=== PATIENT | female | born 1940 | race Caucasian/White ===

== ENCOUNTER 2019-07-02 08:34 | Outpatient (CLI) | payer MEDICARE, SELFPAY ==
--- NOTE | 2019-07-02 | ECHO_ITS ---
Patient Info Name: Alexus Ferrer Age: 79 years : 1940 Gender: Female Ht: 62 in Wt: 195 lbs BSA: 2.01 m2 HR: 59 bpm BP: 147 / 89 mmHg Heart Rhythm: Sinus Rhythm Technical Quality: Good Exam Date: 07/02/2019 9:14 AM Exam Location: [facility] Patient Status: Outpatient Admit Date: 07/02/2019 Staff Ordering Physician: Octavio Hwang MD Payroll Clerk: Joyce Garvey RDCS Attending Provider: Octavio Hwang MD Referring Physician: Jaiden MAJANO; Exam Type: CA echo doppler color flow Study Info Indications - hx/o breast ca chemo/radiation Complete two-dimensional, color flow and Doppler transthoracic echocardiogram is performed. Summary 1. Left ventricular chamber dimension is normal. 2. Left ventricular systolic function is normal, estimated at 60-65%. 3. Left atrial chamber dimension is mildly enlarged. 4. Trivial aortic mitral and tricuspid valve regurgitation. Left Ventricle Left ventricular chamber dimension is normal. Left ventricular systolic function is normal, estimated at 60-65%. The left ventricular diastolic function is normal. Right Ventricle Right ventricular chamber dimension is normal. Left Atria Left atrial chamber dimension is mildly enlarged. Right Atria Right atrial chamber dimension is normal. Aortic Valve The aortic valve is trileaflet. There is mild aortic valve sclerosis. There is trace aortic valve regurgitation. Pulmonic Valve The pulmonic valve is normal. There is trace pulmonic regurgitation. Mitral Valve The mitral valve has normal leaflets. There is trace mitral valve regurgitation. Tricuspid Valve The tricuspid valve leaflets are normal. Pericardium/Pleural The pericardium appears normal. Aorta The aortic root size at the sinus of Valsalva is normal. Left Ventricular Outflow Tract Name Value Normal LVOT 2D LVOT Diameter 2.0 cm LVOT Doppler LVOT Peak Gradient 5 mmHg LVOT Mean Gradient 2 mmHg LVOT VTI 25 cm LVOT VTI/AV VTI Ratio 0.8 LVOT Stroke Volume 75 ml LVOT CO 11.9 l/min LVOT CI 5.9 l/min/m2 Pulmonic Valve Name Value Normal PV Doppler PV Peak Gradient 3 mmHg Mitral Valve Name Value Normal MV Doppler MV Decel [place] 549 cm/s2 MV PHT 57 ms MV Area (PHT) 3.9 cm2 4.0-5.0 MV Diastolic Fu
== END 2019-07-02 08:35 | disposition home or self-care (01) ==
PROVIDERS: Visit Provider Internal Medicine Hematology & Oncology
DX: C50.812 Malignant neoplasm of overlapping sites of left female breast (principal); Z17.0 Estrogen receptor positive status [ER+]; I51.7 Cardiomegaly
CPT/HCPCS: 93306

== ENCOUNTER 2020-01-10 19:49 | Emergency (ER) | payer MEDICARE, SELFPAY ==
--- NOTE | ~2020-01-10 | CT_ITS ---
EXAMINATION: CT cervical spine wo con DATE: 01/10/2020 20:42 INDICATION: Fall. Head and neck injuries TECHNIQUE: Computed tomography (CT) of the cervical spine was performed without intravenous contrast. Automated exposure control and iterative reconstruction technique were employed. Exam dose: 422.66 mGy-cm total exam DLP. COMPARISON: None FINDINGS: C1 and C2 are normally aligned and the odontoid process is intact. No fracture or dislocation is evident. No prevertebral soft tissue swelling. There is approximately 1.4 mm anterolisthesis at C4-5. There is approximately 3 mm anterolisthesis at C7-T1. There is mild degenerative disc disease at C2-3, C3-4, moderate degenerative disc disease at C4-5. There is severe degenerative disease at C5-6 and C6-7. There are prominent erosive changes as well as joint space narrowing at the apophyseal joints of the cervical spine on the left. Erosive arthropathy should be considered. There is uncovertebral joint spurring at C3-4, C4-5, C5-6 and C6-7. IMPRESSION: Extensive degenerative changes of the cervical spine Erosive changes of the apophyseal joints of the left cervical spine; consider erosive arthropathy No fracture or dislocation or locked facet Reviewed, dictated and finalized at [facility]. Reviewed, dictated and finalized at [facility]. IMPRESSION: Extensive degenerative changes of the cervical spine Erosive changes of the apophyseal joints of the left cervical spine; consider e rosive arthropathy No fracture or dislocation or locked facet
--- NOTE | ~2020-01-10 | CT_ITS ---
EXAMINATION: CT brain wo con DATE: 01/10/2020 20:42 INDICATION: Fall. Head injury TECHNIQUE: Computed tomography (CT) of the head was performed without intravenous contrast. The mA wa s adjusted according to patient size. Iterative reconstruction technique was employed. Exam dose: 68 1.00 mGy-cm total exam DLP. COMPARISON: 05/03/2018 CT brain FINDINGS: There is bilateral vertebral artery calcification. Carotid siphon internal carotid artery c alcifications are noted. There is nonspecific diminished attenuation of the cerebral white matter, li marycruz due to chronic small vessel ischemic changes. Chronic left basal ganglia lacunar infarct. No intracranial mass lesion or hemorrhage or recent cerebrovascular accident is evident. There is no midline shift or mass effect. There is moderate cerebral atrophy. No subdural or epidural hematoma is detected. No fracture or bone destruction of the cranial vault is detected. There is minimal mucoperiosteal thi ckening along the lower medial wall of the right maxillary antrum. The paranasal sinuses and mastoid air cells are otherwise normally developed and aerated. No fracture or bone destruction of the cranial vault. IMPRESSION: Cerebral atherosclerosis and chronic small vessel ischemic changes of the cerebral white matter Chronic left basal ganglia lacunar infarct No acute intracranial finding or significant change since 05/03/2018 Reviewed, dictated and finalized at [facility]. Reviewed, dictated and finalized at [facility].
[2020-01-10 19:54] VITALS: BP 189/67; PULSE 58; RESP 20; TEMP 36.6; O2SAT 97
--- NOTE | 2020-01-10 20:02 | ECG_ITS ---
Measurements Intervals [place] Rate: 56 P: 69 NC: 209 QRS: 1 QRSD: 109 T: 43 QT: 444 QTc: 429 Interpretive Statements SINUS BRADYCARDIA DELAYED PRECORDIAL R/S TRANSITION BORDERLINE ST ABNORMALITY- LATERAL LEADS BASELINE WANDER- I, II, AVR, AVL, AVF, V1-V6 BORDERLINE ECG Electronically Signed On 01-11-2020 6:53:22 CDT by Alfonso Ascencio D.O.
[2020-01-10 20:10] LABS: Basophils Percent Auto 0.2 % (0.2-1.2); Hematocrit 42.4 % (37.0-47.0); Hemoglobin 14.2 g/dL (12.0-15.0); Immature Granulocyte Absolute 0.03 K/mm3 (0.00-0.031); Immature Granulocyte Percent A 0.3 % (0-0.5); Lymphocytes Absolute Auto 1.36 K/mm3 (0.9-3.2); Lymphocytes Percent Auto 14.7 % (18.3-44.2); Mean Corpuscular HGB Conc 33.5 g/dl (32-36); Mean Corpuscular Hemoglobin 29.5 pg (26-34); Mean Platelet Volume 9.5 fl (7.4-10.4); Monocytes Absolute Auto 0.5 K/mm3 (0.1-0.6); Monocytes Percent Auto 5.4 % (2.6-8.5); Neutrophils Absolute Auto 7.4 K/mm3 (1.3-6.7); Neutrophils Percent Auto 79.4 % (45.5-73.1); Platelet Count Result 165 k/mm3 (150-375); Red Blood Count 4.82 M/mm3 (4.2-5.4); Red Cell Distribution Width 13.2 % (11.5-14.5); White Blood Count 9.3 K/mm3 (4.5-10.0)
[2020-01-10 20:23] LABS: Alanine Aminotransferase 24 U/L (4-35); Albumin Level 4.3 g/dL (3.5-5.1); Alkaline Phosphatase 79 U/L (38-126); Anion Gap 10 mmol/L (8-16); Aspartate Amino Transferase 33 U/L (14-36); Bilirubin,Total 0.9 mg/dL (0.2-1.3); Blood Urea Nitrogen 17 mg/dL (7-17); Calcium 9.6 mg/dL (8.4-10.2); Carbon Dioxide 29 mmol/L (22-30); Chloride 95 mmol/L (98-107); Estimated Glomerular Filt Rate > 60; Glucose 200 mg/dL (65-105); Sodium 134 mmol/L (137-145)
[2020-01-10 21:19] LABS: Add Urine Microscopic? YES; Appearance Urine Clear (Clear); Bacteria Urine Trace /hpf; Bilirubin Urine Negative (Negative); Blood Urine 1+ (Negative); Color Urine Yellow (Yellow); Glucose Urine UA 3+ mg/dL (Negative); Ketones Urine 1+ mg/dL (Negative); Leukocyte Esterase Ur Trace LEU/UL (Negative); Mucus Urine Rare /lpf; Nitrate Urine Negative (Negative); Protein Urine 2+ mg/dL (Negative); RBC Urine 21-50 /hpf (0-2); Specific Grav Ur 1.017 (1.001-1.035); Squamous Epithelial Cell Urine Occasional /hpf (Few); Urobilinogen Urine Negative mg/dL (<2.0)
--- NOTE | 2020-01-10 21:30 | ED.FALL ---
HPI - Fall General Chief Complaint: Fall Stated Complaint: fall with head injury, dizziness Time Seen by Provider: 01/10/20 19:51 History of Present Illness HPI Narrative: Patient is an 79-year-old female who presents ER status post fall. She is doing laundry and turned when she lost her balance and fell forward onto her knees and struck her head on the ground. Denies loss of consciousness. Denies being on a blood thinner. She does report pain to her face and head. She arrives in a c-collar. Denies having any fevers or chills or sweats or burning urination. She has felt slightly weaker but unsure why. No chest pain or chest pressure prior to falling. Apparently the patient cannot get herself up and laid on the ground for 8 hours. Related Data Home Medications Medication Instructions Recorded Confirmed anastrozole 1 mg PO DAILY 02/15/19 12/17/19 Allergies Allergy/AdvReac Type Severity Reaction Status Date / Time metformin Allergy Mild GI upset Verified 12/17/19 11:29 sitagliptin Allergy Mild rhinitis Verified 12/17/19 11:29 amlodipine Allergy Unknown Constipatio Verified 12/17/19 11:29 n aspirin Allergy Unknown Ulcers Verified 12/17/19 11:29 lisinopril Allergy Unknown Cough Verified 12/17/19 11:29 losartan Allergy Unknown Wheezing Verified 12/17/19 11:29 Review of Systems Review of Systems: All systems reviewed & are unremarkable except as noted in HPI and below Constitutional: Constitutional: Denies chills, Denies fever(s) and Reports weakness ENT: Denies nasal congestion and Denies sore throat Cardiovascular: Cardiovascular: Denies chest pain and Denies radiating jaw, neck or arm pain Respiratory: Respiratory: Denies cough, Denies dyspnea and Denies wheezing Gastrointestinal: Gastrointestinal: Denies nausea and Denies vomiting Musculoskeletal: Musculoskeletal: Reports arthralgias, Denies joint swelling and Denies muscle cramps [facility] Past Medical History Medical History (Updated 01/11/20 @ 00:24 by Michael Saunders MD) Atrial fibrillation Diabetes type 2, controlled DVT (deep venous thrombosis) HER2-positive carcinoma of left breast (~01/2019) History of CHF (congestive heart failure) Hypertension Port-A-Cath in place Surgical History Surgical History (Updated 01/10/20 @ 21:34 by Michael Saunders MD) History of bilateral mastectomy History of cholecystectomy History of hysterectomy Family History Family History (Updated 11/12/18 @ 13:10 by DOCTOR UNKNOWN) Sibling Family history of glaucoma Mother Family history of diabetes mellitus in first degree relative Father Family history of Alzheimer's disease Other Asthma Carcinoma of colon Diabetes mellitus Family history of congestive heart failure Family history of lung cancer Social History Social History Smoking status: Never smoker Smoking end date: 05/05/1961 Alcohol intake: current Exam Narrative: Exam Narrative: GENERAL: Well-appearing, well-nourished, and in no acute distress. HEAD: Normocephalic, atraumatic. EYES: PERRL and EOMI. ENT: Mucous membranes moist. Abrasion to the nose and left cheek. NECK: C-spine immobilized without midline tenderness. CHEST: Clear to auscultation. No respiratory distress. HEART: Bradycardic and regular. Normal peripheral pulses. ABDOMEN: Soft, nontender, nondistended. EXTREMITIES: Normal range of motion. No edema. SKIN: Warm, dry, no rash. NEURO: Alert and oriented x3. Course Course Emergency Course: Patient up and ambulatory without issue. He is able to eat and drink. Hydrated. Mild UTI. Discharge home. Vital Signs Vital signs: Vital Signs Temperature 97.8 F 01/10/20 19:54 Pulse Rate 58 L 01/10/20 19:54 Respiratory Rate 01/10/20 19:54 Blood Pressure 189/67 H 01/10/20 19:54 Pulse Oximetry 97 01/10/20 19:54 Temperature 97.8 F 01/10/20 19:54 Pulse Rate 54 L 01/11/20 00:03 Respiratory Rate 01/11/20 00:03 Bl
[2020-01-10] MEDS: SODIUM CHLORIDE 0.9% IV 500 ML 999 ML IV CONT (21:45)
[2020-01-10 21:49] VITALS: BP 172/80; PULSE 58; RESP 18; O2SAT 97
[2020-01-10] MEDS: ONDANSETRON INJ 4 MG/2 ML VIAL IV PUSH (22:57)
[2020-01-10 22:59] VITALS: PULSE 55
--- NOTE | 2020-01-10 22:59 | PC.NURSE ---
edp INITALLY ORDER METOPROLO DOSE FOR PT HYPERTENSION. PT HR IN THE 50'S, VORB TO HOLD METOPOROL.
--- NOTE | 2020-01-11 00:01 | PC.NURSE ---
Pt able to keep water down w/o vomiting, EDP made aware.
[2020-01-11 00:03] VITALS: BP 174/67; PULSE 54; RESP 20; O2SAT 97
[2020-01-11] MEDS: NITROFURANTOIN MONOHYD MACROCR 100 MG CAP PO (00:52)
[2020-01-11 00:53] VITALS: BP 178/80; PULSE 60; RESP 18; TEMP 36.6; O2SAT 98
== END 2020-01-11 00:56 ==
PROVIDERS: Emergency Provider Emergency Medicine; PCP Family Medicine
DX: N39.0 Urinary tract infection, site not specified (principal); E86.0 Dehydration; I48.91 Unspecified atrial fibrillation; E11.9 Type 2 diabetes mellitus without complications; Z86.718 Personal history of other venous thrombosis and embolism; I11.0 Hypertensive heart disease with heart failure; I50.9 Heart failure, unspecified; Z79.84 Long term (current) use of oral hypoglycemic drugs; Z79.82 Long term (current) use of aspirin
CPT/HCPCS: 36415; 70450; 72125; 80053; 81001; 85025; 87077; 87086; 87088; 87186; 93005; 96374; 99284; A9270; J2405; J7040; L0140

== ENCOUNTER 2020-01-13 08:07 | Inpatient (IN) | payer MEDICARE, SELFPAY ==
[2020-01-13] VITALS (11 sets, daily range): BP systolic 100–199; BP diastolic 59–92; PULSE 55–88; RESP 17–25; TEMP 36.1–36.6; O2SAT 95–100; BMI 37.3
--- NOTE | ~2020-01-13 | CT_ITS ---
EXAMINATION: CT abdomen pelvis w con DATE: 01/13/2020 09:33 INDICATION: Abdominal pain, urinary retention TECHNIQUE: Computed tomography (CT) of the abdomen and pelvis was performed with 100 cc Omnipaque 350 intravenous contrast. Automated exposure control and iterative reconstruction technique were employe d. Exam dose: 1570.12 mGy-cm total exam DLP. COMPARISON: 06/17/2018 CT abdomen pelvis FINDINGS: There is minimal discoid atelectasis or scarring at the lung bases. Cardiomegaly. No pericardial or pleural effusion. Moderate sized hiatal hernia. Status post cholecystectomy. No hepatic, splenic, pancreatic, adrenal or renal space-occupying mass l esion is detected, other than very small upper pole left renal cyst and very small mid to upper right renal cyst. No bile duct or pancreatic duct dilatation. No urinary tract calculus or hydroureteronep hrosis. Infrarenal IVC filter is noted. There is extensive calcification of the abdominal aorta but no aneurysm. No intraperitoneal or retrop eritoneal or pelvic mass lesion or adenopathy or ascites. Status post hysterectomy. There is mild diffuse thickening of the urinary bladder wall but no surroun ding fat stranding. There are scattered diverticula of the sigmoid colon; no CT evidence of diverticulitis. No bowel obst ruction, bowel wall thickening, pneumatosis or intraperitoneal free air. Normal appendix. There is severe degenerative disc disease at L2-3 through L5-S1. Osteopenia. IMPRESSION: Cardiomegaly Moderate sized hiatal hernia Sigmoid diverticulosis; no evidence of diverticulitis Nonspecific mild thickening of the urinary bladder wall Infrarenal IVC filter Status post post cholecystectomy Status post hysterectomy Reviewed, dictated and finalized at [facility]. Reviewed, dictated and finalized at location [facility].
--- NOTE | ~2020-01-13 | MR_ITS ---
EXAMINATION: MR brain/brain stem wo/w con EXAM DATE: 01/13/2020 18:45 INDICATION: Weakness, dizziness. Fell. TECHNIQUE: Magnetic resonance imaging (MRI) of the brain/brain stem obtained without contrast. Sagit ace T1, axial diffusion, gradient echo (T2*), T1, T2, FLAIR sequences obtained. Patient was then inj ected with 18 cc intravenous Multihance contrast. Axial and coronal postcontrast T1 weighted sequence s obtained. Correlation is made to head CT same date. FINDINGS: There are 2 punctate acute infarctions in the cerebellar vermis, and 2 punctate acute infar ctions in the right side of the brainstem. No cerebral infarctions. Old left basal ganglia lacunar in farction. There are no areas of restricted diffusion to suggest acute infarction. There is no acute hemorrhage seen on the T2*, a hemosiderin sensitive sequence. No intraparenchymal brain mass lesion. There is moderate periventricular and subcortical T2/FLAIR signal hyperintensity, nonspecific but pr obably related to small vessel ischemic disease (microangiopathy). There is mild prominence of the sulci and ventricles related to cerebral atrophy. There are no extra-axial collections. Flow voids are seen in the cerebral arteries on the T2-weighted sequences consistent with their expected patenc y. The orbits are unremarkable. Soft tissue is unremarkable. There are no areas of abnormal enhanc ement on the postcontrast images. IMPRESSION: 1. 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 2. Chronic age related findings. 3. Old left basal ganglia lacunar infarction. Reviewed, dictated and finalized at location [facility].
--- NOTE | ~2020-01-13 | US_ITS ---
EXAMINATION: US carotid duplex BI EXAM DATE: 01/13/2020 16:48 INDICATION: Frequent falls. TECHNIQUE: Grayscale, color and pulsed Doppler images of the cervical carotid arteries were obtained . The degree of vessel stenosis is placed in one of the following categories: normal, <50% stenosis, 50-69% stenosis, >=70% stenosis but less than near-occlusion, near-occlusion, or occlusion. Note that percent stenosis relative to normal distal artery lumen diameter is indirectly measured from velocit y measurements as described by Erik, et al. Radiology 2003; 229:340-346. There is no prior study fo r comparison. FINDINGS: RIGHT SIDE: Right common carotid artery peak systolic velocity (PSV in cm/s): 50 Right bulb/internal carotid artery peak systolic velocity (PSV in cm/s): 97 Right internal carotid artery end diastolic velocity (EDV in cm/s): 18 Right ICA/CCA peak systolic ratio: 1.4 Right external carotid artery peak systolic velocity (PSV in cm/s): 90 Right vertebral artery antegrade flow: yes There is mild carotid bulb plaque. Velocity and Doppler waveforms in the common and internal carotid arteries is normal. LEFT SIDE: Left common carotid artery peak systolic velocity (PSV in cm/s): 86 Left bulb/internal carotid artery peak systolic velocity (PSV in cm/s): 74 Left internal carotid artery end diastolic velocity (EDV in cm/s): 17 Left ICA/CCA peak systolic ratio: Less than 1 Left external carotid artery peak systolic velocity (PSV in cm/s): 6c2 Left vertebral artery antegrade flow: Mild There is minimal carotid bulb plaque. Velocity and Doppler waveforms in the common and internal carotid arteries is normal. IMPRESSION: 1. Less than 50 percent stenosis in the right internal carotid artery. 2. Less than 50 percent stenosis in the left internal carotid artery. > Reviewed, dictated and finalized at location A.
--- NOTE | ~2020-01-13 | MR_ITS ---
EXAMINATION: MR thoracic spine wo/w con EXAM DATE: 01/13/2020 18:46 INDICATION: Weak this. Stroke. Fall. TECHNIQUE: Multi-sequential, multiplanar MR images of the thoracic spine were obtained without contra st. Sagittal T1, T2, T2 fat saturation, axial T2 weighted images reviewed. Axial T1 weighted sequenc e. Patient was then injected with 18 mL Multihance intravenous contrast and reimaged. Postcontrast axial and sagittal T1-weighted fat saturation sequences were obtained. FINDINGS: Study is limited due to patient motion. There is mild disc bulge at T6-7, along with promin ent amount of midthoracic epidural fat. The thoracic spinal cord does appear flattened at this T6-7 l evel, but without cord edema, no acute cord compression suspected. Difficult to quantify given the li mited axial images from motion, but thoracic spinal cord probably about half the AP diameter compared to above and below this level. Mild to moderate thoracic disc disease and facet arthropathy overall. There are no suspicious marrow signal abnormalities. There are no areas of abnormal enhancement on the post contrast images. IMPRESSION: 1. T6-7 mild disc bulge and prominent epidural fat causing some cord flattening without edema suspec aman, probably chronic. 2. Overall mild to moderate thoracic spondylosis. Reviewed, dictated and finalized at location A. IMPRESSION: 1. T6-7 mild disc bulge and prominent epidural fat causing some cord flattenin g without edema suspected, probably chronic. 2. Overall mild to moderate thoracic spondylosis.
--- NOTE | ~2020-01-13 | MR_ITS ---
EXAMINATION: MR cervical spine wo/w con EXAM DATE: 01/13/2020 18:45 INDICATION: Weakness. Fall today. Dizziness. TECHNIQUE: Multi-sequential, multiplanar MR images of the cervical spine were obtained without contra st. Axial T2, axial T2 MERGE sequence. Sagittal T1, T2, T2 fat saturation images also obtained. Axi al T1 weighted sequence. Patient was then injected with 18 mL Multihance intravenous contrast and re imaged. Postcontrast axial and sagittal T1-weighted fat saturation sequences were obtained. FINDINGS: Study is limited due to patient motion. There are no areas of abnormal enhancement on the post contrast images. There is moderate mid and lower cervical disc disease. There is 2 mm anterolis thesis C4 on C5 and C7 on T1. The spinal cord signal intensity and intrinsic morphology is normal. Ce rvicomedullary junction is normal in appearance. Evidence of advanced arthropathy causing multilevel neural foraminal stenosis. Level by level evaluation: Axial images significantly limited from patient motion, cannot confidently evaluate spondylosis. IMPRESSION: 1. Moderate to severe cervical spondylosis. 2. No cord compression or signal abnormality. Reviewed, dictated and finalized at location A.
--- NOTE | ~2020-01-13 | CT_ITS ---
EXAMINATION: CT brain wo con INDICATION: Weakness and dizziness COMPARISON: 01/10/2020 TECHNIQUE: Standard unenhanced head CT. The dose-length product (DLP) was 1570.12 mGy-cm. The mA was adjusted according to patient size. Iterative reconstruction technique was employed. FINDINGS: There is no acute intraparenchymal hemorrhage. No evidence of mass lesion. No evidence of a cute infarction. There are old lacunar infarcts in the left basal ganglia and left caudate. There is mild periventricular and subcortical hypodensity probably related to small vessel ischemic disease. T here is mild prominence of the sulci and ventricles related to cerebral atrophy. Intracranial calcifi ed cerebral atherosclerosis is noted. There are no extra-axial collections. There is no mass effect o r midline shift. Changes in the globes are likely from ocular lens surgery. The visualized sinuses a nd mastoid air cells are well aerated. IMPRESSION: 1. No acute intracranial abnormality. 2. Age related findings. Reviewed, dictated and finalized at location B.
--- NOTE | ~2020-01-13 | MR_ITS ---
EXAMINATION: MR lumbar spine wo/w con EXAM DATE: 01/13/2020 18:45 INDICATION: Weakness. Cerebellar, brainstem punctate strokes. TECHNIQUE: Multi-sequential, multiplanar MR images of the lumbar spine were obtained without contrast . Sagittal T1, T2, T2 fat saturation images. Axial T2 weighted images. Axial T1 weighted sequence. Patient was then injected with 18 mL Multihance intravenous contrast and reimaged. Postcontrast axi al and sagittal T1-weighted fat saturation sequences were obtained. FINDINGS: There are no areas of abnormal enhancement on the post contrast images. Artifact probably f rom IVC filter. There is moderate to severe disc disease at L3-4 and L4-5, moderate at L2-3 and L5-S1 . There is 3 mm anterolisthesis L5 on S1. The conus medullaris terminates at the L1/2 level and has n ormal signal intensity and morphology. There are no suspicious marrow signal abnormalities. Level by level evaluation: T12-L1: There is a mild to moderate diffuse disc bulge. Facet arthropathy: Mild. Neural foraminal stenosis: No stenosis. Central canal stenosis: No stenosis. L1-L2: There is a mild diffuse disc bulge. Facet arthropathy: Mild to moderate. Neural foraminal stenosis: No stenosis. Central canal stenosis: No stenosis. L2-L3: There is a mild to moderate diffuse disc bulge. Facet arthropathy: Mild to moderate. Neural foraminal stenosis: Mild to moderate right. Central canal stenosis: Mild. L3-L4: There is a mild to moderate diffuse disc bulge. Facet arthropathy: Mild to moderate. Neural foraminal stenosis: Moderate bilateral. Central canal stenosis: Mild to moderate. L4-L5: There is a mild to moderate diffuse disc bulge. Facet arthropathy: Mild to moderate . Ligamentum flavum enlargement . Neural foraminal stenosis: Moderate to severe left, mild to moderate right. Central canal stenosis: Moderate. L5-S1: There is a mild to moderate diffuse disc bulge. Facet arthropathy: Moderate. Neural foraminal stenosis: Moderate left, mild to moderate right. Central canal stenosis: Mild to moderate. IMPRESSION: Overall moderate to severe lumbar spondylosis as detailed above. No acute findings. Reviewed, dictated and finalized at location A.
--- NOTE | ~2020-01-13 | XR_ITS ---
EXAMINATION: XR chest 2V DATE: 01/13/2020 08:51 INDICATION: Weakness and dizziness TECHNIQUE: AP and lateral views of the chest are obtained. COMPARISON: 05/17/2019 FINDINGS: The lungs are free of acute opacities. There is no pleural effusion or pneumothorax. The ca rdiomediastinal silhouette is normal. There is moderate thoracic spondylosis. Advanced right glenohum eral osteoarthritis is noted. The left subclavian Port-A-Cath has been removed. A moderate-sized hiat al hernia is noted. IMPRESSION: 1. No acute cardiopulmonary abnormality. Reviewed, dictated and finalized at location B.
--- NOTE | ~2020-01-13 | CT_ITS ---
CT thoracic lumbar wo con DATE: 01/13/2020 09:33 INDICATION: Fall. Back pain. Lower abdominal pain. TECHNIQUE: Axial images were obtained through the thoracic and lumbar spine; sagittal and coronal rec onstructions. Exam dose: 1570.12 mGy-cm total exam DLP. COMPARISON: None FINDINGS: Diffuse osteopenia. There is mild levoscoliosis. There is severe degenerative disc disease at C5-6 and C6-7. There is approximately 2.5 mm anterolisthesis at C7-T1. There is degenerative spurring from C3-4 through the remainder of the thoracic spine. No thoracic spine fracture or bone destruction is evident. No fracture or bone destruction of the lumbar spine is noted. There is prominent posterior spurring at T12-L1. Posterior spurring is also noted at L2-3 through L5- S1. There is mild degenerative disease at L1-2. There is prominent degenerative disc disease at L2-3 through L5-S1, most severe at L3-4 and L4-5. There is degenerative change at the apophyseal joints of the lumbar and lumbosacral spine. The sacroiliac joints are intact. IVC filter. IMPRESSION: Degenerative changes of the cervical, thoracic and lumbar spine No thoracic or lumbar spine fracture is detected Reviewed, dictated and finalized at Location A. Reviewed, dictated and finalized at location A.
--- NOTE | 2020-01-13 08:06 | ED.WEAKNESS ---
HPI - Weakness General Chief complaint: Weakness Stated complaint: weakness, abd pain Source: patient and EMS Mode of arrival: EMS Limitations: no limitations History of Present Illness HPI Narrative: Patient is a 79-year-old female with a history of hypertension, recently diagnosed with a urinary tract infection who presents for evaluation of worsening weakness. Patient states that she had a fall on Friday was seen by our emergency department provider who diagnosed her with a slight urinary tract infection, patient was then discharged home. Patient then had follow-up with her primary care physician where she continued to feel slightly weak but was noted to have a normal neurological exam and was discharged back to [place] where the patient resides. Patient states that she typically is able to ambulate but is so weak she has been unable to ambulate. She is reporting lower abdominal pain. She has been taking her medication as prescribed. No fever, chills, nausea or vomiting. She denies dizziness or headache. She denies back pain. Patient denies numbness in her lower extremities. No difficulty with bowel movements. Per family, patient has had multiple falls over the last several weeks. Related Data Home Medications Medication Instructions Recorded Confirmed anastrozole 1 mg PO DAILY 02/15/19 01/12/20 Allergies Allergy/AdvReac Type Severity Reaction Status Date / Time metformin Allergy Mild GI upset Verified 01/13/20 08:13 sitagliptin Allergy Mild rhinitis Verified 01/13/20 08:13 amlodipine Allergy Unknown Constipatio Verified 01/13/20 08:13 n aspirin Allergy Unknown Ulcers Verified 01/13/20 08:13 lisinopril Allergy Unknown Cough Verified 01/13/20 08:13 losartan Allergy Unknown Wheezing Verified 01/13/20 08:13 Review of Systems Review of Systems: Narrative: CONSTITUTIONAL: Denies fever, chills, or sweats. EYES: Denies visual changes ENT: Denies rhinorrhea, congestion, sore throat, or otalgia. CARDIOVASCULAR: Denies chest pain, palpitations, or edema. RESPIRATORY: Denies cough or dyspnea. GASTROINTESTINAL: Reports lower abdominal pain, sharp in nature without nausea or vomiting GENITOURINARY: Denies dysuria or hematuria. SKIN: Denies rash or itching. MUSCULOSKELETAL: Denies back pain, joint pain, or myalgia. NEUROLOGIC: Denies headache, numbness, reports diffuse, nonfocal weakness mostly in her legs s [facility] [place] Past Medical History Medical History Atrial fibrillation Diabetes type 2, controlled DVT (deep venous thrombosis) HER2-positive carcinoma of left breast (~01/2019) History of CHF (congestive heart failure) Hypertension Port-A-Cath in place Surgical History Surgical History History of bilateral mastectomy History of cholecystectomy History of hysterectomy Family History Family History (Updated 11/12/18 @ 13:10 by DOCTOR UNKNOWN) Sibling Family history of glaucoma Mother Family history of diabetes mellitus in first degree relative Father Family history of Alzheimer's disease Other Asthma Carcinoma of colon Diabetes mellitus Family history of congestive heart failure Family history of lung cancer Social History Social History Smoking status: Never smoker Smoking end date: 05/05/1961 Alcohol intake: current Exam Narrative: Exam Narrative: GENERAL: Awake, alert, conversant HEAD: Normocephalic, atraumatic. EYES: PERRLA and EOMI. ENT: Nares clear, no rhinorrhea or epistaxis. Mucous membranes dry NECK: Supple. CHEST: No respiratory distress, breathing even and non labored HEART: Regular rate, sinus rhythm ABDOMEN:Non distended, mildly tender to palpation in the suprapubic area, bladder catheter actively draining 1 L of clear urine EXTREMITIES: Gross movement intact of the bilateral lower extremit
--- NOTE | 2020-01-13 08:11 | ECG_ITS ---
Measurements Intervals [place] Rate: 54 P: 59 DC: 197 QRS: -18 QRSD: 93 T: 56 QT: 386 QTc: 368 Interpretive Statements SINUS BRADYCARDIA BASELINE ARTIFACT- I, II, AVR, AVL, AVF, V3 BORDERLINE ECG Electronically Signed On 01-13-2020 8:26:48 CDT by Alfonso Ascencio D.O.
[2020-01-13 08:36] LABS: Add Urine Microscopic? YES; Appearance Urine Clear (Clear); Bilirubin Urine Negative (Negative); Blood Urine 1+ (Negative); Color Urine Yellow (Yellow); Glucose Urine UA 1+ mg/dL (Negative); Ketones Urine Trace mg/dL (Negative); Leukocyte Esterase Ur Negative LEU/UL (Negative); Mucus Urine Rare /lpf; Nitrate Urine Negative (Negative); Protein Urine Negative (Negative); RBC Urine 0-2 /hpf (0-2); Specific Grav Ur 1.011 (1.001-1.035); Urobilinogen Urine Negative mg/dL (<2.0); WBC Urine 0-3 /hpf
[2020-01-13 09:15] LABS: Basophils Percent Auto 0.5 % (0.2-1.2); Eosinophils Absolute Auto 0.1 K/mm3 (0-0.3); Eosinophils Percent Auto 0.8 % (0-4.4); Hematocrit 41.5 % (37.0-47.0); Hemoglobin 13.6 g/dL (12.0-15.0); Immature Granulocyte Absolute 0.13 K/mm3 (0.00-0.031); Immature Granulocyte Percent A 1.6 % (0-0.5); Lymphocytes Absolute Auto 1.73 K/mm3 (0.9-3.2); Lymphocytes Percent Auto 20.7 % (18.3-44.2); Mean Corpuscular HGB Conc 32.8 g/dl (32-36); Mean Corpuscular Hemoglobin 28.9 pg (26-34); Mean Corpuscular Volume 88.1 fl (80-100); Monocytes Absolute Auto 0.8 K/mm3 (0.1-0.6); Neutrophils Absolute Auto 5.6 K/mm3 (1.3-6.7); Neutrophils Percent Auto 67.4 % (45.5-73.1); Platelet Count Result 169 k/mm3 (150-375); Red Blood Count 4.71 M/mm3 (4.2-5.4); Red Cell Distribution Width 13.1 % (11.5-14.5); White Blood Count 8.4 K/mm3 (4.5-10.0)
[2020-01-13 09:23] LABS: Estimated CRCL calculation 57 ml/min; Estimated Glomerular Filt Rate > 60
[2020-01-13 09:31] LABS: Alanine Aminotransferase 23 U/L (4-35); Albumin Level 3.7 g/dL (3.5-5.1); Alkaline Phosphatase 66 U/L (38-126); Anion Gap 7 mmol/L (8-16); Aspartate Amino Transferase 37 U/L (14-36); Bilirubin,Total 1.1 mg/dL (0.2-1.3); Blood Urea Nitrogen 18 mg/dL (7-17); Calcium 8.8 mg/dL (8.4-10.2); Carbon Dioxide 30 mmol/L (22-30); Chloride 100 mmol/L (98-107); Estimated CRCL calculation 66 ml/min; Estimated Glomerular Filt Rate > 60; Glucose 183 mg/dL (65-105); Potassium 3.7 mmol/L (3.4-5.0); Sodium 137 mmol/L (137-145)
[2020-01-13 09:32] LABS: Creatine Kinase 94 U/L (30-135)
--- NOTE | 2020-01-13 09:33 | PC.NURSE ---
UPON ROUNDING ON PT, PT IN RADIOLOGY. WILL CHECK ON PT UPON HER RETURN.
--- NOTE | 2020-01-13 11:04 | PC.NURSE ---
PT REPORT TO SHORTY CABRERA AT THIS TIME, HE HAS ASSUMED PT CARE.
--- NOTE | 2020-01-13 12:52 | PC.NURSE ---
Spoke with EDP regarding pt hypertension. EDP states pt is ok to go to 2nd floor with her current blood pressure. Anne from 2nd floor notified.
--- NOTE | 2020-01-13 13:14 | ADMGEN ---
This patient, Alexus Ferrer, was admitted to 2 Medical Room 249-01. Patient/family oriented to hospital policies and general routines including ID bracelet, bed and alarms, visiting hours, pain management, procedures, bathroom and other care routines, personal items, smoking policy, room service/diet, and visiting hours. Valuables list has been completed. Information on how to activate the Rapid Response Team has been discussed. Patient/Family are encouraged to report perceived risks to care and to ask questions if they do not understand what they are told or what they should do.
--- NOTE | 2020-01-13 15:46 | PM.IMHP ---
H&P: HPI History of Present Illness Date/Time: 01/13/20 15:46 Chief complaint: lower leg weakness Narrative: Alexus Ferrer is a 79 year old female The patient has a history of having difficulty ambulating. The patient tends to leaned towards her right side. The patient was seen here in the emergency room this past Friday after she had a fall she was doing her laundry and she turned when she lost her balance and fell forward on her knees and struck her head on the ground. She has abrasions to the left side of her face but stated that her neck and right shoulder hurt. She is not on any blood thinners but currently has a DVT to the left popliteal area and has an IVC filter. Patient stated that she felt very weak. She was diagnosed with urinary tract infection and prescribed Macrobid. The patient did not start her antibiotics as of yet. On Friday the patient could not get herself up and laid on the ground for 8 hours. Patient was sent home on Friday the diagnosis of UTI and dehydration. She lives at [facility]. She did follow-up with her primary care doctor Dr. Araujo yesterday. Is noted that she had a CT scan of the brain and the C-spine on Friday and it was normal or labs were unremarkable. The patient has been complaining of dizziness with head change. Relieved by sitting still. The patient has had recurrent falls about 5 times the last month. Usually occurs when she is walking and he also noted that she is prone to walk on to the right which is been at on going problem for at least more than a year. She denies losing any consciousness when she falls. The patient came back to ER today because she was too weak to be able to ambulate. She is also reporting some lower abdominal pain. Her head CT today showed no acute intracranial abnormalities in age-related findings. Chest x-ray no acute cardiopulmonary abnormalities here. Abdominal pelvis CT impression was read as cardiomegaly. Moderate size hiatal hernia. Nonspecific mild thickening of the urinary bladder wall. Infrarenal IVC filter. Status post cholecystectomy. Status post hysterectmy. MRI of the spine neck and cervical spine as well as brain have been ordered for tomorrow. Neurology has been consulted. PT and OT have been ordered. The patient was given Tylenol and Zofran in the emergency room. Date of service 01/13/2020 Review of Systems Review of Systems: All systems reviewed & are unremarkable except as noted in HPI and below Constitutional: Constitutional: Reports as per HPI and Reports no additional constitutional complaints Eyes: Eyes: Reports as per HPI and Reports no additional eye complaints ENT: Reports system reviewed and no additional complaints, except as documented and Reports Normal hearing present Cardiovascular: Cardiovascular: Reports no additional cardiovascular complaints Respiratory: Respiratory: Reports no additional respiratory complaints and Reports no additional respiratory complaints Gastrointestinal: Gastrointestinal: Reports as per HPI and Reports no additional gastrointestinal complaints Musculoskeletal: Musculoskeletal: Reports no additional musculoskeletal complaints Integumentary/Breasts: Skin/Breast: Reports system reviewed and no additional complaints, except as docu and Reports as per HPI Neurologic: Reports system reviewed and no additional complaints, except as documented, Reports as per HPI and Reports Normal hearing present Psychiatric: Psychiatric: Reports no additional psychiatric complaints and Reports as per HPI Endocrine: Endocrine: Reports no additional endocrine complaints Hematologic/Lymphatic: Hematologic/Lymphatic: Reports no additional hematologic/lymphatic complaints Allergic/Immunologic: Allergic/Immunologic: Reports no additional allergic/immunologic complaints [facility] Past Medical History Medical History (Updated 01/13/20 @ 15:56 by Melissa Whiteside NP) Atrial fibrillation [place]
[2020-01-13 16:37] LABS: Hemoglobin A1C 7.1 % (<5.7)
--- NOTE | 2020-01-13 16:59 | PC.NURSE ---
1650- To MRI per stretcher.
--- NOTE | 2020-01-13 18:48 | PC.NURSE ---
Return from ER per stretcher.
[2020-01-13] MEDS: DOCUSATE SODIUM 100 MG CAPSULE PO (19:04)
[2020-01-13] MEDS: dilTIAZem HCL CD 180 MG CAP.ER.24H PO (19:04)
[2020-01-13] MEDS: PANTOPRAZOLE 40 MG TABLET PO (19:04)
[2020-01-13] MEDS: MECLIZINE HCL 6.25 MG TABLET PO (19:04)
[2020-01-13] MEDS: ACETAMINOPHEN 325 MG TABLET 650 MG PO (19:05)
[2020-01-13] MEDS: METOPROLOL TARTRATE 50 MG TAB PO (20:18)
[2020-01-13 23:00] LABS: Glucose Point of Care 244 (65-105)
[2020-01-14] VITALS (12 sets, daily range): BP systolic 121–186; BP diastolic 52–92; PULSE 49–61; RESP 18–22; TEMP 36.2–37.1; O2SAT 97–100
--- NOTE | 2020-01-14 | ECHO_ITS ---
Patient Info Name: Alexus Ferrer Age: 79 years : 1940 Gender: Female Ht: 62 in Wt: 204 lbs BSA: 2.06 m2 HR: 48 bpm BP: 155 / 80 mmHg Technical Quality: Good Exam Date: 01/14/2020 1:19 PM Exam Location: [facility] Pulmonary Exam Room: 249 Patient Status: Inpatient Admit Date: 01/14/2020 Staff Ordering Physician: Devante Manley PA-C Bread Supervisor: Joyce Garvey RDCS Attending Provider: Devante Manley PA-C Referring Physician: Vineet RUDOLPH; Exam Type: CA echo dop bubble study w con Study Info Indications - afib acute brain stem infarct Complete two-dimensional, color flow and Doppler transthoracic echocardiogram is performed with agitated saline. Summary 1. Left ventricular chamber dimension is normal. 2. Left ventricular systolic function is normal, estimated at 60-65%. 3. There is mildly increased left ventricular wall thickness. 4. The left ventricular diastolic function is grade I diastolic dysfunction. 5. E/e' 15 is elevated. 6. Left atrial chamber dimension is mildly enlarged. 7. There is mild aortic valve sclerosis. 8. There is trace aortic valve regurgitation. 9. The mitral valve has moderately calcified annulus. 10. There is trace mitral valve regurgitation. 11. No pulmonary hypertension, estimated pulmonary arterial systolic pressure is 23 mmHg. 12. Small atheroma in posterior aortic root. Left Ventricle E/e' 15 is elevated. Left ventricular chamber dimension is normal. Left ventricular systolic function is normal, estimated at 60-65%. There is mildly increased left ventricular wall thickness. The left ventricular diastolic function is grade I diastolic dysfunction. Right Ventricle Right ventricular chamber dimension is normal. Right ventricular systolic function is normal. Left Atria Left atrial chamber dimension is mildly enlarged. Right Atria Right atrial chamber dimension is normal. Atrial Septum Agitated saline injection opacified right sided cardiac chambers with and without valsalva manuerver without shunt to left sided cardiac chambers. Intact interatrial septum visualized by agitated saline imaging. Aortic Valve The aortic valve is trileaflet. There is mild aortic valve sclerosis. There is no aortic valve stenosis. There is trace aortic valve regurgitation. Pulmonic Valve There is no pulmonic regurgitation. Mitral Valve The mitral valve has moderately calcified annulus. There is no mitral valve stenosis. There is trace mitral valve regurgitation. Tricuspid Valve There is no tricuspid valve regurgitation. No pulmonary hypertension, estimated pulmonary arterial systolic pressure is 23 mmHg. Pericardium/Pleural There is no pericardial effusion. Inferior Vena Cava Normal inferior vena cava with >50% collapse upon inspiration consistent with normal right atrial pressure, 5 mmHg. Aorta Small atheroma in posterior aortic root. The aortic root size at the sinus of Valsalva is normal. Left Ventricular Outflow Tract Name Value Normal LVOT 2D LVOT Diameter 2.0 cm LVOT Doppler LVOT Peak Gradient 4 mmHg
[2020-01-14 05:01] LABS: Basophils Percent Auto 0.5 % (0.2-1.2); Eosinophils Absolute Auto 0.2 K/mm3 (0-0.3); Eosinophils Percent Auto 2.6 % (0-4.4); Hematocrit 42.1 % (37.0-47.0); Hemoglobin 13.9 g/dL (12.0-15.0); Immature Granulocyte Absolute 0.02 K/mm3 (0.00-0.031); Immature Granulocyte Percent A 0.3 % (0-0.5); Lymphocytes Absolute Auto 1.92 K/mm3 (0.9-3.2); Mean Corpuscular Hemoglobin 29.2 pg (26-34); Mean Corpuscular Volume 88.4 fl (80-100); Mean Platelet Volume 9.7 fl (7.4-10.4); Monocytes Absolute Auto 0.8 K/mm3 (0.1-0.6); Monocytes Percent Auto 9.6 % (2.6-8.5); Platelet Count Result 168 k/mm3 (150-375); Red Blood Count 4.76 M/mm3 (4.2-5.4)
[2020-01-14 05:27] LABS: Alanine Aminotransferase 21 U/L (4-35); Albumin Level 3.6 g/dL (3.5-5.1); Alkaline Phosphatase 69 U/L (38-126); Anion Gap 6 mmol/L (8-16); Aspartate Amino Transferase 26 U/L (14-36); Bilirubin,Total 0.9 mg/dL (0.2-1.3); Blood Urea Nitrogen 11 mg/dL (7-17); Calcium 8.9 mg/dL (8.4-10.2); Carbon Dioxide 28 mmol/L (22-30); Chloride 100 mmol/L (98-107); Estimated CRCL calculation 66 ml/min; Estimated Glomerular Filt Rate > 60; Glucose 172 mg/dL (65-105); Magnesium 1.9 mg/dL (1.6-2.3); Potassium 3.6 mmol/L (3.4-5.0); Sodium 134 mmol/L (137-145)
[2020-01-14 07:35] LABS: Glucose Point of Care 142 (65-105)
[2020-01-14] MEDS: MECLIZINE HCL 6.25 MG TABLET PO ×3 (08:05→16:19)
[2020-01-14] MEDS: POTASSIUM CHLORIDE 20 MEQ TABLET PO (08:05)
[2020-01-14] MEDS: METOPROLOL TARTRATE 50 MG TAB PO (08:06)
[2020-01-14] MEDS: ANASTROZOLE (*CHEMO) 1 MG TABLET PO (08:06)
[2020-01-14] MEDS: PANTOPRAZOLE 40 MG TABLET PO ×2 (08:06→16:19)
[2020-01-14] MEDS: dilTIAZem HCL CD 180 MG CAP.ER.24H PO (08:07)
[2020-01-14] MEDS: DOCUSATE SODIUM 100 MG CAPSULE PO ×2 (08:07→16:18)
--- NOTE | 2020-01-14 08:25 | PC.NURSE ---
Clarified Macrobid with patient. Patient stated she had Macrobid picked up on Friday01/12/2020 and started on 01/13/2020. She only took two doses (one day) of antibiotics so she will have 6 days total left of this treatment.
[2020-01-14] MEDS: NITROFURANTOIN MONOHYD MACROCR 100 MG CAP PO ×2 (10:51→20:22)
[2020-01-14 11:38] LABS: Glucose Point of Care 211 (65-105)
[2020-01-14] MEDS: INSULIN ASPART (*BKC) 100 UNITS/ML SUB-Q (11:40)
--- NOTE | 2020-01-14 12:32 | PM.IMPN ---
Progress Note: A&P Assessment and Plan (1) CVA (cerebral vascular accident): Code(s): I63.9 - Cerebral infarction, unspecified Status: Acute Assessment and Plan: Punctate acute cerebellar vermis and right-sided brainstem infarctions noted on Brain MRI yesterday. Discussed with Dr. Patino who will be visiting patient today. Patient has a history of gastric ulcers so will defer antiplatelet therapy to Neurology. Patient on anastrozole for breast cancer. Echo performed in 06/2019 which was relatively unremarkable. Son states he has seen interval improvement overnight with her symptoms, although still has deficits/incoordination noted on exam. Orthostatics negative last night Will await further rec from Dr. Patino PT/OT for now Will hold anastrozole as there is risk for stroke Monitor closely CC following and will be looking for placement for SNF Will obtain limited Echo with bubble study (2) Bilateral leg weakness: Code(s): R29.898 - Other symptoms and signs involving the musculoskeletal system Status: Acute Assessment and Plan: Possibly related to chronic spondylosis findings on MRI of spine. Dr. Patino following and appreciate recommendations. Continue PT/OT Meclizine for vertigo Likely SNF upon discharge (3) Diabetes type 2, controlled: Code(s): E11.9 - Type 2 diabetes mellitus without complications Status: Acute Assessment and Plan: A1c 7.1. Accuchecks ACHS, hypoglycemia protocol, correctional insulin, HH diet Monitor Will likely need to be placed back on medication at some point or will need to be monitored closely if diet controlled; follow up with PCP (4) Atrial fibrillation: Code(s): I48.91 - Unspecified atrial fibrillation Status: Chronic Assessment and Plan: HR today is in high 40s-50s predominantly. Sinus rhythm with PVCs and PACs noted. Rate controlled with metoprolol and diltiazem. No a/c; she would be at high risk for bleed given previous GI bleed, frequent falls, and advanced age. Will decrease metoprolol to 37.5 mg Q12 for now Continue home diltiazem Monitor and adjust as appropriate (5) Hypertension: Code(s): I10 - Essential (primary) hypertension Status: Chronic Assessment and Plan: BP 150s today. Given acute brain/brainstem infarcts, will allow for permissive HTN Continue with diltiazem Metoprolol 37.5 mg Q12 as above Monitor (6) Recurrent falls: Code(s): R29.6 - Repeated falls Status: Acute Assessment and Plan: recruiter coordinator consult placed for possible rehab placement. (7) HER2-positive carcinoma of left breast: Onset Date: ~01/2019 Code(s): C50.912 - Malignant neoplasm of unspecified site of left female breast Status: Acute Assessment and Plan: She has had a history of bilateral mastectomy with lymph node extraction she has completed her chemoradiation Will hold anastrozole given risk for stroke. Will need f/u with oncologist as outpatient Subjective Date/time seen: 01/14/20 12:32 Interval history: Patient is a 79 yo F with history of A. fib (rate controlled, no a/c, has IVC filter), DMII, HTN, previous DVT, and HER2-positive Ca of left breast (status post b/l mastectomy, chemoradation, now on anastrozole) who is here for evaluation for weakness, uncoordination, and now recently found punctate acute infarctions found on Brain/brainstem MRI. Patient is feeling okay today. Son is in rooms stating she is overall improving and closer to her baseline. She states she has head and neck pain she is associating with her recent fall earlier this week. She still has double vision since her fall
--- NOTE | 2020-01-14 12:44 | WPDNEURCNPN ---
Assessment and Plan Additional Plan considering that she has undergone MRI of the cervical spine which has revealed cervical spondylosis normal cervical medullary junction with advanced arthropathy, mild cord flattening at T6 and 7 without edema and lumbar MRI revealing mild to moderate central canal stenosis at L3-4 and L4-5 as well as L5-S1 also MRI of the brain showing acute cerebellar vermis and right-sided brainstem stroke with old left basal gangliar infarct. All these abnormalities are responsible for the gait dysfunction and weakness she will not benefit from the cervical surgery but if he continues to have gait dysfunction with ongoing complain in the lower extremities she will need a follow-up for the lower spine abnormalities. Her course could very well be complicated by diabetic neuropathy Consult date: 01/14/20 Time Seen: 12:15 HPI: Alexus Ferrer is a 79 year old femaleAdmitted to the hospital for the complaints of lower extremity weakness with leaning towards the right side patient had been seen in the emergency room a week before subsequent to fall while doing her laundry and turning losing the balance from that fall she sustained the abrasion to the left side of her face and developed neck and right shoulder pain she is not any blood thinner medications but has a DVT to the left popliteal area and is on IVC filter recently she was diagnosed to have urinary tract infection and was prescribed macro bed though she has not restarted the antibiotic until she came to the emergency room she had difficulties in getting off the boat floor and laid there for 8 hours he had a CT scan of the brain and cervical spine on Friday which were reportedly normal he has had recurrent falls at least 5 times over the last 4 weeks she has never become unconscious on this visit she was also complaining of lower abdominal discomfort for which CT scan of the abdomen was done she was found to have only cardiomegaly with moderate size hiatal hernia infrarenal IVC filter changes compatible with hysterectomy and cholecystectomy. In the past she has been documented to have atrial fibrillation paroxysmal in nature along with the history of carcinoma of the left breast congestive heart failure Port-A-Cath in place nonfunctioning x2 and removed Review of Systems Review of Systems: All systems reviewed & are unremarkable except as noted in HPI and below [facility] Past Medical History Medical History (Updated 01/14/20 @ 12:50 by Devante Manley PA-C) Atrial fibrillation Paroxysmal Diabetes type 2, controlled DVT (deep venous thrombosis) Left leg HER2-positive carcinoma of left breast (~01/2019) History of CHF (congestive heart failure) Hypertension Port-A-Cath in place nonfunctioning x2 in removed. Surgical History Surgical History (Updated 01/13/20 @ 15:56 by Melissa Whiteside NP) History of bilateral mastectomy With chemotherapy that ended approximately 1 and half years ago. And radiation to the left side. History of cholecystectomy History of hysterectomy History of removal of Port-a-Cath x2 Family History Family History Sibling Family history of glaucoma Mother Family history of diabetes mellitus in first degree relative Father Family history of Alzheimer's disease Other Asthma Carcinoma of colon Diabetes mellitus Family history of congestive heart failure Family history of lung cancer Social History Social History (Updated 01/13/20 @ 15:59 by Melissa Whiteside NP) Social History: the patient tells me that she has had 5 children. She is . 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 She is a full code. She drinks a glass a wine at night. No illicit drugs. No marijuana. Her son is the durable power clay mine cutting machine operator for healthcare. She is a former smoker. She smoked for a short period of time and quit in the 60s. Smoking packs per day: 0.5 Smoking cigarettes per da
[2020-01-14 16:26] LABS: Glucose Point of Care 165 (65-105)
[2020-01-14] MEDS: METOPROLOL TARTRATE 12.5 MG TABLET 37.5 MG PO (20:21)
[2020-01-14 21:42] LABS: Glucose Point of Care 207 (65-105)
[2020-01-15] VITALS (11 sets, daily range): BP systolic 130–169; BP diastolic 57–92; PULSE 47–78; RESP 18–20; TEMP 36.5–36.8; O2SAT 96–99
[2020-01-15 06:59] LABS: Anion Gap 6 mmol/L (8-16); Blood Urea Nitrogen 17 mg/dL (7-17); Calcium 8.9 mg/dL (8.4-10.2); Carbon Dioxide 30 mmol/L (22-30); Chloride 98 mmol/L (98-107); Estimated CRCL calculation 51 ml/min; Estimated Glomerular Filt Rate > 60; Glucose 176 mg/dL (65-105); Magnesium 1.9 mg/dL (1.6-2.3); Potassium 3.5 mmol/L (3.4-5.0); Sodium 134 mmol/L (137-145)
[2020-01-15 08:31] LABS: Glucose Point of Care 163 (65-105)
[2020-01-15] MEDS: MECLIZINE HCL 6.25 MG TABLET PO (08:32)
[2020-01-15] MEDS: METOPROLOL TARTRATE 12.5 MG TABLET 37.5 MG PO (08:32)
[2020-01-15] MEDS: DOCUSATE SODIUM 100 MG CAPSULE PO ×2 (08:33→17:26)
[2020-01-15] MEDS: PANTOPRAZOLE 40 MG TABLET PO ×2 (08:33→17:26)
[2020-01-15] MEDS: dilTIAZem HCL CD 180 MG CAP.ER.24H PO (08:33)
[2020-01-15] MEDS: NITROFURANTOIN MONOHYD MACROCR 100 MG CAP PO ×2 (08:33→20:26)
--- NOTE | 2020-01-15 11:24 | PM.IMPN ---
Progress Note: A&P Assessment and Plan (1) CVA (cerebral vascular accident): Code(s): I63.9 - Cerebral infarction, unspecified Status: Acute Assessment and Plan: Punctate acute cerebellar vermis and right-sided brainstem infarctions noted on Brain MRI during stay. Discussed with Dr. Patino; patient has a history of gastric ulcers so will defer antiplatelet therapy to Neurology. Patient on anastrozole for breast cancer. Echo shows normal EF, no thrombus, no intracardiac shunting. Will await further rec from Dr. Patino PT/OT for now Will hold anastrozole as there is risk for stroke Monitor closely CC following and will be looking for placement for SNF Increase meclizine to help with vertigo (2) Bilateral leg weakness: Code(s): R29.898 - Other symptoms and signs involving the musculoskeletal system Status: Acute Assessment and Plan: Possibly related to chronic spondylosis findings on MRI of spine. Dr. Patino following and appreciate recommendations. Continue PT/OT Likely SNF upon discharge (3) Diabetes type 2, controlled: Code(s): E11.9 - Type 2 diabetes mellitus without complications Status: Acute Assessment and Plan: A1c 7.1. Accuchecks ACHS, hypoglycemia protocol, correctional insulin, HH diet Monitor Will likely need to be placed back on medication at some point or will need to be monitored closely if diet controlled; follow up with PCP (4) Atrial fibrillation: Code(s): I48.91 - Unspecified atrial fibrillation Status: Chronic Assessment and Plan: HR today is in predominantly in 40s-50s. Sinus rhythm with PVCs and PACs noted. Rate controlled with metoprolol and diltiazem. No a/c; she would be at high risk for bleed given previous GI bleed, frequent falls, and advanced age. Will decrease metoprolol to 25 mg Q12 for now Continue home diltiazem Monitor and adjust as appropriate (5) Hypertension: Code(s): I10 - Essential (primary) hypertension Status: Chronic Assessment and Plan: BP 130s today, although as high as 180s sys yesterday. Given acute brain/brainstem infarcts, will allow for permissive HTN Continue with diltiazem Metoprolol 25 mg Q12 as above Monitor (6) Recurrent falls: Code(s): R29.6 - Repeated falls Status: Acute Assessment and Plan: resource coordinator consult placed for possible rehab placement. (7) HER2-positive carcinoma of left breast: Onset Date: ~01/2019 Code(s): C50.912 - Malignant neoplasm of unspecified site of left female breast Status: Acute Assessment and Plan: She has had a history of bilateral mastectomy with lymph node extraction she has completed her chemoradiation Will hold anastrozole given risk for stroke. Will need f/u with oncologist as outpatient Subjective Date/time seen: 01/15/20 11:24 Interval history: Patient is a 79 yo F with history of A. fib (rate controlled, no a/c, has IVC filter), DMII, HTN, previous DVT, and HER2-positive Ca of left breast (status post b/l mastectomy, chemoradation, now on anastrozole) who is here for evaluation for weakness, uncoordination likely due to acute punctate CVAs Brain/brainstem MRI. Patient is feeling wore out this morning. She still has vertigo, slight nausea, and double vision. She still notes bloating/belching, but has been having BMs since admission. Otherwise no other complaints. Denies f/c/s, cp/palpitations, sob/cough, n/v/d/c, abd pain, changes in BMs, dysuria, hematuria, calf pain/swelling. Review of Systems Review of Systems: All systems reviewed & are unremarkable except as noted in HPI and below Exam Narrative: Exam N
[2020-01-15 12:16] LABS: Glucose Point of Care 205 (65-105)
[2020-01-15] MEDS: INSULIN ASPART (*BKC) 100 UNITS/ML SUB-Q (12:46)
[2020-01-15] MEDS: SIMETHICONE 80 MG TAB.CHEW PO ×3 (12:48→20:26)
[2020-01-15] MEDS: MECLIZINE HCL 12.5 MG TABLET PO ×2 (12:48→18:28)
--- NOTE | 2020-01-15 13:13 | WPDNEUROPN ---
Objective Data Vital Signs Vital Signs: Vital Signs - 24 hr 01/14/20 14:00 01/14/20 16:00 01/14/20 20:00 Temperature 37.1 C Pulse Rate 56 L 61 57 L Respiratory Rate 18 Blood Pressure 143/66 H Pulse Oximetry 97 01/14/20 20:21 01/14/20 22:00 01/15/20 00:00 Temperature 36.3 C L Pulse Rate 58 L 60 48 L Respiratory Rate 18 Blood Pressure 161/78 H Pulse Oximetry 99 01/15/20 04:00 01/15/20 06:00 01/15/20 08:32 Temperature 36.8 C Pulse Rate 47 L 56 L 57 L Respiratory Rate 18 Blood Pressure 137/57 L Pulse Oximetry 96 01/15/20 12:00 Temperature Pulse Rate 78 Respiratory Rate Blood Pressure 130/92 H Pulse Oximetry Intake/Output Intake/Output: Intake & Output 01/12/20 01/13/20 01/14/20 01/15/20 23:59 23:59 23:59 23:59 Intake Total 540 2020 440 Output Total 350 1300 Balance 190 720 440 Meds/Results Medications: Active Medications Generic Name Dose Route Start Last Admin Trade Name Freq PRN Reason Stop Dose Admin Acetaminophen 650 mg 01/13/20 11:30 01/13/20 19:05 Tylenol Tablet PO 650 mg Q4H PRN Administration Mild Pain (1-3) or Fever Anastrozole 1 mg 01/14/20 09:00 01/14/20 08:06 Arimidex PO 02/13/20 09:01 1 mg DAILY EILEEN Administration Dextrose 12.5 gm 01/13/20 16:04 Dextrose 50% Syringe IV PUSH PRN PRN Hypoglycemia Protocol Diltiazem HCl 180 mg 01/13/20 16:15 01/15/20 08:33 Cardizem Cd PO 180 mg DAILY EILEEN Administration Docusate Sodium 100 mg 01/13/20 17:00 01/15/20 08:33 Colace Capsule PO 100 mg BID EILEEN Administration Glucagon 1 mg 01/13/20 16:04 Glucagon For Inj IM PRN PRN Hypoglycemia Protocol Glucose 15 gm 01/13/20 16:04 Glutose 15 PO PRN PRN Hypoglycemia Protocol Dextrose 1,000 mls @ 100 mls/hr 01/13/20 16:04 Dextrose 5% 1,000 Ml IVPB PRN PRN Hypoglycemia Protocol Insulin Aspart 2 - 5 units 01/13/20 17:00 01/15/20 12:46 Novolog SUB-Q 2 units TIDWM EILEEN Administration Protocol Meclizine HCl 12.5 mg 01/15/20 13:00 01/15/20 12:48 Antivert PO 12.5 mg TID EILEEN Administration Metoprolol Tartrate 25 mg 01/15/20 21:00 Lopressor PO Q12HR EILEEN Nitrofurantoin Macrocrystals 100 mg 01/14/20 09:00 01/15/20 08:33 Macrobid PO 01/19/20 21:01 100 mg Q12H EILEEN Administration Ondansetron HCl 4 mg 01/13/20 11:30 Zofran Inj IV PUSH Q4H PRN Nausea Pantoprazole Sodium 40 mg 01/13/20 17:00 01/15/20 08:33 Protonix PO 40 mg BID EILEEN Administration Simethicone 80 mg 01/15/20 13:00 01/15/20 12:48 Mylicon PO 80 mg QID EILEEN Administration Radiology Results: ITS Impressions Chest X-Ray 01/13/20 08:57 IMPRESSION: 1. No acute cardiopulmonary abnormality. Head CT 01/13/20 09:43 IMPRESSION: 1. No acute intracranial abnormality. 2. Age related findings. Abdomen/Pelvis CT 01/13/20 09:47 IMPRESSION: Cardiomegaly Moderate sized hiatal hernia Sigmoid diverticulosis; no evidence of diverticulitis Nonspecific mild thickening of the urinary bladder wall Infrarenal IVC filter Status post post cholecystectomy Status post hysterectomy Thoracic/Lumbar Spine CT 01/13/20 09:59 IMPRESSION: Degenerative changes of the cervical, thoracic and lumbar spine No thoracic or lumbar spine fracture is detected Carotid Doppler Study 01/13/20 17:12 IMPRESSION: 1. Less than 50 percent stenosis in the right internal carotid artery. 2. Less than 50 percent stenosis in the left internal carotid artery. > Brain MRI 01/13/20 18:58 IMPRESSION: 1. 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 2. Chronic age related findings. 3. Old left basal ganglia lacunar infarction. Cervical Spine MRI 01/13/20 19:04 IMPRESSION: 1. Moderate to severe cervical spondylosis. 2. No cord compre
--- NOTE | 2020-01-15 13:21 | WPDNEUROPN ---
Progress Note: A&P Assessment and Plan (1) CVA (cerebral vascular accident): Code(s): I63.9 - Cerebral infarction, unspecified Status: Acute (2) Hypertension: Code(s): I10 - Essential (primary) hypertension Status: Chronic (3) Atrial fibrillation: Code(s): I48.91 - Unspecified atrial fibrillation Status: Chronic (4) Diabetes type 2, controlled: Code(s): E11.9 - Type 2 diabetes mellitus without complications Status: Acute (5) Bilateral leg weakness: Code(s): R29.898 - Other symptoms and signs involving the musculoskeletal system Status: Acute (6) Recurrent falls: Code(s): R29.6 - Repeated falls Status: Acute (7) Neuropathy: Onset Date: Unknown Code(s): G62.9 - Polyneuropathy, unspecified Status: Acute Additional Plan considering all the evaluation she is not a surgical candidate at least at this stage and she will benefit from the rehab Review of Systems Review of Systems: All systems reviewed & are unremarkable except as noted in HPI and below Exam Narrative: Exam Narrative: examination reveals her to be awake alert cooperative in no obvious acute distress head normocephalic with no cranial bruit ear nose throat examination normal neck supple with no cervical bruit no thyromegaly no lymphadenopathy heart is regular lungs clear to auscultation with no rhonchi or crepitation abdomen is soft with no organomegaly neurological examination revealed her to be awake alert orient x3 is speech nor dysphasic no dysarthric no dystonic pupils round regular feels the vision full extraocular was full face symmetrical tongue midline motor examination revealed her to have decreased strength in upper and lower extremities move so in the lower extremities with decreased sensation distally because of the underlying diabetic neuropathy resulting in the M*Modal gait dysfunction Objective Data Vital Signs Vital Signs: Vital Signs - 24 hr 01/14/20 14:00 01/14/20 16:00 01/14/20 20:00 Temperature 37.1 C Pulse Rate 56 L 61 57 L Respiratory Rate 18 Blood Pressure 143/66 H Pulse Oximetry 97 01/14/20 20:21 01/14/20 22:00 01/15/20 00:00 Temperature 36.3 C L Pulse Rate 58 L 60 48 L Respiratory Rate 18 Blood Pressure 161/78 H Pulse Oximetry 99 01/15/20 04:00 01/15/20 06:00 01/15/20 08:00 Temperature 36.8 C Pulse Rate 47 L 56 L 50 L Respiratory Rate 18 Blood Pressure 137/57 L Pulse Oximetry 96 01/15/20 08:32 01/15/20 12:00 Temperature Pulse Rate 57 L 78 Respiratory Rate Blood Pressure 130/92 H Pulse Oximetry Intake/Output Intake/Output: Intake & Output 01/12/20 01/13/20 01/14/20 01/15/20 23:59 23:59 23:59 23:59 Intake Total 540 2020 440 Output Total 350 1300 Balance 190 720 440 Meds/Results Medications: Active Medications Generic Name Dose Route Start Last Admin Trade Name Freq PRN Reason Stop Dose Admin Acetaminophen 650 mg 01/13/20 11:30 01/13/20 19:05 Tylenol Tablet PO 650 mg Q4H PRN Administration Mild Pain (1-3) or Fever Anastrozole 1 mg 01/14/20 09:00 01/14/20 08:06 Arimidex PO 02/13/20 09:01 1 mg DAILY EILEEN Administration Dextrose 12.5 gm 01/13/20 16:04 Dextrose 50% Syringe IV PUSH PRN PRN Hypoglycemia Protocol Diltiazem HCl 180 mg 01/13/20 16:15 01/15/20 08:33 Cardizem Cd PO 180 mg DAILY EILEEN Administration Docusate Sodium 100 mg 01/13/20 17:00 01/15/20 08:33 Colace Capsule PO 100 mg BID EILEEN Administration Glucagon 1 mg 01/13/20 16:04 Glucagon For Inj IM PRN PRN Hypoglycemia Protocol Glucose 15 gm 01/13/20 16:04 Glutose 15 PO PRN PRN Hypoglycemia Protocol Dextrose 1,000 mls @ 100 mls/hr 01/13/20 16:04 Dextrose 5% 1,000 Ml IVPB PRN PRN Hypoglycemia Protocol Insulin Aspart 2 - 5 units 01/13/20 17:00 01/15/20 12:46 Novolog S
[2020-01-15 17:19] LABS: Glucose Point of Care 179 (65-105)
--- NOTE | 2020-01-15 17:25 | PC.NURSE ---
Called pharmacy and left message to request 1700 dose of meclizine and simethicone be sent to floor for administration.
[2020-01-15] MEDS: METOPROLOL TARTRATE 25 MG TABLET PO (20:25)
[2020-01-15 20:54] LABS: Glucose Point of Care 242 (65-105)
[2020-01-16] VITALS (8 sets, daily range): BP systolic 107–129; BP diastolic 50–61; PULSE 51–64; RESP 18–20; TEMP 36.4–36.8; O2SAT 94–100
[2020-01-16 06:41] LABS: Anion Gap 7 mmol/L (8-16); Blood Urea Nitrogen 18 mg/dL (7-17); Calcium 8.8 mg/dL (8.4-10.2); Carbon Dioxide 28 mmol/L (22-30); Chloride 101 mmol/L (98-107); Estimated CRCL calculation 58 ml/min; Estimated Glomerular Filt Rate > 60; Glucose 165 mg/dL (65-105); Magnesium 1.9 mg/dL (1.6-2.3); Potassium 3.4 mmol/L (3.4-5.0); Sodium 136 mmol/L (137-145)
[2020-01-16] MEDS: POTASSIUM CHLORIDE 20 MEQ TABLET 40 MEQ PO (08:02)
[2020-01-16] MEDS: PANTOPRAZOLE 40 MG TABLET PO ×2 (08:02→17:24)
[2020-01-16] MEDS: dilTIAZem HCL CD 180 MG CAP.ER.24H PO (08:02)
[2020-01-16] MEDS: MECLIZINE HCL 12.5 MG TABLET PO ×3 (08:03→17:25)
[2020-01-16] MEDS: NITROFURANTOIN MONOHYD MACROCR 100 MG CAP PO ×2 (08:03→20:06)
[2020-01-16] MEDS: DOCUSATE SODIUM 100 MG CAPSULE PO ×2 (08:03→17:24)
[2020-01-16] MEDS: SIMETHICONE 80 MG TAB.CHEW PO ×4 (08:03→20:06)
--- NOTE | 2020-01-16 08:10 | PC.NURSE ---
Call to pharmacy to request 0900 dose of metoprolol be sent to floor for administration.
[2020-01-16 08:18] LABS: Glucose Point of Care 178 (65-105)
[2020-01-16] MEDS: METOPROLOL TARTRATE 25 MG TABLET PO ×2 (08:33→20:07)
--- NOTE | 2020-01-16 11:17 | PM.IMPN ---
Progress Note: A&P Assessment and Plan (1) CVA (cerebral vascular accident): Code(s): I63.9 - Cerebral infarction, unspecified Status: Acute Assessment and Plan: Punctate acute cerebellar vermis and right-sided brainstem infarctions noted on Brain MRI during stay. Discussed case with Dr. Patino; patient has a history of gastric ulcers so will defer antiplatelet therapy to Neurology. Patient on anastrozole for breast cancer. Echo shows normal EF, no thrombus, no intracardiac shunting. Will await further rec from Dr. Patino PT/OT for now Will hold anastrozole as there is risk for stroke Monitor closely CC following and will be looking for placement for SNF Continue meclizine to help with vertigo (2) Bilateral leg weakness: Code(s): R29.898 - Other symptoms and signs involving the musculoskeletal system Status: Acute Assessment and Plan: Possibly related to chronic spondylosis findings on MRI of spine. Dr. Patino following and appreciate recommendations. Continue PT/OT Likely SNF upon discharge (3) Diabetes type 2, controlled: Code(s): E11.9 - Type 2 diabetes mellitus without complications Status: Acute Assessment and Plan: A1c 7.1. Accuchecks ACHS, hypoglycemia protocol, correctional insulin, HH diet Monitor Will likely need to be placed back on medication at some point or will need to be monitored closely if diet controlled; follow up with PCP (4) Atrial fibrillation: Code(s): I48.91 - Unspecified atrial fibrillation Status: Chronic Assessment and Plan: HR today is in predominantly in 50s. occassionally into 40s. Sinus rhythm with PVCs and PACs noted. Rate controlled with metoprolol and diltiazem. No a/c; she would be at high risk for bleed given previous GI bleed, frequent falls, and advanced age. Will continue metoprolol at 25 mg Q12 for now Continue home diltiazem Monitor and adjust as appropriate (5) Hypertension: Code(s): I10 - Essential (primary) hypertension Status: Chronic Assessment and Plan: BP 100s sys, although has been labile. Given acute brain/brainstem infarcts, will allow for permissive HTN Continue with diltiazem Metoprolol 25 mg Q12 as above Monitor (6) Recurrent falls: Code(s): R29.6 - Repeated falls Status: Acute Assessment and Plan: food services coordinator consult placed for possible rehab placement. (7) HER2-positive carcinoma of left breast: Onset Date: ~01/2019 Code(s): C50.912 - Malignant neoplasm of unspecified site of left female breast Status: Acute Assessment and Plan: She has had a history of bilateral mastectomy with lymph node extraction she has completed her chemoradiation Will hold anastrozole given risk for stroke. Will need f/u with oncologist as outpatient Subjective Date/time seen: 01/16/20 11:17 Interval history: Patient is a 79 yo F with history of A. fib (rate controlled, no a/c, has IVC filter), DMII, HTN, previous DVT, and HER2-positive Ca of left breast (status post b/l mastectomy, chemoradation, now on anastrozole) who is here for evaluation for weakness, uncoordination likely due to acute punctate CVAs Brain/brainstem MRI. Patient is feeling wore out again this morning after working with therapy today. She still has vertigo, slight nausea, and double vision again today. Otherwise no other complaints. Denies f/c/s, cp/palpitations, sob/cough, v/d/c, abd pain, changes in BMs, dysuria, hematuria, calf pain/swelling. Review of Systems Review of Systems: All systems reviewed & are unremarkable except as noted in HPI and below Exam Narrative: Exam Narrative: General:
[2020-01-16 11:42] LABS: Glucose Point of Care 227 (65-105)
[2020-01-16] MEDS: INSULIN ASPART (*BKC) 100 UNITS/ML SUB-Q ×2 (11:42→17:26)
[2020-01-16 17:28] LABS: Glucose Point of Care 210 (65-105)
[2020-01-16 20:48] LABS: Glucose Point of Care 211 (65-105)
[2020-01-17 06:00] VITALS: BP 103/68; PULSE 63; RESP 18; TEMP 36; O2SAT 98
[2020-01-17 06:06] LABS: Anion Gap 6 mmol/L (8-16); Blood Urea Nitrogen 17 mg/dL (7-17); Calcium 9.2 mg/dL (8.4-10.2); Carbon Dioxide 29 mmol/L (22-30); Chloride 100 mmol/L (98-107); Estimated CRCL calculation 51 ml/min; Estimated Glomerular Filt Rate > 60; Glucose 196 mg/dL (65-105); Potassium 4.3 mmol/L (3.4-5.0); Sodium 135 mmol/L (137-145)
[2020-01-17 07:44] LABS: Glucose Point of Care 185 (65-105)
[2020-01-17 08:30] VITALS: BP 110/62; PULSE 64
[2020-01-17] MEDS: DOCUSATE SODIUM 100 MG CAPSULE PO ×2 (08:32→16:17)
[2020-01-17] MEDS: MECLIZINE HCL 12.5 MG TABLET PO ×3 (08:32→16:18)
[2020-01-17] MEDS: NITROFURANTOIN MONOHYD MACROCR 100 MG CAP PO ×2 (08:32→21:20)
[2020-01-17 08:33] VITALS: PULSE 64
[2020-01-17] MEDS: METOPROLOL TARTRATE 25 MG TABLET PO ×2 (08:33→21:20)
[2020-01-17] MEDS: PANTOPRAZOLE 40 MG TABLET PO ×2 (08:33→16:18)
[2020-01-17] MEDS: dilTIAZem HCL CD 180 MG CAP.ER.24H PO (08:33)
[2020-01-17] MEDS: SIMETHICONE 80 MG TAB.CHEW PO ×4 (08:33→21:20)
[2020-01-17 11:15] LABS: Glucose Point of Care 244 (65-105)
--- NOTE | 2020-01-17 11:28 | PM.IMPN ---
Progress Note: A&P Assessment and Plan (1) CVA (cerebral vascular accident): Code(s): I63.9 - Cerebral infarction, unspecified Status: Acute Assessment and Plan: Punctate acute cerebellar vermis and right-sided brainstem infarctions noted on Brain MRI during stay. Discussed case with Dr. Patino. Patient has a history of gastric ulcers so will defer antiplatelet therapy to Neurology; it appears no antiplatelet therapy at this time. Patient on anastrozole for breast cancer. Echo shows normal EF, no thrombus, no intracardiac shunting. Okay for discharge from Neurology standpoint Awaiting insurance auth for [facility]; if no approval, then plan will be SNF PT/OT for now Will hold anastrozole as there is risk for stroke Monitor closely Continue meclizine to help with vertigo (2) Bilateral leg weakness: Code(s): R29.898 - Other symptoms and signs involving the musculoskeletal system Status: Acute Assessment and Plan: Possibly related to chronic spondylosis findings on MRI of spine. Dr. Patino following and appreciate recommendations. Continue PT/OT Likely [facility] upon discharge. If unable to be placed in [facility], then will do SNF. CC following (3) Diabetes type 2, controlled: Code(s): E11.9 - Type 2 diabetes mellitus without complications Status: Acute Assessment and Plan: A1c 7.1. Accuchecks ACHS, hypoglycemia protocol, correctional insulin, HH diet for now Monitor Will likely need to be placed back on medication at some point or will need to be monitored closely if diet controlled; follow up with PCP (4) Atrial fibrillation: Code(s): I48.91 - Unspecified atrial fibrillation Status: Chronic Assessment and Plan: HR today is in 60s. Rate controlled with metoprolol and diltiazem. No a/c; she would be at high risk for bleed given previous GI bleed, frequent falls, and advanced age. Will continue metoprolol tartrate at 25 mg Q12 for now Should her HR become tachycardic again, then titrate metoprolol up again. Monitor BP closely Will stop diltiazem given bradycardia and lower blood pressure Will need f/u with Cardiology as outpatient Monitor (5) Hypertension: Code(s): I10 - Essential (primary) hypertension Status: Chronic Assessment and Plan: BP 110s sys, although has been labile. Given acute brain/brainstem infarcts, will allow for permissive HTN, although bp to be more tightly controlled as days progress Hold/stop diltiazem Metoprolol 25 mg Q12 as above Monitor (6) Recurrent falls: Code(s): R29.6 - Repeated falls Status: Acute Assessment and Plan: digital account coordinator consult placed for possible rehab placement. (7) HER2-positive carcinoma of left breast: Onset Date: ~01/2019 Code(s): C50.912 - Malignant neoplasm of unspecified site of left female breast Status: Acute Assessment and Plan: She has had a history of bilateral mastectomy with lymph node extraction she has completed her chemoradiation Will hold anastrozole given risk for stroke. Will need f/u with oncologist as outpatient Subjective Date/time seen: 01/17/20 11:28 Interval history: Patient is a 79 yo F with history of A. fib (rate controlled, no a/c, has IVC filter), DMII, HTN, previous DVT, and HER2-positive Ca of left breast (status post b/l mastectomy, chemoradation, now on anastrozole) who is here for evaluation for weakness, uncoordination likely due to acute punctate CVAs Brain/brainstem MRI. Patient is feeling much better today. She feels stronger today and per physical therapist, she did much better today. She still has vertigo, double vision. No nausea today. She note
[2020-01-17] MEDS: INSULIN ASPART (*BKC) 100 UNITS/ML SUB-Q ×2 (11:32→17:29)
[2020-01-17 12:20] LABS: SARS-CoV-2 RNA PCR Negative
[2020-01-17 14:00] VITALS: BP 145/52; PULSE 57; RESP 18; TEMP 36.9; O2SAT 98
[2020-01-17 17:31] LABS: Glucose Point of Care 204 (65-105)
[2020-01-17 20:00] LABS: Glucose Point of Care 257 (65-105)
[2020-01-17 21:20] VITALS: PULSE 60
[2020-01-18 06:00] VITALS: BP 149/61; PULSE 51; RESP 18; TEMP 36.3; O2SAT 95
[2020-01-18 06:34] LABS: Hematocrit 38.1 % (37.0-47.0); Hemoglobin 12.8 g/dL (12.0-15.0); Mean Corpuscular HGB Conc 33.6 g/dl (32-36); Mean Corpuscular Volume 89.2 fl (80-100); Mean Platelet Volume 10.2 fl (7.4-10.4); Platelet Count Result 136 k/mm3 (150-375); Red Blood Count 4.27 M/mm3 (4.2-5.4); Red Cell Distribution Width 13.1 % (11.5-14.5); White Blood Count 9.3 K/mm3 (4.5-10.0)
[2020-01-18 06:38] LABS: Anion Gap 4 mmol/L (8-16); Blood Urea Nitrogen 16 mg/dL (7-17); Calcium 8.9 mg/dL (8.4-10.2); Carbon Dioxide 29 mmol/L (22-30); Chloride 100 mmol/L (98-107); Estimated CRCL calculation 58 ml/min; Estimated Glomerular Filt Rate > 60; Glucose 193 mg/dL (65-105); Magnesium 1.9 mg/dL (1.6-2.3); Potassium 3.9 mmol/L (3.4-5.0); Sodium 133 mmol/L (137-145)
[2020-01-18 07:56] LABS: Glucose Point of Care 197 (65-105)
[2020-01-18] MEDS: METOPROLOL TARTRATE 25 MG TABLET PO (08:52)
[2020-01-18] MEDS: MECLIZINE HCL 12.5 MG TABLET PO ×3 (08:52→16:07)
[2020-01-18] MEDS: SIMETHICONE 80 MG TAB.CHEW PO ×3 (08:52→16:07)
[2020-01-18] MEDS: NITROFURANTOIN MONOHYD MACROCR 100 MG CAP PO (08:53)
[2020-01-18] MEDS: PANTOPRAZOLE 40 MG TABLET PO ×2 (08:53→16:07)
[2020-01-18] MEDS: DOCUSATE SODIUM 100 MG CAPSULE PO ×2 (08:53→16:07)
[2020-01-18 12:33] LABS: Glucose Point of Care 220 (65-105)
[2020-01-18] MEDS: INSULIN ASPART (*BKC) 100 UNITS/ML SUB-Q ×2 (12:35→16:46)
[2020-01-18 14:00] VITALS: BP 142/64; PULSE 60; RESP 16; TEMP 36.6; O2SAT 100
--- NOTE | 2020-01-18 15:47 | PM.DS ---
DS: Admitting Diagnosis Admitting Diagnosis Admitting Diagnosis: lower leg weakness DS: Discharge Diagnosis Discharge Diagnosis (1) CVA (cerebral vascular accident): Code(s): I63.9 - Cerebral infarction, unspecified Status: Acute Assessment and Plan: She presented with leg weakness and vertigo. Initial head CT was negative. Carotid dopplers <50% stenosis bilaterally. Brain MRI showed punctate acute cerebellar vermis and right-sided brainstem infarctions. Echo showed normal EF with normal EF, no thrombus, and no intracardiac shunting. She was seen in consultation by neurology. Per neurology recommendations, antiplatelet therapy was not initiated due to the patient's history of gastric ulcers. Anastrazole was held until patient can follow up with oncologist. Meclizine was initiated for associated dizziness. She was seen by PT/OT and will continue rehab at [facility]. (2) Bilateral leg weakness: Code(s): R29.898 - Other symptoms and signs involving the musculoskeletal system Status: Acute Assessment and Plan: Most likely related to chronic spondylosis findings on MRI of spine coupled with acute stroke and evidence of old left basal gangliar infarct. Continue rehab at [facility]. (3) Diabetes type 2, controlled: Code(s): E11.9 - Type 2 diabetes mellitus without complications Status: Acute Assessment and Plan: A1c 7.1. She is not on any home hypoglycemic agents. Covered on SSI during stay. Encouraged to monitor and record glucose readings and bring a log to PCP for review. (4) Atrial fibrillation: Code(s): I48.91 - Unspecified atrial fibrillation Status: Chronic Assessment and Plan: Rate remained well controlled with metoprolol and diltiazem. Anticoagulation was not initiated as she would be at high risk for bleed given previous GI bleed, frequent falls, and advanced age. Continue metoprolol tartrate 25 mg BID. Diltiazem was discontinued given bradycardia. She will need to follow up with her canteen manager as an outpatient. (5) Hypertension: Code(s): I10 - Essential (primary) hypertension Status: Chronic Assessment and Plan: BP was labile. Initially 170-180 systolic with permissive hypertension given acute infarct. As days progressed, BP became more tightly controlled in the 130-140s systolic. Continue metoprolol. Diltiazem was discontinued. Continue monitoring BP while at [facility]. (6) Recurrent falls: Code(s): R29.6 - Repeated falls Status: Acute Assessment and Plan: Continue rehab at [facility] as noted above. (7) HER2-positive carcinoma of left breast: Onset Date: ~01/2019 Code(s): C50.912 - Malignant neoplasm of unspecified site of left female breast Status: Acute Assessment and Plan: She has had a history of bilateral mastectomy with lymph node extraction and she has completed her chemoradiation. She is on daily anastrozole which was held given risk for stroke. We discussed that she will need to follow up with her oncologist before resuming this medication. (8) UTI (urinary tract infection): Code(s): N39.0 - Urinary tract infection, site not specified Status: Acute Assessment and Plan: Patient had been seen in the emergency department on 01/10/2020 and was diagnosed and treated for urinary tract infection at that time. She continued Macrobid throughout this hospital stay and completed 7 days of antibiotic therapy. DS: Summary Hospital Course Reason for hospitalization: Weakness Hospital Course: Date of admission: 01/13/2020 Date of discharge: 01/18/2020 Alexus Ferrer is an 79-year-old female with a history of hypertension, atrial fibrillation, type 2 DM, and left breast cancer who presented to the emergency department on 01/13/2020 with complaints of ongoing weakness. She had a fall several days prior and was evaluated in the ED at that time and treated for UTI. She
[2020-01-18 16:31] LABS: Glucose Point of Care 229 (65-105)
== END 2020-01-18 18:23 | DRG 66 ==
LOC: ANHED 08:17 → ANH2MED 11:54
PROVIDERS: Nurse Practitioner; Physician Assistant; Admitting Provider Internal Medicine; Emergency Provider Emergency Medicine; PCP Family Medicine; Visit Provider Physician Assistant
DX: I63.9 Cerebral infarction, unspecified (principal); R47.01 Aphasia; Z20.828 Contact with and (suspected) exposure to other viral communicable diseases; R29.898 Other symptoms and signs involving the musculoskeletal system; M47.9 Spondylosis, unspecified; C50.912 Malignant neoplasm of unspecified site of left female breast; E11.42 Type 2 diabetes mellitus with diabetic polyneuropathy; I48.0 Paroxysmal atrial fibrillation; I10 Essential (primary) hypertension; R29.6 Repeated falls; Z79.811 Long term (current) use of aromatase inhibitors; Z79.899 Other long term (current) drug therapy; Z86.718 Personal history of other venous thrombosis and embolism; Z87.11 Personal history of peptic ulcer disease; Z87.891 Personal history of nicotine dependence; Z90.13 Acquired absence of bilateral breasts and nipples; Z92.21 Personal history of antineoplastic chemotherapy; Z92.3 Personal history of irradiation
CPT/HCPCS: 36415; 70450; 70553; 71046; 72128; 72131; 72156; 72157; 72158; 74177; 80048; 80053; 81001; 82550; 83036; 83735; 84443; 85025; 85027; 85055; 87635; 93005; 93308; 93880; 96375; 97110; 97162; 97166; 97530; 97535; 99285; A9270; A9577; C8929; C9803; G0378; J1815; Q9967; U0003

== ENCOUNTER 2020-01-18 18:12 | IRF | payer MEDICARE, SELFPAY ==
--- NOTE | ~2020-01-18 | XR_ITS ---
. EXAMINATION: XR abdomen/kub 1V DATE: 02/02/2020 12:56 INDICATION: Abdominal swelling. TECHNIQUE: A supine view of the abdomen was obtained. COMPARISON: Abdomen radiograph 05/05/2018, CT abdomen and pelvis 01/13/2020 FINDINGS: There are no dilated loops of bowel. There is a moderate volume of stool in the colon. Surg ical clips in the right upper quadrant are likely from cholecystectomy. Calcifications in the pelvis are likely phleboliths. There is a filter in the inferior vena cava. IMPRESSION: 1. Nonobstructive bowel gas pattern. Reviewed, dictated and finalized at location A.
[2020-01-18 18:30] VITALS: BMI 37.4
--- NOTE | 2020-01-18 18:30 | PC.NURSE ---
This patient, Alexus Ferrer, was admitted to [facility] Room 221-02. Patient/family oriented to hospital policies and general routines including ID bracelet, bed and alarms, visiting hours, pain management, procedures, bathroom and other care routines, personal items, smoking policy, room service/diet, and visiting hours. Valuables list has been completed. Information on how to activate the Rapid Response Team has been discussed. Patient/Family are encouraged to report perceived risks to care and to ask questions if they do not understand what they are told or what they should do.
[2020-01-18 18:31] VITALS: BP 141/71; PULSE 60; RESP 20; TEMP 36.6; O2SAT 97
[2020-01-18 20:35] VITALS: PULSE 55
[2020-01-18] MEDS: DOCUSATE SODIUM 100 MG CAPSULE PO (20:35)
[2020-01-18] MEDS: PANTOPRAZOLE 40 MG TABLET PO (20:35)
[2020-01-18] MEDS: METOPROLOL TARTRATE 25 MG TABLET PO (20:35)
[2020-01-18 21:45] VITALS: BP 137/70; PULSE 55; RESP 18; TEMP 37.1; O2SAT 98
[2020-01-19 06:00] VITALS: BP 144/57; PULSE 54; RESP 20; TEMP 37.1; O2SAT 98
[2020-01-19 07:30] LABS: Basophils Percent Auto 0.4 % (0.2-1.2); Eosinophils Absolute Auto 0.2 K/mm3 (0-0.3); Eosinophils Percent Auto 2.7 % (0-4.4); Hematocrit 37.4 % (37.0-47.0); Hemoglobin 12.5 g/dL (12.0-15.0); Immature Granulocyte Absolute 0.02 K/mm3 (0.00-0.031); Immature Granulocyte Percent A 0.3 % (0-0.5); Lymphocytes Absolute Auto 1.54 K/mm3 (0.9-3.2); Mean Corpuscular HGB Conc 33.4 g/dl (32-36); Mean Corpuscular Hemoglobin 29.8 pg (26-34); Mean Platelet Volume 10.1 fl (7.4-10.4); Monocytes Absolute Auto 0.8 K/mm3 (0.1-0.6); Neutrophils Absolute Auto 4.5 K/mm3 (1.3-6.7); Neutrophils Percent Auto 63.6 % (45.5-73.1); Platelet Count Result 130 k/mm3 (150-375)
[2020-01-19 07:41] LABS: Anion Gap 4 mmol/L (8-16); Blood Urea Nitrogen 16 mg/dL (7-17); Calcium 8.9 mg/dL (8.4-10.2); Carbon Dioxide 32 mmol/L (22-30); Chloride 99 mmol/L (98-107); Cholesterol 172 mg/dL (0-200); Estimated CRCL calculation 58 ml/min; Estimated Glomerular Filt Rate > 60; Glucose 195 mg/dL (65-105); HDL Direct 25 mg/dL; Sodium 135 mmol/L (137-145); Triglycerides 116 mg/dL (<150)
[2020-01-19 07:52] LABS: Hemoglobin A1C 7.2 % (<5.7); LDL Cholesterol Direct 124 mg/dL
[2020-01-19 08:45] VITALS: PULSE 54
[2020-01-19] MEDS: MECLIZINE HCL 12.5 MG TABLET PO ×3 (08:45→18:02)
[2020-01-19] MEDS: METOPROLOL TARTRATE 25 MG TABLET PO ×2 (08:45→20:09)
[2020-01-19] MEDS: DOCUSATE SODIUM 100 MG CAPSULE PO ×2 (08:45→20:09)
[2020-01-19] MEDS: PANTOPRAZOLE 40 MG TABLET PO ×2 (08:46→20:09)
--- NOTE | 2020-01-19 10:02 | WPDREHABHP ---
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 The patient had a fall on January 10, 2020 following which she was unable to get up and laid on the ground for 8 hours. She was then evaluated in [facility]'s ER on January 10, 2020 and found to have urinary tract infection. She was prescribed Macrobid ( which had not started ) closed and then discharged back to her independent living apartment. The patient followed up with the PCP and January 12, [address] scan of the brain and cervical spine and laboratory work drawn. The imaging of the lab work were found to be unremarkable. On January 13, 2020 the patient presented [address] [facility] Emergency room again with complaints of bilateral leg weakness difficulty walking and abdominal pain. It is reported the patient tends to lean to her right side. She complained of dizziness with head change which is relieved by sitting still. She has had recurrent falls about 5 times in the last month. Head CT in the ER showed no acute intracranial abnormalities in and along with the age-related finding. A chest x-ray showed no acute cardiopulmonary abnormalities in abnormal rather abdominal pelvis CT revealed cardiomegaly moderate-sized hiatal hernia nonspecific mild thickening of the urinary bladder wall and infrarenal IVC filter and status post cholecystectomy and hysterectomy. I thoracic lumbar spine CT showed degenerative changes of the cervical thoracic lumbar spine with no thoracic or lumbar spine fractures detected. A carotid Doppler study revealed less than 50% stenosis in the left of the right internal carotid arteries. A cervical spine MRI showed moderate to severe cervical spondylosis with no cord compression or signal abnormality. Thoracic MRI showed T6 7 mild disc bulge prominent epidural fat causing some cord flattening with edema suspected probably chronic, and overall [id number] thoracic spondylosis. Lumbar spine MRI showed overall moderate to severe lumbar spondylosis with no acute findings. 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 Neurology was consulted on January 14, 2020. The hospitalist order to hold the patient's oral chemo medications anastrozole which she takes for breast cancer recently diagnosed in 2019 the anti-platelet therapy and anticoagulation therapy per clearly not warranted to the patient history of gastric ulcers and also frequent falls the echo showed normal ejection fraction no thrombus and no intracardiac shunting. On January 15, 2020 the hospitalist order an increase in the meclizine for vertigo and permissive hypertension tibial out. On January 16, 2020 neurology stated the patient was not a surgical candidate for spondylosis and recommended rehabilitation. The patient is unable to have anti-platelet therapy due to history of gastric ulcers oral chemo medication anastrozole continues to be held due to stroke risk. The patient has not traveled outside the [place] or had contact with someone who is ill that has traveled outside the [place] in the past 21 days. The patient has not traveled on and area of the [place] that is experiencing is a known transmission
[2020-01-19 11:59] LABS: Glucose Point of Care 255 (65-105)
[2020-01-19] MEDS: SIMETHICONE 80 MG TAB.CHEW PO ×2 (12:06→18:01)
[2020-01-19 12:42] VITALS: BMI 37.4
[2020-01-19 14:00] VITALS: BP 127/51; PULSE 54; RESP 16; TEMP 36.2; O2SAT 99
[2020-01-19 16:47] LABS: Glucose Point of Care 238 (65-105)
[2020-01-19] MEDS: INSULIN GLARGINE (*BKC) 100 UNITS/ML 10 UNITS SUB-Q (20:07)
[2020-01-19 20:09] VITALS: PULSE 68
[2020-01-19 20:38] VITALS: BP 136/77; PULSE 58; RESP 18; TEMP 36.7; O2SAT 97
[2020-01-19 21:41] LABS: Glucose Point of Care 243 (65-105)
[2020-01-20 05:41] VITALS: BP 151/69; PULSE 87; RESP 18; TEMP 36.4; O2SAT 96
[2020-01-20 06:41] LABS: Glucose Point of Care 194 (65-105)
[2020-01-20] MEDS: SIMETHICONE 80 MG TAB.CHEW PO (08:54)
[2020-01-20] MEDS: DOCUSATE SODIUM 100 MG CAPSULE PO ×2 (08:54→20:06)
[2020-01-20 08:55] VITALS: PULSE 87
[2020-01-20] MEDS: PANTOPRAZOLE 40 MG TABLET PO ×2 (08:55→20:06)
[2020-01-20] MEDS: MECLIZINE HCL 12.5 MG TABLET PO (08:55)
[2020-01-20] MEDS: METOPROLOL TARTRATE 25 MG TABLET PO ×2 (08:55→20:06)
[2020-01-20 11:59] LABS: Glucose Point of Care 188 (65-105)
[2020-01-20] MEDS: ACETAMINOPHEN 325 MG TABLET 650 MG PO (12:45)
[2020-01-20] MEDS: MECLIZINE HCL 25 MG TABLET PO ×2 (12:46→18:26)
--- NOTE | 2020-01-20 13:54 | RPD ---
INDIVIDUALIZED PLAN OF CARE FOR Alexus Ferrer Brief Synthesis of Pre-Admission Screen, Post-Admission Evaluation and Therapy Evaluations: The patient presents to rehab with punctate acute cerebellar vermis infarction . Comorbidities include HTN, paroxysmal atrial fibrilltion, diabetes type 2 (controlled), bilateral leg weakness, acute neck muscle spasm, recurrent falls, UTI, HER2-positive carcinoma of left breast, neuropathy, DVT, hyponatremia, and hyperglycemia. The patient needs physician monitoring and treatment of adverse reactions to new medications, monitoring of infection, and pain control. The patient requires nursing services for frequent neuro checks, anticoagulation therapy, medication management and education, pressure relief and skin care management, monitoring of labs, bowel and bladder training, diabetes management and education, and fall/safety precautions. Deficits include:ADLs, Balance, Endurance, Family Training/Education, Mobility, Pain Management, ROM, Safety, Strength,Transfers Dieing Out Machine Operator/Case Management for: Discharge Planning and Patient/Family Counseling Physical Therapy: 5 days per week for 90 minutes. Treatments may include: Therapeutic Exercise, Gait Training, Neuromuscular Re-education, Transfer Training, Community Reintegration, Bed Mobility, Patient/Family Education, Wheelchair Mobility Group Therapy/Concurrent Therapy Rationales: -Improve attention span during functional activities in a distracted environment. -Enhance problem solving and/or adequate judgment skills during functional activities in a distracted environment. -Promote increased safety awareness in a distracted environment to reduce fall risk with functional tasks, transfers, and ambulation to allow a more safe, self-sufficient return to the home environment. -Improve dynamic balance skills to promote safety and independence with functional activities in a distracted environment for maximum gain. Occupational Therapy: 5 days per week for 90 minutes. Treatments may include: Therapeutic Exercise, Therapeutic Activity, Cognitive Training, Self-Care Transfer Training, Community Reintegration, Home Management, Patient/Family Education, Wheelchair Mobility Training, Energy Conservation Training Group Therapy/Concurrent Therapy Rationales: -Allow therapist to observe and teach generalization and carry-over of skills learned in individual therapy. -Enhance problem solving and sequencing skills during therapeutic activities in a distracted environment. -Promote increased safety awareness in a realistic setting to reduce fall risk with functional tasks due to visual and verbal distractions. -Increase functional level with ADLs, ADL transfers and use of adaptive equipment through therapeutic activities with others while promoting safety to allow a more safe, self-sufficient return home. Medical Prognosis: Good Anticipated Length of Stay: 12 days Rehab Goals: Eating Goal: 06-Independent Oral Hygiene Goal: 06-Independent Toileting Hygiene Goal: 04-Supervision or Touching Assistance Shower/Bathe Self Goal: 04-Supervision or Touching Assistance Upper Body Dressing Goal: 05-Setup or Clean Up Assistance Lower Body Dressing Goal: 04-Supervision or Touching Assistance Putting On/Taking Off Footwear Goal: 04-Supervision or Touching Assistance Rolling Left and Right Goal: 06-Independent Sit to Lying Goal: 06-Independent Lying to Sitting on Side of Bed Goal: 06-Independent Sit to Stand Goal: 04-Supervision or Touching Assistance Chair/Gku-km-Wyzna Transfer Goal: 04-Supervision or Touching Assistance Toilet Transfer Goal: 04-Supervision or Touching Assistance Car Transfer Goal: 03-Partial/Moderate Assistance Walk 10' Goal: 03-Partial/Moderate Assistance Walk 50' with Two Turns Goal: 03-Partial/Moderate Assistance Walk 150' Goal: 03-Partial/Moderate Assistance Walk 10' on Uneven Surface Goal: 03-Partial/Moderate Assistance 1 Step (Curb) Goal: 03-Partial/Moderate Assistanc
[2020-01-20 14:00] VITALS: BP 146/72; PULSE 92; RESP 18; TEMP 36.3; O2SAT 97
[2020-01-20 17:03] LABS: Glucose Point of Care 207 (65-105)
[2020-01-20] MEDS: INSULIN GLARGINE (*BKC) 100 UNITS/ML 10 UNITS SUB-Q (20:03)
[2020-01-20 20:06] VITALS: PULSE 88
[2020-01-20 21:08] VITALS: BP 149/80; PULSE 67; RESP 18; TEMP 36.3; O2SAT 99
[2020-01-20 21:14] LABS: Glucose Point of Care 209 (65-105)
[2020-01-21 05:18] VITALS: BP 146/70; PULSE 60; RESP 20; TEMP 36.6; O2SAT 95
[2020-01-21 06:18] LABS: Glucose Point of Care 143 (65-105)
[2020-01-21 08:37] VITALS: PULSE 60
[2020-01-21] MEDS: METOPROLOL TARTRATE 25 MG TABLET PO ×2 (08:37→21:02)
[2020-01-21] MEDS: MECLIZINE HCL 25 MG TABLET PO ×3 (08:37→17:27)
[2020-01-21] MEDS: PANTOPRAZOLE 40 MG TABLET PO ×2 (08:37→21:03)
[2020-01-21] MEDS: DOCUSATE SODIUM 100 MG CAPSULE PO ×2 (08:37→21:02)
--- NOTE | 2020-01-21 10:22 | WPDNEURORHBP ---
Subjective Date/time seen: 01/21/20 10:22 Interval history: this 79-year-old woman is here after having had stroke with double vision and right-sided weakness she is doing fairly well but today she started leaning to the right more so than before otherwise on while she thing in the chair the neurological examination remains the same without much of a weakness but generalized fatigue and tired and tiredness her sugars running high and have the put her on sliding scale insulin the patient denies any headache nausea vomiting chest pain shortness of breath fever chills sore throat Review of Systems Review of Systems: All systems reviewed & are unremarkable except as noted in HPI and below Functional Status Ambulation Ability Ambulation Assistive Devices: Walker, Wheeled Transfers Ability Ability to Transfer In/Out of Chair: Maximum Assistance X 1 Exam Const: General: comfortable and no acute distress HENMT: General nose exam: Normal nares present Mouth: Yes moist mucous membranes Eyes: General: appearance normal, both eyes and all related structures Other: diplopia on horizontal gaze and also in all 4 quadrant without the patch Neck: Neck: supple and no JVD Resp: Effort & Inspection: normal respiratory effort Auscultation: clear to auscultation bilaterally Cardio: Rate: regular rate Rhythm: regular rhythm GI: GI Palp: Yes Soft to palpation Auscultation: normal bowel sounds Skin: General skin exam: normal color and no rashes or lesions noted Neuro: Other: patient is awake and alert well oriented to time place and person has normal speech and language function and generalized weakness right more so than the left Extrem: General: normal to inspection Psych: Mental Status: mental status grossly normal Objective Data Vital Signs Vital Signs: Vital Signs - 24 hr 01/20/20 14:00 01/20/20 20:06 01/20/20 21:08 Temperature 36.3 C L 36.3 C L Pulse Rate 92 88 67 Respiratory Rate 18 18 Blood Pressure 146/72 H 149/80 H Pulse Oximetry 97 99 01/21/20 05:18 01/21/20 08:37 Temperature 36.6 C Pulse Rate 60 60 Respiratory Rate 20 Blood Pressure 146/70 H Pulse Oximetry 95 Intake/Output Intake/Output: Intake & Output 01/18/20 01/19/20 01/20/20 01/21/20 23:59 23:59 23:59 23:59 Intake Total 720 360 240 Balance 720 360 240 Meds/Results Medications: Active Medications Generic Name Dose Route Start Last Admin Trade Name Sam PRN Reason Stop Dose Admin Acetaminophen 650 mg 01/20/20 10:44 01/20/20 12:45 Tylenol Tablet PO 650 mg Q4H PRN Administration Mild Pain (1-3) or Fever Dextrose 12.5 gm 01/19/20 09:50 Dextrose 50% Syringe IV PUSH PRN PRN Hypoglycemia Protocol Docusate Sodium 100 mg 01/18/20 21:00 01/21/20 08:37 Colace Capsule PO 100 mg Q12HR EILEEN Administration Glucagon 1 mg 01/19/20 09:50 Glucagon For Inj IM PRN PRN Hypoglycemia Protocol Glucose 15 gm 01/19/20 09:50 Glutose 15 PO PRN PRN Hypoglycemia Protocol Dextrose 1,000 mls @ 100 mls/hr 01/19/20 09:50 Dextrose 5% 1,000 Ml IVPB PRN PRN Hypoglycemia Protocol Insulin Glargine 10 units 01/19/20 21:00 01/20/20 20:03 Lantus SUB-Q 10 units HS EILEEN Administration Meclizine HCl 25 mg 01/20/20 13:00 01/21/20 08:37 Antivert PO 25 mg TID EILEEN Administration Metoprolol Tartrate 25 mg 01/18/20 21:00 01/21/20 08:37 Lopressor PO 25 mg Q12HR EILEEN Administration Pantoprazole Sodium 40 mg 01/18/20 21:00 01/21/20 08:37 Protonix PO 40 mg Q12HR EILEEN Administration Simethicone 80 mg 01/18/20 18:52 01/20/20 08:54 Mylicon PO 80 mg QID PRN Administration Indigestion Labs Labs: Laboratory Results - last 24 hr 01/20/20 01/20/20 01/20/20 11:52 16:53 20:02 POC Capillary Glucose 188 H 207 H 209 H 01/21/20 06:06 POC Capillary Glucose 143 H Progress Note: A&P
[2020-01-21 11:51] LABS: Glucose Point of Care 163 (65-105)
[2020-01-21 14:00] VITALS: BP 153/65; PULSE 56; RESP 16; TEMP 36.9; O2SAT 98
--- NOTE | 2020-01-21 14:03 | PCSTNOTE ---
Patient refused treatment this session due to extreme fatigue. This therapist and her son both directly attempted for 12 minutes to engage patient in therapy tasks however she continually verbally refused (with eyes closed) by saying, no to requests to open eyes and engage. Attempts were terminated and Melissa, Rehab Therapy Cemetery Counselor, was notified.
[2020-01-21 18:18] LABS: Glucose Point of Care 159 (65-105)
[2020-01-21 21:02] VITALS: PULSE 72
[2020-01-21 21:15] VITALS: BP 150/61; PULSE 72; RESP 16; TEMP 37; O2SAT 96
[2020-01-21 21:25] LABS: Glucose Point of Care 214 (65-105)
[2020-01-21] MEDS: INSULIN GLARGINE (*BKC) 100 UNITS/ML 10 UNITS SUB-Q (21:33)
[2020-01-22] VITALS (7 sets, daily range): BP systolic 140–147; BP diastolic 49–62; PULSE 53–62; RESP 16–18; TEMP 36.4–37; O2SAT 95–99
[2020-01-22 06:47] LABS: Glucose Point of Care 141 (65-105)
[2020-01-22] MEDS: METOPROLOL TARTRATE 25 MG TABLET PO ×2 (09:03→20:27)
[2020-01-22] MEDS: PANTOPRAZOLE 40 MG TABLET PO ×2 (09:04→20:27)
[2020-01-22] MEDS: MECLIZINE HCL 25 MG TABLET PO ×3 (09:04→17:24)
[2020-01-22] MEDS: DOCUSATE SODIUM 100 MG CAPSULE PO ×2 (09:04→20:28)
[2020-01-22 12:08] LABS: Glucose Point of Care 161 (65-105)
[2020-01-22 17:10] LABS: Glucose Point of Care 174 (65-105)
[2020-01-22 18:57] LABS: Add Urine Microscopic? YES; Appearance Urine Cloudy (Clear); Bacteria Urine 1+ /hpf; Bilirubin Urine Negative (Negative); Blood Urine 1+ (Negative); Color Urine Yellow (Yellow); Glucose Urine UA 1+ mg/dL (Negative); Ketones Urine Negative (Negative); Leukocyte Esterase Ur 3+ LEU/UL (Negative); Mucus Urine Rare /lpf; Nitrate Urine Negative (Negative); Protein Urine Negative (Negative); Specific Grav Ur 1.014 (1.001-1.035); Squamous Epithelial Cell Urine Few /hpf (Few); Urobilinogen Urine Negative mg/dL (<2.0); WBC Clumps Urine Present /HPF; WBC Urine >75 /hpf
[2020-01-22] MEDS: SIMETHICONE 80 MG TAB.CHEW PO (20:31)
[2020-01-22] MEDS: INSULIN GLARGINE (*BKC) 100 UNITS/ML 10 UNITS SUB-Q (20:50)
[2020-01-22 20:53] LABS: Glucose Point of Care 272 (65-105)
[2020-01-23] VITALS (8 sets, daily range): BP systolic 137–148; BP diastolic 52–68; PULSE 54–110; RESP 16–20; TEMP 36.7–36.8; O2SAT 97–100
[2020-01-23 06:42] LABS: Glucose Point of Care 165 (65-105)
[2020-01-23] MEDS: MECLIZINE HCL 25 MG TABLET PO ×3 (09:13→17:50)
[2020-01-23] MEDS: SIMETHICONE 80 MG TAB.CHEW PO (09:13)
[2020-01-23] MEDS: METOPROLOL TARTRATE 25 MG TABLET PO ×2 (09:13→20:20)
[2020-01-23] MEDS: PANTOPRAZOLE 40 MG TABLET PO ×2 (09:14→20:21)
[2020-01-23] MEDS: DOCUSATE SODIUM 100 MG CAPSULE PO ×2 (09:14→20:20)
[2020-01-23 12:24] LABS: Glucose Point of Care 215 (65-105)
[2020-01-23] MEDS: INSULIN ASPART (*BKC) 100 UNITS/ML SUB-Q (12:27)
[2020-01-23 17:07] LABS: Glucose Point of Care 146 (65-105)
--- NOTE | 2020-01-23 17:28 | WPDNEURORHBP ---
Subjective Date/time seen: 01/23/20 17:28 Interval history: the patient is here due to stroke with double vision and cerebellar deficit she is a very poor candidate for anti-platelet therapy due to gastric ulcers and likewise a poor candidate for the anticoagulation but doing fairly well and making progress in the rehab denies any headache nausea vomiting chest pain shortness of breath fever chills sore throat Review of Systems Review of Systems: All systems reviewed & are unremarkable except as noted in HPI and below Functional Status Ambulation Ability Ambulation Assistive Devices: Walker, Wheeled Transfers Ability Ability to Transfer In/Out of Chair: Maximum Assistance X 1 Exam Const: General: comfortable and no acute distress HENMT: General nose exam: Normal nares present Mouth: Yes moist mucous membranes Eyes: General: appearance normal, both eyes and all related structures Neck: Neck: supple and no JVD Resp: Effort & Inspection: normal respiratory effort Auscultation: clear to auscultation bilaterally Cardio: Rate: regular rate Rhythm: regular rhythm GI: GI Palp: Yes Soft to palpation Auscultation: normal bowel sounds Skin: General skin exam: normal color and no rashes or lesions noted Neuro: Other: patient is awake alert doing fairly well with eye patching of the right eye which has decreased visual acuity and makes her much more comfortable to see through the left eye because of diplopia overall neurological deficit is continue to improve Extrem: General: normal to inspection Psych: Mental Status: mental status grossly normal Objective Data Vital Signs Vital Signs: Vital Signs - 24 hr 01/22/20 20:00 01/22/20 20:27 01/22/20 21:44 Temperature 36.4 C L Pulse Rate 62 61 Respiratory Rate 18 Blood Pressure 147/49 H Pulse Oximetry 95 95 01/23/20 05:19 01/23/20 09:13 01/23/20 09:23 Temperature 36.7 C Pulse Rate 55 L 58 L 58 L Respiratory Rate 18 18 Blood Pressure 140/56 L Pulse Oximetry 97 97 01/23/20 10:00 01/23/20 14:00 Temperature 36.8 C Pulse Rate 54 L 110 H Respiratory Rate 20 Blood Pressure 137/52 L 144/59 H Pulse Oximetry 100 Intake/Output Intake/Output: Intake & Output 01/20/20 01/21/20 01/22/20 01/23/20 23:59 23:59 23:59 23:59 Intake Total 360 840 720 480 Balance 360 840 720 480 Meds/Results Medications: Active Medications Generic Name Dose Route Start Last Admin Trade Name Freq PRN Reason Stop Dose Admin Acetaminophen 650 mg 01/20/20 10:44 01/20/20 12:45 Tylenol Tablet PO 650 mg Q4H PRN Administration Mild Pain (1-3) or Fever Dextrose 12.5 gm 01/19/20 09:50 Dextrose 50% Syringe IV PUSH PRN PRN Hypoglycemia Protocol Docusate Sodium 100 mg 01/18/20 21:00 01/23/20 09:14 Colace Capsule PO 100 mg Q12HR EILEEN Administration Glucagon 1 mg 01/19/20 09:50 Glucagon For Inj IM PRN PRN Hypoglycemia Protocol Glucose 15 gm 01/19/20 09:50 Glutose 15 PO PRN PRN Hypoglycemia Protocol Dextrose 1,000 mls @ 100 mls/hr 01/19/20 09:50 Dextrose 5% 1,000 Ml IVPB PRN PRN Hypoglycemia Protocol Insulin Aspart 2 - 5 units 01/21/20 12:00 01/23/20 12:27 Novolog SUB-Q 2 units TIDWM EILEEN Administration Protocol Insulin Glargine 10 units 01/19/20 21:00 01/22/20 20:50 Lantus SUB-Q 10 units HS EILEEN Administration Meclizine HCl 25 mg 01/20/20 13:00 01/23/20 12:28 Antivert PO 25 mg TID EILEEN Administration Metoprolol Tartrate 25 mg 01/18/20 21:00 01/23/20 09:13 Lopressor PO 25 mg Q12HR EILEEN Administration Pantoprazole Sodium 40 mg 01/18/20 21:00 01/23/20 09:14 Protonix PO 40 mg Q12HR EILEEN Administration Simethicone 80 mg 01/18/20 18:52 01/23/20 09:13 Mylicon PO 80 mg QID PRN Administration Indigestion Labs Labs: Laboratory Results - last 24 hr 01/22/20 01/22/20 01/23/20
[2020-01-23] MEDS: INSULIN GLARGINE (*BKC) 100 UNITS/ML 10 UNITS SUB-Q (20:43)
[2020-01-23 20:53] LABS: Glucose Point of Care 215 (65-105)
[2020-01-23] MEDS: ACETAMINOPHEN 325 MG TABLET 650 MG PO (23:21)
[2020-01-24 05:50] VITALS: BP 151/57; PULSE 50; RESP 16; TEMP 36.3; O2SAT 100
[2020-01-24 06:49] LABS: Glucose Point of Care 150 (65-105)
--- NOTE | 2020-01-24 08:35 | PCOTNOTE ---
Attempted OT treatment, but patient declined at this time due to nausea and vomiting. Will attempt again later this morning.
[2020-01-24] MEDS: DOCUSATE SODIUM 100 MG CAPSULE PO ×2 (08:37→20:54)
[2020-01-24] MEDS: MECLIZINE HCL 25 MG TABLET PO ×3 (08:38→16:45)
[2020-01-24] MEDS: PANTOPRAZOLE 40 MG TABLET PO ×2 (08:38→20:54)
[2020-01-24 08:39] VITALS: PULSE 56
[2020-01-24] MEDS: METOPROLOL TARTRATE 25 MG TABLET PO ×2 (08:39→20:54)
--- NOTE | 2020-01-24 10:40 | WPDNEURORHBP ---
Subjective Date/time seen: 01/24/20 10:40 79 years old lady admitted to the rehab for the complaints of the stroke with double vision and cerebellar deficit but unfortunately not a good candidate for anti-platelet therapy because of the gastric ulcers at present she is making slow progress in the rehab and does not complain of any nausea though she vomited x1 Review of Systems Review of Systems: All systems reviewed & are unremarkable except as noted in HPI and below Functional Status Ambulation Ability Ambulation Assistive Devices: Walker, Wheeled Transfers Ability Ability to Transfer In/Out of Chair: Maximum Assistance X 1 Exam Narrative: Exam Narrative: examination today revealed her to be awake alert in no distress at this particular time your nose throat examination normal with no are no obvious drainage mucous membranes soft and moist neck is supple with no restricted range of motion no JVD heart regular lungs clear to auscultation no rhonchi or crepitations abdomen is soft with normal bowel sounds skin normal with no obvious dehydration neurologically she is awake alert with eye patching of the right eye because of the diplopia extremity is normal and gross mental status examination normal Objective Data Vital Signs Vital Signs: Vital Signs - 24 hr 01/23/20 14:00 01/23/20 20:00 01/23/20 20:20 Temperature 36.8 C Pulse Rate 110 H 76 Respiratory Rate 20 Blood Pressure 144/59 H Pulse Oximetry 100 98 01/23/20 21:38 01/24/20 05:50 01/24/20 08:39 Temperature 36.8 C 36.3 C L Pulse Rate 58 L 50 L 56 L Respiratory Rate 16 16 Blood Pressure 148/68 H 151/57 H Pulse Oximetry 98 100 Intake/Output Intake/Output: Intake & Output 01/21/20 01/22/20 01/23/20 01/24/20 23:59 23:59 23:59 23:59 Intake Total 840 720 720 100 Balance 840 720 720 100 Meds/Results Medications: Active Medications Generic Name Dose Route Start Last Admin Trade Name Freq PRN Reason Stop Dose Admin Acetaminophen 650 mg 01/20/20 10:44 01/23/20 23:21 Tylenol Tablet PO 650 mg Q4H PRN Administration Mild Pain (1-3) or Fever Dextrose 12.5 gm 01/19/20 09:50 Dextrose 50% Syringe IV PUSH PRN PRN Hypoglycemia Protocol Docusate Sodium 100 mg 01/18/20 21:00 01/24/20 08:37 Colace Capsule PO 100 mg Q12HR EILEEN Administration Glucagon 1 mg 01/19/20 09:50 Glucagon For Inj IM PRN PRN Hypoglycemia Protocol Glucose 15 gm 01/19/20 09:50 Glutose 15 PO PRN PRN Hypoglycemia Protocol Dextrose 1,000 mls @ 100 mls/hr 01/19/20 09:50 Dextrose 5% 1,000 Ml IVPB PRN PRN Hypoglycemia Protocol Insulin Aspart 2 - 5 units 01/21/20 12:00 01/24/20 07:46 Novolog SUB-Q Not Given TIDWM EILEEN Protocol Insulin Glargine 10 units 01/19/20 21:00 01/23/20 20:43 Lantus SUB-Q 10 units HS EILEEN Administration Meclizine HCl 25 mg 01/20/20 13:00 01/24/20 08:38 Antivert PO 25 mg TID EILEEN Administration Metoprolol Tartrate 25 mg 01/18/20 21:00 01/24/20 08:39 Lopressor PO 25 mg Q12HR EILEEN Administration Pantoprazole Sodium 40 mg 01/18/20 21:00 01/24/20 08:38 Protonix PO 40 mg Q12HR EILEEN Administration Simethicone 80 mg 01/18/20 18:52 01/23/20 09:13 Mylicon PO 80 mg QID PRN Administration Indigestion Labs Labs: Laboratory Results - last 24 hr 01/23/20 01/23/20 01/23/20 12:15 17:03 20:37 POC Capillary Glucose 215 H 146 H 215 H 01/24/20 06:46 POC Capillary Glucose 150 H Progress Note: A&P Assessment and Plan (1) Frequent falls: Code(s): R29.6 - Repeated falls Status: Acute (2) History of gastric ulcer: Code(s): Z87.19 - Personal history of other diseases of the digestive system Status: Acute (3) CVA (cerebral vascular accident): Code(s): I63.9 - Cerebral infarction, unspecified Status: Acute (4) Hypertension:
[2020-01-24 11:14] VITALS: BP 135/54; PULSE 53; RESP 18; O2SAT 100
[2020-01-24 11:49] LABS: Glucose Point of Care 159 (65-105)
[2020-01-24 14:00] VITALS: BP 146/69; PULSE 65; RESP 20; TEMP 36.3; O2SAT 99
[2020-01-24 17:05] LABS: Glucose Point of Care 151 (65-105)
[2020-01-24 20:54] VITALS: PULSE 70
[2020-01-24] MEDS: INSULIN GLARGINE (*BKC) 100 UNITS/ML 10 UNITS SUB-Q (20:54)
[2020-01-24 21:00] LABS: Glucose Point of Care 195 (65-105)
[2020-01-24 22:00] VITALS: BP 150/62; PULSE 60; RESP 16; TEMP 36.8; O2SAT 98
[2020-01-25 06:00] VITALS: BP 148/58; PULSE 63; RESP 18; TEMP 37.2; O2SAT 98
[2020-01-25 06:11] LABS: Glucose Point of Care 148 (65-105)
--- NOTE | 2020-01-25 09:55 | PCOTNOTE ---
Attempted OT treatment, but unable to complete at this time. Patient confused about location upon entering room. After questioning, patient was oriented to person, place, and time. Patient declined any therapy at this time. Will attempt again later this morning.
[2020-01-25 10:10] VITALS: PULSE 56
[2020-01-25] MEDS: METOPROLOL TARTRATE 25 MG TABLET PO ×2 (10:10→20:34)
[2020-01-25] MEDS: PANTOPRAZOLE 40 MG TABLET PO ×2 (10:11→20:34)
[2020-01-25] MEDS: MECLIZINE HCL 25 MG TABLET PO ×3 (10:12→16:54)
[2020-01-25] MEDS: DOCUSATE SODIUM 100 MG CAPSULE PO ×2 (10:12→20:34)
[2020-01-25] MEDS: AMOXICILLIN/CLAVULANATE K 875-125 MG TAB 1 TABLET PO ×2 (10:12→20:34)
[2020-01-25] MEDS: ONDANSETRON HCL ODT 4 MG TABLET PO ×2 (10:16→16:55)
[2020-01-25 12:13] LABS: Glucose Point of Care 154 (65-105)
[2020-01-25] MEDS: ENOXAPARIN 30 MG/0.3 ML SYRINGE SUB-Q (12:22)
[2020-01-25 14:00] VITALS: BP 152/64; PULSE 74; RESP 18; TEMP 36.6; O2SAT 98
[2020-01-25 14:23] VITALS: BP 133/66; PULSE 52; RESP 18; O2SAT 100
[2020-01-25] MEDS: ACETAMINOPHEN 325 MG TABLET 650 MG PO (14:34)
--- NOTE | 2020-01-25 14:58 | WPDNEURORHBP ---
Subjective Date/time seen: 01/25/20 14:58 Interval history: this 79-year-old woman year due to stroke with double vision and higher level days balance and weakness she is improving now has a urinary tract infection with Klebsiella and is going to be started on the appropriate antibiotic she is still eating quite a bit of assistance however no headache nausea vomiting chest pain shortness of breath fever chills sore throat Review of Systems Review of Systems: All systems reviewed & are unremarkable except as noted in HPI and below Functional Status Ambulation Ability Ambulation Assistive Devices: Walker, Wheeled Transfers Ability Ability to Transfer In/Out of Chair: Maximum Assistance X 1 Exam Const: General: comfortable and no acute distress HENMT: General nose exam: Normal nares present Mouth: Yes moist mucous membranes Eyes: Other: diplopia with right eye being patched Neck: Neck: supple and no JVD Resp: Effort & Inspection: normal respiratory effort Auscultation: clear to auscultation bilaterally Cardio: Rate: regular rate Rhythm: regular rhythm GI: GI Palp: Yes Soft to palpation Auscultation: normal bowel sounds Skin: General skin exam: normal color and no rashes or lesions noted Neuro: Other: patient is awake alert well oriented time place and person with diplopia and weakness which is improved Extrem: General: normal to inspection Psych: Mental Status: mental status grossly normal Objective Data Vital Signs Vital Signs: Vital Signs - 24 hr 01/24/20 20:54 01/24/20 22:00 01/25/20 06:00 Temperature 36.8 C 37.2 C Pulse Rate 70 60 63 Respiratory Rate 16 18 Blood Pressure 150/62 H 148/58 H Pulse Oximetry 98 98 01/25/20 10:10 01/25/20 14:00 01/25/20 14:23 Temperature 36.6 C Pulse Rate 56 L 74 52 L Respiratory Rate 18 18 Blood Pressure 152/64 H 133/66 Pulse Oximetry 98 100 Intake/Output Intake/Output: Intake & Output 01/22/20 01/23/20 01/24/20 01/25/20 23:59 23:59 23:59 23:59 Intake Total 684 481 8817 120 Balance 622 648 1854 120 Meds/Results Medications: Active Medications Generic Name Dose Route Start Last Admin Trade Name Freq PRN Reason Stop Dose Admin Acetaminophen 650 mg 01/20/20 10:44 01/25/20 14:34 Tylenol Tablet PO 650 mg Q4H PRN Administration Mild Pain (1-3) or Fever Amoxicillin/Clavulanate Potassium 1 tablet 01/25/20 09:00 01/25/20 10:12 Augmentin 875-125 Mg Tab PO 1 tablet Q12HR EILEEN Administration Dextrose 12.5 gm 01/19/20 09:50 Dextrose 50% Syringe IV PUSH PRN PRN Hypoglycemia Protocol Docusate Sodium 100 mg 01/18/20 21:00 01/25/20 10:12 Colace Capsule PO 100 mg Q12HR EILEEN Administration Enoxaparin Sodium 40 mg 01/26/20 09:00 Lovenox SUB-Q DAILY EILEEN Glucagon 1 mg 01/19/20 09:50 Glucagon For Inj IM PRN PRN Hypoglycemia Protocol Glucose 15 gm 01/19/20 09:50 Glutose 15 PO PRN PRN Hypoglycemia Protocol Dextrose 1,000 mls @ 100 mls/hr 01/19/20 09:50 Dextrose 5% 1,000 Ml IVPB PRN PRN Hypoglycemia Protocol Insulin Aspart 2 - 5 units 01/21/20 12:00 01/25/20 12:22 Novolog SUB-Q Not Given TIDWM [facility] Protocol Insulin Glargine 10 units 01/19/20 21:00 01/24/20 20:54 Lantus SUB-Q 10 units HS EILEEN Administration Meclizine HCl 25 mg 01/20/20 13:00 01/25/20 13:19 Antivert PO 25 mg TID EILEEN Administration Metoprolol Tartrate 25 mg 01/18/20 21:00 01/25/20 10:10 Lopressor PO 25 mg Q12HR EILEEN Administration Ondansetron HCl 4 mg 01/25/20 09:04 01/25/20 10:16 Zofran Odt PO 4 mg Q6H PRN Administration Nausea And Vomiting Pantoprazole Sodium 40 mg 01/18/20 21:00 01/25/20 10:11 Protonix PO 40 mg Q12HR EILEEN Administration Simethicone 80 mg 01/18/20 18:52 01/23/20 09:13 Mylicon PO 80 mg QID PRN Administration Indigestion Labs Labs:
[2020-01-25 17:06] LABS: Glucose Point of Care 163 (65-105)
[2020-01-25 20:34] VITALS: PULSE 56
[2020-01-25] MEDS: INSULIN GLARGINE (*BKC) 100 UNITS/ML 10 UNITS SUB-Q (20:36)
[2020-01-25 20:45] LABS: Glucose Point of Care 174 (65-105)
[2020-01-25 22:00] VITALS: BP 135/51; PULSE 56; RESP 20; TEMP 36.6; O2SAT 98
--- NOTE | 2020-01-26 05:41 | PC.NURSE ---
dr olmstead called, orders for lab to draw blood draws from feet due to bilateral mastectomy
[2020-01-26 05:49] VITALS: BP 131/50; PULSE 55; RESP 20; TEMP 37; O2SAT 99
[2020-01-26 05:51] LABS: Basophils Absolute Auto 0.1 K/mm3 (0.0-0.1); Basophils Percent Auto 0.5 % (0.2-1.2); Eosinophils Absolute Auto 0.1 K/mm3 (0-0.3); Eosinophils Percent Auto 0.9 % (0-4.4); Hematocrit 35.7 % (37.0-47.0); Hemoglobin 11.7 g/dL (12.0-15.0); Immature Granulocyte Absolute 0.06 K/mm3 (0.00-0.031); Immature Granulocyte Percent A 0.5 % (0-0.5); Lymphocytes Absolute Auto 1.45 K/mm3 (0.9-3.2); Lymphocytes Percent Auto 12.9 % (18.3-44.2); Mean Corpuscular HGB Conc 32.8 g/dl (32-36); Mean Corpuscular Hemoglobin 29.5 pg (26-34); Mean Corpuscular Volume 90.2 fl (80-100); Mean Platelet Volume 10.7 fl (7.4-10.4); Monocytes Percent Auto 8.7 % (2.6-8.5); Neutrophils Absolute Auto 8.6 K/mm3 (1.3-6.7); Neutrophils Percent Auto 76.5 % (45.5-73.1); Platelet Count Result 130 k/mm3 (150-375); Red Blood Count 3.96 M/mm3 (4.2-5.4); Red Cell Distribution Width 13.2 % (11.5-14.5); White Blood Count 11.2 K/mm3 (4.5-10.0)
[2020-01-26 06:03] LABS: Anion Gap 2 mmol/L (8-16); Blood Urea Nitrogen 17 mg/dL (7-17); Calcium 9.2 mg/dL (8.4-10.2); Carbon Dioxide 31 mmol/L (22-30); Chloride 101 mmol/L (98-107); Estimated CRCL calculation 46 ml/min; Estimated Glomerular Filt Rate 60; Glucose 130 mg/dL (65-105); Potassium 4.1 mmol/L (3.4-5.0); Sodium 134 mmol/L (137-145)
[2020-01-26 06:36] LABS: Glucose Point of Care 126 (65-105)
[2020-01-26] MEDS: ONDANSETRON HCL ODT 4 MG TABLET PO ×2 (07:21→13:40)
[2020-01-26] MEDS: AMOXICILLIN/CLAVULANATE K 875-125 MG TAB 1 TABLET PO ×2 (09:55→21:26)
[2020-01-26] MEDS: DOCUSATE SODIUM 100 MG CAPSULE PO ×2 (09:55→21:26)
[2020-01-26 09:56] VITALS: PULSE 55
[2020-01-26] MEDS: MECLIZINE HCL 25 MG TABLET PO ×3 (09:56→17:57)
[2020-01-26] MEDS: PANTOPRAZOLE 40 MG TABLET PO ×2 (09:56→21:26)
[2020-01-26] MEDS: METOPROLOL TARTRATE 25 MG TABLET PO ×2 (09:56→21:26)
[2020-01-26] MEDS: ENOXAPARIN 40 MG/0.4 ML SYRINGE SUB-Q (09:56)
--- NOTE | 2020-01-26 11:53 | WPDNEURORHBP ---
Subjective Date/time seen: 01/26/20 11:53 Interval history: this very pleasant 79-year-old woman is here after having had cerebellar and brainstem stroke with diplopia generalized weakness 1 side more so than the other and periodically has this nausea and dizziness and at times throws up which she did today after throwing up she feels better she does not like the SCDs and tells me that she has had the blood clots in her legs and was given the IVC filter and because of the recurrent falls and gastric ulcer the patient is a very poor candidate for being on anti-platelet therapy and or anticoagulation I am afraid the patient might developed the DVT again and for that reason I have started her on Lovenox because she does not like the SCDs I discussed with the risk in the benefits of both and she will think about it resuming the SCDs then we can discontinue the Lovenox which was only started yesterday Review of Systems Review of Systems: All systems reviewed & are unremarkable except as noted in HPI and below Functional Status Ambulation Ability Ambulation Assistive Devices: Walker, Wheeled Transfers Ability Ability to Transfer In/Out of Chair: Maximum Assistance X 1 Exam Const: General: comfortable and no acute distress HENMT: General nose exam: Normal nares present Mouth: Yes moist mucous membranes Eyes: General: appearance normal, both eyes and all related structures Neck: Neck: supple and no JVD Resp: Effort & Inspection: normal respiratory effort Auscultation: clear to auscultation bilaterally Cardio: Rate: regular rate Rhythm: regular rhythm GI: GI Palp: Yes Soft to palpation Auscultation: normal bowel sounds Skin: General skin exam: normal color and no rashes or lesions noted Neuro: Other: patient remains awake alert well oriented time place and person has diplopia which gets completely gone with the eye patch on the right eye her neurological deficit from the cerebellar and the brainstem stroke are improving Extrem: General: normal to inspection Psych: Mental Status: mental status grossly normal Objective Data Vital Signs Vital Signs: Vital Signs - 24 hr 01/25/20 14:00 01/25/20 14:23 01/25/20 20:34 Temperature 36.6 C Pulse Rate 74 52 L 56 L Respiratory Rate 18 18 Blood Pressure 152/64 H 133/66 Pulse Oximetry 98 100 01/25/20 22:00 01/26/20 05:49 01/26/20 09:56 Temperature 36.6 C 37.0 C Pulse Rate 56 L 55 L 55 L Respiratory Rate 20 20 Blood Pressure 135/51 L 131/50 L Pulse Oximetry 98 99 Intake/Output Intake/Output: Intake & Output 01/23/20 01/24/20 01/25/20 01/26/20 23:59 23:59 23:59 23:59 Intake Total 720 1060 360 240 Balance 720 1060 360 240 Meds/Results Medications: Active Medications Generic Name Dose Route Start Last Admin Trade Name Freq PRN Reason Stop Dose Admin Acetaminophen 650 mg 01/20/20 10:44 01/25/20 14:34 Tylenol Tablet PO 650 mg Q4H PRN Administration Mild Pain (1-3) or Fever Amoxicillin/Clavulanate Potassium 1 tablet 01/25/20 09:00 01/26/20 09:55 Augmentin 875-125 Mg Tab PO 1 tablet Q12HR EILEEN Administration Dextrose 12.5 gm 01/19/20 09:50 Dextrose 50% Syringe IV PUSH PRN PRN Hypoglycemia Protocol Docusate Sodium 100 mg 01/18/20 21:00 01/26/20 09:55 Colace Capsule PO 100 mg Q12HR EILEEN Administration Enoxaparin Sodium 40 mg 01/26/20 09:00 01/26/20 09:56 Lovenox SUB-Q 40 mg DAILY EILEEN Administration Glucagon 1 mg 01/19/20 09:50 Glucagon For Inj IM PRN PRN Hypoglycemia Protocol Glucose 15 gm 01/19/20 09:50 Glutose 15 PO PRN PRN Hypoglycemia Protocol Dextrose 1,000 mls @ 100 mls/hr 01/19/20 09:50 Dextrose 5% 1,000 Ml IVPB PRN PRN Hypoglycemia Protocol Insulin Aspart 2 - 5 units 01/21/20 12:00 01/26/20 09:55 Novolog SUB-Q Not Given TIDWM EILEEN Protocol Insulin Glargine 10 units 01/19/20 21:00
[2020-01-26 12:04] LABS: Glucose Point of Care 154 (65-105)
--- NOTE | 2020-01-26 13:48 | PCDIET ---
Nutrition Follow-Up Complete: Nutrition Diagnosis: Decreased sodium needs related to CHF, HTN, CVA as evidenced by history as reported in EMR. Nutrition Goal: Patient to consume 75% of meals or greater. Goal generally met. Patient eating well on diabetic diet. c/o emesis after drinking cold liquid; states this always happens with cold liquids and will now avoid ice in beverages. Reports good appetite with only c/o double vision. CVA MNT provided. Last recorded weight is 92.8 kg. Recommend obtaining new weight. Bowel Motility: Last documented BM on 01/23/20 - Colace ordered. Labs Reviewed: Hgb (11.7), Hct (35.7), Glu (130), Na (134) Meds Noted: Augmentin, Colace, Novolog, Lantus, Antivert, Protonix Additional Notes: No documented skin breakdown. Will continue to monitor with same goal. Nutrition Monitoring and Evaluation: Follow up in 7 days.
[2020-01-26 14:00] VITALS: BP 111/74; PULSE 56; RESP 16; TEMP 36.2; O2SAT 98
--- NOTE | 2020-01-26 14:25 | PCPTNOTE ---
Attempted to see patient in PM to complete PT minutes, patient missed from not feeling well in AM. Patient refused again due to not feeling well. Patient continues to complain of feeling dizzy and nauseous. Patient reports that she just threw up a few minutes before SHOP TECHNICIAN entered room. Patient refused to participate at this time. Patient short 20 minutes of physical therapy. Niya Gunn, ABIMBOLA
[2020-01-26 17:12] LABS: Glucose Point of Care 134 (65-105)
[2020-01-26 20:00] VITALS: O2SAT 97
[2020-01-26 21:26] VITALS: PULSE 70
[2020-01-26] MEDS: INSULIN GLARGINE (*BKC) 100 UNITS/ML 10 UNITS SUB-Q (21:26)
[2020-01-26 22:00] VITALS: BP 104/34; PULSE 71; RESP 20; TEMP 37.1; O2SAT 97
[2020-01-27 06:00] VITALS: BP 129/55; PULSE 66; RESP 20; TEMP 36.6; O2SAT 95
[2020-01-27 06:21] LABS: Glucose Point of Care 191 (65-105)
[2020-01-27 06:51] LABS: Glucose Point of Care 105 (65-105)
[2020-01-27] MEDS: AMOXICILLIN/CLAVULANATE K 875-125 MG TAB 1 TABLET PO ×2 (09:31→20:32)
[2020-01-27 09:32] VITALS: PULSE 66
[2020-01-27] MEDS: MECLIZINE HCL 25 MG TABLET PO ×3 (09:32→18:58)
[2020-01-27] MEDS: DOCUSATE SODIUM 100 MG CAPSULE PO ×2 (09:32→20:32)
[2020-01-27] MEDS: METOPROLOL TARTRATE 25 MG TABLET PO ×2 (09:32→20:32)
[2020-01-27] MEDS: ENOXAPARIN 40 MG/0.4 ML SYRINGE SUB-Q (09:32)
[2020-01-27] MEDS: PANTOPRAZOLE 40 MG TABLET PO ×2 (09:33→20:33)
[2020-01-27 11:59] LABS: Glucose Point of Care 182 (65-105)
[2020-01-27] MEDS: ONDANSETRON HCL ODT 4 MG TABLET PO (13:27)
[2020-01-27] MEDS: SIMETHICONE 80 MG TAB.CHEW PO (13:28)
[2020-01-27 14:00] VITALS: BP 137/63; PULSE 72; RESP 20; TEMP 36.6; O2SAT 97
[2020-01-27 16:41] LABS: Glucose Point of Care 150 (65-105)
[2020-01-27 20:00] VITALS: RESP 14; O2SAT 98
[2020-01-27 20:32] VITALS: PULSE 80
[2020-01-27] MEDS: INSULIN GLARGINE (*BKC) 100 UNITS/ML 10 UNITS SUB-Q (20:35)
[2020-01-27 21:30] LABS: Glucose Point of Care 154 (65-105)
[2020-01-27 21:42] VITALS: BP 143/56; PULSE 58; RESP 14; TEMP 36.7; O2SAT 98
[2020-01-28 06:00] VITALS: BP 152/78; PULSE 63; RESP 12; TEMP 36.9; O2SAT 93
[2020-01-28 06:48] LABS: Glucose Point of Care 128 (65-105)
--- NOTE | 2020-01-28 07:49 | PCPTNOTE ---
Alexus Ferrer was evaluated for a wheeled walker on 01/28/2020 by this physical therapist assistant branch operations manager. The wheeled walker will resolve patient's mobility limitations and will be used for ADL's within the home. The patient can safely use the wheeled walker. ?The wheeled walker will resolve the patient?s mobility deficits, including impaired balance and decreased endurance.
[2020-01-28 09:53] VITALS: PULSE 63
[2020-01-28] MEDS: METOPROLOL TARTRATE 25 MG TABLET PO ×2 (09:53→20:25)
[2020-01-28] MEDS: DOCUSATE SODIUM 100 MG CAPSULE PO ×2 (09:53→20:21)
[2020-01-28] MEDS: PANTOPRAZOLE 40 MG TABLET PO ×2 (09:53→20:21)
[2020-01-28] MEDS: MECLIZINE HCL 25 MG TABLET PO ×3 (09:53→17:21)
[2020-01-28] MEDS: ENOXAPARIN 40 MG/0.4 ML SYRINGE SUB-Q (09:53)
[2020-01-28] MEDS: AMOXICILLIN/CLAVULANATE K 875-125 MG TAB 1 TABLET PO ×2 (09:53→20:21)
--- NOTE | 2020-01-28 11:41 | WPDNEURORHBP ---
Subjective Date/time seen: 01/28/20 11:41 Interval history: this 79-year-old woman is here status post cerebellar and brainstem stroke with right more than the left-sided weakness she is making progress she does not like the Lovenox shot and would prefer to go back on the SCDs for DVT prophylaxis I will order those rest of the medical management PT OT and gait training will be like this she denies any headache nausea vomiting chest pain or shortness of breath Review of Systems Review of Systems: All systems reviewed & are unremarkable except as noted in HPI and below Functional Status Ambulation Ability Ability to Ambulate 10 Feet: Moderate Assistance X 1 Ambulation Assistive Devices: Walker, Wheeled Transfers Ability Ability to Transfer In/Out of Chair: Maximum Assistance X 1 Exam Const: General: comfortable and no acute distress HENMT: General nose exam: Normal nares present Mouth: Yes moist mucous membranes Eyes: General: appearance normal, both eyes and all related structures Neck: Neck: supple and no JVD Resp: Effort & Inspection: normal respiratory effort Auscultation: clear to auscultation bilaterally Cardio: Rate: regular rate Rhythm: regular rhythm GI: GI Palp: Yes Soft to palpation Auscultation: normal bowel sounds Skin: General skin exam: normal color and no rashes or lesions noted Neuro: Other: patient is awake alert well oriented has right eye patch to avoid diplopia she has decreased vision in the right eye to begin with the overall neurological deficit is improving is still needing assistance Extrem: General: normal to inspection Psych: Mental Status: mental status grossly normal Objective Data Vital Signs Vital Signs: Vital Signs - 24 hr 01/27/20 14:00 01/27/20 20:00 01/27/20 20:32 Temperature 36.6 C Pulse Rate 72 80 Respiratory Rate 20 14 Blood Pressure 137/63 Pulse Oximetry 97 98 01/27/20 21:42 01/28/20 06:00 01/28/20 09:53 Temperature 36.7 C 36.9 C Pulse Rate 58 L 63 63 Respiratory Rate 14 12 Blood Pressure 143/56 H 152/78 H Pulse Oximetry 98 93 Intake/Output Intake/Output: Intake & Output 01/25/20 01/26/20 01/27/20 01/28/20 23:59 23:59 23:59 23:59 Intake Total 360 720 460 100 Balance 360 720 460 100 Meds/Results Medications: Active Medications Generic Name Dose Route Start Last Admin Trade Name Freq PRN Reason Stop Dose Admin Acetaminophen 650 mg 01/20/20 10:44 01/25/20 14:34 Tylenol Tablet PO 650 mg Q4H PRN Administration Mild Pain (1-3) or Fever Amoxicillin/Clavulanate Potassium 1 tablet 01/25/20 09:00 01/28/20 09:53 Augmentin 875-125 Mg Tab PO 1 tablet Q12HR EILEEN Administration Dextrose 12.5 gm 01/19/20 09:50 Dextrose 50% Syringe IV PUSH PRN PRN Hypoglycemia Protocol Docusate Sodium 100 mg 01/18/20 21:00 01/28/20 09:53 Colace Capsule PO 100 mg Q12HR EILEEN Administration Enoxaparin Sodium 40 mg 01/26/20 09:00 01/28/20 09:53 Lovenox SUB-Q 40 mg DAILY EILEEN Administration Glucagon 1 mg 01/19/20 09:50 Glucagon For Inj IM PRN PRN Hypoglycemia Protocol Glucose 15 gm 01/19/20 09:50 Glutose 15 PO PRN PRN Hypoglycemia Protocol Dextrose 1,000 mls @ 100 mls/hr 01/19/20 09:50 Dextrose 5% 1,000 Ml IVPB PRN PRN Hypoglycemia Protocol Insulin Aspart 2 - 5 units 01/21/20 12:00 01/28/20 09:53 Novolog SUB-Q Not Given TIDWM [facility] Protocol Insulin Glargine 10 units 01/19/20 21:00 01/27/20 20:35 Lantus SUB-Q 10 units HS EILEEN Administration Meclizine HCl 25 mg 01/20/20 13:00 01/28/20 09:53 Antivert PO 25 mg TID EILEEN Administration Metoprolol Tartrate 25 mg 01/18/20 21:00 01/28/20 09:53 Lopressor PO 25 mg Q12HR EILEEN Administration Ondansetron HCl 4 mg 01/25/20 09:04 01/27/20 13:27 Zofran Odt PO 4 mg Q6H PRN Administration Nausea And Vomiting Pantoprazole [place]od[place]
--- NOTE | 2020-01-28 12:52 | PCPTNOTE ---
Niya Gunn PTA completed an inpatient rehab wheelchair evaluation on Alexus Ferrer on 01/28/2020. The patient is unable to safely and independently ambulate household distances due to their current impairments. Their diagnosis is CVA and their impairments include decreased strength, decreased endurance, decreased range of motion, decreased balance, lower extremity weakness, and ataxia. Alexus's weight bearing status is weight-bearing as tolerated on the bilateral lower legs. The patient demonstrates significant functional mobility limitations that impair their ability to participate in mobility-related activities of daily living (MRADLs), including toileting, feeding, dressing, grooming, and bathing in the customary locations in the home. These limitations cannot be sufficiently resolved by the use of an appropriately fitted cane or walker. It is recommended that the patient utilize a wheelchair for functional mobility within the home in order to facilitate optimal safety, independence and participation in all MRADL's and adequately access their home environment on a regular basis. The patient's home provides adequate access between rooms, maneuvering space, and surfaces to accommodate the recommended wheelchair. The use of a wheelchair for functional mobility is strongly recommended and the patient is receptive to using the wheelchair. The use of this wheelchair will significantly improve the patient's ability to participate in MRADLS and the patient will use it on a regular basis in the home. This will facilitate optimal safety, independence, and participation. The patient has demonstrated sufficient physical and mental capabilities needed to safely propel a manual wheelchair that is provided in the home during a typical day. Recommended Wheelchair Frame: STANDARD Recommended Wheelchair Size: 18 X 18 Recommended Wheelchair Cushion:STANDARD Wheelchair Leg Recommendations: BILATERAL SWING AWAY LEG RESTS -Anti-tippers are recommended due to patient demonstrating increased risk for falls. They would benefit from anti-tippers with added safety and stabilization. -Adjustable arm height is recommended because the patient spends at least 2 hours per day in the wheelchair. Niya Gunn PTA 01/28/2020 Evaluating Therapist Date I agree with and certify that the above recommendation is medically necessary. Referring Physician Date I agree with and certify that the above recommendation is medically necessary. Referring Physician Date
[2020-01-28 14:00] VITALS: BP 126/54; PULSE 59; RESP 20; TEMP 36.6; O2SAT 100
[2020-01-28] MEDS: SIMETHICONE 80 MG TAB.CHEW PO (17:21)
[2020-01-28 17:37] LABS: Glucose Point of Care 135 (65-105)
[2020-01-28 17:37] LABS: Glucose Point of Care 117 (65-105)
[2020-01-28] MEDS: INSULIN GLARGINE (*BKC) 100 UNITS/ML 10 UNITS SUB-Q (20:25)
[2020-01-28 21:11] LABS: Glucose Point of Care 212 (65-105)
[2020-01-28 22:15] VITALS: BP 126/49; PULSE 55; RESP 18; TEMP 36.5; O2SAT 98
[2020-01-29 06:00] VITALS: BP 125/40; PULSE 61; RESP 18; TEMP 36.8; O2SAT 97
[2020-01-29 06:51] LABS: Glucose Point of Care 135 (65-105)
[2020-01-29] MEDS: MECLIZINE HCL 25 MG TABLET PO ×3 (09:46→18:07)
[2020-01-29 09:47] VITALS: PULSE 61
[2020-01-29] MEDS: PANTOPRAZOLE 40 MG TABLET PO ×2 (09:47→20:51)
[2020-01-29] MEDS: METOPROLOL TARTRATE 25 MG TABLET PO ×2 (09:47→20:51)
[2020-01-29] MEDS: AMOXICILLIN/CLAVULANATE K 875-125 MG TAB 1 TABLET PO ×2 (09:47→20:51)
[2020-01-29] MEDS: DOCUSATE SODIUM 100 MG CAPSULE PO ×2 (09:47→20:52)
--- NOTE | 2020-01-29 12:16 | WPDNEURORHBP ---
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 resulting in the gait dysfunction and recurrent falls and history of comorbid condition of hypertension paroxysmal atrial fibrillation, type 2 diabetes mellitus, spasm of the paracervical muscles, neuropathy and DVT to the left popliteal Des though she has IVC filter but not taking anticoagulation therapy Review of Systems Review of Systems: All systems reviewed & are unremarkable except as noted in HPI and below Functional Status Ambulation Ability Ability to Ambulate 10 Feet: Moderate Assistance X 1 Ambulation Assistive Devices: Walker, Wheeled Transfers Ability Ability to Transfer In/Out of Chair: Maximum Assistance X 1 Exam Narrative: Exam Narrative: examination reveals her to be comfortable ear nose throat examination normal with moist mucous membranes eyes are normal neck is supple with no JVD or restricted range of motion breathing is clear no rhonchi or crepitations heart regular with no murmur abdomen is soft nontender normal bowel sounds skin clear neurological is she is awake alert follows instructions fairly well reflexes sluggish but symmetrical and mental status examination is normal Objective Data Vital Signs Vital Signs: Vital Signs - 24 hr 01/28/20 14:00 01/28/20 22:15 01/29/20 06:00 Temperature 36.6 C 36.5 C 36.8 C Pulse Rate 59 L 55 L 61 Respiratory Rate 20 18 18 Blood Pressure 126/54 L 126/49 L 125/40 L Pulse Oximetry 100 98 97 01/29/20 09:47 Temperature Pulse Rate 61 Respiratory Rate Blood Pressure Pulse Oximetry Intake/Output Intake/Output: Intake & Output 01/26/20 01/27/20 01/28/20 01/29/20 23:59 23:59 23:59 23:59 Intake Total 720 460 340 120 Balance 720 460 340 120 Meds/Results Medications: Active Medications Generic Name Dose Route Start Last Admin Trade Name Freq PRN Reason Stop Dose Admin Acetaminophen 650 mg 01/20/20 10:44 01/25/20 14:34 Tylenol Tablet PO 650 mg Q4H PRN Administration Mild Pain (1-3) or Fever Amoxicillin/Clavulanate Potassium 1 tablet 01/25/20 09:00 01/29/20 09:47 Augmentin 875-125 Mg Tab PO 1 tablet Q12HR EILEEN Administration Dextrose 12.5 gm 09/16/20 09:50 Dextrose 50% Syringe IV PUSH PRN PRN Hypoglycemia Protocol Docusate Sodium 100 mg 01/18/20 21:00 01/29/20 09:47 Colace Capsule PO 100 mg Q12HR EILEEN Administration Glucagon 1 mg 01/19/20 09:50 Glucagon For Inj IM PRN PRN Hypoglycemia Protocol Glucose 15 gm 01/19/20 09:50 Glutose 15 PO PRN PRN Hypoglycemia Protocol Dextrose 1,000 mls @ 100 mls/hr 01/19/20 09:50 Dextrose 5% 1,000 Ml IVPB PRN PRN Hypoglycemia Protocol Insulin Aspart 2 - 5 units 01/21/20 12:00 01/28/20 17:19 Novolog SUB-Q Not Given TIDWM EILEEN Protocol Insulin Glargine 10 units 01/19/20 21:00 01/28/20 20:25 Lantus SUB-Q 10 units HS EILEEN Administration Meclizine HCl 25 mg 01/20/20 13:00 01/29/20 09:46 Antivert PO 25 mg TID EILEEN Administration Metoprolol Tartrate 25 mg 01/18/20 21:00 01/29/20 09:47 Lopressor PO 25 mg Q12HR EILEEN Administration Ondansetron HCl 4 mg 01/25/20 09:04 01/27/20 13:27 Zofran Odt PO 4 mg Q6H PRN Administration Nausea And Vomiting Pantoprazole Sodium 40 mg 01/18/20 21:00 01/29/20 09:47 Protonix PO 40 mg Q12HR EILEEN Administration Simethicone 80 mg 01/18/20 18:52 01/28/20 17:21 Mylicon PO 80 mg QID PRN Administration Indigestion Labs Labs: Laboratory Results - last 24 hr 01/28/20 01/28/20 01/28/20 12:19 17:17 20:23 POC Capillary Glucose 135 H 117 H 212 H 01/29/20 05:53 POC Capillary Glucose 135 H Progress Note: A&P Assessment and Plan (1) S/P IVC filter:
[2020-01-29] MEDS: ONDANSETRON HCL ODT 4 MG TABLET PO ×2 (12:32→18:07)
[2020-01-29 12:51] LABS: Glucose Point of Care 132 (65-105)
[2020-01-29 14:00] VITALS: BP 128/69; PULSE 64; RESP 16; TEMP 36.7; O2SAT 100
[2020-01-29 17:10] LABS: Glucose Point of Care 162 (65-105)
[2020-01-29 20:51] VITALS: PULSE 68
[2020-01-29] MEDS: INSULIN GLARGINE (*BKC) 100 UNITS/ML 10 UNITS SUB-Q (20:52)
[2020-01-29 21:04] LABS: Glucose Point of Care 201 (65-105)
[2020-01-29 21:50] VITALS: BP 138/73; PULSE 66; RESP 18; TEMP 37.1; O2SAT 97
[2020-01-30 05:30] VITALS: BP 135/60; PULSE 61; RESP 18; TEMP 36.6; O2SAT 97
[2020-01-30 06:46] LABS: Glucose Point of Care 125 (65-105)
[2020-01-30] MEDS: DOCUSATE SODIUM 100 MG CAPSULE PO ×2 (08:56→21:40)
[2020-01-30] MEDS: AMOXICILLIN/CLAVULANATE K 875-125 MG TAB 1 TABLET PO ×2 (08:56→21:40)
[2020-01-30 08:57] VITALS: PULSE 62
[2020-01-30] MEDS: PANTOPRAZOLE 40 MG TABLET PO ×2 (08:57→21:40)
[2020-01-30] MEDS: METOPROLOL TARTRATE 25 MG TABLET PO ×2 (08:57→21:41)
[2020-01-30] MEDS: MECLIZINE HCL 25 MG TABLET PO ×3 (08:57→17:30)
[2020-01-30] MEDS: ONDANSETRON HCL ODT 4 MG TABLET PO (09:03)
[2020-01-30 12:15] LABS: Glucose Point of Care 139 (65-105)
[2020-01-30 14:00] VITALS: BP 122/59; PULSE 67; RESP 20; TEMP 36.9; O2SAT 98
[2020-01-30 17:06] LABS: Glucose Point of Care 120 (65-105)
[2020-01-30 20:20] LABS: Glucose Point of Care 256 (65-105)
[2020-01-30] MEDS: INSULIN GLARGINE (*BKC) 100 UNITS/ML 10 UNITS SUB-Q (21:40)
[2020-01-30 21:41] VITALS: PULSE 66
[2020-01-30 22:00] VITALS: BP 108/49; PULSE 71; RESP 16; TEMP 37.1; O2SAT 95
[2020-01-31 06:00] VITALS: PULSE 59; RESP 18; TEMP 37; O2SAT 97
[2020-01-31 07:16] LABS: Glucose Point of Care 136 (65-105)
[2020-01-31 08:42] VITALS: PULSE 62
[2020-01-31] MEDS: AMOXICILLIN/CLAVULANATE K 875-125 MG TAB 1 TABLET PO ×2 (08:42→21:02)
[2020-01-31] MEDS: MECLIZINE HCL 25 MG TABLET PO ×3 (08:42→17:57)
[2020-01-31] MEDS: DOCUSATE SODIUM 100 MG CAPSULE PO ×2 (08:42→21:01)
[2020-01-31] MEDS: METOPROLOL TARTRATE 25 MG TABLET PO ×2 (08:42→21:02)
[2020-01-31] MEDS: PANTOPRAZOLE 40 MG TABLET PO ×2 (08:43→21:02)
--- NOTE | 2020-01-31 10:11 | WPDNEURORHBP ---
Subjective Date/time seen: 01/31/20 10:11 79 years old lady admitted to the rehab floor for acute cerebellar vermis is stroke and involvement of the right-sided brainstem resulting in the gate dysfunctions recurrent falls in addition to the ongoing history of hypertension, paroxysmal atrial fibrillation, type 2 diabetes mellitus, and spasm of the paracervical muscles, and also neuropathy Review of Systems Review of Systems: All systems reviewed & are unremarkable except as noted in HPI and below Functional Status Ambulation Ability Ability to Ambulate 10 Feet: Moderate Assistance X 1 Ambulation Assistive Devices: Walker, Wheeled Transfers Ability Ability to Transfer In/Out of Chair: Moderate Assistance X 1 Exam Narrative: Exam Narrative: on today's examination she is awake alert cooperative ear nose throat examination normal neck is supple with no JVD no restriction of the range of motion heart regular lungs clear abdomen soft neurological examination is unchanged and is normal Objective Data Vital Signs Vital Signs: Vital Signs - 24 hr 01/30/20 14:00 01/30/20 21:41 01/30/20 22:00 Temperature 36.9 C 37.1 C Pulse Rate 67 66 71 Respiratory Rate 20 16 Blood Pressure 122/59 L 108/49 L Pulse Oximetry 98 95 01/31/20 06:00 01/31/20 08:42 Temperature 37.0 C Pulse Rate 59 L 62 Respiratory Rate 18 Blood Pressure Pulse Oximetry 97 Intake/Output Intake/Output: Intake & Output 01/28/20 01/29/20 01/30/20 01/31/20 23:59 23:59 23:59 23:59 Intake Total 526 663 4948 360 Balance 365 215 5739 360 Meds/Results Medications: Active Medications Generic Name Dose Route Start Last Admin Trade Name Akashq PRN Reason Stop Dose Admin Acetaminophen 650 mg 01/20/20 10:44 01/25/20 14:34 Tylenol Tablet PO 650 mg Q4H PRN Administration Mild Pain (1-3) or Fever Amoxicillin/Clavulanate Potassium 1 tablet 01/25/20 09:00 01/31/20 08:42 Augmentin 875-125 Mg Tab PO 1 tablet Q12HR EILEEN Administration Dextrose 12.5 gm 01/19/20 09:50 Dextrose 50% Syringe IV PUSH PRN PRN Hypoglycemia Protocol Docusate Sodium 100 mg 01/18/20 21:00 01/31/20 08:42 Colace Capsule PO 100 mg Q12HR EILEEN Administration Glucagon 1 mg 01/19/20 09:50 Glucagon For Inj IM PRN PRN Hypoglycemia Protocol Glucose 15 gm 01/19/20 09:50 Glutose 15 PO PRN PRN Hypoglycemia Protocol Dextrose 1,000 mls @ 100 mls/hr 01/19/20 09:50 Dextrose 5% 1,000 Ml IVPB PRN PRN Hypoglycemia Protocol Insulin Aspart 2 - 5 units 01/21/20 12:00 01/31/20 08:24 Novolog SUB-Q Not Given TIDWM [facility] Protocol Insulin Glargine 10 units 01/19/20 21:00 01/30/20 21:40 Lantus SUB-Q 10 units HS EILEEN Administration Meclizine HCl 25 mg 01/20/20 13:00 01/31/20 08:42 Antivert PO 25 mg TID EILEEN Administration Metoprolol Tartrate 25 mg 01/18/20 21:00 01/31/20 08:42 Lopressor PO 25 mg Q12HR EILEEN Administration Ondansetron HCl 4 mg 01/25/20 09:04 01/30/20 09:03 Zofran Odt PO 4 mg Q6H PRN Administration Nausea And Vomiting Pantoprazole Sodium 40 mg 01/18/20 21:00 01/31/20 08:43 Protonix PO 40 mg Q12HR EILEEN Administration Simethicone 80 mg 01/18/20 18:52 01/28/20 17:21 Mylicon PO 80 mg QID PRN Administration Indigestion Labs Labs: Laboratory Results - last 24 hr 01/30/20 01/30/20 01/30/20 12:09 17:04 20:15 POC Capillary Glucose 139 H 120 H 256 H 01/31/20 07:13 POC Capillary Glucose 136 H Progress Note: A&P Assessment and Plan (1) S/P IVC filter: Code(s): Z95.828 - Presence of other vascular implants and grafts Status: Acute (2) Frequent falls: Code(s): R29.6 - Repeated falls Status: Acute (3) History of gastric ulcer: Code(s): Z87.19 - Personal history of other diseases of the digestive system Status: Acute (4) C
[2020-01-31 12:00] LABS: Glucose Point of Care 170 (65-105)
[2020-01-31 14:00] VITALS: BP 128/88; PULSE 59; RESP 16; TEMP 37.1; O2SAT 99
[2020-01-31 16:47] LABS: Glucose Point of Care 151 (65-105)
[2020-01-31] MEDS: ONDANSETRON HCL ODT 4 MG TABLET PO (17:57)
[2020-01-31 19:54] LABS: Glucose Point of Care 264 (65-105)
[2020-01-31] MEDS: INSULIN GLARGINE (*BKC) 100 UNITS/ML 10 UNITS SUB-Q (21:00)
[2020-01-31 21:02] VITALS: PULSE 60
[2020-01-31 22:00] VITALS: PULSE 67; RESP 16; TEMP 37.2; O2SAT 98
[2020-02-01 06:00] VITALS: BP 136/58; PULSE 67; RESP 18; TEMP 36.4; O2SAT 98
[2020-02-01 06:51] LABS: Glucose Point of Care 112 (65-105)
[2020-02-01] MEDS: DOCUSATE SODIUM 100 MG CAPSULE PO ×2 (11:09→20:36)
[2020-02-01] MEDS: MECLIZINE HCL 25 MG TABLET PO ×3 (11:09→17:30)
[2020-02-01 11:10] VITALS: PULSE 88
[2020-02-01] MEDS: SIMETHICONE 80 MG TAB.CHEW PO ×2 (11:10→17:30)
[2020-02-01] MEDS: PANTOPRAZOLE 40 MG TABLET PO ×2 (11:10→20:37)
[2020-02-01] MEDS: METOPROLOL TARTRATE 25 MG TABLET PO ×2 (11:10→20:37)
[2020-02-01 12:03] LABS: Glucose Point of Care 157 (65-105)
--- NOTE | 2020-02-01 13:55 | WPDNEURORHBP ---
Subjective Date/time seen: 02/01/20 13:55 Interval history: this 79-year-old woman is here because of stroke diplopia and a weakness she has improved quite a blood however not as good as she really able to live in an independent living. She denies any headache nausea vomiting chest pain shortness of breath fever chills sore throat case was discussed in over team conference and the addition of plan will be added in my last Review of Systems Review of Systems: All systems reviewed & are unremarkable except as noted in HPI and below Functional Status Ambulation Ability Ability to Ambulate 10 Feet: Moderate Assistance X 1 Ambulation Assistive Devices: Walker, Wheeled Transfers Ability Ability to Transfer In/Out of Chair: Moderate Assistance X 1 Exam Const: General: comfortable and no acute distress HENMT: General nose exam: Normal nares present Mouth: Yes moist mucous membranes Eyes: Other: Is decreased visual a T in the right eye and improved subjective diplopia Neck: Neck: supple and no JVD Resp: Effort & Inspection: normal respiratory effort Auscultation: clear to auscultation bilaterally Cardio: Rate: regular rate Rhythm: regular rhythm GI: GI Palp: Yes Soft to palpation Auscultation: normal bowel sounds Skin: General skin exam: normal color and no rashes or lesions noted Neuro: Other: patient is awake alert well oriented following all commands but does seem to have some cognitive deficit I am not sure whether it was predating the stroke or else Extrem: General: normal to inspection Psych: Mental Status: mental status grossly normal Other: mild short-term cognitive deficit Objective Data Vital Signs Vital Signs: Vital Signs - 24 hr 01/31/20 14:00 01/31/20 21:02 01/31/20 22:00 Temperature 37.1 C 37.2 C Pulse Rate 59 L 60 67 Respiratory Rate 16 16 Blood Pressure 128/88 Pulse Oximetry 99 98 02/01/20 06:00 02/01/20 11:10 Temperature 36.4 C L Pulse Rate 67 88 Respiratory Rate 18 Blood Pressure 136/58 L Pulse Oximetry 98 Intake/Output Intake/Output: Intake & Output 01/29/20 01/30/20 01/31/20 02/01/20 23:59 23:59 23:59 23:59 Intake Total 360 1080 720 240 Balance 360 1080 720 240 Meds/Results Medications: Active Medications Generic Name Dose Route Start Last Admin Trade Name Freq PRN Reason Stop Dose Admin Acetaminophen 650 mg 01/20/20 10:44 01/25/20 14:34 Tylenol Tablet PO 650 mg Q4H PRN Administration Mild Pain (1-3) or Fever Dextrose 12.5 gm 01/19/20 09:50 Dextrose 50% Syringe IV PUSH PRN PRN Hypoglycemia Protocol Docusate Sodium 100 mg 01/18/20 21:00 02/01/20 11:09 Colace Capsule PO 100 mg Q12HR EILEEN Administration Glucagon 1 mg 01/19/20 09:50 Glucagon For Inj IM PRN PRN Hypoglycemia Protocol Glucose 15 gm 01/19/20 09:50 Glutose 15 PO PRN PRN Hypoglycemia Protocol Dextrose 1,000 mls @ 100 mls/hr 01/19/20 09:50 Dextrose 5% 1,000 Ml IVPB PRN PRN Hypoglycemia Protocol Insulin Aspart 2 - 5 units 01/21/20 12:00 02/01/20 06:51 Novolog SUB-Q Not Given TIDWM EILEEN Protocol Insulin Glargine 10 units 01/19/20 21:00 01/31/20 21:00 Lantus SUB-Q 10 units HS EILEEN Administration Meclizine HCl 25 mg 01/20/20 13:00 02/01/20 11:09 Antivert PO 25 mg TID EILEEN Administration Metoprolol Tartrate 25 mg 01/18/20 21:00 02/01/20 11:10 Lopressor PO 25 mg Q12HR EILEEN Administration Ondansetron HCl 4 mg 01/25/20 09:04 01/31/20 17:57 Zofran Odt PO 4 mg Q6H PRN Administration Nausea And Vomiting Pantoprazole Sodium 40 mg 01/18/20 21:00 02/01/20 11:10 Protonix PO 40 mg Q12HR EILEEN Administration Simethicone 80 mg 01/18/20 18:52 02/01/20 11:10 Mylicon PO 80 mg QID PRN Administration Indigestion Labs Labs: Laboratory Results - last 24 hr 01/31/20 01/31/20 02/01/20 16:39 1
[2020-02-01 14:00] VITALS: BP 129/72; PULSE 58; RESP 20; TEMP 36.3; O2SAT 98
[2020-02-01] MEDS: INSULIN GLARGINE (*BKC) 100 UNITS/ML 10 UNITS SUB-Q (20:36)
[2020-02-01 20:37] VITALS: PULSE 62
[2020-02-01 20:59] LABS: Glucose Point of Care 220 (65-105)
[2020-02-01 22:00] VITALS: BP 138/65; PULSE 69; RESP 20; TEMP 36.9; O2SAT 98
[2020-02-02 06:00] VITALS: BP 139/53; PULSE 65; RESP 20; TEMP 36.9; O2SAT 99
[2020-02-02 06:12] LABS: Glucose Point of Care 123 (65-105)
[2020-02-02 07:55] LABS: Basophils Percent Auto 0.4 % (0.2-1.2); Eosinophils Absolute Auto 0.2 K/mm3 (0-0.3); Eosinophils Percent Auto 2.6 % (0-4.4); Hematocrit 32.4 % (37.0-47.0); Hemoglobin 10.3 g/dL (12.0-15.0); Immature Granulocyte Absolute 0.04 K/mm3 (0.00-0.031); Immature Granulocyte Percent A 0.5 % (0-0.5); Lymphocytes Absolute Auto 1.43 K/mm3 (0.9-3.2); Lymphocytes Percent Auto 18.8 % (18.3-44.2); Mean Corpuscular HGB Conc 31.8 g/dl (32-36); Mean Corpuscular Hemoglobin 29.3 pg (26-34); Mean Corpuscular Volume 92.3 fl (80-100); Mean Platelet Volume 10.6 fl (7.4-10.4); Monocytes Absolute Auto 0.9 K/mm3 (0.1-0.6); Monocytes Percent Auto 11.6 % (2.6-8.5); Neutrophils Percent Auto 66.1 % (45.5-73.1); Platelet Count Result 141 k/mm3 (150-375); Red Blood Count 3.51 M/mm3 (4.2-5.4); Red Cell Distribution Width 13.3 % (11.5-14.5); White Blood Count 7.6 K/mm3 (4.5-10.0)
[2020-02-02 08:08] LABS: Anion Gap 5 mmol/L (8-16); Blood Urea Nitrogen 15 mg/dL (7-17); Calcium 8.9 mg/dL (8.4-10.2); Carbon Dioxide 31 mmol/L (22-30); Chloride 104 mmol/L (98-107); Estimated CRCL calculation 66 ml/min; Estimated Glomerular Filt Rate > 60; Glucose 123 mg/dL (65-105); Potassium 3.6 mmol/L (3.4-5.0); Sodium 140 mmol/L (137-145)
[2020-02-02 09:38] VITALS: PULSE 66
[2020-02-02] MEDS: METOPROLOL TARTRATE 25 MG TABLET PO ×2 (09:38→20:02)
[2020-02-02] MEDS: DOCUSATE SODIUM 100 MG CAPSULE PO ×2 (09:38→20:02)
[2020-02-02] MEDS: PANTOPRAZOLE 40 MG TABLET PO ×2 (09:38→20:02)
[2020-02-02] MEDS: MECLIZINE HCL 25 MG TABLET PO ×3 (09:39→18:19)
[2020-02-02] MEDS: ONDANSETRON HCL ODT 4 MG TABLET PO ×2 (09:40→18:20)
[2020-02-02 09:45] VITALS: PULSE 62; RESP 18; O2SAT 98
--- NOTE | 2020-02-02 12:46 | PCNFU ---
Nutrition Follow-Up Complete: Decreased sodium needs related to CHF, HTN, CVA as evidenced by history as reported in EMR. Patient to consume 75% of meals or greater. Goal: met Pt current nutrition is Heart Healthy, which is appropriate. Last recorded weight is 92.8 kg. Bowel Motility: Regular Labs Reviewed: Hgb (10.3), Hct (32.4), Na (140), K (3.6) Meds Noted: Zofran, Protonix, Lantus, Glutose 15, Colace, Lantus Mylicon Additional Notes: Pt. recently experiencing lower appetite and stomach discomfort post meal intake. Recommend holding Colace. Recommend eating half size portions at slower rate to better assess satiety and side effects, and supplementing Ensure Enlive as desired (350 cals, 2og protein, 11g fat) to provide adequate calories. Follow up in 7 days.
[2020-02-02 14:00] VITALS: BP 145/57; PULSE 58; RESP 18; TEMP 37.1; O2SAT 98
--- NOTE | 2020-02-02 14:41 | PCNSR ---
On 02/02/20, the student, Latonya Gomez, provided care and completed [facility] documentation on this patient. I have reviewed the student's documentation and agree with the findings.
--- NOTE | 2020-02-02 16:48 | WPDNEURORHBP ---
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 The right-sided weakness is improving however diplopia remains roughly about the same with fluctuating dizziness. She is complaining of some fullness of the stomach it was shared with her 2 sons present at the time of the examination earlier this morning and I have order the abdominal x-rays to make sure nothing in her abdomen is going on next The x-rays of fairly decent X showing the relatively large amount of stool in her belly Review of Systems Review of Systems: All systems reviewed & are unremarkable except as noted in HPI and below Functional Status Ambulation Ability Ability to Ambulate 10 Feet: Moderate Assistance X 1 Ambulation Assistive Devices: Walker, Wheeled Transfers Ability Ability to Transfer In/Out of Chair: Moderate Assistance X 1 Exam Const: General: comfortable and no acute distress HENMT: General nose exam: Normal nares present Mouth: Yes moist mucous membranes Eyes: Other: covered right eye which has decreased visual acuity for long time with the patch and she is able to see clear with the left eye without complaints of diplopia Neck: Neck: supple and no JVD Resp: Effort & Inspection: normal respiratory effort Auscultation: clear to auscultation bilaterally Cardio: Rate: regular rate Rhythm: regular rhythm GI: GI Palp: Yes Soft to palpation Auscultation: normal bowel sounds Skin: General skin exam: normal color and no rashes or lesions noted Neuro: Other: patient is awake alert well oriented and improving weakness Extrem: General: normal to inspection Psych: Mental Status: mental status grossly normal Objective Data Vital Signs Vital Signs: Vital Signs - 24 hr 02/01/20 20:37 02/01/20 22:00 02/02/20 06:00 Temperature 36.9 C 36.9 C Pulse Rate 62 69 65 Respiratory Rate 20 20 Blood Pressure 138/65 139/53 L Pulse Oximetry 98 99 02/02/20 09:38 Temperature Pulse Rate 66 Respiratory Rate Blood Pressure Pulse Oximetry Intake/Output Intake/Output: Intake & Output 01/30/20 01/31/20 02/01/20 02/02/20 23:59 23:59 23:59 23:59 Intake Total 1080 720 600 240 Balance 1080 720 600 240 Meds/Results Medications: Active Medications Generic Name Dose Route Start Last Admin Trade Name Freq PRN Reason Stop Dose Admin Acetaminophen 650 mg 01/20/20 10:44 01/25/20 14:34 Tylenol Tablet PO 650 mg Q4H PRN Administration Mild Pain (1-3) or Fever Dextrose 12.5 gm 01/19/20 09:50 Dextrose 50% Syringe IV PUSH PRN PRN Hypoglycemia Protocol Docusate Sodium 100 mg 01/18/20 21:00 02/02/20 09:38 Colace Capsule PO 100 mg Q12HR EILEEN Administration Glucagon 1 mg 01/19/20 09:50 Glucagon For Inj IM PRN PRN Hypoglycemia Protocol Glucose 15 gm 01/19/20 09:50 Glutose 15 PO PRN PRN Hypoglycemia Protocol Dextrose 1,000 mls @ 100 mls/hr 01/19/20 09:50 Dextrose 5% 1,000 Ml IVPB PRN PRN Hypoglycemia Protocol Insulin Glargine 10 units 01/19/20 21:00 02/01/20 20:36 Lantus SUB-Q 10 units HS EILEEN Administration Meclizine HCl 25 mg 01/20/20 13:00 02/02/20 14:01 Antivert PO 25 mg TID EILEEN Administration Metoprolol Tartrate 25 mg 01/18/20 21:00 02/02/20 09:38 Lopressor PO 25 mg Q12HR EILEEN Administration Ondansetron HCl 4 mg 01/25/20 09:04 02/02/20 09:40 Zofran Odt PO 4 mg Q6H PRN Administration Nausea And Vomiting Pantoprazole Sodium 40 mg 01/18/20 21:00 02/02/20 09:38 Protonix PO 40 mg Q12HR EILEEN Administration Simethicone 80 mg 01/18/20 18:52 02/01/20 17:30 Mylicon PO 80 mg QID PRN Administration Indigestion Radiology Results: ITS Impressions Abdomen X-Ray 02/02/20 12:59 IMPRESSION: 1. Nonobstructive bowel gas pattern. Labs Lab
[2020-02-02] MEDS: INSULIN GLARGINE (*BKC) 100 UNITS/ML 10 UNITS SUB-Q (21:19)
[2020-02-02 21:34] VITALS: BP 77/58; PULSE 63; RESP 18; TEMP 37.1; O2SAT 95
[2020-02-02 22:34] LABS: Glucose Point of Care 152 (65-105)
[2020-02-03 05:01] VITALS: BP 148/53; PULSE 59; RESP 18; TEMP 36.9; O2SAT 97
[2020-02-03 05:40] LABS: Glucose Point of Care 120 (65-105)
[2020-02-03 08:56] VITALS: PULSE 59
[2020-02-03] MEDS: METOPROLOL TARTRATE 25 MG TABLET PO ×2 (08:56→20:27)
[2020-02-03] MEDS: DOCUSATE SODIUM 100 MG CAPSULE PO ×2 (08:56→20:28)
[2020-02-03] MEDS: MECLIZINE HCL 25 MG TABLET PO ×3 (08:56→17:29)
[2020-02-03] MEDS: PANTOPRAZOLE 40 MG TABLET PO ×2 (08:56→20:27)
[2020-02-03 14:00] VITALS: BP 136/55; PULSE 67; RESP 20; TEMP 36.8; O2SAT 94
[2020-02-03 20:27] VITALS: PULSE 70
[2020-02-03] MEDS: INSULIN GLARGINE (*BKC) 100 UNITS/ML 10 UNITS SUB-Q (21:03)
[2020-02-03 22:00] VITALS: BP 124/50; PULSE 55; RESP 16; TEMP 36.8; O2SAT 98
[2020-02-03 22:40] LABS: Glucose Point of Care 192 (65-105)
[2020-02-04] VITALS (7 sets, daily range): BP systolic 121–148; BP diastolic 63–69; PULSE 59–70; RESP 18–19; TEMP 36.1–36.9; O2SAT 95–99
[2020-02-04 05:32] LABS: Glucose Point of Care 129 (65-105)
[2020-02-04] MEDS: METOPROLOL TARTRATE 25 MG TABLET PO ×2 (09:34→20:20)
[2020-02-04] MEDS: MECLIZINE HCL 25 MG TABLET PO ×3 (09:34→17:33)
[2020-02-04] MEDS: DOCUSATE SODIUM 100 MG CAPSULE PO ×2 (09:35→20:20)
[2020-02-04] MEDS: PANTOPRAZOLE 40 MG TABLET PO ×2 (09:35→20:20)
--- NOTE | 2020-02-04 11:52 | WPDNEURORHBP ---
Subjective Date/time seen: 02/04/20 11:52 Interval history: this 79-year-old woman is here after having had stroke which has left the diplopia and right-sided weakness she is improving quite a bit and of course the diplopia legs behind the improvement of the right-sided she is walking better and is happy and smiling denies any headache nausea vomiting chest pain shortness of breath fever chills sore throat Review of Systems Review of Systems: All systems reviewed & are unremarkable except as noted in HPI and below Functional Status Ambulation Ability Ability to Ambulate 10 Feet: Maximum Assistance X 1 Ambulation Assistive Devices: Walker, Wheeled Transfers Ability Ability to Transfer In/Out of Chair: Moderate Assistance X 1 Exam Const: General: comfortable and no acute distress HENMT: General nose exam: Normal nares present Mouth: Yes moist mucous membranes Eyes: Other: decreased visual acuity in the right eye stable diplopia when patch is removed from the right eye visual acuity in the left eye intact Neck: Neck: supple and no JVD Resp: Effort & Inspection: normal respiratory effort Auscultation: clear to auscultation bilaterally Cardio: Rate: regular rate Rhythm: regular rhythm GI: GI Palp: Yes Soft to palpation Auscultation: normal bowel sounds Skin: General skin exam: normal color and no rashes or lesions noted Neuro: Other: patient is awake alert well oriented follows all commands and making progress with improving right-sided weakness Extrem: General: normal to inspection Psych: Mental Status: mental status grossly normal Objective Data Vital Signs Vital Signs: Vital Signs - 24 hr 02/03/20 14:00 02/03/20 20:27 02/03/20 22:00 Temperature 36.8 C 36.8 C Pulse Rate 67 70 55 L Respiratory Rate 20 16 Blood Pressure 136/55 L 124/50 L Pulse Oximetry 94 98 02/04/20 06:00 02/04/20 09:34 02/04/20 09:40 Temperature 36.1 C L Pulse Rate 59 L 62 62 Respiratory Rate 19 18 Blood Pressure 148/69 H Pulse Oximetry 99 98 Intake/Output Intake/Output: Intake & Output 02/01/20 02/02/20 02/03/20 02/04/20 23:59 23:59 23:59 23:59 Intake Total 600 720 720 240 Balance 600 720 720 240 Meds/Results Medications: Active Medications Generic Name Dose Route Start Last Admin Trade Name Freq PRN Reason Stop Dose Admin Acetaminophen 650 mg 01/20/20 10:44 01/25/20 14:34 Tylenol Tablet PO 650 mg Q4H PRN Administration Mild Pain (1-3) or Fever Dextrose 12.5 gm 01/19/20 09:50 Dextrose 50% Syringe IV PUSH PRN PRN Hypoglycemia Protocol Docusate Sodium 100 mg 01/18/20 21:00 02/04/20 09:35 Colace Capsule PO 100 mg Q12HR EILEEN Administration Glucagon 1 mg 01/19/20 09:50 Glucagon For Inj IM PRN PRN Hypoglycemia Protocol Glucose 15 gm 01/19/20 09:50 Glutose 15 PO PRN PRN Hypoglycemia Protocol Dextrose 1,000 mls @ 100 mls/hr 01/19/20 09:50 Dextrose 5% 1,000 Ml IVPB PRN PRN Hypoglycemia Protocol Insulin Glargine 10 units 01/19/20 21:00 02/03/20 21:03 Lantus SUB-Q 10 units HS EILEEN Administration Meclizine HCl 25 mg 01/20/20 13:00 02/04/20 09:34 Antivert PO 25 mg TID EILEEN Administration Metoprolol Tartrate 25 mg 01/18/20 21:00 02/04/20 09:34 Lopressor PO 25 mg Q12HR EILEEN Administration Ondansetron HCl 4 mg 01/25/20 09:04 02/02/20 18:20 Zofran Odt PO 4 mg Q6H PRN Administration Nausea And Vomiting Pantoprazole Sodium 40 mg 01/18/20 21:00 02/04/20 09:35 Protonix PO 40 mg Q12HR EILEEN Administration Simethicone 80 mg 01/18/20 18:52 02/01/20 17:30 Mylicon PO 80 mg QID PRN Administration Indigestion Radiology Results: ITS Impressions Abdomen X-Ray 02/02/20 12:59 IMPRESSION: 1. Nonobstructive bowel gas pattern. Labs Labs: Laboratory Results - last 24 hr 02/03/20 02/04/20 20:58 05:29 POC Capil
[2020-02-04] MEDS: INSULIN GLARGINE (*BKC) 100 UNITS/ML 10 UNITS SUB-Q (20:19)
[2020-02-04 21:41] LABS: Glucose Point of Care 168 (65-105)
[2020-02-05 06:00] VITALS: BP 141/59; PULSE 59; RESP 18; TEMP 36.6; O2SAT 98
[2020-02-05 06:40] LABS: Glucose Point of Care 111 (65-105)
[2020-02-05 08:50] VITALS: PULSE 58
[2020-02-05] MEDS: METOPROLOL TARTRATE 25 MG TABLET PO ×2 (08:50→20:30)
[2020-02-05] MEDS: PANTOPRAZOLE 40 MG TABLET PO ×2 (08:50→20:30)
[2020-02-05] MEDS: MECLIZINE HCL 25 MG TABLET PO ×3 (08:50→17:00)
[2020-02-05] MEDS: DOCUSATE SODIUM 100 MG CAPSULE PO ×2 (08:50→20:32)
[2020-02-05] MEDS: ONDANSETRON HCL ODT 4 MG TABLET PO (13:32)
[2020-02-05 14:00] VITALS: BP 138/58; PULSE 69; RESP 20; TEMP 36.4; O2SAT 97
[2020-02-05 20:00] VITALS: PULSE 61; RESP 18; O2SAT 97
[2020-02-05 20:30] VITALS: PULSE 70
[2020-02-05] MEDS: INSULIN GLARGINE (*BKC) 100 UNITS/ML 10 UNITS SUB-Q (20:33)
[2020-02-05 21:03] LABS: Glucose Point of Care 220 (65-105)
[2020-02-05 21:56] VITALS: BP 142/49; PULSE 61; RESP 18; TEMP 36.9; O2SAT 97
[2020-02-06 06:00] VITALS: BP 133/67; PULSE 58; RESP 17; TEMP 36.4; O2SAT 97
[2020-02-06 06:45] LABS: Glucose Point of Care 130 (65-105)
[2020-02-06] MEDS: MECLIZINE HCL 25 MG TABLET PO ×3 (08:38→16:59)
[2020-02-06 08:39] VITALS: PULSE 82
[2020-02-06] MEDS: PANTOPRAZOLE 40 MG TABLET PO ×2 (08:39→20:44)
[2020-02-06] MEDS: DOCUSATE SODIUM 100 MG CAPSULE PO ×2 (08:39→20:44)
[2020-02-06] MEDS: METOPROLOL TARTRATE 25 MG TABLET PO ×2 (08:39→20:43)
[2020-02-06 14:00] VITALS: BP 129/76; PULSE 77; RESP 18; TEMP 36.9; O2SAT 95
--- NOTE | 2020-02-06 17:09 | WPDNEURORHBP ---
Subjective Date/time seen: 02/06/20 17:09 Interval history: this 79-year-old is here after having had stroke with the right-sided weakness which is slowly improving she also has a history of gastric ulcer and bleeding and that precludes the use of any kind of anti-platelet and or anticoagulation therapy she is progressing and making good achievement however not close to being dependent at all Review of Systems Review of Systems: All systems reviewed & are unremarkable except as noted in HPI and below Functional Status Ambulation Ability Ability to Ambulate 10 Feet: Moderate Assistance X 1 Ambulation Assistive Devices: Walker, Wheeled Transfers Ability Ability to Transfer In/Out of Chair: Moderate Assistance X 1 Exam Const: General: comfortable and no acute distress HENMT: General nose exam: Normal nares present Mouth: Yes moist mucous membranes Eyes: General: appearance normal, both eyes and all related structures Neck: Neck: supple and no JVD Resp: Effort & Inspection: normal respiratory effort Auscultation: clear to auscultation bilaterally Cardio: Rate: regular rate Rhythm: regular rhythm GI: GI Palp: Yes Soft to palpation Auscultation: normal bowel sounds Skin: General skin exam: normal color and no rashes or lesions noted Neuro: Other: patient is awake alert well oriented her dizziness is better her diplopia is better and right-sided weakness is improved Extrem: General: normal to inspection Psych: Mental Status: mental status grossly normal Objective Data Vital Signs Vital Signs: Vital Signs - 24 hr 02/05/20 20:00 02/05/20 20:30 02/05/20 21:56 Temperature 36.9 C Pulse Rate 61 70 61 Respiratory Rate 18 18 Blood Pressure 142/49 H Pulse Oximetry 97 97 02/06/20 06:00 02/06/20 08:39 02/06/20 14:00 Temperature 36.4 C L 36.9 C Pulse Rate 58 L 82 77 Respiratory Rate 17 18 Blood Pressure 133/67 129/76 Pulse Oximetry 97 95 Intake/Output Intake/Output: Intake & Output 02/03/20 02/04/20 02/05/20 02/06/20 23:59 23:59 23:59 23:59 Intake Total 720 720 720 480 Balance 720 720 720 480 Meds/Results Medications: Active Medications Generic Name Dose Route Start Last Admin Trade Name Freq PRN Reason Stop Dose Admin Acetaminophen 650 mg 01/20/20 10:44 01/25/20 14:34 Tylenol Tablet PO 650 mg Q4H PRN Administration Mild Pain (1-3) or Fever Dextrose 12.5 gm 01/19/20 09:50 Dextrose 50% Syringe IV PUSH PRN PRN Hypoglycemia Protocol Docusate Sodium 100 mg 01/18/20 21:00 02/06/20 08:39 Colace Capsule PO 100 mg Q12HR EILEEN Administration Glucagon 1 mg 01/19/20 09:50 Glucagon For Inj IM PRN PRN Hypoglycemia Protocol Glucose 15 gm 01/19/20 09:50 Glutose 15 PO PRN PRN Hypoglycemia Protocol Dextrose 1,000 mls @ 100 mls/hr 01/19/20 09:50 Dextrose 5% 1,000 Ml IVPB PRN PRN Hypoglycemia Protocol Insulin Glargine 10 units 01/19/20 21:00 02/05/20 20:33 Lantus SUB-Q 10 units HS EILEEN Administration Meclizine HCl 25 mg 01/20/20 13:00 02/06/20 16:59 Antivert PO 25 mg TID EILEEN Administration Metoprolol Tartrate 25 mg 01/18/20 21:00 02/06/20 08:39 Lopressor PO 25 mg Q12HR EILEEN Administration Ondansetron HCl 4 mg 01/25/20 09:04 02/05/20 13:32 Zofran Odt PO 4 mg Q6H PRN Administration Nausea And Vomiting Pantoprazole Sodium 40 mg 01/18/20 21:00 02/06/20 08:39 Protonix PO 40 mg Q12HR EILEEN Administration Simethicone 80 mg 01/18/20 18:52 02/01/20 17:30 Mylicon PO 80 mg QID PRN Administration Indigestion Radiology Results: ITS Impressions Abdomen X-Ray 02/02/20 12:59 IMPRESSION: 1. Nonobstructive bowel gas pattern. Labs Labs: Laboratory Results - last 24 hr 02/05/20 02/06/20 20:31 06:42 POC Capillary Glucose 220 H 130 H Progress Note: A&P Assessment and Plan (1) S/P IVC panda
[2020-02-06 20:00] VITALS: RESP 18; O2SAT 95
[2020-02-06 20:43] VITALS: PULSE 80
[2020-02-06] MEDS: INSULIN GLARGINE (*BKC) 100 UNITS/ML 10 UNITS SUB-Q (20:44)
[2020-02-06 21:02] VITALS: BP 114/67; PULSE 66; RESP 18; TEMP 36.9; O2SAT 99
[2020-02-06 21:03] LABS: Glucose Point of Care 238 (65-105)
[2020-02-07 05:43] VITALS: BP 150/66; PULSE 57; RESP 18; TEMP 36.8; O2SAT 96
[2020-02-07 07:15] LABS: Glucose Point of Care 131 (65-105)
[2020-02-07 08:56] VITALS: PULSE 62
[2020-02-07] MEDS: DOCUSATE SODIUM 100 MG CAPSULE PO ×2 (08:56→20:35)
[2020-02-07] MEDS: PANTOPRAZOLE 40 MG TABLET PO ×2 (08:56→20:35)
[2020-02-07] MEDS: METOPROLOL TARTRATE 25 MG TABLET PO ×2 (08:56→20:35)
[2020-02-07] MEDS: MECLIZINE HCL 25 MG TABLET PO ×2 (08:56→16:22)
--- NOTE | 2020-02-07 10:34 | WPDNEURORHBP ---
Subjective Date/time seen: 02/07/20 10:34 79 years old lady being treated on the acute rehab floor with the diagnosis of acute cerebellar vermis stroke and right-sided brainstem is stroke resulting in the gait dysfunction with falls in addition to the underlying history of atrial fibrillation paroxysmal in nature, hypertension, type 2 diabetes mellitus, and neuropathy continues to have fairly good control of the blood sugar occasional spikes Review of Systems Review of Systems: All systems reviewed & are unremarkable except as noted in HPI and below Functional Status Ambulation Ability Ability to Ambulate 10 Feet: Moderate Assistance X 1 Ambulation Assistive Devices: Walker, Wheeled Transfers Ability Ability to Transfer In/Out of Chair: Moderate Assistance X 1 Exam Narrative: Exam Narrative: exam reveals her to be awake alert cooperative comfortable ear nose throat examination normal with moist mucous membranes no drainage eyes normal neck is supple with full range of motion no JVD. Respirations with normal breathing no rhonchi or crepitations. Heart regular. Abdomen is soft with normal bowel sounds no tenderness. Neurological examination revealed her to be awake alert oriented with statement the dizziness is improving and diplopia is improving though she continues to have very subtle right-sided weakness Objective Data Vital Signs Vital Signs: Vital Signs - 24 hr 02/06/20 14:00 02/06/20 20:00 02/06/20 20:43 Temperature 36.9 C Pulse Rate 77 80 Respiratory Rate 18 18 Blood Pressure 129/76 Pulse Oximetry 95 95 02/06/20 21:02 02/07/20 05:43 02/07/20 08:56 Temperature 36.9 C 36.8 C Pulse Rate 66 57 L 62 Respiratory Rate 18 18 Blood Pressure 114/67 150/66 H Pulse Oximetry 99 96 Intake/Output Intake/Output: Intake & Output 02/04/20 02/05/20 02/06/20 02/07/20 23:59 23:59 23:59 23:59 Intake Total 720 720 720 240 Balance 720 720 720 240 Meds/Results Medications: Active Medications Generic Name Dose Route Start Last Admin Trade Name Freq PRN Reason Stop Dose Admin Acetaminophen 650 mg 01/20/20 10:44 01/25/20 14:34 Tylenol Tablet PO 650 mg Q4H PRN Administration Mild Pain (1-3) or Fever Dextrose 12.5 gm 01/19/20 09:50 Dextrose 50% Syringe IV PUSH PRN PRN Hypoglycemia Protocol Docusate Sodium 100 mg 09/15/20 21:00 02/07/20 08:56 Colace Capsule PO 100 mg Q12HR EILEEN Administration Glucagon 1 mg 01/19/20 09:50 Glucagon For Inj IM PRN PRN Hypoglycemia Protocol Glucose 15 gm 01/19/20 09:50 Glutose 15 PO PRN PRN Hypoglycemia Protocol Dextrose 1,000 mls @ 100 mls/hr 01/19/20 09:50 Dextrose 5% 1,000 Ml IVPB PRN PRN Hypoglycemia Protocol Insulin Glargine 10 units 01/19/20 21:00 02/06/20 20:44 Lantus SUB-Q 10 units HS EILEEN Administration Meclizine HCl 25 mg 01/20/20 13:00 02/07/20 08:56 Antivert PO 25 mg TID EILEEN Administration Metoprolol Tartrate 25 mg 01/18/20 21:00 02/07/20 08:56 Lopressor PO 25 mg Q12HR EILEEN Administration Ondansetron HCl 4 mg 01/25/20 09:04 02/05/20 13:32 Zofran Odt PO 4 mg Q6H PRN Administration Nausea And Vomiting Pantoprazole Sodium 40 mg 01/18/20 21:00 02/07/20 08:56 Protonix PO 40 mg Q12HR EILEEN Administration Simethicone 80 mg 01/18/20 18:52 02/01/20 17:30 Mylicon PO 80 mg QID PRN Administration Indigestion Radiology Results: ITS Impressions Abdomen X-Ray 02/02/20 12:59 IMPRESSION: 1. Nonobstructive bowel gas pattern. Labs Labs: Laboratory Results - last 24 hr 02/06/20 02/07/20 20:38 07:07 POC Capillary Glucose 238 H 131 H Progress Note: A&P Assessment and Plan (1) S/P IVC filter: Code(s): Z95.828 - Presence of other vascular implants and grafts Status: Acute (2) Frequent falls: Code(s): R29.6 - Repeated falls Status
[2020-02-07 14:00] VITALS: BP 158/81; PULSE 62; RESP 16; TEMP 36.6; O2SAT 98
[2020-02-07] MEDS: ACETAMINOPHEN 325 MG TABLET 650 MG PO (16:22)
[2020-02-07] MEDS: INSULIN GLARGINE (*BKC) 100 UNITS/ML 10 UNITS SUB-Q (20:34)
[2020-02-07 20:35] VITALS: PULSE 62
[2020-02-07 20:55] LABS: Glucose Point of Care 187 (65-105)
[2020-02-07 22:00] VITALS: BP 119/59; PULSE 95; RESP 18; TEMP 36.6; O2SAT 61
[2020-02-08] MEDS: MECLIZINE HCL 25 MG TABLET PO ×3 (01:15→17:08)
[2020-02-08 06:00] VITALS: BP 153/86; PULSE 60; RESP 16; TEMP 36; O2SAT 100
[2020-02-08 06:41] LABS: Glucose Point of Care 143 (65-105)
[2020-02-08 10:34] VITALS: PULSE 66
[2020-02-08] MEDS: METOPROLOL TARTRATE 25 MG TABLET PO ×2 (10:34→21:35)
[2020-02-08] MEDS: DOCUSATE SODIUM 100 MG CAPSULE PO ×2 (10:34→21:35)
[2020-02-08] MEDS: PANTOPRAZOLE 40 MG TABLET PO ×2 (10:34→21:35)
[2020-02-08] MEDS: ONDANSETRON HCL ODT 4 MG TABLET PO (10:35)
[2020-02-08] MEDS: ACETAMINOPHEN 325 MG TABLET 650 MG PO (10:37)
--- NOTE | 2020-02-08 12:56 | WPDNEURORHBP ---
Subjective Date/time seen: 02/08/20 12:56 Interval history: the patient is here after having had stroke which has left her with the diplopia dizzy a dizziness periodic nausea however no vomiting but she is doing fairly well and have improved walked about 20 feet she does have right-sided weakness which is slowly getting better comparing to before she does have a history of gastric ulcer and frequent falls and not a candidate for anticoagulation she denies any headache nausea chest pain shortness of breath fever chills sore throat Review of Systems Review of Systems: All systems reviewed & are unremarkable except as noted in HPI and below Functional Status Ambulation Ability Ability to Ambulate 10 Feet: Moderate Assistance X 1 Ambulation Assistive Devices: Walker, Wheeled Transfers Ability Ability to Transfer In/Out of Chair: Moderate Assistance X 1 Exam Const: General: comfortable and no acute distress HENMT: General nose exam: Normal nares present Mouth: Yes moist mucous membranes Eyes: Other: decreased visual acuity in the right eye stable subjective diplopia with binocular vision Neck: Neck: supple and no JVD Resp: Effort & Inspection: normal respiratory effort Auscultation: clear to auscultation bilaterally Cardio: Rate: regular rate Rhythm: regular rhythm GI: GI Palp: Yes Soft to palpation Auscultation: normal bowel sounds Skin: General skin exam: normal color and no rashes or lesions noted Neuro: Other: patient is awake alert well oriented without any distress her neurological examination continues to improve but not to a point where she can be independent and she will have to go to a facility where she can continue with the therapies Extrem: General: normal to inspection Psych: Mental Status: mental status grossly normal Objective Data Vital Signs Vital Signs: Vital Signs - 24 hr 02/07/20 14:00 02/07/20 20:35 02/07/20 22:00 Temperature 36.6 C 36.6 C Pulse Rate 62 62 95 Respiratory Rate 16 18 Blood Pressure 158/81 H 119/59 L Pulse Oximetry 98 61 L 02/08/20 06:00 02/08/20 10:34 Temperature 36.0 C L Pulse Rate 60 66 Respiratory Rate 16 Blood Pressure 153/86 H Pulse Oximetry 100 Intake/Output Intake/Output: Intake & Output 02/05/20 02/06/20 02/07/20 02/08/20 23:59 23:59 23:59 23:59 Intake Total 720 720 720 720 Balance 720 720 720 720 Meds/Results Medications: Active Medications Generic Name Dose Route Start Last Admin Trade Name Freq PRN Reason Stop Dose Admin Acetaminophen 650 mg 01/20/20 10:44 02/08/20 10:37 Tylenol Tablet PO 650 mg Q4H PRN Administration Mild Pain (1-3) or Fever Dextrose 12.5 gm 01/19/20 09:50 Dextrose 50% Syringe IV PUSH PRN PRN Hypoglycemia Protocol Docusate Sodium 100 mg 01/18/20 21:00 02/08/20 10:34 Colace Capsule PO 100 mg Q12HR EILEEN Administration Glucagon 1 mg 01/19/20 09:50 Glucagon For Inj IM PRN PRN Hypoglycemia Protocol Glucose 15 gm 01/19/20 09:50 Glutose 15 PO PRN PRN Hypoglycemia Protocol Dextrose 1,000 mls @ 100 mls/hr 01/19/20 09:50 Dextrose 5% 1,000 Ml IVPB PRN PRN Hypoglycemia Protocol Insulin Glargine 10 units 01/19/20 21:00 02/07/20 20:34 Lantus SUB-Q 10 units HS EILEEN Administration Meclizine HCl 25 mg 02/07/20 17:00 02/08/20 10:35 Antivert PO 25 mg Q8H EILEEN Administration Metoprolol Tartrate 25 mg 01/18/20 21:00 02/08/20 10:34 Lopressor PO 25 mg Q12HR EILEEN Administration Ondansetron HCl 4 mg 01/25/20 09:04 02/08/20 10:35 Zofran Odt PO 4 mg Q6H PRN Administration Nausea And Vomiting Pantoprazole Sodium 40 mg 01/18/20 21:00 02/08/20 10:34 Protonix PO 40 mg Q12HR EILEEN Administration Simethicone 80 mg 01/18/20 18:52 02/01/20 17:30 Mylicon PO 80 mg QID PRN Administration Indigestion Radiology Results: ITS Impressions Abdome
[2020-02-08 13:49] LABS: SARS-CoV-2 RNA PCR Negative
[2020-02-08 14:00] VITALS: BP 129/65; PULSE 72; RESP 18; TEMP 36.4; O2SAT 98
[2020-02-08 20:00] VITALS: PULSE 70; RESP 12; O2SAT 100
[2020-02-08] MEDS: INSULIN GLARGINE (*BKC) 100 UNITS/ML 10 UNITS SUB-Q (20:45)
[2020-02-08 21:12] VITALS: BP 123/74; PULSE 68; RESP 12; TEMP 37; O2SAT 100
[2020-02-08 21:35] VITALS: PULSE 70
[2020-02-08 21:35] LABS: Glucose Point of Care 177 (65-105)
[2020-02-09] MEDS: MECLIZINE HCL 25 MG TABLET PO ×2 (01:45→08:57)
[2020-02-09 05:19] LABS: Basophils Percent Auto 0.6 % (0.2-1.2); Eosinophils Absolute Auto 0.2 K/mm3 (0-0.3); Eosinophils Percent Auto 3.2 % (0-4.4); Hematocrit 31.4 % (37.0-47.0); Hemoglobin 9.9 g/dL (12.0-15.0); Immature Granulocyte Absolute 0.02 K/mm3 (0.00-0.031); Immature Granulocyte Percent A 0.4 % (0-0.5); Lymphocytes Absolute Auto 1.49 K/mm3 (0.9-3.2); Lymphocytes Percent Auto 29.6 % (18.3-44.2); Mean Corpuscular HGB Conc 31.5 g/dl (32-36); Mean Corpuscular Hemoglobin 28.8 pg (26-34); Mean Corpuscular Volume 91.3 fl (80-100); Mean Platelet Volume 9.9 fl (7.4-10.4); Monocytes Absolute Auto 0.5 K/mm3 (0.1-0.6); Monocytes Percent Auto 9.3 % (2.6-8.5); Neutrophils Absolute Auto 2.9 K/mm3 (1.3-6.7); Neutrophils Percent Auto 56.9 % (45.5-73.1); Platelet Count Result 160 k/mm3 (150-375); Red Blood Count 3.44 M/mm3 (4.2-5.4); Red Cell Distribution Width 13.2 % (11.5-14.5)
[2020-02-09 05:21] VITALS: BP 134/68; PULSE 53; RESP 16; TEMP 36.9; O2SAT 97
[2020-02-09 05:32] LABS: Anion Gap 3 mmol/L (8-16); Blood Urea Nitrogen 16 mg/dL (7-17); Calcium 8.8 mg/dL (8.4-10.2); Carbon Dioxide 32 mmol/L (22-30); Chloride 104 mmol/L (98-107); Estimated CRCL calculation 58 ml/min; Estimated Glomerular Filt Rate > 60; Glucose 126 mg/dL (65-105); Sodium 139 mmol/L (137-145)
[2020-02-09 06:39] LABS: Glucose Point of Care 114 (65-105)
[2020-02-09 08:57] VITALS: PULSE 66
[2020-02-09] MEDS: DOCUSATE SODIUM 100 MG CAPSULE PO (08:57)
[2020-02-09] MEDS: METOPROLOL TARTRATE 25 MG TABLET PO (08:57)
[2020-02-09] MEDS: PANTOPRAZOLE 40 MG TABLET PO (08:58)
--- NOTE | 2020-02-09 11:35 | WPDNEURORHBP ---
Subjective Date/time seen: 02/09/20 11:35 Interval history: This 79-year-old woman is going to be transferred to senior care facility after having had the stroke which has left her with right-sided hemiparesis from which she is improving however not quite to be independent she has multiple medical issues including the IVC filter placement history of gastric ulcer bleeding and that precludes any anticoagulation the atrial fibrillation is under control and today she has a regular rate and rhythm she denies any headache nausea vomiting chest pain shortness of breath fever chills sore throat Review of Systems Review of Systems: All systems reviewed & are unremarkable except as noted in HPI and below Functional Status Ambulation Ability Ability to Ambulate 10 Feet: Moderate Assistance X 1 Ambulation Assistive Devices: Walker, Wheeled Transfers Ability Ability to Transfer In/Out of Chair: Moderate Assistance X 1 Exam Const: General: comfortable and no acute distress HENMT: General nose exam: Normal nares present Mouth: Yes moist mucous membranes Eyes: General: appearance normal, both eyes and all related structures Other: decreased visual acuity in the right eye with the patch she sees good with monocular vision Neck: Neck: supple and no JVD Resp: Effort & Inspection: normal respiratory effort Auscultation: clear to auscultation bilaterally Cardio: Rate: regular rate Rhythm: regular rhythm GI: GI Palp: Yes Soft to palpation Auscultation: normal bowel sounds Skin: General skin exam: normal color and no rashes or lesions noted Neuro: Other: patient is awake and alert will oriented with fluent speech and improved right-sided hemiparesis Extrem: General: normal to inspection Psych: Mental Status: mental status grossly normal Objective Data Vital Signs Vital Signs: Vital Signs - 24 hr 02/08/20 14:00 02/08/20 20:00 02/08/20 21:12 Temperature 36.4 C 37.0 C Pulse Rate 72 70 68 Respiratory Rate 18 12 12 Blood Pressure 129/65 123/74 Pulse Oximetry 98 100 100 02/08/20 21:35 02/09/20 05:21 02/09/20 08:57 Temperature 36.9 C Pulse Rate 70 53 L 66 Respiratory Rate 16 Blood Pressure 134/68 Pulse Oximetry 97 Intake/Output Intake/Output: Intake & Output 02/06/20 02/07/20 02/08/20 02/09/20 23:59 23:59 23:59 23:59 Intake Total 720 720 960 240 Balance 720 720 960 240 Meds/Results Medications: Active Medications Generic Name Dose Route Start Last Admin Trade Name Freq PRN Reason Stop Dose Admin Acetaminophen 650 mg 01/20/20 10:44 02/08/20 10:37 Tylenol Tablet PO 650 mg Q4H PRN Administration Mild Pain (1-3) or Fever Dextrose 12.5 gm 01/19/20 09:50 Dextrose 50% Syringe IV PUSH PRN PRN Hypoglycemia Protocol Docusate Sodium 100 mg 01/18/20 21:00 02/09/20 08:57 Colace Capsule PO 100 mg Q12HR EILEEN Administration Glucagon 1 mg 01/19/20 09:50 Glucagon For Inj IM PRN PRN Hypoglycemia Protocol Glucose 15 gm 01/19/20 09:50 Glutose 15 PO PRN PRN Hypoglycemia Protocol Dextrose 1,000 mls @ 100 mls/hr 01/19/20 09:50 Dextrose 5% 1,000 Ml IVPB PRN PRN Hypoglycemia Protocol Insulin Glargine 10 units 01/19/20 21:00 02/08/20 20:45 Lantus SUB-Q 10 units HS EILEEN Administration Meclizine HCl 25 mg 02/07/20 17:00 02/09/20 08:57 Antivert PO 25 mg Q8H EILEEN Administration Metoprolol Tartrate 25 mg 01/18/20 21:00 02/09/20 08:57 Lopressor PO 25 mg Q12HR EILEEN Administration Ondansetron HCl 4 mg 01/25/20 09:04 02/08/20 10:35 Zofran Odt PO 4 mg Q6H PRN Administration Nausea And Vomiting Pantoprazole Sodium 40 mg 01/18/20 21:00 02/09/20 08:58 Protonix PO 40 mg Q12HR EILEEN Administration Polysaccharide Iron Complex 150 mg 02/09/20 08:00 Niferex-150 PO BIDWM EILEEN Simethicone 80 mg 01/18/20 18:52 02/01/20 17:30 Mylicon PO
--- NOTE | 2020-02-15 14:35 | PM.DS ---
DS: Admitting Diagnosis Admitting Diagnosis Admitting Diagnosis: CVA DS: Discharge Diagnosis Discharge Diagnosis (1) S/P IVC filter: Code(s): Z95.828 - Presence of other vascular implants and grafts Status: Acute (2) Frequent falls: Code(s): R29.6 - Repeated falls Status: Acute (3) History of gastric ulcer: Code(s): Z87.19 - Personal history of other diseases of the digestive system Status: Acute (4) CVA (cerebral vascular accident): Code(s): I63.9 - Cerebral infarction, unspecified Status: Acute (5) Hypertension: Code(s): I10 - Essential (primary) hypertension Status: Chronic (6) Atrial fibrillation: Code(s): I48.91 - Unspecified atrial fibrillation Status: Chronic (7) Diabetes type 2, controlled: Code(s): E11.9 - Type 2 diabetes mellitus without complications Status: Acute (8) HER2-positive carcinoma of left breast: Onset Date: ~01/2019 Code(s): C50.912 - Malignant neoplasm of unspecified site of left female breast Status: Acute (9) UTI (urinary tract infection): Code(s): N39.0 - Urinary tract infection, site not specified Status: Acute (10) Neuropathy: Onset Date: Unknown Code(s): G62.9 - Polyneuropathy, unspecified Status: Acute DS: Summary Hospital Course Reason for hospitalization: this 79-year-old woman was primarily admitted because of the stroke with multiple medical issues as mentioned above she received the PT OT and speech and because of the deficit she had to be transferred to the senior care facility however she did improve overall during the course of hospitalization and her parameters were as follows Hospital Course: patient was eating independent, oral hygiene independent, toileting supervision, bathing supervision, upper body dressing independent, lower body dressing partial assistance, footwear independent, rolling in bed independent, sitting to lying independent, lying to sitting independent, sit to stand independent, chair transfers partial assistance, toilet transfers supervision, car transfers partial assistance, walking 10 feet partial assistance, walking 50 feet 2 turns partial assistance rather patient was unable to, walking 150 feet walking 10 feet uneven surfaces patient was unable to Cover step partial assistance, 4 steps partial assistance, 12 steps patient was unable to. Picking up objects partial assistance, wheelchair 50 feet supervision which 150 feet supervision no falls were recorded during the course of hospitalization Time Spent with Patient Time attestation: Total time spent providing and/or coordinating discharge services: Exam Narrative: Exam Narrative: patient was stable to be discharged much improved during the course of hospitalization she is awake and alert well oriented time place and person however she does have a memory deficit which was probably superimposed by the left hemispheric stroke and the weakness her weakness has improved overall and she was walking between 10 to 20 or 30 feet of course using the walker Examination of the head and neck was normal ENT examination is normal with significant hearing loss Lungs are clear cardiovascular examination reveals rate controlled atrial fibrillation abdomen soft not tender extremities revealing no deformities Discharge Plan Discharge Attending physician on discharge: Octavio Dickerson Discharging Clinician: Octavio Dickerson Anticipated Discharge Date/Time: 02/09/20 12:59 Patient Disposition: SNF Activity: may shower and no driving Diet: diabetic Discharge Instructions: patient and daughter family to check with the oncologist about the resumption of anastrozole which she takes after the diagnosis of the breast cancer this was held because of the possibility of it having affect on stroke Please add Niferex 150mg BID to medication regime, also increase colace to two tabs daily, this
== END 2020-02-09 11:55 | DRG 57 ==
PROVIDERS: Psychiatry & Neurology Neurology; Admitting Provider Psychiatry & Neurology Neurology; PCP Family Medicine; Visit Provider Psychiatry & Neurology Neurology
DX: I69.351 Hemiplegia and hemiparesis following cerebral infarction affecting right dominant side (principal); N39.0 Urinary tract infection, site not specified; R29.6 Repeated falls; Z20.828 Contact with and (suspected) exposure to other viral communicable diseases; I69.398 Other sequelae of cerebral infarction; H53.2 Diplopia; B96.1 Klebsiella pneumoniae [K. pneumoniae] as the cause of diseases classified elsewhere; R19.07 Generalized intra-abdominal and pelvic swelling, mass and lump; E11.65 Type 2 diabetes mellitus with hyperglycemia; E11.42 Type 2 diabetes mellitus with diabetic polyneuropathy; K25.9 Gastric ulcer, unspecified as acute or chronic, without hemorrhage or perforation; I48.91 Unspecified atrial fibrillation; I11.0 Hypertensive heart disease with heart failure; I50.9 Heart failure, unspecified; M47.812 Spondylosis without myelopathy or radiculopathy, cervical region; M47.814 Spondylosis without myelopathy or radiculopathy, thoracic region; M47.816 Spondylosis without myelopathy or radiculopathy, lumbar region; Z86.718 Personal history of other venous thrombosis and embolism; Z87.891 Personal history of nicotine dependence; Z90.49 Acquired absence of other specified parts of digestive tract; Z85.3 Personal history of malignant neoplasm of breast; Z90.710 Acquired absence of both cervix and uterus; Z90.13 Acquired absence of bilateral breasts and nipples; Z23 Encounter for immunization; Z95.828 Presence of other vascular implants and grafts; Z79.4 Long term (current) use of insulin
CPT/HCPCS: 36415; 74018; 80048; 80061; 81001; 83036; 85025; 85055; 87077; 87086; 87088; 87186; 87635; 90471; 90653; 92507; 92523; 97110; 97116; 97129; 97130; 97140; 97162; 97166; 97530; 97535; 97542; A9270; C9803; G0008; J1650; J1815; U0003

== ENCOUNTER 2020-04-18 16:50 | Inpatient (IN) | payer MEDICARE, SELFPAY ==
--- NOTE | ~2020-04-18 | CT_ITS ---
EXAMINATION: CT brain wo con DATE: 04/19/2020 12:55 INDICATION: Confusion. TECHNIQUE: Computed tomography (CT) of the head was performed without intravenous contrast. The dose- length product was 605.33 mGy-cm. The mA was adjusted according to patient size. Iterative reconstruc tion technique was employed. COMPARISON: MRI dated 01/13/[address] dated 01/13/2020 FINDINGS: Mild generalized atrophy. Chronic left lacunar infarction. Study limited by motion artifact . There are scattered moderate periventricular and subcortical white matter changes, most likely rela aman to small vessel ischemic disease (microangiopathy). No ventriculomegaly or midline shift. Basilar cisterns are patent. There is intracranial atherosclerosis. No acute intracranial hemorrhage, infarc tion, mass or mass effect. Paranasal sinuses and mastoids are pneumatized. No depressed skull fractur es. IMPRESSION: 1. No acute intracranial abnormality. 2: Chronic left lacunar infarction. 3: Chronic age-related findings. Reviewed, dictated and finalized at location A. OWS SYSTEMS ADMINISTRATOR
--- NOTE | ~2020-04-18 | CT_ITS ---
EXAMINATION: CTA brain carotid EXAM DATE: 04/24/2020 18:51 INDICATION: Recent CVA on MRI. TECHNIQUE: Noncontrast head CT. Spiral CTA of the carotid arteries was performed with intravenous i njection 100 cc of Omnipaque 350. Axial, coronal, sagittal reformatted images reviewed. Additional r eformatted images created on dedicated 3-D workstation. NASCET comparable standard used to assess th e degree of arterial stenosis. Spiral CT angiogram cerebral arteries performed with the same intrave nous injection of contrast. Source images of the brain CTA transferred to dedicated workstation for 3 -D rotational image creation. Coronal, sagittal maximum intensity pixel images also reviewed. The d ose-length product (DLP) for this examination was 1564.64 mGy-cm. The exposure was tailored accordi ng to patient size, and iterative reconstruction (ASIR) was used as additional dose reduction techniq ue. Correlation is made to prior head CT from 04/19, brain MRI from 04/24. FINDINGS: There is mild to moderate right carotid bulb arterial sclerosis with 15% stenosis. There is mild left carotid bulb plaque with 0% stenosis. Scattered bilateral carotid siphon arterial sclerosi s without significant stenosis. The left vertebral artery is dominant. There is no carotid or vertebr al basilar arterial dissection or fibromuscular dysplasia. There are no cerebral artery aneurysms. Th e left P1 segment and posterior communicating artery are equal in size at about 1 mm, with a short se gment near complete or complete occlusion of the P1 segment. The sagittal, transverse and sigmoid sin uses enhance normally, no venous sinus thrombosis. Internal cerebral veins also enhance normally. Small acute right frontal lobe infarction identified. Old left basal ganglia and internal capsular la cunar infarction. No acute intracranial hemorrhage, mass or obstructive hydrocephalus. Moderate micro angiopathy and mild atrophy. Bilateral cataract surgery. IMPRESSION: 1. No cervical arterial dissection or cerebral artery aneurysm. 2. Right carotid bulb 15% stenosis, 0% on the left. 3. Short segment severe stenosis or occlusion left P1, KITCHEN MECHANIC distally being supplied by the posterior communicating artery. 4. Small acute right frontal lobe infarction identified. 5. Old left internal capsular, basal ganglia lacunar infarctions. Reviewed, dictated and finalized at location B. LER TENDER IMPRESSION: 1. No cervical arterial dissection or cerebral artery aneurysm. 2. Right carotid bulb 15% stenosis, 0% on the left. 3. Short segment severe stenosis or occlusion left P1, KITCHEN MECHANIC distally being supp lied by the posterior communicating artery. 4. Small acute right frontal lobe infarction identified. 5. Old left internal capsular, basal ganglia lacunar infarctions.
--- NOTE | ~2020-04-18 | XR_ITS ---
EXAMINATION: XR chest 1V portable 04/20/2020 13:02 INDICATION: Hypoxia. Dyspnea. PROCEDURE: AP portable chest COMPARISON: Comparison to multiple prior studies sequentially, with oldest reviewed study dated 10/12. FINDINGS: The lungs are clear. The cardiomediastinal silhouette is within normal limits. There are no pleural effusions. There is no pneumothorax suspected. IMPRESSION: 1: NO ACUTE CARDIOPULMONARY DISEASE. Reviewed, dictated and finalized at location A. CHAR OPERATOR
--- NOTE | ~2020-04-18 | MR_ITS ---
EXAMINATION: MR brain/brain stem wo/w con DATE: 04/24/2020 13:36 INDICATION: Cerebrovascular accident. TECHNIQUE: Magnetic resonance imaging (MRI) of the brain and brainstem was performed without and with 19 mL MultiHance intravenous contrast. Sequences included sagittal and axial T1-weighted FSE, axial diffusion-weighted FS EPI, axial T2*-weighted GRE, axial T2-weighted FLAIR Propeller, and axial T2-we ighted Propeller. Postcontrast sequences included axial and coronal T1-weighted FSE. Apparent diffusi on coefficient (ADC) maps were created. COMPARISON: Brain MRI 01/13/2020, head CT 04/19/2020 FINDINGS: There are multiple small acute infarcts in right frontal lobe. There is an old infarct in l eft frontal lobe. There is an old infarct in the medulla on the right. There are small old infarcts i n the cerebellum. There is an old infarct involving the left basal ganglia and left internal capsule. There is no intracranial hemorrhage or abnormal mass lesion. There are scattered areas of nonspecifi c increased T2-weighted signal intensity in the cerebral white matter and cary. There is ex vacuo dil atation of left lateral ventricle. There is mild mucosal thickening in the paranasal sinuses. There a re likely changes of ocular lens replacement surgeries. The mastoid air cells are normal. IMPRESSION: 1. Multiple small acute infarcts in the right frontal lobe. 2. Old infarcts in the left frontal lobe, medulla, cerebellum, left basal ganglia, and left internal capsule. 3. Moderate nonspecific cerebral white matter disease and pontine disease, which likely represents ch ronic small vessel ischemic disease. Reviewed, dictated and finalized at location A. ANALYST IMPRESSION: 1. Multiple small acute infarcts in the right frontal lobe. 2. Old infarcts in the left frontal lobe, medulla, cerebellum, left basal gangl ia, and left internal capsule. 3. Moderate nonspecific cerebral white matter disease and pontine disease, whic h likely represents chronic small vessel ischemic disease.
--- NOTE | ~2020-04-18 | XR_ITS ---
EXAMINATION: XR chest 1V EXAM DATE: 04/18/2020 17:41 INDICATION: Fall. History atrial fibrillation, CHF and hypertension. TECHNIQUE: Portable AP frontal chest x-ray was obtained. Comparison is made to prior examination from 01/13/2020. FINDINGS: There is cardiomegaly and pulmonary vascular congestion. No confluent consolidation, pneumo thorax or pleural effusion suspected. There is aortic arteriosclerosis. There is advanced right gleno humeral joint primary osteoarthritis. IMPRESSION: Cardiomegaly, pulmonary vascular congestion. Reviewed, dictated and finalized at location A. ING MACHINE OPERATOR
--- NOTE | ~2020-04-18 | XR_ITS ---
EXAMINATION: XR surgery orthopedic EXAM DATE: 04/19/2020 18:55 INDICATION: Right hip placement. TECHNIQUE: Frontal projection pelvis obtained portably, intraoperatively. There is no prior study f or comparison. FINDINGS: Frontal projection demonstrates femoral stem, broach, and acetabular intermediary componen ts both in expected position. Some overlying subcutaneous gas. Pelvic ring is unremarkable. IMPRESSION: Intermediary orthopedic hardware in expected position. Reviewed, dictated and finalized at location A. HOUSE INSULATION WORKER
--- NOTE | ~2020-04-18 | XR_ITS ---
EXAMINATION: XR hip RT min 2V EXAM DATE: 04/19/2020 20:25 INDICATION: Right Hip Post-Op . TECHNIQUE: Frontal and lateral crosstable projections of the right hip. Comparison is made to prior examination from 04/18/2020. FINDINGS: There is been interval insertion of a right hip replacement. The hardware is in expected p osition. There is a surgical drain. Some subcutaneous gas, postoperative. IMPRESSION: Right Hip Arthroplasty in expected position. Reviewed, dictated and finalized at location A. OYMENT ADJUDICATOR
--- NOTE | ~2020-04-18 | XR_ITS ---
EXAMINATION: XR hip RT 2V w AP pelvis EXAM DATE: 04/18/2020 17:40 INDICATION: Initial encounter following injury, with pain of the right hip. TECHNIQUE: Right hip frontal, crosstable lateral projections for interpretation. Frontal projection p dona. There is no prior study for comparison. FINDINGS: Acute closed posttraumatic right hip transcervical femoral neck fracture with some superior displacement and medial angulation. No dislocation. Pelvic ring appears intact. IMPRESSION: Acute right hip transcervical femoral neck fracture. Reviewed, dictated and finalized at location A. RBARIC NURSE
--- NOTE | ~2020-04-18 | XR_ITS ---
EXAMINATION: XR hip LT 1V DATE: 04/19/2020 07:09 INDICATION: Pelvis injury. TECHNIQUE: A single view of left hip was obtained. COMPARISON: Pelvis radiograph 04/18/2020 FINDINGS: Bone alignment is normal. No fracture. There is mild left hip osteoarthritis. IMPRESSION: 1. Mild left hip osteoarthritis. Reviewed, dictated and finalized at location A. OPERATOR
--- NOTE | 2020-04-18 16:46 | ED.FALL ---
HPI - Fall General Stated Complaint: FALL/R HIP PAIN
[2020-04-18 16:51] VITALS: BP 198/44; PULSE 52; RESP 16; TEMP 36.6; O2SAT 94
--- NOTE | 2020-04-18 16:55 | ECG_ITS ---
Measurements Intervals Sawyer Rate: 62 P: 65 AK: 172 QRS: -3 QRSD: 114 T: 43 QT: 435 QTc: 442 Interpretive Statements SINUS RHYTHM VENTRICULAR PREMATURE COMPLEX INTRAVENTRICULAR CONDUCTION DELAY BASELINE ARTIFACT- I, II, III, AVR, AVL, AVF, V1-V6 BORDERLINE ECG Electronically Signed On 04-19-2020 7:03:51 HEAD PIECE ASSEMBLER by Alfonso Ascencio D.O.
--- NOTE | 2020-04-18 16:58 | ED.FALL ---
HPI - Fall General Chief Complaint: Fall <PAUL Hughes Last Filed: 04/18/20 18:53> Stated Complaint: FALL/R HIP PAIN <PAUL Hughes Last Filed: 04/18/20 18:53> Time Seen by Provider: 04/18/20 16:51 <PAUL Hughes Last Filed: 04/18/20 18:53> Source: patient and EMS <PAUL Hughes Last Filed: 04/18/20 18:53> Mode of arrival: EMS <PAUL Hughes Last Filed: 04/18/20 18:53> Limitations: no limitations <PAUL Hughes Last Filed: 04/18/20 18:53> History of Present Illness HPI Narrative: Patient is a 80-year-old female who presents to emergency department per EMS from senior living where she sustained a ground-level fall patient was attempting to go to the bathroom slipped landing on the right hip and has since had moderate to severe right hip pain worse with any activity or movement. Patient denies head injury syncope loss of consciousness patient notes isolated right hip pain worse with any activity or movement. <PAUL Hughes Last Filed: 04/18/20 18:53> Related Data Home Medications: Home Medications Medication Instructions Recorded Confirmed anastrozole 1 mg tablet 1 mg PO DAILY 03/01/20 polysaccharide iron complex 150 mg 150 mg PO DAILY 03/01/20 iron capsule <PAUL Hughes Last Filed: 04/18/20 18:53> Allergies/Adverse Reactions: Allergies Allergy/AdvReac Type Severity Reaction Status Date / Time metformin Allergy Mild GI upset Verified 04/18/20 18:39 sitagliptin Allergy Mild rhinitis Verified 04/18/20 18:39 amlodipine Allergy Unknown Constipatio Verified 04/18/20 18:39 n aspirin Allergy Unknown Ulcers Verified 04/18/20 18:39 lisinopril Allergy Unknown Cough Verified 04/18/20 18:39 losartan Allergy Unknown Wheezing Verified 04/18/20 18:39 <PAUL Hughes Last Filed: 04/18/20 18:53> Review of Systems Review of Systems: All systems reviewed & are unremarkable except as noted in HPI and below <PAUL Hughes Last Filed: 04/18/20 18:53> PENDING SALE TO [facility] Past Medical History Medical History: Medical History Atrial fibrillation Paroxysmal Diabetes type 2, controlled DVT (deep venous thrombosis) Left leg Frequent falls HER2-positive carcinoma of left breast (~01/2019) History of CHF (congestive heart failure) History of gastric ulcer Hypertension Port-A-Cath in place nonfunctioning x2 in removed. <Xavier Tim PA-C - Last Filed: 04/18/20 18:53> Surgical History Surgical History: Surgical History History of bilateral mastectomy With chemotherapy that ended approximately 1 and half years ago. And radiation to the left side. History of cholecystectomy History of hysterectomy History of removal of Port-a-Cath x2 <Xavier Tim PA-C - Last Filed: 04/18/20 18:53> Family History Family History: Family History Sibling Family history of glaucoma Mother Family history of diabetes mellitus in first degree relative Father Family history of Alzheimer's disease Other Asthma Carcinoma of colon Diabetes mellitus Family history of congestive heart failure Family history of lung cancer <Xavier Tim PA-C - Last Filed: 04/18/20 18:53> Social History Social History: Social History Social History: the patient tells me that she has had 5 children. She is . 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 She is a full code. She drinks a glass a wine at night. No illicit drugs. No marijuana. Her son is the durable power civil litigation attorney for healthcare. She is a former smoker. She smoked for a short period of time and quit in the 60s. Smoking packs per day: 0.5 Smoking cigarettes per day:
[2020-04-18] MEDS: ONDANSETRON INJ 4 MG/2 ML VIAL IV PUSH (17:10)
[2020-04-18] MEDS: MORPHINE SULFATE (*CRX) 4 MG/ML INJ IV PUSH ×2 (17:10→19:16)
[2020-04-18] MEDS: SODIUM CHLORIDE 0.9% IV 1,000 ML 999 ML IV CONT (17:11)
[2020-04-18 18:11] LABS: Basophils Percent Auto 0.2 % (0.2-1.2); Eosinophils Absolute Auto 0.1 K/mm3 (0-0.3); Eosinophils Percent Auto 1.1 % (0-4.4); Hematocrit 39.5 % (37.0-47.0); Hemoglobin 12.3 g/dL (12.0-15.0); Immature Granulocyte Absolute 0.08 K/mm3 (0.00-0.031); Immature Granulocyte Percent A 0.8 % (0-0.5); Lymphocytes Absolute Auto 1.21 K/mm3 (0.9-3.2); Lymphocytes Percent Auto 12.8 % (18.3-44.2); Mean Corpuscular HGB Conc 31.1 g/dl (32-36); Mean Corpuscular Hemoglobin 28.3 pg (26-34); Mean Platelet Volume 9.9 fl (7.4-10.4); Monocytes Absolute Auto 0.7 K/mm3 (0.1-0.6); Monocytes Percent Auto 7.2 % (2.6-8.5); Neutrophils Absolute Auto 7.4 K/mm3 (1.3-6.7); Neutrophils Percent Auto 77.9 % (45.5-73.1); Platelet Count Result 142 k/mm3 (150-375); Red Blood Count 4.34 M/mm3 (4.2-5.4); Red Cell Distribution Width 13.3 % (11.5-14.5); White Blood Count 9.5 K/mm3 (4.5-10.0)
[2020-04-18 18:22] LABS: Anion Gap 4 mmol/L (8-16); Blood Urea Nitrogen 16 mg/dL (7-17); Calcium 8.8 mg/dL (8.4-10.2); Carbon Dioxide 35 mmol/L (22-30); Chloride 101 mmol/L (98-107); Estimated CRCL calculation 58 ml/min; Estimated Glomerular Filt Rate > 60; Glucose 238 mg/dL (65-105); Partial Thromboplastin Time 27.2 SECONDS (22.3-36.8); Prothrombin Time 13.9 Seconds (11.1-14.7); Sodium 140 mmol/L (137-145)
[2020-04-18 19:09] LABS: Add Urine Microscopic? YES; Appearance Urine Clear (Clear); Bacteria Urine Trace /hpf; Bilirubin Urine Negative (Negative); Blood Urine 1+ (Negative); Color Urine Yellow (Yellow); Glucose Urine UA 2+ mg/dL (Negative); Ketones Urine Negative (Negative); Leukocyte Esterase Ur Negative LEU/UL (Negative); Nitrate Urine Negative (Negative); Protein Urine Negative (Negative); RBC Urine 0-2 /hpf (0-2); Specific Grav Ur 1.014 (1.001-1.035); Squamous Epithelial Cell Urine Occasional /hpf (Few); WBC Urine 0-3 /hpf
[2020-04-18 20:00] VITALS: BP 154/74; PULSE 69; RESP 16; TEMP 35.9; O2SAT 95; BMI 38.9
[2020-04-18 20:02] VITALS: BP 142/93; PULSE 82; RESP 18; TEMP 36.4; O2SAT 98
--- NOTE | 2020-04-18 20:28 | PC.NURSE ---
This patient, Alexus Ferrer, was admitted to 2 Medical Room 242-01. Patient/family oriented to hospital policies and general routines including ID bracelet, bed and alarms, visiting hours, pain management, procedures, bathroom and other care routines, personal items, smoking policy, room service/diet, and visiting hours. Information on how to activate the Rapid Response Team has been discussed. Patient/Family are encouraged to report perceived risks to care and to ask questions if they do not understand what they are told or what they should do.
[2020-04-18] MEDS: LACTATED RINGERS 1,000 ML 75 ML IV CONT (20:33)
--- NOTE | 2020-04-18 20:40 | PM.IMHP ---
H&P: HPI History of Present Illness Date/Time: 04/18/20 20:40 Cheif Complaint: Mechanical fall, right hip pain Narrative: Alexus Ferrer is a 80 year old female from [facility] with past medical history of paroxysmal atrial fibrillation, type 2 diabetes, history of DVT LLE, CVA, history of frequent falls, breast cancer status post surgery and now chemotherapy, and hypertension presents to the ED with complaints of fall. Patient had a ground level fall, she slipped in the bathroom landing on her right hip. She denies any loss of consciousness, seizure activity, history of syncope, lightheadedness or dizziness prior to fall. She states she has been having increased falls and lives in assisted living. She has been living in assisted living facility for at least 15 years. She had a previous DVT and now has chronic left lower extremity swelling. She is no longer on any anticoagulant for her history DVT and paroxysmal AFib because of increased falls. Her breast cancer she had surgery last year bilateral mastectomy and now is undergoing chemotherapy. She last saw her oncologist 2 months ago. Patient states she quit smoking a long time ago before this is living facility. She is otherwise and has 5 adult children. She would like to go back to [facility] for rehab after surgery. In the ED: Patient was found to have an acute right hip transcervical femoral neck fracture. Chest x-ray showed pulmonary vascular congestion. EKG showed normal sinus rhythm. Blood sugar was elevated 238. Orthopedic surgeon Dr. Gunter consulted. Patient admitted for right hip fracture. Review of Systems Review of Systems: Narrative: Constitutional: No Fever, No Chills, No Night Sweats, No Fatigue. Endorses malaise. ENT/Mouth: No Hearing Changes, No Ear Pain, No Nasal Congestion, No Sinus Pain, No Hoarseness, No sore throat, No Rhinorrhea, No Swallowing Difficulty Eyes: No Eye Pain, No Redness, No Vision Changes Cardiovascular: No Chest Pain, No Palpitations, No Dyspnea on Exertion, No Orthopnea, No Claudication, No Edema Respiratory: No Cough, No Sputum, No Wheezing. Endorses some dyspnea. Gastrointestinal: No Nausea, No Vomiting, No Diarrhea, No Constipation, No Abdominal Pain, No Heartburn, No Hematochezia, No Melena Genitourinary: No Dysuria, No Urinary Frequency, No Hematuria, No Urinary Incontinence, No Urgency Musculoskeletal: Endorses right hip pain. Skin: No Skin Lesions, No Pruritis, No Hair Changes Neuro: No Weakness, No Numbness, No Paresthesias, No Loss of Consciousness, No Syncope, No Dizziness, No Headache Psych: No Anxiety/Panic, No Depression, No Insomnia Heme: No Bruising, No Bleeding Lymph: No Adenopathy Endocrine: No Polyuria, No Polydipsia, No Temperature Intolerance [facility] Past Medical History Medical History Atrial fibrillation Paroxysmal Diabetes type 2, controlled DVT (deep venous thrombosis) Left leg Frequent falls HER2-positive carcinoma of left breast (~01/2019) History of CHF (congestive heart failure) History of gastric ulcer Hypertension Port-A-Cath in place nonfunctioning x2 in removed. Surgical History Surgical History (Updated 04/18/20 @ 23:13 by Ayesha Birmingham DO) History of bilateral mastectomy With chemotherapy that may be ongoing, And radiation to the left side. History of cholecystectomy History of hysterectomy History of removal of Port-a-Cath x2 Family History Family History Sibling Family history of glaucoma Mother Family history of diabetes mellitus in first degree relative Father Family history of Alzheimer's disease Other Asthma Carcinoma of colon Diabetes mellitus Family history of congestive heart failure Family history of lung cancer Social History Social History (Updated 04/18/20 @ 23:12 by Sergio
[2020-04-18] MEDS: FAMOTIDINE 20 MG/2 ML VIAL IV PUSH (20:59)
[2020-04-18 21:09] LABS: Glucose Point of Care 192 (65-105)
[2020-04-19] VITALS (20 sets, daily range): BP systolic 109–164; BP diastolic 50–99; PULSE 56–82; RESP 12–20; TEMP 36.3–36.9; O2SAT 91–100
[2020-04-19] MEDS: METOPROLOL TARTRATE 25 MG TABLET PO ×3 (00:45→23:01)
[2020-04-19] MEDS: INSULIN GLARGINE (*BKC) 100 UNITS/ML 12 UNITS SUB-Q ×2 (00:46→23:13)
[2020-04-19] MEDS: MORPHINE SULFATE (*CRX) 4 MG/ML INJ IV PUSH ×2 (00:46→07:51)
[2020-04-19 05:54] LABS: Basophils Percent Auto 0.5 % (0.2-1.2); Eosinophils Absolute Auto 0.3 K/mm3 (0-0.3); Eosinophils Percent Auto 3.2 % (0-4.4); Hematocrit 38.3 % (37.0-47.0); Immature Granulocyte Absolute 0.03 K/mm3 (0.00-0.031); Immature Granulocyte Percent A 0.3 % (0-0.5); Lymphocytes Absolute Auto 1.23 K/mm3 (0.9-3.2); Lymphocytes Percent Auto 14.2 % (18.3-44.2); Mean Corpuscular HGB Conc 31.3 g/dl (32-36); Mean Corpuscular Hemoglobin 28.7 pg (26-34); Mean Corpuscular Volume 91.6 fl (80-100); Mean Platelet Volume 10.4 fl (7.4-10.4); Monocytes Absolute Auto 0.7 K/mm3 (0.1-0.6); Monocytes Percent Auto 7.6 % (2.6-8.5); Neutrophils Absolute Auto 6.4 K/mm3 (1.3-6.7); Neutrophils Percent Auto 74.2 % (45.5-73.1); Platelet Count Result 142 k/mm3 (150-375); Red Blood Count 4.18 M/mm3 (4.2-5.4); Red Cell Distribution Width 13.5 % (11.5-14.5); White Blood Count 8.6 K/mm3 (4.5-10.0)
[2020-04-19 06:10] LABS: Anion Gap 4 mmol/L (8-16); Blood Urea Nitrogen 13 mg/dL (7-17); Calcium 8.8 mg/dL (8.4-10.2); Carbon Dioxide 36 mmol/L (22-30); Chloride 101 mmol/L (98-107); Estimated CRCL calculation 58 ml/min; Estimated Glomerular Filt Rate > 60; Glucose 162 mg/dL (65-105); Potassium 4.1 mmol/L (3.4-5.0); Sodium 141 mmol/L (137-145)
[2020-04-19 08:26] LABS: Glucose Point of Care 150 (65-105)
[2020-04-19] MEDS: ANASTROZOLE (*CHEMO) 1 MG TABLET PO (09:03)
[2020-04-19] MEDS: ENOXAPARIN 30 MG/0.3 ML SYRINGE SUB-Q (09:03)
[2020-04-19] MEDS: PANTOPRAZOLE 40 MG TABLET PO ×2 (09:03→23:00)
[2020-04-19 11:58] LABS: Glucose Point of Care 141 (65-105)
[2020-04-19] MEDS: NALOXONE HCL 0.4 MG/ML VIAL IV PUSH (12:33)
--- NOTE | 2020-04-19 12:50 | PM.IMPN ---
Progress Note: A&P Assessment and Plan (1) Closed fracture of right hip: Qualifiers: Encounter type: initial encounter Qualified Code(s): S72.001A - Fracture of unspecified part of neck of right femur, initial encounter for closed fracture Code(s): S72.001A - Fracture of unspecified part of neck of right femur, initial encounter for closed fracture Status: Acute Assessment and Plan: She sustained a mechanical fall and suffered a closed, non-dislocated right hip transcervical femoral neck fracture with superior displacement and medial angulation. She was seen by Dr. Gunter and surgery is anticipated for this evening. Post-op care including weight-bearing status, wound care, pain control, and DVT prophylaxis will be deferred to Dr. Gunter. Recommend we try to avoid narcotics given noted confusion today following morphine. She does have IVC filter in place but is at high risk for VTE due to hx of VTE and breast CA on chemotherapy. Agree with PT/OT post-op once fine from an orthopedic surgery standpoint. (2) Altered mental status: Code(s): R41.82 - Altered mental status, unspecified Status: Acute Assessment and Plan: Likely secondary to morphine. She improved with narcan. ABG showed elevated CO2 with normal pH and she likely has chronic CO2 retention, reflected on review of CO2 on CMP. Will plan to avoid morphine and limit narcotics. She was evaluated by neurology. STAT CT brain was unremarkable for acute change. Appreciate neurology input. She was felt stable to proceed to surgery from a neurology standpoint. Continue to monitor (3) Fall: Qualifiers: Encounter type: initial encounter Qualified Code(s): W19.XXXA - Unspecified fall, initial encounter Code(s): W19.XXXA - Unspecified fall, initial encounter Status: Acute Assessment and Plan: The patient sustained a mechanical fall slipping in bathroom. She did no have syncopal episode, seizure activity, or acute CVA based on history. Patient has a pattern of falling and with now with new fracture we will need to see how safe she is in assisted living facility, patient should re-evaluate disposition after rehab. Care coordination will follow for discharge needs Will plan to see how she does with PT/OT (4) Hypertension: Code(s): I10 - Essential (primary) hypertension Status: Chronic Assessment and Plan: Blood pressures are reasonably controlled. Continue metoprolol (5) Atrial fibrillation: Code(s): I48.91 - Unspecified atrial fibrillation Status: Chronic Assessment and Plan: Chronic and paroxysmal. She is not on anticoagulation due to fall risk. She is in sinus rhythm at this time. Continue metoprolol Continue to monitor (6) S/P IVC filter: Code(s): Z95.828 - Presence of other vascular implants and grafts Status: Acute (7) Diabetes type 2, controlled: Code(s): E11.9 - Type 2 diabetes mellitus without complications Status: Acute Assessment and Plan: Hemoglobin A1c was 7.2 01/19/20. Continue lantus 12 units qHS Continue ACHS glucose monitoring, moderate dose sliding scale insulin, and hypoglycemia protocol (8) HER2-positive carcinoma of left breast: Onset Date: ~01/2019 Code(s): C50.912 - Malignant neoplasm of unspecified site of left female breast Status: Acute Assessment and Plan: S/P bilateral mastectomy and left breast radiation. Continue home anastrozole (9) Chronic GERD: Code(s): K21.9 - Gastro-esophageal reflux disease without esophagitis Status: Acute Assessment and Plan: Continue protonix PO BID Additional Plan Chronic Constipation: Continue home bowel regimen which includes MiraLax, docusate, and simethicone for indigestion Subjective Date/time seen: 04/19/20 12:50 Mrs. Ferrer is an 80 y.o. female wi
--- NOTE | 2020-04-19 13:05 | PCRCNOTE ---
unable to do gas at this time patient not in room at this time will check back later
[2020-04-19 13:55] LABS: Alveolar/Arterial O2 Gradient 78.6 mmHg; Base Excess ABG 1.8 mEq/l (+/-2.0); Carboxyhemoglobin 0.2 % THb (0-2.0); Fractional Inspired Oxygen 32 %; HCO3 ABG 27.8 mEq/l (22.0-26.0); Methemoglobin ABG 0.3 %THb (0-1.5); Oxygen Content ABG 16.4 %vol (16.0-22.0); Oxygen Saturation ABG 96.7 % (95.0-100.0); Oxyhemoglobin 95.6 % THb (90.0-100.0); PCO2 ABG 49.8 mmHg (35.0-45.0); PO2 ABG 91.3 mmHg (80.0-100.0); PO2 FiO2 Ratio Arterial Blood 2.85 %; Reduced Hemoglobin 3.9 %THb (0-5.0); Total Hemoglobin 12.1 g/dL (12.0-18.0); pH ABG 7.365 (7.350-7.450)
[2020-04-19 13:58] LABS: Device NASAL CANNULA; Modified Allen's Test Pass; Site Drawn RIGHT RADIAL
--- NOTE | 2020-04-19 16:15 | PM.CNOR ---
Assessment and Plan Additional Plan This patient is a 80-year-old female who was admitted with a displaced transcervical right femoral neck fracture. She sustained this fracture late yesterday afternoon when she fell in her bathroom. She stays at a local assisted living facility. Her past medical history is significant for insulin-dependent diabetes, a history of congestive heart failure. She had an echocardiogram in January of this year which showed ejection fraction of greater than 60% and several abnormalities that were considered mild. She normally gets around without a gait aid. she has a history of breast cancer and takes anastrozole for that. She has had bilateral mastectomies. She had history of gastric ulcer in the past which she attributes to aspirin. She does take pantoprazole chronically. History of a DVT in her left leg in the past. Also history of atrial fibrillation. She has had frequent falls so she is not on any anticoagulation for that. On examination she was alert and oriented to the fact that she was in the hospital and had a broken hip and she answered questions appropriately. She advised me that she is not allergic to any antibiotics. She was in lot of pain when I saw her at 715 this morning and I did order scheduled IV Tylenol and a single dose of Toradol to help improve her pain control. Her pain is at the right hip. She denies any pain anywhere else she specifically denied any head neck or back pain. She had normal sensation and palpable dorsalis pedis pulse no lower extremity edema. She is obese with a BMI of 39. I explained my recommendation to proceed with partial hip replacement to address her fracture. I would plan to use methylmethacrylate fixation for the femoral stem as I think she would have a difficult time maintaining weight-bearing status and as at risk for falls. I have discussed risks of surgery with her in detail. Risks include infection blood clots fracture nerve injury blood vessel injury bleeding requiring transfusion component loosening and medical complications such as heart attack stroke and . She expressed understanding of her situation the treatment recommendation and risks and wishes to proceed. Her surgery is going to be late in the afternoon. I think she is at particularly high risk for thromboembolic complications and I ordered a single dose of Lovenox 30 mg subcu at 7:30 a.m. this morning to give her some protection against DVT given her history and significant risk factors including history of DVT congestive heart failure cancer. I would anticipate 6 weeks of DVT prophylaxis with Eliquis 2.5 mg twice daily postoperatively. We will proceed as discussed late this afternoon. History of Present Illness HPI Consult date: 04/19/20 Chief complaint: closed right hip fracture, hyperglycemia PMFSH Past Medical History Medical History Atrial fibrillation Paroxysmal Diabetes type 2, controlled DVT (deep venous thrombosis) Left leg Frequent falls HER2-positive carcinoma of left breast (~01/2019) History of CHF (congestive heart failure) History of gastric ulcer Hypertension Port-A-Cath in place nonfunctioning x2 in removed. Surgical History Surgical History (Updated 04/18/20 @ 23:13 by Ayesha Birmingham DO) History of bilateral mastectomy With chemotherapy that may be ongoing, And radiation to the left side. History of cholecystectomy History of hysterectomy History of removal of Port-a-Cath x2 Family History Family History Sibling Family history of glaucoma Mother Family history of diabetes mellitus in first degree relative Father Family history of Alzheimer's disease Other Asthma Carcinoma of colon Diabetes mellitus Family history of congestive heart failure Family history of lung cancer Social History Social Histo
--- NOTE | 2020-04-19 16:30 | PC.NURSE ---
Report given to Jaclyn [facility]O PACU. To OR via bed. Alonso draining clear yellow urine.
[2020-04-19] MEDS: TRANEXAMIC ACID 1,000MG/ISO100 1,000 MG/100 ML BAG 200 MG IVPB (17:10)
--- NOTE | 2020-04-19 17:21 | WPDANESEPPF ---
Anes - Initial Pre Proc Eval Procedure: Operation Date: 04/19/20 16:00 Proposed Procedures p Right Bipolar Hip Replacement - Joseph Gunter MD Date/Time: 04/19/20 17:21 Pre Op Diagnosis: closed right hip fracture, hyperglycemia Patient Data Age: 80 Gender: F Height: 1.57 m Weight: 96.6 kg Last Vital Signs Temp 36.9 C 04/19/20 13:34 Pulse 61 04/19/20 13:34 Resp 16 04/19/20 13:34 BP 136/64 04/19/20 13:34 Pulse Ox 99 04/19/20 13:34 Allergies Allergy/AdvReac Type Severity Reaction Status Date / Time metformin Allergy Mild GI upset Verified 04/18/20 18:39 sitagliptin Allergy Mild rhinitis Verified 04/18/20 18:39 amlodipine Allergy Unknown Constipatio Verified 04/18/20 18:39 n aspirin Allergy Unknown Ulcers Verified 04/18/20 18:39 lisinopril Allergy Unknown Cough Verified 04/18/20 18:39 losartan Allergy Unknown Wheezing Verified 04/18/20 18:39 Home Medications Medication Instructions Recorded Confirmed Type acetaminophen 325 mg tablet 650 mg PO Q4H PRN #360 tablet 03/01/20 04/18/20 Rx anastrozole 1 mg tablet 1 mg PO DAILY 03/01/20 04/18/20 History docusate sodium 100 mg capsule 100 mg PO BID #120 cap 03/01/20 04/18/20 Rx metoprolol tartrate 25 mg tablet 25 mg PO Q12HR #30 tablet 03/01/20 04/18/20 Rx ondansetron 4 mg disintegrating 4 mg PO Q6H PRN #90 tablet 03/01/20 04/18/20 Rx tablet polyethylene glycol 3350 17 gram 17 g PO DAILY PRN #30 ea 03/01/20 04/18/20 Rx oral powder packet polysaccharide iron complex 150 mg 150 mg PO BID 03/01/20 04/18/20 History iron capsule simethicone 80 mg chewable tablet 80 mg PO QID PRN #30 tablet 03/01/20 04/18/20 Rx insulin glargine 100 unit/mL (3 12 unit SUBCUT QPM #15 ml 03/10/20 04/18/20 Rx mL) subcutaneous pen meclizine 12.5 mg PO TID PRN 04/18/20 04/18/20 History pantoprazole 40 mg PO BID 04/18/20 04/18/20 History Laboratory Tests 04/18/20 04/18/20 04/18/20 18:04 18:04 18:04 WBC 9.5 K/mm3 K/mm3 (4.5-10.0) RBC 4.34 M/mm3 M/mm3 (4.2-5.4) Hgb 12.3 g/dL g/dL (12.0-15.0) Hct 39.5 % % (37.0-47.0) MCV 91.0 fl fl (80-100) MCH 28.3 pg pg (26-34) MCHC 31.1 g/dl L g/dl (32-36) RDW 13.3 % % (11.5-14.5) Plt Count 142 k/mm3 L k/mm3 (150-375) MPV 9.9 fl fl (7.4-10.4) Immature Gran % (Auto) 0.8 % H % (0-0.5) Neut % (Auto) 77.9 % H % (45.5-73.1) Lymph % (Auto) 12.8 % L % (18.3-44.2) Daggett % (Auto) 7.2 % % (2.6-8.5) Eos % (Auto) 1.1 % % (0-4.4) Baso % (Auto) 0.2 % % (0.2-1.2) Lymph # (Auto) 1.21 K/mm3 K/mm3 (0.9-3.2) Daggett # (Auto) 0.7 K/mm3 H K/mm3 (0.1-0.6) Eos # (Auto) 0.1 K/mm3 K/mm3 (0-0.3) Baso # (Auto) 0.0 K/mm3 K/mm3 (0.0-0.1) Abs Immat Gran (auto) 0.08 K/mm3 H K/mm3 (0.00-0.031) Absolute Neuts (auto) 7.4 K/mm3 H K/mm3 (1.3-6.7) Absolute Nucleated RBC 0.0 K/mm3 K/mm3 (0.0-0.012) Nucleated RBC % 0.0 % % (0.0-0.2) PT 13.9 Seconds Seconds (11.1-14.7) INR 1.0 APTT 27.2 SECONDS SECONDS (22.3-36.8) Puncture Site ABG pH ABG pCO2 ABG pO2 ABG PO2/FiO2 Ratio ABG HCO3 ABG O2 Saturation ABG O2 Content ABG Base Excess A-a Gradient Oxyhemoglobin Carboxyhemoglobin Methemoglobin Reduced Hemoglobin Total Hemoglobin O2 Delivery Device O2 Liters/Min FiO2 Sodium 140 mmol/L mmol/L (137-145) Potassium 4.0 mmol/L mmol/L (3.4-5.0) Chloride 101 mmol/L mmol/L (98-107) Carbon Dioxide 35 mmol/L H mmol/L (22-30) Anion Gap 4 mmol/L L mmol/L (8-16) BUN 16 mg/dL mg/dL
--- NOTE | 2020-04-19 17:30 | WPDNEURCNPN ---
Assessment and Plan Assessment and plan (1) Fall: Qualifiers: Encounter type: initial encounter Qualified Code(s): W19.XXXA - Unspecified fall, initial encounter Code(s): W19.XXXA - Unspecified fall, initial encounter Status: Acute (2) Closed fracture of right hip: Qualifiers: Encounter type: initial encounter Qualified Code(s): S72.001A - Fracture of unspecified part of neck of right femur, initial encounter for closed fracture Code(s): S72.001A - Fracture of unspecified part of neck of right femur, initial encounter for closed fracture Status: Acute (3) Frequent falls: Code(s): R29.6 - Repeated falls Status: Acute (4) CVA (cerebral vascular accident): Code(s): I63.9 - Cerebral infarction, unspecified Status: Acute (5) Atrial fibrillation: Code(s): I48.91 - Unspecified atrial fibrillation Status: Chronic (6) Diabetes type 2, controlled: Code(s): E11.9 - Type 2 diabetes mellitus without complications Status: Acute Additional Plan intermittent confusion noted by the hospitalist as well as occasionally by the physician myself but as the patient was given the narcotic pain medication we attributed this to the confusion because of that is no reason for any further investigation but CT scan of the head was requested before she goes for surgery and head CT scan documented only chronic left lacunar infarct age-related finding but no bleed and no major acute lesion patient already had the l right hip x-rays which were compatible with acute right hip transfer recall femur neck fracture and a left hip x-ray were consistent with osteoarthritis routine lab was not significant and patient were saving only IV fluids was advised to be sent to the surgery Consult date: 04/19/20 Time Seen: 11:00 HPI: Alexus Ferrer is a 80 year old female admitted to the hospital on transfer from [facility] in [facility] for the complaints of ground level fall when she slipped in the bathroom and landed on her right hip she did not become unconscious had no seizure lightheadedness or dizziness but reported that she had been having increasing falls she has been living there for the last 15 years and has been noted to have previously DVT with chronic left lower extremity swelling in addition to the ongoing comorbid conditions of 1. Paroxysmal atrial fibrillation 2. Type 2 diabetes mellitus 3. DVT with left lower extremity 4. Stroke 5. Recurrent falls 6. Breast cancer and 7. Paroxysmal atrial fibrillation she is no longer on any anticoagulants for her DVT and paroxysmal atrial fibrillation because of the increasing falls she has undergone bilateral mastectomy and is undergoing chemotherapy and saw her oncologist about 2 months ago. In the emergency room she was found to have acute right hip transfer cervical femur neck fracture with chest x-ray showing pulmonary vascular congestion and normal rhythm on the EKG the blood sugar of 238 . During the hospitalization and evaluation before surgery she received the pain medication and there was some change in the mental status and I was called to evaluate her for the possibility of the TIA versus stroke Review of Systems Review of Systems: All systems reviewed & are unremarkable except as noted in HPI and below PMFSH Past Medical History Medical History Atrial fibrillation Paroxysmal Diabetes type 2, controlled DVT (deep venous thrombosis) Left leg Frequent falls HER2-positive carcinoma of left breast (~01/2019) History of CHF (congestive heart failure) History of gastric ulcer Hypertension Port-A-Cath in place nonfunctioning x2 in removed. Surgical History Surgical History History of bilateral mastectomy With chemotherapy that may be ongoing, And radiation to the left side. History of cholecystectomy Hi
[2020-04-19] MEDS: LACTATED RINGERS 1,000 ML 30 ML IV CONT ×2 (17:31→20:30)
[2020-04-19] MEDS: ceFAZolin 2 GM/D5W 50 ML 2 GM/50 ML BAG IVPB (17:38)
--- NOTE | 2020-04-19 17:44 | WPDHPUPDATE1 ---
History and Physical Update Update Date/Time: 04/19/20 17:44 History and Physical has been reviewed, including an updated exam of the patient. There are NO changes in the patient's condition. Risks, benefits, and alternatives have been discussed and questions answered. Patient agrees to proceed with procedure.
[2020-04-19] MEDS: ceFAZolin SODIUM 1 GM VIAL 3 GM IRRIGATION (18:18)
[2020-04-19] MEDS: EPINEPHrine HCL INJ 1 MG/ML AMPUL IRRIGATION (18:20)
[2020-04-19] MEDS: ceFAZolin SODIUM 1 GM VIAL IV PUSH (19:23)
--- NOTE | 2020-04-19 19:58 | PM.PROC ---
Procedure Note - Detailed Date of procedure: 04/19/20 Pre-op diagnosis: closed right hip fracture, hyperglycemia Displaced transcervical right femoral neck fracture, obesity Post-op diagnosis: same Procedure performed: Cemented bipolar hemiarthroplasty right hip. Description of procedure: Patient was brought to the operating room and general anesthesia was administered. She received 1 g of tranexamic acid weight based vancomycin 2 g of Ancef preoperatively. The right hip was scrubbed with a chlorhexidine cloth. She was transferred the operating table and placed in lateral decubitus position the arms carefully padded and axillary roll placed. An 8 in longitudinal incision was made. She had significant obesity particularly at the hip. Her BMI was 39.0. The size of her leg and hip added difficulty to the procedure increasing the time of the operation by estimated 33%. Fascia was incised longitudinally. Anterior 50% gluteus medius was elevated off the greater trochanter as well as the gluteus minimus. Capsule was incised superiorly and elevated off the anterior neck. Provisional femoral neck osteotomy was made. The femoral head removed. It measured 47.2 mm. The 48 trial fit nicely sitting up only a mm or so. The 47 seemed a little loose. The canal was opened with the plastic sucker tip and the intramedullary contents aspirated. That was done after using a curette and taking a specimen of the cancellous bone from the femoral neck. That and the femoral head were sent to pathology given her history of breast cancer but I did not see any evidence of tumor within the bone on either the femoral head side of the femoral neck side. We broached up to a size 9 with the [employer] Bimetric broaches and trialed with the standard neck and the -6 which was stable. We templated to a 0 and we confirmed that we could lower the neck down another 5 mm which we did with calcar planing and countersinking the broach. We trialed with the 0 there is full range of motion and excellent stability an intraoperative x-ray with the size 0 was taken. It showed the stem in proper position. I felt that the right leg was still a few mm longer than the left and it was a little bit hard to dislocate. We countersunk the broach noted 3 mm calcar plane further. We sounded the canal to 9 mm. A 12 mm cement restrictor was chosen and placed without difficulty. We chose the 9 mm centralizer. The canal was prepared with thorough pulsatile lavage with a bottle brush irrigation to all the canal dried with epinephrine-soaked sponges and dry sponges and we injected the Biomet cement 1 batch containing gentamicin powder and we pressurized and inserted the size 7 cemented Bimetric stem seating this fully in the proper position. Cement was allowed to harden. Patient tolerated the at this well from an anesthesia standpoint. After cement hardening again excess cement removed we trialed again with the 0 head and we found appropriate stability in all positions and excellent range of motion and leg lengths appeared equal. The 0 head was assembled to the 48 mm bipolar head which was impacted onto the clean and dried trunnion after changing outer gloves. The wound was thoroughly irrigated multiple times with Ancef solution. The hip was reduced stability reconfirmed. Local anesthetic cocktail was injected. The capsule was closed with 2. Ethibond. Two 5. Ethibonds were passed through the greater trochanter and the abductor repaired with multiple 2. Ethibond and the 5. Ethibond through bone and secure repair was achieved. The fascia was closed with multiple 2. Vicryl is a and 2 running 1. unidirectional barbed strata Fix sutures. An 8th inch Hemovac drain was placed deep to the subcutaneous fat layer and the fat layer closed in layers with 2 O Vicryl and the skin closed with glue. EBL was estimated at 275 cc by Anesthesia. Wound was completely dry after cementation of the femoral component. Tolerated the procedure w
[2020-04-19 20:10] LABS: Glucose Point of Care 141 (65-105)
[2020-04-19 20:51] LABS: Glucose Point of Care 163 (65-105)
[2020-04-19] MEDS: fentaNYL CITRATE INJ (*CRX) 100 MCG/2 ML VIAL 25 MCG IV PUSH ×2 (21:08→21:27)
[2020-04-19 21:53] LABS: Hematocrit 38.7 % (37.0-47.0)
[2020-04-19] MEDS: DEXTROSE 5%/0.45% SOD CHL 1,000 ML 80 ML IV CONT (22:53)
[2020-04-19] MEDS: ACETAMINOPHEN 500 MG TABLET 1000 MG PO (23:00)
[2020-04-19] MEDS: TOLNAFTATE 1% POWDER 45 GM BTL 1 APPLIC TOPICAL (23:03)
[2020-04-19] MEDS: DOCUSATE SODIUM 100 MG CAPSULE PO (23:03)
[2020-04-19] MEDS: oxyCODONE HCL (*CRX) 2.5 MG TAB IR PO (23:13)
[2020-04-20] VITALS (14 sets, daily range): BP systolic 116–165; BP diastolic 46–56; PULSE 52–77; RESP 16–20; TEMP 36.7–37.3; O2SAT 92–100
[2020-04-20 00:31] LABS: Glucose Point of Care 186 (65-105)
--- NOTE | 2020-04-20 03:08 | PC.NURSE ---
This patient, Alexus Ferrer, was received from PACU on 04/19/20 at 2150. Patient/family oriented to unit policies and routines
[2020-04-20] MEDS: ACETAMINOPHEN 500 MG TABLET 1000 MG PO ×3 (04:18→15:10)
[2020-04-20 05:12] LABS: Basophils Percent Auto 0.4 % (0.2-1.2); Eosinophils Absolute Auto 0.1 K/mm3 (0-0.3); Eosinophils Percent Auto 0.5 % (0-4.4); Hematocrit 31.5 % (37.0-47.0); Hemoglobin 9.7 g/dL (12.0-15.0); Immature Granulocyte Absolute 0.03 K/mm3 (0.00-0.031); Immature Granulocyte Percent A 0.3 % (0-0.5); Lymphocytes Percent Auto 8.9 % (18.3-44.2); Mean Corpuscular HGB Conc 30.8 g/dl (32-36); Mean Corpuscular Hemoglobin 27.8 pg (26-34); Mean Corpuscular Volume 90.3 fl (80-100); Mean Platelet Volume 10.5 fl (7.4-10.4); Monocytes Absolute Auto 0.7 K/mm3 (0.1-0.6); Monocytes Percent Auto 6.2 % (2.6-8.5); Neutrophils Absolute Auto 9.4 K/mm3 (1.3-6.7); Neutrophils Percent Auto 83.7 % (45.5-73.1); Platelet Count Result 129 k/mm3 (150-375); Red Blood Count 3.49 M/mm3 (4.2-5.4); Red Cell Distribution Width 13.3 % (11.5-14.5); White Blood Count 11.3 K/mm3 (4.5-10.0)
[2020-04-20 05:20] LABS: Alanine Aminotransferase 17 U/L (4-35); Albumin Level 2.8 g/dL (3.5-5.1); Alkaline Phosphatase 59 U/L (38-126); Anion Gap 2 mmol/L (8-16); Aspartate Amino Transferase 28 U/L (14-36); Bilirubin,Total 0.5 mg/dL (0.2-1.3); Blood Urea Nitrogen 18 mg/dL (7-17); Calcium 8.3 mg/dL (8.4-10.2); Carbon Dioxide 34 mmol/L (22-30); Chloride 97 mmol/L (98-107); Estimated CRCL calculation 51 ml/min; Estimated Glomerular Filt Rate > 60; Glucose 239 mg/dL (65-105); Magnesium 1.7 mg/dL (1.6-2.3); Potassium 4.4 mmol/L (3.4-5.0); Sodium 133 mmol/L (137-145)
[2020-04-20] MEDS: oxyCODONE HCL (*CRX) 2.5 MG TAB IR PO ×4 (06:22→18:45)
--- NOTE | 2020-04-20 07:29 | PM.PNORT ---
Progress Note: A&P Additional Plan Patient is postoperative day 1. Following cemented bipolar hemiarthroplasty right hip. She seems to be doing well. She is not having a great deal of pain right now. She is a little bit confused. She reoriented quickly to being at [facility] when I questioned her repeatedly and knowing that she had had a hip fracture. She was not aware that she had had the surgery last night and has not been able to guess the year. Of course she knows the president is president Twan still. Her wound is dry. She has a drain in place that were removed this morning we will remove the Alonso and mobilize her. She wiggles her toes up and down denies numbness in her right foot. Her. Vital signs are stable. The laboratory results are delayed this morning. Subjective Subjective Date/Time Seen: 04/20/20 07:29 Objective Data Vital Signs Vital Signs: Vital Signs - 24 hr 04/19/20 09:04 04/19/20 09:55 04/19/20 13:34 Temperature 36.7 C 36.9 C Pulse Rate 68 68 61 Respiratory Rate 16 16 16 Blood Pressure 143/56 H 136/64 Pulse Oximetry 91 91 99 04/19/20 16:00 04/19/20 17:41 04/19/20 20:23 Temperature 36.8 C 36.6 C Pulse Rate 60 56 L 56 L Respiratory Rate 16 16 Blood Pressure 158/67 H 109/50 L Pulse Oximetry 100 96 04/19/20 20:35 04/19/20 20:55 04/19/20 21:05 Temperature Pulse Rate 57 L 59 L 59 L Respiratory Rate 13 12 15 Blood Pressure 136/69 156/99 H 164/59 H Pulse Oximetry 99 96 94 04/19/20 21:23 04/19/20 21:35 04/19/20 21:50 Temperature 36.3 C L Pulse Rate 57 L 58 L 58 L Respiratory Rate 15 15 16 Blood Pressure 161/64 H 136/90 138/54 L Pulse Oximetry 95 97 96 04/19/20 22:00 04/19/20 22:05 04/19/20 22:35 Temperature 36.7 C 36.3 C L Pulse Rate 58 L 58 L Respiratory Rate 20 20 Blood Pressure 151/59 H 164/62 H Pulse Oximetry 96 99 100 04/19/20 23:01 04/19/20 23:25 04/20/20 00:00 Temperature 36.7 C Pulse Rate 65 20 L 61 Respiratory Rate 92 H Blood Pressure 131/59 L Pulse Oximetry 62 L 04/20/20 03:25 04/20/20 04:00 04/20/20 06:50 Temperature 36.9 C 36.7 C Pulse Rate 56 L 57 L 52 L Respiratory Rate 16 16 Blood Pressure 126/49 L 138/52 L Pulse Oximetry 98 100 Intake/Output Intake/Output: Intake & Output 04/17/20 04/18/20 04/19/20 04/20/20 23:59 23:59 23:59 23:59 Intake Total 1325 350 600 Output Total 1650 520 Balance 1325 -1300 80 Meds/Results Medications: Active Medications Generic Name Dose Route Start Last Admin Trade Name Freq PRN Reason Stop Dose Admin Acetaminophen 1,000 mg 04/19/20 21:40 04/20/20 04:18 Acetaminophen 500 Mg Tablet PO 1,000 mg Q6H EILEEN Administration Anastrozole 1 mg 04/19/20 09:00 04/19/20 09:03 Anastrozole (*Chemo) 1 Mg Tablet PO 1 mg DAILY EILEEN Administration Apixaban 2.5 mg 04/20/20 09:00 Apixaban 2.5 Mg Tablet PO Q12HR EILEEN Dextrose 12.5 gm 04/18/20 18:54 Dextrose 50% 25 Gm/50 Ml Syringe IV PUSH PRN PRN Hypoglycemia Protocol Docusate Sodium 100 mg 04/19/20 21:40 04/19/20 23:03 Docusate Sodium 100 Mg Capsule PO 100 mg Q12HR EILEEN Administration Glucagon 1 mg 04/18/20 18:54 Glucagon For Inj 1 Mg Vial IM PRN PRN Hypoglycemia Protocol Glucose 15 gm 04/18/20 18:54 Glucose Oral Gel 15 Gm Of Glucse In 37.5 Gm Tube PO PRN PRN Hypoglycemia Protocol Cefazolin Sodium 1 gm in 50 mls @ 100 mls/hr 04/20/20 02:00 04/20/20 03:05 Ancef 1 Gm/D5w 50 Ml Pm IVPB 04/20/20 18:29 Infused Q8H EILEEN Infusion Vancomycin HCl 1,000 mg in 250 mls @ 250 mls/hr 04/19/20 22:00 04/20/20 00:55 Vancomycin 1,000 Mg/D5w 250 Ml IVPB 04/20/20 10:59 Infused Q12H EILEEN Infusion Dextrose/Sodium Chloride 1,000 mls @ 80 mls/hr 04/19/20 21:40 04/19/20 22:53 Dextrose 5% Sodium Chloride 0.45% IV CONT 80 mls/hr .[id number] EILEEN Administration Insulin Aspart 3 - 6 units 04/19/20 08:00 04/19/20 23:00
[2020-04-20 08:40] LABS: Glucose Point of Care 202 (65-105)
[2020-04-20] MEDS: INSULIN ASPART (*BKC) 100 UNITS/ML SUB-Q ×2 (09:18→11:39)
[2020-04-20] MEDS: DOCUSATE SODIUM 100 MG CAPSULE PO ×2 (09:21→20:42)
[2020-04-20] MEDS: ANASTROZOLE (*CHEMO) 1 MG TABLET PO (09:21)
[2020-04-20] MEDS: METOPROLOL TARTRATE 25 MG TABLET PO ×2 (09:22→20:42)
[2020-04-20] MEDS: PANTOPRAZOLE 40 MG TABLET PO ×2 (09:23→20:42)
[2020-04-20] MEDS: TOLNAFTATE 1% POWDER 45 GM BTL 1 APPLIC TOPICAL ×2 (09:24→20:42)
[2020-04-20] MEDS: APIXABAN 2.5 MG TABLET PO ×2 (09:24→20:42)
--- NOTE | 2020-04-20 11:15 | WPDANESPN ---
Anes - Prog Note Post-Op Date/Time: 04/20/20 11:15 Cardiovascular status: normal Respiratory status: normal Airway patency: baseline Mental status: baseline Post-Op hydration status: normal Vital Signs: Last Vital Signs Temp 36.7 C 04/20/20 06:50 Pulse 60 04/20/20 09:22 Resp 16 04/20/20 06:50 BP 138/52 L 04/20/20 06:50 Pulse Ox 100 04/20/20 06:50 Pain Score (VAS): 0/10 I/O: Intake & Output 04/19/20 04/20/20 04/20/20 23:59 07:59 15:59 Intake Total 150 600 829 Output Total 650 520 Balance -500 80 829 Laboratory Tests 04/20/20 04:21 04/20/20 04:21 04/19/20 04/19/20 04/19/20 11:49 13:48 17:35 WBC RBC Hgb Hct MCV MCH MCHC RDW Plt Count MPV Immature Gran % (Auto) Neut % (Auto) Lymph % (Auto) [place] % (Auto) Eos % (Auto) Baso % (Auto) Lymph # (Auto) [place] # (Auto) Eos # (Auto) Baso # (Auto) Abs Immat Gran (auto) Absolute Neuts (auto) Absolute Nucleated RBC Nucleated RBC % Puncture Site Right radial ABG pH 7.365 ABG pCO2 49.8 H ABG pO2 91.3 ABG PO2/FiO2 Ratio 2.85 ABG HCO3 27.8 H ABG O2 Saturation 96.7 ABG O2 Content 16.4 ABG Base Excess 1.8 A-a Gradient 78.6 Oxyhemoglobin 95.6 Carboxyhemoglobin 0.2 Methemoglobin 0.3 Reduced Hemoglobin 3.9 Total Hemoglobin 12.1 O2 Delivery Device Nasal cannula O2 Liters/Min 3.0 FiO2 32 Sodium Potassium Chloride Carbon Dioxide Anion Gap BUN Creatinine Estim Creat Clear Calc Estimated GFR Glucose POC Capillary Glucose 141 H 141 H Calcium Magnesium Total Bilirubin AST ALT Alkaline Phosphatase Total Protein Albumin 04/19/20 04/19/20 04/19/20 20:43 21:49 23:09 WBC RBC Hgb 12.0 Hct 38.7 MCV MCH MCHC RDW Plt Count MPV Immature Gran % (Auto) Neut % (Auto) Lymph % (Auto) [place] % (Auto) Eos % (Auto) Baso % (Auto) Lymph # (Auto) [place] # (Auto) Eos # (Auto) Baso # (Auto) Abs Immat Gran (auto) Absolute Neuts (auto) Absolute Nucleated RBC Nucleated RBC % Puncture Site ABG pH ABG pCO2 ABG pO2 ABG PO2/FiO2 Ratio ABG HCO3 ABG O2 Saturation ABG O2 Content ABG Base Excess A-a Gradient Oxyhemoglobin Carboxyhemoglobin Methemoglobin Reduced Hemoglobin Total Hemoglobin O2 Delivery Device O2 Liters/Min FiO2 Sodium Potassium Chloride Carbon Dioxide Anion Gap BUN Creatinine Estim Creat Clear Calc Estimated GFR Glucose POC Capillary Glucose 163 H 186 H Calcium Magnesium Total Bilirubin AST ALT Alkaline Phosphatase Total Protein Albumin 04/20/20 04/20/20 04/20/20 04:21 04:21 08:32 WBC 11.3 H RBC 3.49 L Hgb 9.7 L Hct 31.5 L MCV 90.3 MCH 27.8 MCHC 30.8 L RDW 13.3 Plt Count 129 L MPV 10.5 H Immature Gran % (Auto) 0.3 Neut % (Auto) 83.7 H Lymph % (Auto) 8.9 L [place] % (Auto) 6.2 Eos % (Auto) 0.5 Baso % (Auto) 0.4 Lymph # (Auto) 1.00 [place] # (Auto) 0.7 H Eos # (Auto) 0.1 Baso # (Auto) 0.0 Abs Immat Gran (auto) 0.03 Absolute Neuts (auto) 9.4 H Absolute Nucleated RBC 0.0 Nucleated RBC % 0.0 Puncture Site ABG pH ABG pCO2 ABG pO2 ABG PO2/FiO2 Ratio ABG HCO3 ABG O2 Saturation ABG O2 Content ABG Base Excess A-a Gradient Oxyhemoglobin Carboxyhemoglobin Methemoglobin Reduced Hemoglobin Total Hemoglobin O2 Delivery Device O2 Liters/Min FiO2 Sodium 133 L Potassium 4.4 Chloride 97 L Carbon Dioxide 34 H Anion Gap 2 L BUN 18 H Creatinine 0.80 Estim Creat Clear Calc 51 Estimated GFR > 60 Glucose 239 H POC Capillary Glucose 202 H Calcium 8.3 L Magnesium 1.7 Total Bilirubi
[2020-04-20 11:20] LABS: Glucose Point of Care 204 (65-105)
--- NOTE | 2020-04-20 12:34 | PM.IMPN ---
Progress Note: A&P Assessment and Plan (1) Closed fracture of right hip: Qualifiers: Encounter type: initial encounter Qualified Code(s): S72.001A - Fracture of unspecified part of neck of right femur, initial encounter for closed fracture Code(s): S72.001A - Fracture of unspecified part of neck of right femur, initial encounter for closed fracture Status: Acute Assessment and Plan: She sustained a mechanical fall and suffered a closed, non-dislocated right hip transcervical femoral neck fracture with superior displacement and medial angulation. She is s/p cemented bipolar hemiarthroplasty by Dr. Gunter . Post-op care including weight-bearing status, wound care, pain control, and DVT prophylaxis will be deferred to Dr. Gunter. Recommend we try to limit/avoid narcotics. She does have IVC filter in place but is at high risk for VTE due to hx of VTE and breast CA on chemotherapy. Agree with PT/OT post-op once fine from an orthopedic surgery standpoint. (2) Altered mental status: Code(s): R41.82 - Altered mental status, unspecified Status: Acute Assessment and Plan: Likely secondary to morphine which will be avoided. Limit narcotics. She was evaluated by neurology. STAT CT brain was unremarkable for acute change. Appreciate neurology input. She has a bit of mild confusion today, likely due to delirium, but is A&Ox4 for me today. Continue to monitor (3) Fall: Qualifiers: Encounter type: initial encounter Qualified Code(s): W19.XXXA - Unspecified fall, initial encounter Code(s): W19.XXXA - Unspecified fall, initial encounter Status: Acute Assessment and Plan: The patient sustained a mechanical fall slipping in bathroom. She did not have a syncopal episode, seizure activity, or acute CVA based on history. Patient has a pattern of falling and with now with new fracture we will need to see how safe she is in assisted living facility, patient should re-evaluate disposition after rehab. Care coordination will follow for discharge needs Will plan to see how she does with PT/OT but rehab is anticipated (4) Hypertension: Code(s): I10 - Essential (primary) hypertension Status: Chronic Assessment and Plan: Blood pressures are reasonably controlled. Continue metoprolol Continue to monitor (5) Atrial fibrillation: Code(s): I48.91 - Unspecified atrial fibrillation Status: Chronic Assessment and Plan: Chronic and paroxysmal. She is not on anticoagulation prior to admission due to fall risk. She is in sinus rhythm at this time. Continue metoprolol Continue to monitor (6) S/P IVC filter: Code(s): Z95.828 - Presence of other vascular implants and grafts Status: Acute (7) Diabetes type 2, controlled: Code(s): E11.9 - Type 2 diabetes mellitus without complications Status: Acute Assessment and Plan: Hemoglobin A1c was 7.2 01/19/20. Blood sugars are reasonably controlled. Continue lantus 12 units qHS Continue ACHS glucose monitoring, moderate dose sliding scale insulin, and hypoglycemia protocol (8) HER2-positive carcinoma of left breast: Onset Date: ~01/2019 Code(s): C50.912 - Malignant neoplasm of unspecified site of left female breast Status: Acute Assessment and Plan: S/P bilateral mastectomy and left breast radiation. Continue home anastrozole (9) Chronic GERD: Code(s): K21.9 - Gastro-esophageal reflux disease without esophagitis Status: Acute Assessment and Plan: Continue protonix PO BID Additional Plan Chronic Constipation: Continue home bowel regimen which includes MiraLax, docusate, and simethicone for indigestion Subjective Date/time seen: 04/20/20 12:34 Mrs. Ferrer is an 80 y.o. female with PMH significant for IDDM, paroxysmal atrial fibrillation and not o
[2020-04-20 17:53] LABS: Glucose Point of Care 174 (65-105)
[2020-04-20] MEDS: INSULIN GLARGINE (*BKC) 100 UNITS/ML 12 UNITS SUB-Q (18:00)
[2020-04-20 20:51] LABS: Glucose Point of Care 172 (65-105)
[2020-04-21] VITALS (8 sets, daily range): BP systolic 126–148; BP diastolic 57–81; PULSE 55–74; RESP 15–21; TEMP 36.3–37.1; O2SAT 92–100
[2020-04-21] MEDS: oxyCODONE HCL (*CRX) 2.5 MG TAB IR PO ×5 (03:56→21:59)
--- NOTE | 2020-04-21 04:03 | PC.NURSE ---
04/21/20 0000 patient confused and refusing oral pain meds at this time.
[2020-04-21 05:30] LABS: Basophils Percent Auto 0.3 % (0.2-1.2); Eosinophils Absolute Auto 0.4 K/mm3 (0-0.3); Eosinophils Percent Auto 3.3 % (0-4.4); Hematocrit 32.8 % (37.0-47.0); Hemoglobin 10.4 g/dL (12.0-15.0); Immature Granulocyte Absolute 0.05 K/mm3 (0.00-0.031); Immature Granulocyte Percent A 0.5 % (0-0.5); Immature Platelet Fraction Pct 3.9 % (0.9-11.2); Lymphocytes Absolute Auto 1.26 K/mm3 (0.9-3.2); Lymphocytes Percent Auto 11.9 % (18.3-44.2); Mean Corpuscular HGB Conc 31.7 g/dl (32-36); Mean Corpuscular Volume 88.2 fl (80-100); Mean Platelet Volume 10.5 fl (7.4-10.4); Monocytes Absolute Auto 0.7 K/mm3 (0.1-0.6); Monocytes Percent Auto 6.8 % (2.6-8.5); Neutrophils Absolute Auto 8.2 K/mm3 (1.3-6.7); Neutrophils Percent Auto 77.2 % (45.5-73.1); Platelet Count Result 128 k/mm3 (150-375); Red Blood Count 3.72 M/mm3 (4.2-5.4); Red Cell Distribution Width 13.5 % (11.5-14.5); White Blood Count 10.6 K/mm3 (4.5-10.0)
[2020-04-21] MEDS: ACETAMINOPHEN 500 MG TABLET 1000 MG PO ×4 (05:35→23:13)
[2020-04-21 05:46] LABS: Anion Gap 3 mmol/L (8-16); Blood Urea Nitrogen 15 mg/dL (7-17); Calcium 8.8 mg/dL (8.4-10.2); Carbon Dioxide 35 mmol/L (22-30); Chloride 97 mmol/L (98-107); Estimated CRCL calculation 51 ml/min; Estimated Glomerular Filt Rate > 60; Glucose 164 mg/dL (65-105); Sodium 135 mmol/L (137-145)
[2020-04-21 07:52] LABS: Glucose Point of Care 175 (65-105)
[2020-04-21] MEDS: DOCUSATE SODIUM 100 MG CAPSULE PO ×2 (08:03→22:00)
[2020-04-21] MEDS: APIXABAN 2.5 MG TABLET PO ×2 (08:03→22:00)
[2020-04-21] MEDS: ANASTROZOLE (*CHEMO) 1 MG TABLET PO (08:03)
[2020-04-21] MEDS: METOPROLOL TARTRATE 25 MG TABLET PO ×2 (08:04→22:00)
[2020-04-21] MEDS: PANTOPRAZOLE 40 MG TABLET PO ×2 (08:04→22:01)
[2020-04-21] MEDS: TOLNAFTATE 1% POWDER 45 GM BTL 1 APPLIC TOPICAL ×2 (08:06→22:07)
[2020-04-21 11:50] LABS: Glucose Point of Care 219 (65-105)
[2020-04-21] MEDS: INSULIN ASPART (*BKC) 100 UNITS/ML SUB-Q (12:07)
--- NOTE | 2020-04-21 13:21 | PM.IMPN ---
Progress Note: A&P Assessment and Plan (1) Closed fracture of right hip: Qualifiers: Encounter type: initial encounter Qualified Code(s): S72.001A - Fracture of unspecified part of neck of right femur, initial encounter for closed fracture Code(s): S72.001A - Fracture of unspecified part of neck of right femur, initial encounter for closed fracture Status: Acute Assessment and Plan: She sustained a mechanical fall and suffered a closed, non-dislocated right hip transcervical femoral neck fracture with superior displacement and medial angulation. She is s/p cemented bipolar hemiarthroplasty by Dr. Gunter . Pain is well-controlled and she is doing well post-operatively. Post-op care including weight-bearing status, wound care, pain control, and DVT prophylaxis will be deferred to Dr. Gunter. Recommend we try to limit/avoid narcotics. Agree with PT/OT. (2) Altered mental status: Code(s): R41.82 - Altered mental status, unspecified Status: Resolved Assessment and Plan: Resolved. Likely secondary to morphine which will be avoided as well as post-op confusion/delirium. Limit narcotics. She was evaluated by neurology. STAT CT brain was unremarkable for acute change. Appreciate neurology input. She is back to her baseline and doing very well. Continue to monitor (3) Fall: Qualifiers: Encounter type: initial encounter Qualified Code(s): W19.XXXA - Unspecified fall, initial encounter Code(s): W19.XXXA - Unspecified fall, initial encounter Status: Acute Assessment and Plan: The patient sustained a mechanical fall slipping in bathroom. She did not have a syncopal episode, seizure activity, or acute CVA based on history. Patient has a pattern of falling and with now with new fracture we will need to see how safe she is in assisted living facility, patient should re-evaluate disposition after rehab. Care coordination will follow for discharge needs Rehab at [facility] is anticipated (4) Hypertension: Code(s): I10 - Essential (primary) hypertension Status: Chronic Assessment and Plan: Blood pressures are reasonably controlled. Most recent BP is 145/63. Continue metoprolol Continue to monitor (5) Atrial fibrillation: Code(s): I48.91 - Unspecified atrial fibrillation Status: Chronic Assessment and Plan: Chronic and paroxysmal. She is not on anticoagulation prior to admission due to fall risk. Continue metoprolol Continue to monitor (6) S/P IVC filter: Code(s): Z95.828 - Presence of other vascular implants and grafts Status: Acute (7) Diabetes type 2, controlled: Code(s): E11.9 - Type 2 diabetes mellitus without complications Status: Acute Assessment and Plan: Hemoglobin A1c was 7.2 01/19/20. Blood sugars are reasonably controlled. Continue lantus 12 units qHS Continue ACHS glucose monitoring, moderate dose sliding scale insulin, and hypoglycemia protocol (8) HER2-positive carcinoma of left breast: Onset Date: ~01/2019 Code(s): C50.912 - Malignant neoplasm of unspecified site of left female breast Status: Acute Assessment and Plan: S/P bilateral mastectomy and left breast radiation. Continue home anastrozole (9) Chronic GERD: Code(s): K21.9 - Gastro-esophageal reflux disease without esophagitis Status: Acute Assessment and Plan: Continue protonix PO BID Additional Plan Chronic Constipation: Continue home bowel regimen which includes MiraLax, docusate, and simethicone for indigestion Subjective Date/time seen: 04/21/20 13:21 Mrs. Ferrer is an 80 y.o. 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
--- NOTE | 2020-04-21 15:48 | WPDNEUROPN ---
Progress Note: A&P Assessment and Plan (1) Altered mental status: Code(s): R41.82 - Altered mental status, unspecified Status: Acute (2) Fall: Qualifiers: Encounter type: initial encounter Qualified Code(s): W19.XXXA - Unspecified fall, initial encounter Code(s): W19.XXXA - Unspecified fall, initial encounter Status: Acute (3) Closed fracture of right hip: Qualifiers: Encounter type: initial encounter Qualified Code(s): S72.001A - Fracture of unspecified part of neck of right femur, initial encounter for closed fracture Code(s): S72.001A - Fracture of unspecified part of neck of right femur, initial encounter for closed fracture Status: Acute Additional Plan Stable neurologically will continue the treatment as such Review of Systems Review of Systems: All systems reviewed & are unremarkable except as noted in HPI and below Exam Narrative: Exam Narrative: on examination today she is awake alert cooperative in no obvious acute distress. Sitting in chair wants to go back into the bed. His speech nor dysphasic not dysarthric not dysphonic. Pupils round regular with visual sauceda intact. Face symmetrical. Tongue in the oral cavity and protrudes midline. motor examination reveals her to be generally with decreased strength but no focal motor deficit heart regular with no murmur. Lungs clear with no rhonchi or crepitation. Objective Data Vital Signs Vital Signs: Vital Signs - 24 hr 04/20/20 18:10 04/20/20 20:00 04/20/20 20:42 Temperature 37.3 C 36.8 C Pulse Rate 68 77 74 Respiratory Rate 16 20 Blood Pressure 140/46 L 165/56 H Pulse Oximetry 96 92 04/21/20 00:00 04/21/20 04:00 04/21/20 08:04 Temperature 37.1 C 36.6 C Pulse Rate 74 68 67 Respiratory Rate 20 20 Blood Pressure 141/73 H 148/81 H Pulse Oximetry 92 94 04/21/20 08:06 04/21/20 10:20 04/21/20 14:00 Temperature 36.4 C L 36.3 C L Pulse Rate 67 55 L 63 Respiratory Rate 20 18 15 Blood Pressure 126/57 L 145/63 H Pulse Oximetry 94 94 100 Intake/Output Intake/Output: Intake & Output 04/18/20 04/19/20 04/20/2020 23:59 23:59 23:59 23:59 Intake Total 2646 785 8442 680 Output Total 1650 825 Balance 1325 -1300 1094 680 Meds/Results Medications: Active Medications Generic Name Dose Route Start Last Admin Trade Name Freq PRN Reason Stop Dose Admin Acetaminophen 1,000 mg 04/21/20 00:00 04/21/20 12:05 Acetaminophen 500 Mg Tablet PO 1,000 mg Q6HR EILEEN Administration Anastrozole 1 mg 04/19/20 09:00 04/21/20 08:03 Anastrozole (*Chemo) 1 Mg Tablet PO 1 mg DAILY EILEEN Administration Apixaban 2.5 mg 04/20/20 09:00 04/21/20 08:03 Apixaban 2.5 Mg Tablet PO 2.5 mg Q12HR EILEEN Administration Dextrose 12.5 gm 04/18/20 18:54 Dextrose 50% 25 Gm/50 Ml Syringe IV PUSH PRN PRN Hypoglycemia Protocol Docusate Sodium 100 mg 04/19/20 21:40 04/21/20 08:03 Docusate Sodium 100 Mg Capsule PO 100 mg Q12HR EILEEN Administration Glucagon 1 mg 04/18/20 18:54 Glucagon For Inj 1 Mg Vial IM PRN PRN Hypoglycemia Protocol Glucose 15 gm 04/18/20 18:54 Glucose Oral Gel 15 Gm Of Glucse In 37.5 Gm Tube PO PRN PRN Hypoglycemia Protocol Insulin Aspart 3 - 6 units 04/19/20 08:00 04/21/20 12:07 Insulin Aspart (*Bkc) 100 Units/Ml SUB-Q 3 units TIDWM EILEEN Administration Protocol Insulin Glargine 12 units 04/18/20 23:50 04/20/20 18:00 Insulin Glargine (*Bkc) 100 Units/Ml SUB-Q 12 units QPM EILEEN Administration Magnesium Hydroxide 30 ml 04/19/20 21:40 Magnesium Hydroxide Susp 30 Ml Udc PO BID PRN Constipation Meclizine HCl 12.5 mg 04/18/20 23:19 Meclizine Hcl 12.5 Mg Tablet PO TID PRN Vertigo Metoprolol Tartrate 25 mg 04/18/20 23:50 04/21/20 08:04 Metoprolol Tartrate 25 Mg Tablet PO 25 mg Q12HR EILEEN Administration Naloxone
[2020-04-21 16:40] LABS: Glucose Point of Care 183 (65-105)
[2020-04-21] MEDS: INSULIN GLARGINE (*BKC) 100 UNITS/ML 12 UNITS SUB-Q (17:20)
[2020-04-21 22:51] LABS: Glucose Point of Care 257 (65-105)
[2020-04-22] VITALS (8 sets, daily range): BP systolic 125–159; BP diastolic 55–67; PULSE 63–77; RESP 16–20; TEMP 36.4–36.9; O2SAT 92–98
[2020-04-22] MEDS: oxyCODONE HCL (*CRX) 2.5 MG TAB IR PO ×4 (04:36→16:17)
[2020-04-22] MEDS: ACETAMINOPHEN 500 MG TABLET 1000 MG PO ×3 (05:45→17:12)
[2020-04-22 06:07] LABS: Hematocrit 33.8 % (37.0-47.0); Hemoglobin 10.6 g/dL (12.0-15.0); Mean Corpuscular HGB Conc 31.4 g/dl (32-36); Mean Corpuscular Volume 89.2 fl (80-100); Mean Platelet Volume 10.8 fl (7.4-10.4); Platelet Count Result 142 k/mm3 (150-375); Red Blood Count 3.79 M/mm3 (4.2-5.4); Red Cell Distribution Width 13.7 % (11.5-14.5); White Blood Count 8.1 K/mm3 (4.5-10.0)
[2020-04-22 06:21] LABS: Anion Gap 4 mmol/L (8-16); Blood Urea Nitrogen 14 mg/dL (7-17); Calcium 8.8 mg/dL (8.4-10.2); Carbon Dioxide 35 mmol/L (22-30); Chloride 99 mmol/L (98-107); Estimated CRCL calculation 67 ml/min; Estimated Glomerular Filt Rate > 60; Glucose 150 mg/dL (65-105); Magnesium 1.8 mg/dL (1.6-2.3); Potassium 3.8 mmol/L (3.4-5.0); Sodium 138 mmol/L (137-145)
[2020-04-22] MEDS: DOCUSATE SODIUM 100 MG CAPSULE PO ×2 (08:10→20:30)
[2020-04-22] MEDS: PANTOPRAZOLE 40 MG TABLET PO ×2 (08:10→20:31)
[2020-04-22] MEDS: METOPROLOL TARTRATE 25 MG TABLET PO ×2 (08:10→20:30)
[2020-04-22] MEDS: ANASTROZOLE (*CHEMO) 1 MG TABLET PO (08:11)
[2020-04-22] MEDS: APIXABAN 2.5 MG TABLET PO ×2 (08:11→20:31)
[2020-04-22] MEDS: TOLNAFTATE 1% POWDER 45 GM BTL 1 APPLIC TOPICAL ×2 (08:11→20:33)
--- NOTE | 2020-04-22 08:49 | PM.IMPN ---
Progress Note: A&P Assessment and Plan (1) Closed fracture of right hip: Qualifiers: Encounter type: initial encounter Qualified Code(s): S72.001A - Fracture of unspecified part of neck of right femur, initial encounter for closed fracture Code(s): S72.001A - Fracture of unspecified part of neck of right femur, initial encounter for closed fracture Status: Acute Assessment and Plan: She sustained a mechanical fall and suffered a closed, non-dislocated right hip transcervical femoral neck fracture with superior displacement and medial angulation. She is s/p cemented bipolar hemiarthroplasty by Dr. Gunter . Pain is well-controlled and she is doing well post-operatively. Post-op care including weight-bearing status, wound care, pain control, and DVT prophylaxis will be deferred to Dr. Gunter. Recommend we try to limit/avoid narcotics. Agree with PT/OT. Await further input from orthopedic surgery regarding disposition (2) Altered mental status: Code(s): R41.82 - Altered mental status, unspecified Status: Resolved Assessment and Plan: Resolved. Likely secondary to morphine which will be avoided as well as post-op confusion/delirium. Limit narcotics. She was evaluated by neurology. STAT CT brain was unremarkable for acute change. Appreciate neurology input. She is at her baseline and doing very well. Continue to monitor (3) Fall: Qualifiers: Encounter type: initial encounter Qualified Code(s): W19.XXXA - Unspecified fall, initial encounter Code(s): W19.XXXA - Unspecified fall, initial encounter Status: Acute Assessment and Plan: The patient sustained a mechanical fall slipping in bathroom. She did not have a syncopal episode, seizure activity, or acute CVA based on history. Patient has a pattern of falling and with now with new fracture we will need to see how safe she is in assisted living facility, patient should re-evaluate disposition after rehab. Care coordination will follow for discharge needs Rehab at [facility] is anticipated (4) Hypertension: Code(s): I10 - Essential (primary) hypertension Status: Chronic Assessment and Plan: Blood pressures are acceptable. Most recent BP is 150/65. Continue metoprolol Continue to monitor, adjust treatment as necessary (5) Atrial fibrillation: Code(s): I48.91 - Unspecified atrial fibrillation Status: Chronic Assessment and Plan: Chronic and paroxysmal. She is not on anticoagulation prior to admission due to fall risk. Continue metoprolol Continue to monitor (6) S/P IVC filter: Code(s): Z95.828 - Presence of other vascular implants and grafts Status: Acute (7) Diabetes type 2, controlled: Code(s): E11.9 - Type 2 diabetes mellitus without complications Status: Acute Assessment and Plan: Hemoglobin A1c was 7.2 01/19/20. Blood sugars are a bit elevated above target but AM blood sugar was 150/ Continue lantus, increase to 15 units qHS Continue ACHS glucose monitoring, moderate dose sliding scale insulin, and hypoglycemia protocol (8) HER2-positive carcinoma of left breast: Onset Date: ~01/2019 Code(s): C50.912 - Malignant neoplasm of unspecified site of left female breast Status: Acute Assessment and Plan: S/P bilateral mastectomy and left breast radiation. Continue home anastrozole (9) Chronic GERD: Code(s): K21.9 - Gastro-esophageal reflux disease without esophagitis Status: Acute Assessment and Plan: Continue protonix PO BID (10) Anemia: Code(s): D64.9 - Anemia, unspecified Status: Acute Assessment and Plan: Hb at admission was 12.3. Hb decreased to 9.7 post-op but has stabilized and is 10.6. Likely secondary to post-op blood loss. Continue to monitor with CBC daily Transfus
[2020-04-22 09:29] LABS: Glucose Point of Care 162 (65-105)
--- NOTE | 2020-04-22 10:38 | PM.PNORT ---
Progress Note: A&P Additional Plan Patient is now postop day number 3 after cemented bipolar hemiarthroplasty right hip for femoral neck fracture displaced. On exam today she is much more alert and oriented new the year a place. She learned my name easily. Her wound is dry there is no ecchymosis. She has no asymmetric swelling in the right leg. With the therapist this morning her right leg seems to not arauz when she is trying to walk with a walker. We are allowing her to be weight-bearing as tolerated. She does have significant obesity that may contribute to her difficulty bearing weight on the right with enough strength in the right hip to support her body weight adequately. She has intact sensation right lower extremity she had intact motor function in the ankle as well as quadriceps activation normal. 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 I have been advised that her left side was normally her weaker side so she is used to realign on the right side and now she has had just had surgery on the right hip a be more difficult for her. Her hemoglobin is 10.6 representing an acute mild blood loss anemia. She is on Eliquis 2.5 mg twice daily for DVT prophylaxis and will plan a 5 week course of this after discharge. I have spoken with Danelle Valdes the nurse practitioner and if patient appears stable tomorrow then I think discharged to rehab would be appropriate. Subjective Subjective Date/Time Seen: 04/22/20 10:38 Objective Data Vital Signs Vital Signs: Vital Signs - 24 hr 04/21/20 14:00 04/21/20 18:00 04/21/20 22:00 Temperature 36.3 C L 36.8 C 36.4 C Pulse Rate 63 72 69 Respiratory Rate 15 19 21 H Blood Pressure 145/63 H 137/60 145/58 H Pulse Oximetry 100 100 100 04/22/20 02:00 04/22/20 06:00 04/22/20 08:10 Temperature 36.5 C 36.4 C Pulse Rate 73 66 67 Respiratory Rate 20 18 Blood Pressure 147/67 H 150/65 H Pulse Oximetry 98 97 04/22/20 10:00 Temperature 36.9 C Pulse Rate 63 Respiratory Rate 16 Blood Pressure 125/61 Pulse Oximetry 92 Intake/Output Intake/Output: Intake & Output 04/19/20 04/20/20 04/21/20 04/22/20 23:59 23:59 23:59 23:59 Intake Total 350 1919 1670 640 Output Total 1650 825 350 Balance -1300 1094 1320 640 Meds/Results Medications: Active Medications Generic Name Dose Route Start Last Admin Trade Name Freq PRN Reason Stop Dose Admin Acetaminophen 1,000 mg 04/21/20 00:00 04/22/20 05:45 Acetaminophen 500 Mg Tablet PO 1,000 mg Q6HR EILEEN Administration Anastrozole 1 mg 04/19/20 09:00 04/22/20 08:11 Anastrozole (*Chemo) 1 Mg Tablet PO 1 mg DAILY EILEEN Administration Apixaban 2.5 mg 04/20/20 09:00 04/22/20 08:11 Apixaban 2.5 Mg Tablet PO 2.5 mg Q12HR EILEEN Administration Dextrose 12.5 gm 04/18/20 18:54 Dextrose 50% 25 Gm/50 Ml Syringe IV PUSH PRN PRN Hypoglycemia Protocol Docusate Sodium 100 mg 04/19/20 21:40 04/22/20 08:10 Docusate Sodium 100 Mg Capsule PO 100 mg Q12HR EILEEN Administration Fluticasone Propionate 1 spray 04/22/20 09:00 Fluticasone Propionate 0.05% Na Spr 16 Gm Btl (*Bkc) NASAL Q12HR EILEEN Glucagon 1 mg 04/18/20 18:54 Glucagon For Inj 1 Mg Vial IM PRN PRN Hypoglycemia Protocol Glucose 15 gm 04/18/20 18:54 Glucose Oral Gel 15 Gm Of Glucse In 37.5 Gm Tube PO PRN PRN Hypoglycemia Protocol Guaifenesin 1,200 mg 04/22/20 09:00 Guaifenesin 12 Hr 600 Mg Tabcr PO Q12HR [facility] Insulin Aspart 3 - 6 units 04/19/20 08:00 04/22/20 07:57 Insulin Aspart (*Bkc) 100 Units/Ml SUB-Q Not Given TIDWM [facility] Protocol Insulin Glargine 15 units 04/22/20 18:00 Insulin Glargine (*Bkc) 100 Units/Ml SUB-Q QPM EILEEN Magnesium Hydroxide 30 ml 04/19/20 21:40 Magnesium Hydroxide Susp 30 Ml Udc PO BID PRN Constipation Meclizine HCl 12.5 mg 04/18/20 23:19 Meclizine Hcl
[2020-04-22] MEDS: guaiFENesin 12 HR 600 MG TABCR 1200 MG PO ×2 (11:24→20:31)
[2020-04-22] MEDS: FLUTICASONE PROPIONATE 0.05% NA SPR 16 GM BTL (*BKC) 1 SPRAY NASAL ×2 (11:25→20:31)
[2020-04-22 12:45] LABS: Glucose Point of Care 191 (65-105)
--- NOTE | 2020-04-22 13:33 | WPDNEUROPN ---
Progress Note: A&P Assessment and Plan (1) Fall: Qualifiers: Encounter type: initial encounter Qualified Code(s): W19.XXXA - Unspecified fall, initial encounter Code(s): W19.XXXA - Unspecified fall, initial encounter Status: Acute (2) Closed fracture of right hip: Qualifiers: Encounter type: initial encounter Qualified Code(s): S72.001A - Fracture of unspecified part of neck of right femur, initial encounter for closed fracture Code(s): S72.001A - Fracture of unspecified part of neck of right femur, initial encounter for closed fracture Status: Acute (3) S/P IVC filter: Code(s): Z95.828 - Presence of other vascular implants and grafts Status: Acute (4) Frequent falls: Code(s): R29.6 - Repeated falls Status: Acute (5) CVA (cerebral vascular accident): Code(s): I63.9 - Cerebral infarction, unspecified Status: Acute (6) Diabetes type 2, controlled: Code(s): E11.9 - Type 2 diabetes mellitus without complications Status: Acute Additional Plan Mild right hemiparesis with abnormal MRI in the past as well at this stage she has been taking care for the hip fracture she will benefit from the therapy Review of Systems Review of Systems: All systems reviewed & are unremarkable except as noted in HPI and below Exam Narrative: Exam Narrative: On examination she is awake alert follow the instruction very well. her speech not dysphasic not dysarthric not dysphonic. pupils round regular reacting to light equally. visual sauceda are full in all 4 quadrants. His extraocular movements are full with no nystagmus. Facial sensation is intact. Face symmetrical. Tongue in the midline with no fasciculation. Motor examination revealed her to be tilting to the right side in addition to the drift of right upper extremity against gravity. Heart regular. Lungs clear. Abdomen is soft. Objective Data Vital Signs Vital Signs: Vital Signs - 24 hr 04/21/20 14:00 04/21/20 18:00 04/21/20 22:00 Temperature 36.3 C L 36.8 C 36.4 C Pulse Rate 63 72 69 Respiratory Rate 15 19 21 H Blood Pressure 145/63 H 137/60 145/58 H Pulse Oximetry 100 100 100 04/22/20 02:00 04/22/20 06:00 04/22/20 08:10 Temperature 36.5 C 36.4 C Pulse Rate 73 66 67 Respiratory Rate 20 18 Blood Pressure 147/67 H 150/65 H Pulse Oximetry 98 97 04/22/20 10:00 Temperature 36.9 C Pulse Rate 63 Respiratory Rate 16 Blood Pressure 125/61 Pulse Oximetry 92 Intake/Output Intake/Output: Intake & Output 04/19/20 04/20/20 04/21/20 04/22/20 23:59 23:59 23:59 23:59 Intake Total 350 1919 1670 880 Output Total 1650 825 350 Balance -1300 1094 1320 880 Meds/Results Medications: Active Medications Generic Name Dose Route Start Last Admin Trade Name Freq PRN Reason Stop Dose Admin Acetaminophen 1,000 mg 04/21/20 00:00 04/22/20 11:28 Acetaminophen 500 Mg Tablet PO 1,000 mg Q6HR EILEEN Administration Anastrozole 1 mg 04/19/20 09:00 04/22/20 08:11 Anastrozole (*Chemo) 1 Mg Tablet PO 1 mg DAILY EILEEN Administration Apixaban 2.5 mg 04/20/20 09:00 04/22/20 08:11 Apixaban 2.5 Mg Tablet PO 2.5 mg Q12HR EILEEN Administration Dextrose 12.5 gm 04/18/20 18:54 Dextrose 50% 25 Gm/50 Ml Syringe IV PUSH PRN PRN Hypoglycemia Protocol Docusate Sodium 100 mg 04/19/20 21:40 04/22/20 08:10 Docusate Sodium 100 Mg Capsule PO 100 mg Q12HR EILEEN Administration Fluticasone Propionate 1 spray 04/22/20 09:00 04/22/20 11:25 Fluticasone Propionate 0.05% Na Spr 16 Gm Btl (*Bkc) NASAL 1 spray Q12HR EILEEN Administration Glucagon 1 mg 04/18/20 18:54 Glucagon For Inj 1 Mg Vial IM PRN PRN Hypoglycemia Protocol Glucose 15 gm 04/18/20 18:54 Glucose Oral Gel 15 Gm Of Glucse In 37.5 Gm Tube PO PRN PRN Hypoglycemia Protocol Guaifenesin 1,200 mg 04/22/20 09:00 04/22/20 11:24 Gu
[2020-04-22] MEDS: INSULIN GLARGINE (*BKC) 100 UNITS/ML 15 UNITS SUB-Q (17:13)
[2020-04-22 17:49] LABS: Glucose Point of Care 198 (65-105)
[2020-04-22 18:58] LABS: SARS-CoV-2 RNA PCR Negative
[2020-04-22 21:25] LABS: Glucose Point of Care 230 (65-105)
[2020-04-23] VITALS (8 sets, daily range): BP systolic 152–186; BP diastolic 60–79; PULSE 70–83; RESP 16–22; TEMP 36.3–37.2; O2SAT 94–97
[2020-04-23 06:12] LABS: Hematocrit 33.1 % (37.0-47.0); Hemoglobin 10.3 g/dL (12.0-15.0); Mean Corpuscular HGB Conc 31.1 g/dl (32-36); Mean Corpuscular Hemoglobin 28.1 pg (26-34); Mean Corpuscular Volume 90.4 fl (80-100); Mean Platelet Volume 10.5 fl (7.4-10.4); Platelet Count Result 148 k/mm3 (150-375); Red Blood Count 3.66 M/mm3 (4.2-5.4); Red Cell Distribution Width 13.7 % (11.5-14.5)
[2020-04-23 06:13] LABS: Anion Gap 2 mmol/L (8-16); Blood Urea Nitrogen 16 mg/dL (7-17); Calcium 8.7 mg/dL (8.4-10.2); Carbon Dioxide 37 mmol/L (22-30); Chloride 99 mmol/L (98-107); Estimated CRCL calculation 67 ml/min; Estimated Glomerular Filt Rate > 60; Glucose 150 mg/dL (65-105); Potassium 3.7 mmol/L (3.4-5.0); Sodium 138 mmol/L (137-145)
[2020-04-23 07:19] LABS: Glucose Point of Care 153 (65-105)
[2020-04-23] MEDS: oxyCODONE HCL (*CRX) 2.5 MG TAB IR PO ×3 (08:50→17:12)
[2020-04-23] MEDS: MAGNESIUM HYDROXIDE SUSP 30 ML UDC PO (08:50)
[2020-04-23] MEDS: METOPROLOL TARTRATE 25 MG TABLET PO ×2 (08:51→20:28)
[2020-04-23] MEDS: FLUTICASONE PROPIONATE 0.05% NA SPR 16 GM BTL (*BKC) 1 SPRAY NASAL ×2 (08:51→20:26)
[2020-04-23] MEDS: PANTOPRAZOLE 40 MG TABLET PO ×2 (08:51→20:28)
[2020-04-23] MEDS: APIXABAN 2.5 MG TABLET PO ×2 (08:51→20:26)
[2020-04-23] MEDS: ANASTROZOLE (*CHEMO) 1 MG TABLET PO (08:51)
[2020-04-23] MEDS: DOCUSATE SODIUM 100 MG CAPSULE PO ×2 (08:51→20:26)
[2020-04-23] MEDS: guaiFENesin 12 HR 600 MG TABCR 1200 MG PO ×2 (08:51→20:27)
[2020-04-23] MEDS: TOLNAFTATE 1% POWDER 45 GM BTL 1 APPLIC TOPICAL ×2 (08:55→20:28)
--- NOTE | 2020-04-23 10:25 | P.DS_ITS ---
DS: Discharge Diagnosis Discharge Diagnosis (1) Closed fracture of right hip: Qualifiers: Encounter type: initial encounter Qualified Code(s): S72.001A - Fracture of unspecified part of neck of right femur, initial encounter for closed fracture Code(s): S72.001A - Fracture of unspecified part of neck of right femur, initial encounter for closed fracture Status: Acute Assessment and Plan: She sustained a mechanical fall and suffered a closed, non-dislocated right hip transcervical femoral neck fracture with superior displacement and medial angulation. She is s/p cemented bipolar hemiarthroplasty by Dr. Gunter . Pain is well-controlled and she is doing well post-operatively. * Post-op care including weight-bearing status, wound care, pain control, and DVT prophylaxis will be deferred to Dr. Gunter. * Recommend we try to limit/avoid narcotics. * Agree with PT/OT. * Await further input from orthopedic surgery regarding disposition (2) Altered mental status: Code(s): R41.82 - Altered mental status, unspecified Status: Resolved Assessment and Plan: Resolved. Likely secondary to morphine which will be avoided as well as post-op confusion/delirium. Limit narcotics. She was evaluated by neurology. STAT CT brain was unremarkable for acute change. Appreciate neurology input. She is at her baseline and doing very well. * Continue to monitor (3) Fall: Qualifiers: Encounter type: initial encounter Qualified Code(s): W19.XXXA - Unspecified fall, initial encounter Code(s): W19.XXXA - Unspecified fall, initial encounter Status: Acute Assessment and Plan: The patient sustained a mechanical fall slipping in bathroom. She did not have a syncopal episode, seizure activity, or acute CVA based on history. Patient has a pattern of falling and with now with new fracture we will need to see how safe she is in assisted living facility, patient should re-evaluate disposition after rehab. * Care coordination will follow for discharge needs * Rehab at [place] is anticipated (4) Hypertension: Code(s): I10 - Essential (primary) hypertension Status: Chronic Assessment and Plan: Blood pressures are acceptable. Most recent BP is 150/65. * Continue metoprolol * Continue to monitor, adjust treatment as necessary (5) Atrial fibrillation: Code(s): I48.91 - Unspecified atrial fibrillation Status: Chronic Assessment and Plan: Chronic and paroxysmal. She is not on anticoagulation prior to admission due to fall risk. * Continue metoprolol * Continue to monitor (6) S/P IVC filter: Code(s): Z95.828 - Presence of other vascular implants and grafts Status: Acute (7) Diabetes type 2, controlled: Code(s): E11.9 - Type 2 diabetes mellitus without complications Status: Acute Assessment and Plan: Hemoglobin A1c was 7.2 01/19/20. Blood sugars are a bit elevated above target but AM blood sugar was 150/ * Continue lantus, increase to 15 units qHS * Continue ACHS glucose monitoring, moderate dose sliding scale insulin, and hypoglycemia protocol (8) HER2-positive carcinoma of left breast: Onset Date: ~01/2019 Code(s): C50.912 - Malignant neoplasm of unspecified site of left female breast Status: Acute Assessment and Plan: S/P bilateral mastectomy and left breast radiation. * Continue home anastrozole (9) Ch
--- NOTE | 2020-04-23 12:25 | PCDIET ---
Weekly nutritional screen. Patient is tolerating current diet, diabetic which is appropriate, with adequate intake, 87% of meals. No weight loss reported. No nutritional needs at this time.
[2020-04-23] MEDS: ACETAMINOPHEN 500 MG TABLET 1000 MG PO ×2 (12:47→17:12)
[2020-04-23 14:08] LABS: Glucose Point of Care 160 (65-105)
--- NOTE | 2020-04-23 15:09 | PM.IMPN ---
Progress Note: A&P Assessment and Plan (1) Closed fracture of right hip: Qualifiers: Encounter type: initial encounter Qualified Code(s): S72.001A - Fracture of unspecified part of neck of right femur, initial encounter for closed fracture Code(s): S72.001A - Fracture of unspecified part of neck of right femur, initial encounter for closed fracture Status: Acute Assessment and Plan: She sustained a mechanical fall and suffered a closed, non-dislocated right hip transcervical femoral neck fracture with superior displacement and medial angulation. She is s/p cemented bipolar hemiarthroplasty by Dr. Gunter . Pain is well-controlled and she is doing well post-operatively. Post-op care including weight-bearing status, wound care, pain control, and DVT prophylaxis will be deferred to Dr. Gunter. Recommend we try to limit/avoid narcotics. Agree with PT/OT. Plan for rehab at discharge (2) Altered mental status: Code(s): R41.82 - Altered mental status, unspecified Status: Resolved Assessment and Plan: Resolved. Likely secondary to morphine which will be avoided as well as post-op confusion/delirium. Limit narcotics. She was evaluated by neurology. STAT CT brain was unremarkable for acute change. Appreciate neurology input. She is at her baseline and doing very well. Continue to monitor (3) Fall: Qualifiers: Encounter type: initial encounter Qualified Code(s): W19.XXXA - Unspecified fall, initial encounter Code(s): W19.XXXA - Unspecified fall, initial encounter Status: Acute Assessment and Plan: The patient sustained a mechanical fall slipping in bathroom. She did not have a syncopal episode, seizure activity, or acute CVA based on history. Patient has a pattern of falling and with now with new fracture we will need to see how safe she is in assisted living facility, patient should re-evaluate disposition after rehab. Care coordination will follow for discharge needs Rehab at [place] is anticipated (4) Hypertension: Code(s): I10 - Essential (primary) hypertension Status: Chronic Assessment and Plan: Blood pressures are acceptable. Most recent BP is 154/60. Continue metoprolol Continue to monitor, adjust treatment as necessary (5) Atrial fibrillation: Code(s): I48.91 - Unspecified atrial fibrillation Status: Chronic Assessment and Plan: Chronic and paroxysmal. She is not on anticoagulation prior to admission due to fall risk. Continue metoprolol Continue to monitor (6) S/P IVC filter: Code(s): Z95.828 - Presence of other vascular implants and grafts Status: Acute (7) Diabetes type 2, controlled: Code(s): E11.9 - Type 2 diabetes mellitus without complications Status: Acute Assessment and Plan: Hemoglobin A1c was 7.2 01/19/20. Blood sugars have improved Continue lantus at 15 units qHS Continue ACHS glucose monitoring, moderate dose sliding scale insulin, and hypoglycemia protocol (8) HER2-positive carcinoma of left breast: Onset Date: ~01/2019 Code(s): C50.912 - Malignant neoplasm of unspecified site of left female breast Status: Acute Assessment and Plan: S/P bilateral mastectomy and left breast radiation. Continue home anastrozole (9) Chronic GERD: Code(s): K21.9 - Gastro-esophageal reflux disease without esophagitis Status: Acute Assessment and Plan: Continue protonix PO BID (10) Anemia: Code(s): D64.9 - Anemia, unspecified Status: Acute Assessment and Plan: Hb at admission was 12.3. Hb decreased to 9.7 post-op but has stabilized and is 10.3. Likely secondary to post-op blood loss. Continue to monitor with CBC daily Transfuse as needed to maintain Hb >7 (11) History of CVA (cerebrovascular accident):
[2020-04-23] MEDS: INSULIN ASPART (*BKC) 100 UNITS/ML SUB-Q (17:09)
[2020-04-23] MEDS: INSULIN GLARGINE (*BKC) 100 UNITS/ML 15 UNITS SUB-Q (17:12)
[2020-04-23 17:51] LABS: Glucose Point of Care 271 (65-105)
[2020-04-23] MEDS: hydrALAZINE HCL 20 MG/ML VIAL 10 MG IV PUSH (18:16)
[2020-04-23 21:48] LABS: Glucose Point of Care 182 (65-105)
[2020-04-24] VITALS (10 sets, daily range): BP systolic 159–180; BP diastolic 61–87; PULSE 63–88; RESP 16–19; TEMP 36.2–36.7; O2SAT 91–99
[2020-04-24 06:53] LABS: Glucose Point of Care 153 (65-105)
[2020-04-24] MEDS: oxyCODONE HCL (*CRX) 2.5 MG TAB IR PO ×3 (09:20→16:30)
[2020-04-24] MEDS: FLUTICASONE PROPIONATE 0.05% NA SPR 16 GM BTL (*BKC) 1 SPRAY NASAL ×2 (09:21→20:28)
[2020-04-24] MEDS: DOCUSATE SODIUM 100 MG CAPSULE PO ×2 (09:21→20:29)
[2020-04-24] MEDS: ANASTROZOLE (*CHEMO) 1 MG TABLET PO (09:21)
[2020-04-24] MEDS: APIXABAN 2.5 MG TABLET PO ×2 (09:21→20:28)
[2020-04-24] MEDS: guaiFENesin 12 HR 600 MG TABCR 1200 MG PO ×2 (09:21→20:28)
[2020-04-24] MEDS: hydroCHLOROthiazide 6.25 MG TABLET PO (09:22)
[2020-04-24] MEDS: METOPROLOL TARTRATE 25 MG TABLET PO ×2 (09:22→20:29)
[2020-04-24] MEDS: PANTOPRAZOLE 40 MG TABLET PO ×2 (09:22→20:28)
[2020-04-24] MEDS: TOLNAFTATE 1% POWDER 45 GM BTL 1 APPLIC TOPICAL ×2 (09:23→20:32)
[2020-04-24 11:37] LABS: Glucose Point of Care 158 (65-105)
[2020-04-24] MEDS: ACETAMINOPHEN 500 MG TABLET 1000 MG PO ×2 (11:42→18:06)
--- NOTE | 2020-04-24 15:12 | PM.IMPN ---
Progress Note: A&P Assessment and Plan (1) Closed fracture of right hip: Qualifiers: Encounter type: initial encounter Qualified Code(s): S72.001A - Fracture of unspecified part of neck of right femur, initial encounter for closed fracture Code(s): S72.001A - Fracture of unspecified part of neck of right femur, initial encounter for closed fracture Status: Acute Assessment and Plan: She sustained a mechanical fall and suffered a closed, non-dislocated right hip transcervical femoral neck fracture with superior displacement and medial angulation. She is s/p cemented bipolar hemiarthroplasty by Dr. Gunter . Pain is well-controlled and she is doing well post-operatively. Post-op care including weight-bearing status, wound care, pain control, and DVT prophylaxis will be deferred to Dr. Gunter. Recommend we try to limit/avoid narcotics. Agree with PT/OT. Plan for rehab at discharge (2) Acute CVA (cerebrovascular accident): Code(s): I63.9 - Cerebral infarction, unspecified Status: Acute Assessment and Plan: The patient has a hx of CVA 01/2020 which affected the right brainstem and cerebellar vermis. The patient reports chronic left sided weakness and notes that she has favored her right side with right sided lean since her stroke 01/2020. (Review of therapy notes from her time at [facility] 02/2020 shows that she had right sided lean at that time and patient reports this is unchanged.) She uses a wheelchair 95% of the time for mobility. Her son also notes she has had occasional slurred speech since the stroke 01/2020 as well, more pronounced when tired. She was noted to have the right sided lean with PT/OT following her surgery. Discussed with neurology 04/23 who recommended MRI. She did have a CT brain 04/19/20 which was negative for acute infarction or hemorrhage. Carotid doppler US performed 01/13/20 for stroke workup at that time showed <50% stenosis and echocardiogram showed intact interatrial septum. MRI was performed 04/24/20 and shows multiple acute infarcts in the right frontal lobe. Findings were discussed with neurology, Dr. Patino. It is unknown when this occurred as she has hx of ischemic stroke with numerous deficits from CVA 01/2020. It is possible this precipitated her fall. She is not a candidate for TPA given subacute presentation, recent ischemic strokes, recent major surgery, and age. I discussed these findings with her son Mika. I explained that given evidence of numerous strokes on MRI including new CVAs since 01/2020, she needs to be on an antiplatelet agent. She does have a hx of gastric ulcer and will need to be monitored closely. She has no evidence of active PUD and is on pantoprazole. Neurology is following and the plan of care was discussed with neurology, further recommendations per neurology Initiated ASA EC 81mg, monitor closely given risk for bleeding Discussed with Dr. Patino and will continue eliquis 2.5mg BID - she does have a hx of paroxysmal atrial fibrillation. Echocardiogram will be repeated. She is at risk for hypercoagulability given anastrozole use. Consider increasing to 5mg BID given Cr, weight. Check CTA head/neck Initiate atorvastatin and check lipid panel Will have STAFF INTERNIST OFFICE BASED ONLY evaluate Will ask PT/OT to re-evaluate to see if she is a TRC candidate (3) Altered mental status: Code(s): R41.82 - Altered mental status, unspecified Status: Resolved Assessment and Plan: Resolved. She had an episode of confusion and lethargy 04/19/20. She was evaluated by neurology. STAT CT brain was unremarkable for acute change. She was given narcan with improvement. This was likely secondary to morphine which will be avoided as well as post-op confusion/delirium. Limit narcotics. Appreciate neurology input. She is at her baseline and doing very well. Continue to monitor (4) Fall: Qualifiers: Encounter type: initial encounte
[2020-04-24] MEDS: ASPIRIN 81 MG ENTERIC TABLET PO (15:27)
[2020-04-24 17:22] LABS: Glucose Point of Care 174 (65-105)
[2020-04-24] MEDS: INSULIN GLARGINE (*BKC) 100 UNITS/ML 15 UNITS SUB-Q (18:05)
[2020-04-24 21:05] LABS: Glucose Point of Care 237 (65-105)
[2020-04-25] VITALS (9 sets, daily range): BP systolic 137–177; BP diastolic 56–83; PULSE 63–100; RESP 18–21; TEMP 36.2–36.6; O2SAT 94–97
[2020-04-25 05:32] LABS: Hematocrit 32.8 % (37.0-47.0); Hemoglobin 10.5 g/dL (12.0-15.0); Mean Corpuscular Hemoglobin 28.4 pg (26-34); Mean Corpuscular Volume 88.6 fl (80-100); Mean Platelet Volume 9.6 fl (7.4-10.4); Platelet Count Result 173 k/mm3 (150-375); White Blood Count 6.2 K/mm3 (4.5-10.0)
[2020-04-25 05:51] LABS: Anion Gap 3 mmol/L (8-16); Blood Urea Nitrogen 13 mg/dL (7-17); Calcium 8.9 mg/dL (8.4-10.2); Carbon Dioxide 37 mmol/L (22-30); Chloride 97 mmol/L (98-107); Estimated CRCL calculation 67 ml/min; Estimated Glomerular Filt Rate > 60; Glucose 127 mg/dL (65-105); Potassium 3.9 mmol/L (3.4-5.0); Sodium 137 mmol/L (137-145)
[2020-04-25 07:45] LABS: Glucose Point of Care 125 (65-105)
[2020-04-25] MEDS: ANASTROZOLE (*CHEMO) 1 MG TABLET PO (08:35)
[2020-04-25] MEDS: TOLNAFTATE 1% POWDER 45 GM BTL 1 APPLIC TOPICAL (08:35)
[2020-04-25] MEDS: FLUTICASONE PROPIONATE 0.05% NA SPR 16 GM BTL (*BKC) 1 SPRAY NASAL (08:35)
[2020-04-25] MEDS: PANTOPRAZOLE 40 MG TABLET PO (08:35)
[2020-04-25] MEDS: DOCUSATE SODIUM 100 MG CAPSULE PO (08:35)
[2020-04-25] MEDS: METOPROLOL TARTRATE 25 MG TABLET PO (08:35)
[2020-04-25] MEDS: guaiFENesin 12 HR 600 MG TABCR 1200 MG PO (08:35)
[2020-04-25] MEDS: APIXABAN 2.5 MG TABLET PO (08:35)
[2020-04-25] MEDS: ATORVASTATIN 40 MG TABLET PO (08:54)
[2020-04-25] MEDS: ASPIRIN 81 MG ENTERIC TABLET PO (08:54)
--- NOTE | 2020-04-25 11:08 | PCSTNOTE ---
Please refer to the Bedside Swallow Evaluation in the EMR. Please note, silent aspiration cannot be ruled out at bedside.
[2020-04-25 11:19] LABS: Glucose Point of Care 179 (65-105)
--- NOTE | 2020-04-25 13:10 | PCPTNOTE ---
Addendum entered by Bira Knox, S[employer] GR[employer]ER 04/25/20 14:46: Therapy called to patient's room when patient was ready to ambulate. Will continue per Plan of Care frequency and duration. Original Note: The PT treatment was unable to be completed this afternoon due to patient refusal. Will continue per Plan of Care frequency and duration.
[2020-04-25 18:20] LABS: SARS-CoV-2 RNA PCR Negative
--- NOTE | 2020-04-27 06:43 | PM.DS ---
DS: Admitting Diagnosis Admitting Diagnosis Admitting Diagnosis: Right hip fracture DS: Discharge Diagnosis Discharge Diagnosis (1) Closed fracture of right hip: Qualifiers: Encounter type: initial encounter Qualified Code(s): S72.001A - Fracture of unspecified part of neck of right femur, initial encounter for closed fracture Code(s): S72.001A - Fracture of unspecified part of neck of right femur, initial encounter for closed fracture Status: Acute Assessment and Plan: She sustained a mechanical fall and suffered a closed, non-dislocated right hip transcervical femoral neck fracture with superior displacement and medial angulation. She underwent cemented bipolar hemiarthroplasty by Dr. Gunter on 04/19/20. She tolerated the procedure well and pain was well controlled following. She will continue therapy at [facility]. She will follow up with Dr. Gunter. She was started on 2.5 mg Eliquis bid for DVT ppx post-operatively which was increased to 5 mg bid (based on weight and Cr) and she will continue long-term as below. (2) Acute CVA (cerebrovascular accident): Code(s): I63.9 - Cerebral infarction, unspecified Status: Acute Assessment and Plan: The patient has a hx of CVA 01/2020 which affected the right brainstem and cerebellar vermis with residual right-sided lean and occasional slurred speech. She was noted to have the right sided lean with PT/OT following her surgery. Discussed with neurology 04/23 who recommended MRI. She did have a CT brain 04/19/20 which was negative for acute infarction or hemorrhage. Carotid doppler US performed 01/13/20 for stroke workup at that time showed <50% stenosis and echocardiogram showed intact interatrial septum. MRI was performed 04/24/20 and showed multiple acute infarcts in the right frontal lobe. It is unknown when this occurred as she has hx of ischemic stroke with numerous deficits from CVA 01/2020. It is possible this precipitated her fall. She was not a candidate for tPA given subacute presentation, recent ischemic strokes, recent major surgery, and age. Given evidence of numerous strokes on MRI including new CVAs since 01/2020, she was started on daily aspirin 81 mg. She does have a hx of gastric ulcer and will need to be monitored closely and continue protonix. Lipids evaluated and she will continue atorvastatin. She was evaluated by speech therapy and no further needs required. (3) Atrial fibrillation: Code(s): I48.91 - Unspecified atrial fibrillation Status: Chronic Assessment and Plan: Chronic and paroxysmal. She was not on anticoagulation prior to admission due to fall risk and hx of bleeding gastric ulcer. Due to hx of CVA as well as multiple new acute and chronic CVAs since CVA 01/2020, it was felt that the risk of stroke outweighed risk of bleed and she was started on 5 mg Eliquis bid given hx of paroxysmal atrial fibrillation and evidence of multiple acute and old strokes. Continue metoprolol. (4) Altered mental status: Code(s): R41.82 - Altered mental status, unspecified Status: Resolved Assessment and Plan: Resolved. She had an episode of confusion and lethargy 04/19/20. She was evaluated by neurology. STAT CT brain was unremarkable for acute change. She was given narcan with improvement. This was likely secondary to morphine which was then limited to avoid post-op confusion/delirium. Returned to baseline following episode. (5) Fall: Qualifiers: Encounter type: initial encounter Qualified Code(s): W19.XXXA - Unspecified fall, initial encounter Code(s): W19.XXXA - Unspecified fall, initial encounter Status: Acute Assessment and Plan: The patient sustained a mechanical fall slipping in bathroom. Patient has a pattern of falling and with now with new fracture she will need continued skilled therapy at SNF. Brain MRI shows acute CVA and it is possible this precipi
== END 2020-04-25 17:00 | DRG 521 ==
LOC: ANHED 19:06 → ANH2MED 21:37
PROVIDERS: Emergency Medicine Emergency Medical Services; Family Medicine; Orthopaedic Surgery; Physician Assistant; Admitting Provider Internal Medicine; Emergency Provider Emergency Medicine; PCP Family Medicine; Visit Provider Student in an Organized Health Care Education/Training Program
PROC: 0SRR0J9 Replacement of Right Hip Joint, Femoral Surface with Synthetic Substitute, Cemented, Open Approach (ICD-10-PCS; CPT 27125; principal; 2020-04-19 16:00)
DX: S72.031A Displaced midcervical fracture of right femur, initial encounter for closed fracture (principal); I63.9 Cerebral infarction, unspecified; D62 Acute posthemorrhagic anemia; I69.354 Hemiplegia and hemiparesis following cerebral infarction affecting left non-dominant side; W01.0XXA Fall on same level from slipping, tripping and stumbling without subsequent striking against object, initial encounter; Z20.828 Contact with and (suspected) exposure to other viral communicable diseases; I69.321 Dysphasia following cerebral infarction; I69.322 Dysarthria following cerebral infarction; E11.65 Type 2 diabetes mellitus with hyperglycemia; I11.0 Hypertensive heart disease with heart failure; I50.9 Heart failure, unspecified; I48.0 Paroxysmal atrial fibrillation; K21.9 Gastro-esophageal reflux disease without esophagitis; K59.00 Constipation, unspecified; R41.82 Altered mental status, unspecified; T40.2X5A Adverse effect of other opioids, initial encounter; R29.6 Repeated falls; D50.9 Iron deficiency anemia, unspecified; E66.9 Obesity, unspecified; Z68.39 Body mass index [BMI] 39.0-39.9, adult; Z86.718 Personal history of other venous thrombosis and embolism; Z90.49 Acquired absence of other specified parts of digestive tract; Z90.710 Acquired absence of both cervix and uterus; Z87.891 Personal history of nicotine dependence; Z85.3 Personal history of malignant neoplasm of breast
CPT/HCPCS: 36415; 36600; 70450; 70496; 70498; 70553; 71045; 73501; 73502; 80048; 80053; 81001; 82375; 82805; 83050; 83735; 85014; 85018; 85025; 85027; 85055; 85610; 85730; 86850; 86900; 86901; 87635; 88305; 88307; 88311; 92610; 93005; 96361; 96374; 96375; 97110; 97116; 97161; 97165; 97530; 97535; 99285; A9270; A9577; C1713; C1776; C9803; J0131; J0171; J0330; J0360; J0690; J1100; J1650; J1815; J1885; J2270; J2310; J2405; J2704; J2795; J3010; J3370; J7030; J7120; Q9967; U0003

== ENCOUNTER 2020-09-03 10:38 | Inpatient (IN) | payer MEDICARE, SELFPAY ==
[2020-09-03] VITALS (8 sets, daily range): BP systolic 140–178; BP diastolic 58–105; PULSE 71–86; RESP 14–21; TEMP 36.1–37.1; O2SAT 91–100; BMI 36.7
--- NOTE | ~2020-09-03 | XR_ITS ---
XR chest 1V DATE: 09/03/2020 12:00 INDICATION: Transient alteration of awareness TECHNIQUE: Portable AP chest on 09/03/2020 at 1203 hours COMPARISON: 04/20/2020 portable AP chest FINDINGS: Mild cardiomegaly. Aortic calcification. No pulmonary infiltrate or consolidation, pleural effusion or pulmonary vascular congestion or pneumothorax is evident. Diffuse osteopenia. Severe osteoarthritic change at the right glenohumeral joint. Probable bilateral rotator cuff atrophy. IMPRESSION: Mild cardiomegaly. Aortic atherosclerosis. Reviewed, dictated and finalized at location A.
--- NOTE | ~2020-09-03 | XR_ITS ---
EXAMINATION: XR chest PICC line EXAM DATE: 09/06/2020 11:06 INDICATION: PICC line insertion. TECHNIQUE: Portable AP frontal chest x-ray was obtained. Comparison is made to prior examination from earlier same date. FINDINGS: There is a right-sided PICC line with tip projecting over the SVC at the pulmonary arterial level. Endotracheal tube, nasogastric tube are both in position. There are cholecystectomy clips. Dense multisegmental left lower lobe consolidation unchanged. There are no sizable pleural effusions . There is no pneumothorax suspected. The cardiomediastinal silhouette is prominent but magnified on this AP technique. The bones and soft tissues are unremarkable. There is aortic arteriosclerosi s. IMPRESSION: 1. Line and tube(s) in position. 2. Dense left lower lobe consolidation most consistent with pneumonia. Reviewed, dictated and finalized at location B.
--- NOTE | ~2020-09-03 | XR_ITS ---
EXAMINATION: XR chest 1V portable INDICATION: Respiratory failure TECHNIQUE: Portable AP chest at 0515 hours COMPARISON: 09/06/2020 FINDINGS: A right upper extremity PICC ends with its tip in the proximal right atrium. The endotrache al tube ends approximately 3.4 cm above the mayra. The nasogastric tube is followed as far as the st omach. Its tip is beyond the inferior margin of the radiograph. Left basilar airspace opacities persi st but have improved. There is no pleural effusion or pneumothorax. The cardiomediastinal silhouette is stable. IMPRESSION: 1. Persistent but improved left basilar airspace opacity, consistent with atelectasis versus pneumoni a. Reviewed, dictated and finalized at location A. IMPRESSION: 1. Persistent but improved left basilar airspace opacity, consistent with atele ctasis versus pneumonia.
--- NOTE | ~2020-09-03 | XR_ITS ---
EXAMINATION: XR chest 1V portable INDICATION: Respiratory failure TECHNIQUE: Portable AP chest at 0510 hours COMPARISON: 09/05/2020 FINDINGS: The endotracheal tube ends approximately 4.1 cm above the mayra. The nasogastric tube is f ollowed as far as the stomach. Its tip is beyond the inferior margin of the radiograph. There is stab le cardiomegaly. A mild diffuse interstitial pattern persists but has improved in the right upper gregorio g zone. There is opacification at the left costophrenic angle. There is no pleural effusion or pneumo thorax. IMPRESSION: 1. Cardiomegaly with improving pulmonary edema. 2. Left basilar airspace opacity, consistent with atelectasis versus pneumonia. Reviewed, dictated and finalized at location A.
--- NOTE | ~2020-09-03 | XR_ITS ---
EXAMINATION: XR chest 1V portable INDICATION: Endotracheal tube repositioning TECHNIQUE: Portable AP chest at 0510 hours COMPARISON: 0421 hours FINDINGS: The repositioned endotracheal tube ends approximately 1.8 cm above the mayra. The nasogast fili tube is followed as far as the stomach. Its tip is beyond the inferior margin of the radiograph. Cardiomegaly is noted. There is a persistent mild diffuse interstitial pattern. No pleural effusion o r pneumothorax is identified. IMPRESSION: 1. Repositioned endotracheal tube in adequate position. 2. Cardiomegaly with likely mild pulmonary edema. Reviewed, dictated and finalized at location A.
--- NOTE | ~2020-09-03 | XR_ITS ---
EXAMINATION: XR abdomen NG/feed tube insert INDICATION: Nasogastric tube placement TECHNIQUE: Portable AP KUB-NG at 0420 hours COMPARISON: 02/02/2020 FINDINGS: The nasogastric tube ends with its tip in the stomach. The visualized bowel gas is nonspeci fic. IMPRESSION: 1. Nasogastric tube in the stomach. Reviewed, dictated and finalized at location A.
--- NOTE | ~2020-09-03 | XR_ITS ---
EXAMINATION: XR chest ET placement INDICATION: Endotracheal tube insertion TECHNIQUE: Portable AP chest at 0421 hours COMPARISON: 09/03/2020 FINDINGS: An endotracheal tube has been inserted which ends with its tip at the origin of the right m ainstem bronchus. The nasogastric tube is followed as far as the stomach. Its tip is beyond the infer ior margin of the radiograph. A mild diffuse interstitial pattern has developed. Cardiomegaly is note d. There is no pleural effusion or pneumothorax. Advanced osteoarthritis is noted in the right should er. IMPRESSION: 1. Endotracheal tube ending at the origin of the right mainstem bronchus. Tube has been repositioned at the time of interpretation. 2. Cardiomegaly with likely mild pulmonary edema. Reviewed, dictated and finalized at location A.
--- NOTE | ~2020-09-03 | CT_ITS ---
EXAMINATION: CT brain wo con DATE: 09/03/2020 11:22 INDICATION: Confusion. Altered mental state. TECHNIQUE: Computed tomography (CT) of the head was performed without intravenous contrast. The mA wa s adjusted according to patient size. Iterative reconstruction technique was employed. Exam dose: 90 8.00 mGy-cm total exam DLP. COMPARISON: 04/24/2020 CT brain carotid 04/24/2020 MRI brain 04/19/2020 CT brain FINDINGS: Examination is limited due to motion artifact. Bilateral vertebral artery and carotid siphon internal carotid artery calcifications. 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. There is nonspecific diminished attenuation of the subcortical and periventricular cerebral white mat ter, likely due to chronic small vessel ischemic changes. No intracranial mass lesion or hemorrhage or recent cerebrovascular accident is identified. No subdural or epidural hematoma is evident. No fracture or bone destruction of the cranial vault. Included paranasal sinuses and mastoid air cells are unremarkable. IMPRESSION: Cerebral atherosclerosis and chronic small vessel ischemic changes 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 No acute finding is noted Reviewed, dictated and finalized at Location A. Reviewed, dictated and finalized at location A. IMPRESSION: Cerebral atherosclerosis and chronic small vessel ischemic changes Chronic left anterior limb internal capsule and left basal ganglia lacunar infa rcts No acute finding is noted
--- NOTE | ~2020-09-03 | MR_ITS ---
EXAMINATION: MRA brain wo con DATE: 09/10/2020 12:37 INDICATION: Cerebrovascular accident. TECHNIQUE: Magnetic resonance angiography (MRA) of the brain was performed without intravenous contra st with T1-weighted SPGR by the 3D [id number] technique. Maximum intensity projection 3D-reconstr uctions were obtained. COMPARISON: Brain MRI 04/24/2020, head CTA 04/24/2020, head CT 09/03/2020 FINDINGS: Left vertebral artery is dominant. There is severe stenosis of right vertebral artery. There is mild stenosis of basilar artery. There is no significant stenosis of right posterior cerebral artery. Ther e is focal severe stenosis of left P1 posterior cerebral artery segment. The posterior communicating arteries are normal. There is mild stenosis of intracranial internal carotid arteries. There is no si gnificant stenosis of the anterior or middle cerebral arteries. Anterior communicating artery is norm al. There is no aneurysm. There are old infarcts involving the left basal ganglia, left internal caps ule, and left frontal lobe deep white matter. IMPRESSION: 1. Severe stenosis of right vertebral artery. 2. Focal severe stenosis in left P1 posterior cerebral artery segment. 3. Old infarcts involving the left basal ganglia, left internal capsule, and left frontal lobe deep w adilson matter. Reviewed, dictated and finalized at location A. IMPRESSION: 1. Severe stenosis of right vertebral artery. 2. Focal severe stenosis in left P1 posterior cerebral artery segment. 3. Old infarcts involving the left basal ganglia, left internal capsule, and le ft frontal lobe deep white matter.
--- NOTE | ~2020-09-03 | XR_ITS ---
EXAMINATION: XR chest 1V portable DATE: 09/13/2020 14:02 INDICATION: Wheezing. Crackles. TECHNIQUE: A single frontal view of the chest was obtained. COMPARISON: Chest single view 09/07/2020, CT abdomen and pelvis 01/13/2020 FINDINGS: There is mild atelectasis in the lower lung zones. No pleural effusion or pneumothorax. Car diomegaly is noted. There is a moderate-sized hiatal hernia. A right upper extremity peripherally ins erted central venous catheter (PICC) is seen with tip at the superior cavoatrial junction. IMPRESSION: 1. Mild atelectasis in the lower lung zones. 2. Cardiomegaly. 3. Moderate-sized hiatal hernia. Reviewed, dictated and finalized at location B.
--- NOTE | ~2020-09-03 | XR_ITS ---
EXAMINATION: XR chest 1V portable INDICATION: Respiratory failure TECHNIQUE: Portable AP chest at 0525 hours COMPARISON: 09/04/2020 FINDINGS: The endotracheal tube ends approximately 2.8 cm above the mayra. The nasogastric tube is f ollowed as far as the stomach. Its tip is beyond the inferior margin of the radiograph. There is stab le cardiomegaly. A mild diffuse interstitial pattern persists without significant change. There is no pleural effusion or pneumothorax. IMPRESSION: 1. Cardiomegaly and likely stable mild pulmonary edema. Reviewed, dictated and finalized at location A.
--- NOTE | 2020-09-03 10:40 | PC.NURSE ---
Patient placed on 2L o2 with oxygen saturation of 86% on room air
--- NOTE | 2020-09-03 10:43 | ECG_ITS ---
Measurements Intervals [place] Rate: 76 P: PA: 0 QRS: -11 QRSD: 96 T: 65 QT: 356 QTc: 401 Interpretive Statements ATRIAL FIBRILLATION DELAYED PRECORDIAL R/S TRANSITION BASELINE WANDER- V1, V5-V6 ABNORMAL ECG Electronically Signed On 09-05-2020 11:01:51 CDT by Alfonso Ascencio D.O.
[2020-09-03 11:03] LABS: Basophils Percent Auto 0.5 % (0.2-1.2); Eosinophils Absolute Auto 0.2 K/mm3 (0-0.3); Eosinophils Percent Auto 1.9 % (0-4.4); Hematocrit 36.7 % (37.0-47.0); Hemoglobin 11.5 g/dL (12.0-15.0); Immature Granulocyte Absolute 0.04 K/mm3 (0.00-0.031); Immature Granulocyte Percent A 0.5 % (0-0.5); Lymphocytes Absolute Auto 1.21 K/mm3 (0.9-3.2); Lymphocytes Percent Auto 14.2 % (18.3-44.2); Mean Corpuscular HGB Conc 31.3 g/dl (32-36); Mean Corpuscular Hemoglobin 27.1 pg (26-34); Mean Corpuscular Volume 86.4 fl (80-100); Mean Platelet Volume 9.7 fl (7.4-10.4); Monocytes Absolute Auto 0.8 K/mm3 (0.1-0.6); Monocytes Percent Auto 9.3 % (2.6-8.5); Neutrophils Absolute Auto 6.3 K/mm3 (1.3-6.7); Neutrophils Percent Auto 73.6 % (45.5-73.1); Platelet Count Result 176 k/mm3 (150-375); Red Blood Count 4.25 M/mm3 (4.2-5.4); Red Cell Distribution Width 14.6 % (11.5-14.5); White Blood Count 8.5 K/mm3 (4.5-10.0)
[2020-09-03 11:09] LABS: Add Urine Microscopic? YES; Appearance Urine Clear (Clear); Bilirubin Urine Negative (Negative); Blood Urine 1+ (Negative); Color Urine Yellow (Yellow); Glucose Urine UA Negative (Negative); Ketones Urine Negative (Negative); Leukocyte Esterase Ur Negative LEU/UL (Negative); Mucus Urine Rare /lpf; Nitrate Urine Negative (Negative); Protein Urine 1+ mg/dL (Negative); Specific Grav Ur 1.025 (1.001-1.035); Squamous Epithelial Cell Urine Rare /hpf (Few); Urobilinogen Urine Negative mg/dL (<2.0); WBC Urine 0-3 /hpf
[2020-09-03 11:12] LABS: Alanine Aminotransferase 22 U/L (4-35); Albumin Level 3.7 g/dL (3.5-5.1); Alkaline Phosphatase 77 U/L (38-126); Anion Gap 0 mmol/L (8-16); Aspartate Amino Transferase 29 U/L (14-36); Bilirubin,Total 0.4 mg/dL (0.2-1.3); Blood Urea Nitrogen 12 mg/dL (7-17); Calcium 8.5 mg/dL (8.4-10.2); Carbon Dioxide 37 mmol/L (22-30); Chloride 86 mmol/L (98-107); Estimated CRCL calculation 67 ml/min; Estimated Glomerular Filt Rate > 60; Glucose 164 mg/dL (65-105); Potassium 4.9 mmol/L (3.4-5.0); Sodium 123 mmol/L (137-145)
--- NOTE | 2020-09-03 11:14 | PC.NURSE ---
Patient to radiology
--- NOTE | 2020-09-03 11:25 | ED.GENADULT ---
HPI - General Adult General Chief complaint: Altered Mental Status Stated complaint: confusion History of Present Illness HPI narrative: Patient is a 80 y/o female complaining of generalized headache starting 3 days ago. She is unable to describe the nature of pain and she states that her headache is severe. She states that pain medication helps sometimes. She has no nausea or vomiting. Son states that patient had slurred speech and acted more confused. Related Data Home Medications Medication Instructions Recorded Confirmed anastrozole 1 mg tablet 1 mg PO DAILY 03/01/20 04/18/20 polysaccharide iron complex 150 mg 150 mg PO BID 03/01/20 04/18/20 iron capsule meclizine 12.5 mg PO TID PRN 04/18/20 04/18/20 pantoprazole 40 mg PO BID 04/18/20 04/18/20 Allergies Allergy/AdvReac Type Severity Reaction Status Date / Time metformin Allergy Mild GI upset Verified 04/18/20 18:39 sitagliptin Allergy Mild rhinitis Verified 04/18/20 18:39 amlodipine Allergy Unknown Constipatio Verified 04/18/20 18:39 n aspirin Allergy Unknown Ulcers Verified 04/18/20 18:39 lisinopril Allergy Unknown Cough Verified 04/18/20 18:39 losartan Allergy Unknown Wheezing Verified 04/18/20 18:39 morphine AdvReac Confusion Verified 04/19/20 19:28 Review of Systems Constitutional: Constitutional: Denies chills, Denies fever(s), Reports headache(s) and Denies weakness Eyes: Eyes: Denies blurry vision ENT: Reports headache(s) and Denies neck pain Cardiovascular: Cardiovascular: Denies chest pain and Denies dyspnea Respiratory: Respiratory: Denies cough and Denies dyspnea Gastrointestinal: Gastrointestinal: Denies abdominal pain, Denies diarrhea, Denies nausea and Denies vomiting Genitourinary: Genitourinary: Denies hematuria and Denies dysuria Musculoskeletal: Musculoskeletal: Denies back pain and Denies neck pain Neurologic: Reports headache(s) and Denies weakness [facility] Past Medical History Medical History (Updated 09/03/20 @ 15:49 by Belén Wheeler MD) Anemia Cancer of left breast (~02/2018) Moderately differentiated invasive lobular carcinoma (ER/NH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 Also treated with aromatase inhibitors and Herceptin. Cerebrovascular accident (~01/2020) Duodenal ulcer (~05/2018) GI bleed (~05/2018) Acute duodenal ulcers and gastritis on EGD per Dr. Shea. Hypertension Insulin dependent type 2 diabetes mellitus Left leg DVT (~2018) Status post IVC filter insertion. Osteoarthritis Paroxysmal atrial fibrillation Shingles (~2001) Surgical History Surgical History (Updated 09/03/20 @ 15:17 by Helen Perez PA-C) History of bilateral cataract extraction History of bilateral mastectomy For left-sided breast cancer. Negative margins but 1 lymph node demonstrated micrometastases. History of cholecystectomy History of hysterectomy History of orthopedic surgery ORIF right ankle fracture. Right hip bipolar hemiarthroplasty after fracture. History of repair of right rotator cuff Presence of inferior vena cava filter Family History Family History Sibling Family history of glaucoma Mother Family history of diabetes mellitus in first degree relative Father Family history of Alzheimer's disease Other Asthma Carcinoma of colon Diabetes mellitus Family history of congestive heart failure Family history of lung cancer Social History Social History (Updated 09/03/20 @ 15:20 by Helen Perez PA-C) Social History: The patient lives in assisted living at [place]. She is and has 5 children. 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 She smoked for a few years as a young woman. No alcohol or illicit substance use. Her son, Taj Ferrer, is her healthcare power of workers compensation defense attorney. She is listed as a full code. Exam Const: Gene
[2020-09-03] MEDS: ACETAMINOPHEN 325 MG TABLET 650 MG PO (11:27)
[2020-09-03 11:36] LABS: INR 1.1; Prothrombin Time 14.8 Seconds (11.1-14.7)
[2020-09-03 11:43] LABS: Partial Thromboplastin Time 33.5 SECONDS (22.3-36.8)
[2020-09-03] MEDS: KETOROLAC 15 MG/ML VIAL (*BKC) IV PUSH (11:54)
--- NOTE | 2020-09-03 14:55 | ADMGEN ---
This patient, Alexus Ferrer, was admitted to Medical Room 250-01. Patient/family oriented to hospital policies and general routines including ID bracelet, bed and alarms, visiting hours, pain management, procedures, bathroom and other care routines, personal items, smoking policy, room service/diet, and visiting hours. Information on how to activate the Rapid Response Team has been discussed. Patient/Family are encouraged to report perceived risks to care and to ask questions if they do not understand what they are told or what they should do.
[2020-09-03 17:13] LABS: Sodium 125 mmol/L (137-145)
[2020-09-03 17:14] LABS: Hemoglobin A1C 6.4 % (<5.7)
[2020-09-03] MEDS: SODIUM CHLORIDE 0.9% IV 1,000 ML 100 ML IV CONT (17:31)
--- NOTE | 2020-09-03 19:15 | PM.IMHP ---
H&P: HPI History of Present Illness Date/Time: 09/03/20 19:15 Chief Complaint: Confusion and lethargy. Narrative: This is an 80-year-old female with history of dementia, stroke, paroxysmal atrial fibrillation, insulin-dependent type 2 diabetes mellitus, sleep apnea, anemia, hypertension, hyperlipidemia, GERD with history of duodenal ulcers, and breast cancer who presented to the emergency department earlier today via EMS from assisted living at [facility] for evaluation of confusion and lethargy. Over the past 3 days she has had a ?severe? diffuse headache that she is having a difficult time describing associated with nausea and photophobia. Her son and staff at [facility] have noticed that she has seemed more confused and lethargic than usual, with perhaps some slurred speech earlier today. In the emergency department she was found to have a moderate decline in her sodium level and she is being admitted in this setting. At the time of my evaluation she seems pretty confused, more so than what was documented by the ER physician and a subsequent ABG demonstrated acute respiratory failure with hypercarbia for which she is to be started on BiPAP and transferred to the IMU. The patient did admit to me that she has sleep apnea but does not use a CPAP. Aside from the headache and nausea as she does not have any specific complaints she reports feeling chilly and may be even a bit short of breath. She specifically denies auditory visual changes, focal weakness, paresthesias, chest pain, vomiting, abdominal pains, dysuria, and diarrhea. Review of Systems Review of Systems: Narrative: Twelve systems were reviewed with pertinent positives and negatives as per HPI. Somewhat limited given her confusion but she does denies sinus congestion, rhinorrhea, otalgia, odynophagia, cough, dysphagia, concerns for aspiration, pleuritic pain, palpitations, edema, and calf pain. No blurry vision, polydipsia, or polyuria. She does not think she has had any significant highs or lows with regards to her glucose. Except as documented, all other systems were reviewed and are negative. [facility] Past Medical History Medical History (Updated 09/03/20 @ 22:11 by Helen Perez PA-C) Anemia Cancer of left breast (~02/2018) Moderately differentiated invasive lobular carcinoma (ER/DE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 Also treated with aromatase inhibitors and Herceptin. Cerebrovascular accident (~01/2020) Chronic respiratory failure with hypoxia Patient reportedly wears oxygen with exertion. Duodenal ulcer (~05/2018) GI bleed (~05/2018) Acute duodenal ulcers and gastritis on EGD per Dr. Shea. Hypertension Insulin dependent type 2 diabetes mellitus Left leg DVT (~2018) Status post IVC filter insertion. Obstructive sleep apnea Does not use CPAP but apparently wears oxygen at nighttime. Osteoarthritis Paroxysmal atrial fibrillation Shingles (~2001) Surgical History Surgical History (Updated 09/03/20 @ 15:17 by Helen Perez PA-C) History of bilateral cataract extraction History of bilateral mastectomy For left-sided breast cancer. Negative margins but 1 lymph node demonstrated micrometastases. History of cholecystectomy History of hysterectomy History of orthopedic surgery ORIF right ankle fracture. Right hip bipolar hemiarthroplasty after fracture. History of repair of right rotator cuff Presence of inferior vena cava filter Family History Family History Sibling Family history of glaucoma Mother Family history of diabetes mellitus in first degree relative Father Family history of Alzheimer's disease Other Asthma Carcinoma of colon Diabetes mellitus Family history of congestive heart failure Family history of lung cancer Social History Social History (Updated 0
[2020-09-03 20:32] LABS: Sodium 125 mmol/L (137-145)
[2020-09-03 21:13] LABS: Alveolar/Arterial O2 Gradient 69.3 mmHg; Base Excess ABG 1.2 mEq/l (+/-2.0); Carboxyhemoglobin 0.3 % THb (0-2.0); Fractional Inspired Oxygen 32 %; HCO3 ABG 29.1 mEq/l (22.0-26.0); Methemoglobin ABG 0.3 %THb (0-1.5); Oxygen Content ABG 16.3 %vol (16.0-22.0); Oxygen Saturation ABG 95.2 % (95.0-100.0); Oxyhemoglobin 94.5 % THb (90.0-100.0); PO2 ABG 85.9 mmHg (80.0-100.0); PO2 FiO2 Ratio Arterial Blood 2.68 %; Reduced Hemoglobin 4.9 %THb (0-5.0); Total Hemoglobin 12.2 g/dL (12.0-18.0)
[2020-09-03 21:14] LABS: Device NASAL CANNULA; PCO2 ABG 62.4 mmHg (35.0-45.0); Site Drawn RIGHT BRACHIAL; pH ABG 7.287 (7.350-7.450)
[2020-09-03 23:40] LABS: Alveolar/Arterial O2 Gradient 80.9 mmHg; Base Excess ABG 4.7 mEq/l (+/-2.0); Carboxyhemoglobin 0.2 % THb (0-2.0); Fractional Inspired Oxygen 35 %; HCO3 ABG 33.4 mEq/l (22.0-26.0); Methemoglobin ABG 0.3 %THb (0-1.5); Oxygen Content ABG 16.3 %vol (16.0-22.0); Oxygen Saturation ABG 94.8 % (95.0-100.0); Oxyhemoglobin 94.6 % THb (90.0-100.0); PO2 ABG 84.8 mmHg (80.0-100.0); PO2 FiO2 Ratio Arterial Blood 2.42 %; Reduced Hemoglobin 4.9 %THb (0-5.0); Total Hemoglobin 12.2 g/dL (12.0-18.0)
[2020-09-03 23:41] LABS: Device NON-INVASIVE VENT; Non-Invasive Expiratory Pressure 5 CMH2O; Non-Invasive Inspiratory Pressure 12 CMH2O; Non-Invasive Vent Rate 20 /MIN; PCO2 ABG 72.1 mmHg (35.0-45.0); Site Drawn RIGHT BRACHIAL; pH ABG 7.284 (7.350-7.450)
[2020-09-04] VITALS (49 sets, daily range): BP systolic 118–146; BP diastolic 66–90; PULSE 68–113; RESP 17–24; TEMP 36.3–37.3; O2SAT 94–100; BMI 36.8
--- NOTE | 2020-09-04 00:06 | PC.NURSE ---
Peter mensah faxed and report called to IMU . Pt transferred per bed with bipap to IMU Critical ABG's noted and called to Alicia FERRIS just prior to transfer. On arrival to IMU Alicia Perez there to assess pt.
--- NOTE | 2020-09-04 00:15 | PC.NURSE ---
Son called regarding change in ABG's and need for bipap and moving to IMU, son is agrreable and wants everything done.
[2020-09-04 00:52] LABS: Alveolar/Arterial O2 Gradient 57.1 mmHg; Base Excess ABG 4.5 mEq/l (+/-2.0); Carboxyhemoglobin 0.3 % THb (0-2.0); Fractional Inspired Oxygen 30 %; HCO3 ABG 32.5 mEq/l (22.0-26.0); Methemoglobin ABG 0.3 %THb (0-1.5); Oxygen Content ABG 15.9 %vol (16.0-22.0); Oxygen Saturation ABG 94.1 % (95.0-100.0); Oxyhemoglobin 93.7 % THb (90.0-100.0); PO2 ABG 78.8 mmHg (80.0-100.0); PO2 FiO2 Ratio Arterial Blood 2.63 %; Reduced Hemoglobin 5.7 %THb (0-5.0); pH ABG 7.308 (7.350-7.450)
[2020-09-04 00:53] LABS: PCO2 ABG 66.4 mmHg (35.0-45.0)
[2020-09-04 00:54] LABS: Device NON-INVASIVE VENT; Modified Allen's Test Pass; Non-Invasive Expiratory Pressure 8 CMH2O; Non-Invasive Inspiratory Pressure 28 CMH2O; Non-Invasive Vent Rate 18 /MIN; Site Drawn LEFT RADIAL
[2020-09-04 01:01] LABS: Sodium 125 mmol/L (137-145)
[2020-09-04 03:06] LABS: Alveolar/Arterial O2 Gradient 39.8 mmHg; Carboxyhemoglobin 0.1 % THb (0-2.0); Fractional Inspired Oxygen 30 %; HCO3 ABG 32.7 mEq/l (22.0-26.0); Methemoglobin ABG 0.3 %THb (0-1.5); Oxygen Content ABG 16.7 %vol (16.0-22.0); Oxygen Saturation ABG 95.7 % (95.0-100.0); Oxyhemoglobin 95.3 % THb (90.0-100.0); PO2 ABG 90.9 mmHg (80.0-100.0); PO2 FiO2 Ratio Arterial Blood 3.03 %; Reduced Hemoglobin 4.3 %THb (0-5.0); Total Hemoglobin 12.4 g/dL (12.0-18.0); pH ABG 7.282 (7.350-7.450)
[2020-09-04 03:07] LABS: Device NON-INVASIVE VENT; PCO2 ABG 70.8 mmHg (35.0-45.0); Site Drawn RIGHT BRACHIAL
[2020-09-04 03:08] LABS: Non-Invasive Expiratory Pressure 8 CMH2O; Non-Invasive Inspiratory Pressure 28 CMH2O; Non-Invasive Vent Rate 18 /MIN
--- NOTE | 2020-09-04 03:51 | PC.NURSE ---
This patient, Alexus Shahid Nabil, was received from [facility] on 09/04/20 at 0335. Patient/family oriented to unit policies and routines
[2020-09-04] MEDS: FENTANYL 2,500MCG/NS250ML(*CRX 2,500 MCG/250 ML BAG IV CONT (04:00)
[2020-09-04] MEDS: MIDAZOLAM 100MG/NS 100ML(*CRX) 100 MG/100 ML BAG IV CONT (04:00)
--- NOTE | 2020-09-04 04:02 | PC.NURSE ---
This patient, Alexus Shahid Martinhailee, was received from [facility] on 09/04/20 at 0000. Patient/family oriented to unit policies and routines
--- NOTE | 2020-09-04 04:05 | PC.NURSE ---
This patient, Alexus Ferrer, was transferred to ICU 6 on 09/04/20 at 0355. Personal belongings sent with patient. Report given to GILBERTO ORO. Appropriate documentation sent with patient.
--- NOTE | 2020-09-04 04:26 | WPDPROCEDUR ---
Procedures Intubation Intubation Date: 09/04/20 Intubation Time: 03:58 A pre-procedural Time-Out was completed immediately before starting the procedure and confirmed: Patient Identification, Site, Procedure, Patient Position and the Availability of Requisite Equipment: Yes (Patient was unstable) Sedative: etomidate Mg given: 20 Paralytic: succinylcholine Mg given: 100 Laryngoscope: fiber optic video scope ET tube size: cuffed Tube secured depth (cm): 23 Tube secured location: lips Tube placement confirmation: visualized tube passing through cords, equal breath sounds bilaterally, no breath sounds over epigastrium and confirmation by capnometry Patient tolerated procedure: well Intubation complications: none
--- NOTE | 2020-09-04 04:29 | PM.EVENT ---
Event Note Event Note Event Note: 09/04/2020 at 3:00 a.m. Had evaluated the patient just after midnight and made BiPAP changes. The patient's ABG at that time had improved. However as the night progressed the patient's respiratory effort declined and she was pulling poor tidal volumes on BiPAP of 28/8 with a rate of 18. Repeat ABG demonstrated worsening pH and pCO2. The patient was subsequent transferred to the ICU and intubated. Patient tolerated intubation without difficulty. Chest x-ray was reviewed and demonstrated ET close to the mayra. I pulled the ET tube back 2 cm. I am awaiting repeat imaging. Post intubation the patient had equal breath sounds, abdomen is soft nontender, she is agitated on the vent, sedation has been ordered, Alonso catheter has been placed in clear yellow urine is present. Assessment and plan: Acute on chronic hypercapnic respiratory failure--the patient has been transferred to the ICU and placed on ventilator. Patient is on a.c./CMV with a rate of 20 peep of 5 tidal volume 350. Repeat ABG has been ordered. The patient's case was discussed with the public transit bus driver to has agreed to see the patient in consult. 50 minutes spent in critical care activities. Due to a high probability of clinically significant, life threatening deterioration, the patient required my highest level of preparedness to intervene emergently and I personally spent this critical care time directly and personally managing the patient. This critical care time included obtaining a history; examining the patient; pulse oximetry; ordering and review of studies; arranging urgent treatment with development of a management plan; evaluation of patient's response to treatment; frequent reassessment; and discussions with other providers. It was exclusive of separately billable procedures and treating other patients and teaching time. Please see Assessment and Plan section and the rest of the note for further information on patient assessment and treatment.
[2020-09-04 04:47] LABS: Anion Gap 1 mmol/L (8-16); Blood Urea Nitrogen 13 mg/dL (7-17); Calcium 8.7 mg/dL (8.4-10.2); Carbon Dioxide 36 mmol/L (22-30); Chloride 89 mmol/L (98-107); Estimated CRCL calculation 82 ml/min; Estimated Glomerular Filt Rate > 60; Glucose 84 mg/dL (65-105); Magnesium 1.8 mg/dL (1.6-2.3); Potassium 4.8 mmol/L (3.4-5.0); Sodium 126 mmol/L (137-145)
[2020-09-04] MEDS: RAPID SEQUENCE INTUBATION KIT 1 EACH (04:53)
[2020-09-04 05:08] LABS: Alveolar/Arterial O2 Gradient 105.6 mmHg; Base Excess ABG 4.6 mEq/l (+/-2.0); Carboxyhemoglobin 0.3 % THb (0-2.0); Fractional Inspired Oxygen 40 %; HCO3 ABG 30.4 mEq/l (22.0-26.0); Methemoglobin ABG 0.3 %THb (0-1.5); Oxygen Content ABG 17.1 %vol (16.0-22.0); Oxygen Saturation ABG 98.3 % (95.0-100.0); Oxyhemoglobin 97.2 % THb (90.0-100.0); PCO2 ABG 50.4 mmHg (35.0-45.0); PO2 ABG 121.6 mmHg (80.0-100.0); PO2 FiO2 Ratio Arterial Blood 3.04 %; Reduced Hemoglobin 2.2 %THb (0-5.0); Total Hemoglobin 12.4 g/dL (12.0-18.0); pH ABG 7.399 (7.350-7.450)
[2020-09-04 05:12] LABS: Device VENTILATOR; Modified Allen's Test Pass; Site Drawn LEFT RADIAL
[2020-09-04 05:13] LABS: Creatinine Urine 192.7 mg/dL
[2020-09-04 05:13] LABS: Arterial Blood Gas PEEP 5 cmH2O; Arterial Blood Gas Tidal Volume 350 ml; Arterial Blood Gas Vent Mode CMV; Arterial Blood Gas Ventilator rate 20 /MIN
[2020-09-04 05:38] LABS: Sodium Urine Random 14 meq/L
[2020-09-04] MEDS: PROPOFOL IV EMULSION 100 ML 11.7 MG IV CONT (08:22)
[2020-09-04] MEDS: ANASTROZOLE (*CHEMO) 1 MG TABLET PO (08:34)
[2020-09-04] MEDS: APIXABAN 5 MG TABLET PO ×2 (08:34→16:56)
[2020-09-04] MEDS: TOLNAFTATE 1% POWDER 45 GM BTL 1 APPLIC TOPICAL ×2 (08:34→20:01)
[2020-09-04] MEDS: ASPIRIN 81 MG ENTERIC TABLET PO (08:34)
[2020-09-04] MEDS: PANTOPRAZOLE SODIUM IV 40 MG VIAL IV PUSH ×2 (08:34→20:01)
--- NOTE | 2020-09-04 08:49 | WPDCNINT ---
Assessment and Plan Assessment and plan (1) Acute respiratory failure with hypercapnia: Code(s): J96.02 - Acute respiratory failure with hypercapnia Status: Acute Assessment and Plan: Hypercapnic respiratory failure, patient failed BiPAP 30/12, repeat ABGs showed worsening hypercapnia requiring intubation on 09/04/2020 early hours - ABGs reviewed, pCO2 levels improved. -Chest x-ray shows cardiomegaly with likely mild pulmonary edema -add bronchodilators -sedated with fentanyl and Versed infusion, will switch to propofol (2) Altered mental status: Qualifiers: Altered mental status type: unspecified Qualified Code(s): R41.82 - Altered mental status, unspecified Code(s): R41.82 - Altered mental status, unspecified Status: Acute Assessment and Plan: Could be related to hypercapnia and hyponatremia (3) Hyponatremia: Code(s): E87.1 - Hypo-osmolality and hyponatremia Status: Acute Assessment and Plan: Gradually improving, will continue to monitor (4) Headache: Qualifiers: Headache chronicity pattern: unspecified pattern Headache type: unspecified Intractability: not intractable Qualified Code(s): R51.9 - Headache, unspecified Code(s): R51.9 - Headache, unspecified Status: Acute Assessment and Plan: CT scan of the brain: Cerebral atherosclerosis and chronic small vessel ischemic changes 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 No acute finding is noted -will monitor once she is more awake and extubated, may need MRI if headaches continue (5) Insulin dependent type 2 diabetes mellitus: Code(s): E11.9 - Type 2 diabetes mellitus without complications; 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 Attempts have been made to correct errors. However, there may be uncorrected grammatical, spelling, and recognition errors present. Due to a high probability of clinically significant, life threatening deterioration, the patient required my highest level of preparedness to intervene emergently and I personally spent this critical care time directly and personally managing the patient. This critical care time included obtaining a history; examining the patient; pulse oximetry; ordering and review of studies; arranging urgent treatment with development of a management plan; evaluation of patient's response to treatment; frequent reassessment; and discussions with other providers. It was exclusive of separately billable procedures and treating other patients and teaching time. Please see Assessment and Plan section and the rest of the note for further information on patient assessment and treatment Project Controls Scheduler Consult Note Consult date: 09/04/20 Time Seen: 07:09 Reason for consult: Hypercarbic respiratory failure, altered mental status, hyponatremia HPI: Alexus Ferrer is a 80 year old female with significant past medical history of cerebrovascular accident, duodenal ulcer, GI bleed, essential hypertension, diabetes type 2, history of left lower extremity DVT status post IVC filter, paroxysmal AFib, anemia, history of left-sided breast cancer status post bilateral mastectomy, obstructive sleep apnea does not wear her CPAP, presented the ED on 09/03/2020 from the
[2020-09-04 09:20] LABS: Sodium 124 mmol/L (137-145)
[2020-09-04] MEDS: DEXTROSE 50% 25 GM/50 ML SYRINGE IV PUSH ×2 (12:04→16:56)
[2020-09-04 12:05] LABS: Glucose Point of Care 59 (65-105)
[2020-09-04 12:23] LABS: Sodium 125 mmol/L (137-145)
[2020-09-04 12:28] LABS: Glucose Point of Care 89 (65-105)
--- NOTE | 2020-09-04 12:52 | PM.IMPN ---
Progress Note: A&P Assessment and Plan (1) Hyponatremia: Code(s): E87.1 - Hypo-osmolality and hyponatremia Status: Acute Assessment and Plan: Patient with chronic hyponatremia will continue to monitor (2) Confusion: Code(s): R41.0 - Disorientation, unspecified Status: Acute Assessment and Plan: Most likely secondary to hypercapnic respiratory failure currently on ventilator and sedated (3) Hypertension: Code(s): I10 - Essential (primary) hypertension Status: Chronic Assessment and Plan: Once able to take the p.o. medication will resume and monitor (4) Insulin dependent type 2 diabetes mellitus: Code(s): E11.9 - Type 2 diabetes mellitus without complications; Z79.4 - [facility] (current) use of insulin Status: Acute Assessment and Plan: Will monitor with sliding scale (5) Paroxysmal atrial fibrillation: Code(s): I48.0 - Paroxysmal atrial fibrillation Status: Acute Assessment and Plan: Rate is controlled anticoagulated with Eliquis (6) Acute respiratory failure with hypercapnia: Code(s): J96.02 - Acute respiratory failure with hypercapnia Status: Acute Assessment and Plan: 09/04/20 12:52 Patient is 80-year-old female a resident of nursing was sent to emergency depart complaint of 3 days of history of severe headache and generalized, weakness, confused and more lethargic today, upon arrival patient was short of breath ABG showed elevated pCO2 of 62 patient was placed on BiPAP however her symptoms were not improving patient was hypoxic and eventually patient was intubated and currently on ventilator unable to provide any review of symptoms or history, her son is present in the room, chest x-ray showed cardiomegaly major donor coordinator suspect patient has a pulmonary edema, bronchodilator is added, patient with severe headache CT scan of the head did not show any acute injury rather chronic finding, patient is seen by major donor coordinator we appreciate and and further recommendation to follow (7) Chronic respiratory failure with hypoxia: Code(s): J96.11 - Chronic respiratory failure with hypoxia Status: Chronic Assessment and Plan: Plan is above (8) Anemia: Code(s): D64.9 - Anemia, unspecified Status: Acute Assessment and Plan: Will monitor (9) Headache: Qualifiers: Headache chronicity pattern: unspecified pattern Headache type: unspecified Intractability: not intractable Qualified Code(s): R51.9 - Headache, unspecified Code(s): R51.9 - Headache, unspecified Status: Acute Assessment and Plan: CT scan of the head did not show any acute injury will continue to monitor Additional Plan The patient presents today with headache, confusion, and lethargy over the past several days. Confusion is likely due to a combination of hyponatremia and hypercarbia. If no improvement with correction of the above, a further workup would be indicated. At this time I think it is less likely that she has had a stroke but that certainly is a consideration as she is no longer on anticoagulation. She has been started on normal saline and her sodium levels will be monitored closely to ensure appropriate correction. At this time she is being started on BiPAP in is going to be transferred to the IMU with repeat blood gas an hour or so thereafter. Her blood pressures have been running high, in the 160s to 170s systolic, and they will be monitored closely for possible adjustments in her antihypertensives. I suspect her headache is due to a combination of the hypercarbia, hyponatremia, and perhaps even due to the elevated blood pressures. Tylenol available as needed. No focal deficits noted on exam but she was not very participatory in neurologic assessment. Glucoses were reviewed and they have been adequate, she is not hypoglycemic. Initiate sliding scale insulin, Accu-Cheks, and hypoglycemic protocol.
[2020-09-04] MEDS: IPRATROPIUM BR 0.02% INH SOLN 0.5 MG/2.5 ML VIAL INHALATION ×2 (13:31→21:11)
[2020-09-04] MEDS: LEVALBUTEROL NEB 1.25 MG/3 ML 0.63 MG INHALATION ×2 (13:31→21:11)
[2020-09-04] MEDS: METOPROLOL TARTRATE 25 MG TABLET PO ×2 (14:53→20:01)
[2020-09-04 16:55] LABS: Glucose Point of Care 65 (65-105)
[2020-09-04] MEDS: DEXTROSE 5% 1,000 ML 1,000 ML 50 ML IV CONT (17:14)
[2020-09-04] MEDS: PROPOFOL IV EMULSION 100 ML 5.85 MG IV CONT (18:04)
[2020-09-04 18:08] LABS: Glucose Point of Care 92 (65-105)
[2020-09-04 23:15] LABS: Glucose Point of Care 126 (65-105)
[2020-09-05] VITALS (40 sets, daily range): BP systolic 84–136; BP diastolic 53–117; PULSE 84–130; RESP 16–26; TEMP 36.6–37.1; O2SAT 90–100
--- NOTE | 2020-09-05 | ECHO_ITS ---
Patient Info Name: Alexus Ferrer Age: 80 years : 1940 Gender: Female Ht: 64 in Wt: 215 lbs BSA: 2.14 m2 HR: 100 bpm BP: 130 / 117 mmHg Heart Rhythm: Indeterminant Technical Quality: Fair Exam Date: 09/05/2020 1:42 PM Exam Location: [facility] Patient Status: Inpatient Admit Date: 09/04/2020 Staff Ordering Physician: Anirudh Cuevas MD Hospice Superintendent: Tori Major RDCS Attending Provider: Cami Hayes MD Exam Type: CA echo dop color flow w con Study Info Indications J96.90 - Respiratory failure, unspecified, unspecified whether with hypoxia or hypercapnia Complete two-dimensional, color flow and Doppler transthoracic echocardiogram is performed with contrast to opacify the left ventricle and to improve the deliniation of the left ventricle endocardial borders. Contrast/Agitated Saline Contrast/Ag. Saline: Definity Amount: 1.00 ml Administered By: Tova Jones RN Production Support Analyst Services Existing IV Access: Yes IV Access Condition: patent with no signs of infiltration Summary 1. Normal left ventricular size with moderate concentric hypertrophy. Diastolic dysfunction is present. Good left ventricular systolic function with no segmental wall motion abnormalities. Calculated ejection fraction 63%, visually 65-70%. 2. Right ventricular chamber is not well seen but appears to be mildly enlarged with normal contractility. 3. Mild pulmonary hypertension, estimated pulmonary arterial systolic pressure is 36 mmHg. 4. Left atrial chamber dimension is mildly enlarged. 5. Borderline dilatation of the sinuses of Valsalva, 3.5 cm. 6. There is mild aortic valve calcification, without stenosis. 7. Technically difficult difficult study, definity echo contrast used. Left Ventricle Left ventricular chamber dimension is normal. Left ventricular systolic function is normal, estimated at 65-70%. There is moderately increased left ventricular wall thickness. Left ventricular septal wall motion is normal. The left ventricular diastolic function is abnormal. Right Ventricle Right ventricular chamber is not well seen but appears to be mildly enlarged with normal contractility. Right ventricular systolic function is normal. Left Atria Left atrial chamber dimension is mildly enlarged. Right Atria Right atrial chamber dimension is normal. Aortic Valve The aortic valve is trileaflet. There is no aortic valve sclerosis. There is no aortic valve stenosis. There is no aortic valve regurgitation. There is mild aortic valve calcification, without stenosis. Pulmonic Valve The pulmonic valve is normal. There is no pulmonic valve stenosis. There is no pulmonic regurgitation. Mitral Valve The mitral valve has calcified annulus. There is no mitral valve stenosis. There is trace mitral valve regurgitation. Tricuspid Valve The tricuspid valve leaflets are normal. There is no significant tricuspid valve stenosis. There is trace tricuspid valve regurgitation. Mild pulmonary hypertension, estimated pulmonary arterial systolic pressure is 36 mmHg. Pericardium/Pleural The pericardium appears normal. There is no pericardial effusion. Inferior Vena Cava Normal inferior vena cava with >50% collapse upon inspiration consistent with Empty right atrial pressure, 10 mmHg. Aorta The aortic root size at the sinus of Valsalva is borderline dilated. The prox ascending aorta size is normal. L
[2020-09-05] MEDS: LEVALBUTEROL NEB 1.25 MG/3 ML 0.63 MG INHALATION ×4 (02:22→20:25)
[2020-09-05] MEDS: IPRATROPIUM BR 0.02% INH SOLN 0.5 MG/2.5 ML VIAL INHALATION ×4 (02:22→20:25)
[2020-09-05 04:28] LABS: Base Excess ABG 2.9 mEq/l (+/-2.0); Carboxyhemoglobin 0.3 % THb (0-2.0); Fractional Inspired Oxygen 30 %; HCO3 ABG 26.1 mEq/l (22.0-26.0); Methemoglobin ABG 0.3 %THb (0-1.5); Oxygen Content ABG 16.5 %vol (16.0-22.0); Oxygen Saturation ABG 94.8 % (95.0-100.0); PCO2 ABG 35.4 mmHg (35.0-45.0); PO2 ABG 67.3 mmHg (80.0-100.0); PO2 FiO2 Ratio Arterial Blood 2.24 %; Reduced Hemoglobin 6.4 %THb (0-5.0); Total Hemoglobin 12.6 g/dL (12.0-18.0); pH ABG 7.486 (7.350-7.450)
[2020-09-05 04:29] LABS: Arterial Blood Gas PEEP 5 cmH2O; Arterial Blood Gas Tidal Volume 350 ml; Arterial Blood Gas Vent Mode CMV; Arterial Blood Gas Ventilator rate 18 /MIN; Device VENTILATOR; Modified Allen's Test Unable to perform; Site Drawn LEFT RADIAL
[2020-09-05 05:24] LABS: Glucose Point of Care 151 (65-105)
[2020-09-05] MEDS: PROPOFOL IV EMULSION 100 ML 5.85 MG IV CONT ×2 (05:33→16:12)
[2020-09-05 05:40] LABS: Basophils Percent Auto 0.3 % (0.2-1.2); Eosinophils Absolute Auto 0.1 K/mm3 (0-0.3); Eosinophils Percent Auto 0.8 % (0-4.4); Hematocrit 36.6 % (37.0-47.0); Hemoglobin 11.6 g/dL (12.0-15.0); Immature Granulocyte Absolute 0.03 K/mm3 (0.00-0.031); Immature Granulocyte Percent A 0.3 % (0-0.5); Lymphocytes Absolute Auto 0.99 K/mm3 (0.9-3.2); Mean Corpuscular HGB Conc 31.7 g/dl (32-36); Mean Corpuscular Hemoglobin 27.4 pg (26-34); Mean Corpuscular Volume 86.3 fl (80-100); Mean Platelet Volume 10.1 fl (7.4-10.4); Monocytes Absolute Auto 0.9 K/mm3 (0.1-0.6); Monocytes Percent Auto 9.4 % (2.6-8.5); Neutrophils Absolute Auto 7.8 K/mm3 (1.3-6.7); Neutrophils Percent Auto 79.2 % (45.5-73.1); Platelet Count Result 157 k/mm3 (150-375); Red Blood Count 4.24 M/mm3 (4.2-5.4); Red Cell Distribution Width 15.3 % (11.5-14.5); White Blood Count 9.9 K/mm3 (4.5-10.0)
[2020-09-05 06:00] LABS: Alanine Aminotransferase 17 U/L (4-35); Alkaline Phosphatase 66 U/L (38-126); Anion Gap 4 mmol/L (8-16); Aspartate Amino Transferase 26 U/L (14-36); Blood Urea Nitrogen 13 mg/dL (7-17); Calcium 8.5 mg/dL (8.4-10.2); Carbon Dioxide 33 mmol/L (22-30); Chloride 91 mmol/L (98-107); Estimated CRCL calculation 70 ml/min; Estimated Glomerular Filt Rate > 60; Glucose 168 mg/dL (65-105); Magnesium 1.6 mg/dL (1.6-2.3); Phosphorus 2.9 mg/dL (2.5-4.5); Potassium 3.8 mmol/L (3.4-5.0); Sodium 128 mmol/L (137-145)
[2020-09-05] MEDS: APIXABAN 5 MG TABLET PO ×2 (07:18→16:14)
[2020-09-05] MEDS: METOPROLOL TARTRATE 25 MG TABLET PO ×2 (07:18→20:35)
[2020-09-05] MEDS: ASPIRIN 81 MG ENTERIC TABLET PO (07:18)
[2020-09-05] MEDS: ANASTROZOLE (*CHEMO) 1 MG TABLET PO (07:18)
[2020-09-05] MEDS: PANTOPRAZOLE SODIUM IV 40 MG VIAL IV PUSH ×2 (07:18→20:39)
[2020-09-05] MEDS: TOLNAFTATE 1% POWDER 45 GM BTL 1 APPLIC TOPICAL ×2 (07:19→20:35)
--- NOTE | 2020-09-05 07:45 | WPDINTPN ---
Progress Note: A&P Assessment and Plan (1) Acute respiratory failure with hypercapnia: Code(s): J96.02 - Acute respiratory failure with hypercapnia Status: Acute Assessment and Plan: Hypercapnic respiratory failure, patient failed BiPAP 30/12, repeat ABGs showed worsening hypercapnia requiring intubation on 09/04/2020 early hours - ABGs reviewed -decrease tidal volume to 320 and rate to 16 -Chest x-ray shows cardiomegaly with likely mild pulmonary edema -check BNP echocardiogram -DC IV fluids -Lasix 20 mg IV x1 -continue bronchodilators -sedated with propofol (2) Altered mental status: Qualifiers: Altered mental status type: unspecified Qualified Code(s): R41.82 - Altered mental status, unspecified Code(s): R41.82 - Altered mental status, unspecified Status: Acute Assessment and Plan: Could be related to hypercapnia and hyponatremia Improving Daily sedation holiday (3) Hyponatremia: Code(s): E87.1 - Hypo-osmolality and hyponatremia Status: Acute Assessment and Plan: Gradually improving, will continue to monitor DC D5 water (4) Headache: Qualifiers: Headache chronicity pattern: unspecified pattern Headache type: unspecified Intractability: not intractable Qualified Code(s): R51.9 - Headache, unspecified Code(s): R51.9 - Headache, unspecified Status: Acute Assessment and Plan: CT scan of the brain: Cerebral atherosclerosis and chronic small vessel ischemic changes 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 beta-adam -continue apixaban (7) Chronic GERD: Code(s): K21.9 - Gastro-esophageal reflux disease without esophagitis Status: Acute Assessment and Plan: Continue Protonix (8) Electrolyte abnormality: Code(s): E87.8 - Other disorders of electrolyte and fluid balance, not elsewhere classified Status: Acute Assessment and Plan: Replace low magnesium Additional Plan DVT prophylaxis -patient is on Eliquis Stress ulcer prophylaxis - Nutrition - Tube Feeds Code Status - Full Code Critical care time spent: 32 minutes This dictation may have been done utilizing a voice recognition system. Attempts have been made to correct errors. However, there may be uncorrected grammatical, spelling, and recognition errors present. Due to a high probability of clinically significant, life threatening deterioration, the patient required my highest level of preparedness to intervene emergently and I personally spent this critical care time directly and personally managing the patient. This critical care time included obtaining a history; examining the patient; pulse oximetry; ordering and review of studies; arranging urgent treatment with development of a management plan; evaluation of patient's response to treatment; frequent reassessment; and discussions with other providers. It was exclusive of separately billable procedures and treating other patients and teaching time. Please see Assessment and Plan section and the rest of the note for further information on patient assessment and treatment Subjective Date/time seen: 09/05/20 0745 Overnight events reviewed Afebrile Continues to be on mechanical ventilation Continues to be on sedation
[2020-09-05 08:43] LABS: NT Pro B Type Natriuretic Pept 1430 pg/mL (5-100)
[2020-09-05] MEDS: FUROSEMIDE INJ 40 MG/4 ML VIAL 20 MG IV PUSH (08:55)
[2020-09-05] MEDS: MAGNESIUM SULF 2 GM/WATER 50ML 2 GM/50 ML BAG IVPB (08:56)
[2020-09-05 11:36] LABS: Glucose Point of Care 168 (65-105)
--- NOTE | 2020-09-05 12:10 | PCFNICU ---
ICU Rounding Note: Pt current nutrition is Vital High Protein. Last recorded weight is 97.6 kg. Bowel Motility:+BM reported / Labs Reviewed:Na 128,Hct 36.6,Glu 168 Meds Noted:Protonix, Eliquis,Atrovent,Lopressor,Arimidex,Miralax,Propofol 5.85 ml/qy=683 kcals. Additional Notes:Mechanical vent. Patient remains on tube feedings of Vital High Protein currently at 60 ml/hr goal rate 65 ml/hr. Tolerating tube feedings per nursing. Echo today. Skin-good. Output-good. Following daily in ICU rounds. Assessing/reassessing every Friday and Friday.
--- NOTE | 2020-09-05 13:54 | PM.IMPN ---
Progress Note: A&P Assessment and Plan (1) Hyponatremia: Code(s): E87.1 - Hypo-osmolality and hyponatremia Status: Acute Assessment and Plan: Patient with chronic hyponatremia will continue to monitor (2) Confusion: Code(s): R41.0 - Disorientation, unspecified Status: Acute Assessment and Plan: Most likely secondary to hypercapnic respiratory failure currently on ventilator and sedated (3) Hypertension: Code(s): I10 - Essential (primary) hypertension Status: Chronic Assessment and Plan: Once able to take the p.o. medication will resume and monitor (4) Insulin dependent type 2 diabetes mellitus: Code(s): E11.9 - Type 2 diabetes mellitus without complications; Z79.4 - [facility] (current) use of insulin Status: Acute Assessment and Plan: Will monitor with sliding scale (5) Paroxysmal atrial fibrillation: Code(s): I48.0 - Paroxysmal atrial fibrillation Status: Acute Assessment and Plan: Rate is controlled anticoagulated with Eliquis (6) Acute respiratory failure with hypercapnia: Code(s): J96.02 - Acute respiratory failure with hypercapnia Status: Acute Assessment and Plan: 09/05/20 13:54 Patient is 80-year-old female a resident of nursing was sent to emergency depart complaint of 3 days of history of severe headache and generalized, weakness, confused and more lethargic today, upon arrival patient was short of breath ABG showed elevated pCO2 of 62 patient was placed on BiPAP however her symptoms were not improving patient was hypoxic and eventually patient was intubated and currently on ventilator unable to provide any review of symptoms or history, her son is present in the room, chest x-ray showed cardiomegaly drywall taper suspect patient has a pulmonary edema, bronchodilator is added, patient with severe headache CT scan of the head did not show any acute injury rather chronic finding, patient is seen by drywall taper we appreciate and and further recommendation to follow 09/05 on vent 2nd day patient with respiratory failure secondary to hypercapnia patient is being diuresed and symptoms are improving plan is to monitor patient on vent today and possibly extubate tomorrow patient is seen by drywall taper and appreciate. (7) Chronic respiratory failure with hypoxia: Code(s): J96.11 - Chronic respiratory failure with hypoxia Status: Chronic Assessment and Plan: Plan is above (8) Anemia: Code(s): D64.9 - Anemia, unspecified Status: Acute Assessment and Plan: Will monitor (9) Headache: Qualifiers: Headache chronicity pattern: unspecified pattern Headache type: unspecified Intractability: not intractable Qualified Code(s): R51.9 - Headache, unspecified Code(s): R51.9 - Headache, unspecified Status: Acute Assessment and Plan: CT scan of the head did not show any acute injury will continue to monitor Additional Plan The patient presents today with headache, confusion, and lethargy over the past several days. Confusion is likely due to a combination of hyponatremia and hypercarbia. If no improvement with correction of the above, a further workup would be indicated. At this time I think it is less likely that she has had a stroke but that certainly is a consideration as she is no longer on anticoagulation. She has been started on normal saline and her sodium levels will be monitored closely to ensure appropriate correction. At this time she is being started on BiPAP in is going to be transferred to the IMU with repeat blood gas an hour or so thereafter. Her blood pressures have been running high, in the 160s to 170s systolic, and they will be monitored closely for possible adjustments in her antihypertensives. I suspect her headache is due to a combination of the hypercarbia, hyponatremia, and perhaps even due to the elevated blood pressures. Tylenol available
[2020-09-05] MEDS: PERFLUTREN LIPID MICROSPHERES 1.5 ML VIAL DILUTED TO 10 ML TOTAL VOLUME IV PUSH (13:59)
[2020-09-05] MEDS: FUROSEMIDE INJ 40 MG/4 ML VIAL IV PUSH (16:14)
[2020-09-05 17:15] LABS: Glucose Point of Care 181 (65-105)
[2020-09-05 20:12] LABS: Anion Gap 3 mmol/L (8-16); Blood Urea Nitrogen 19 mg/dL (7-17); Calcium 8.2 mg/dL (8.4-10.2); Carbon Dioxide 37 mmol/L (22-30); Chloride 90 mmol/L (98-107); Estimated CRCL calculation 70 ml/min; Estimated Glomerular Filt Rate > 60; Glucose 217 mg/dL (65-105); Potassium 3.7 mmol/L (3.4-5.0); Sodium 130 mmol/L (137-145)
[2020-09-05 23:05] LABS: Glucose Point of Care 207 (65-105)
[2020-09-05] MEDS: INSULIN ASPART (*BKC) 100 UNITS/ML SUB-Q (23:12)
[2020-09-06] VITALS (39 sets, daily range): BP systolic 82–124; BP diastolic 56–90; PULSE 78–130; RESP 13–30; TEMP 37.2–38.3; O2SAT 91–100
[2020-09-06] MEDS: IPRATROPIUM BR 0.02% INH SOLN 0.5 MG/2.5 ML VIAL INHALATION ×4 (02:13→20:09)
[2020-09-06] MEDS: LEVALBUTEROL NEB 1.25 MG/3 ML 0.63 MG INHALATION ×4 (02:13→20:09)
[2020-09-06 03:02] LABS: Hematocrit 37.2 % (37.0-47.0); Mean Corpuscular HGB Conc 32.3 g/dl (32-36); Mean Corpuscular Hemoglobin 27.2 pg (26-34); Mean Corpuscular Volume 84.4 fl (80-100); Mean Platelet Volume 9.7 fl (7.4-10.4); Platelet Count Result 200 k/mm3 (150-375); Red Blood Count 4.41 M/mm3 (4.2-5.4); Red Cell Distribution Width 15.5 % (11.5-14.5); White Blood Count 12.7 K/mm3 (4.5-10.0)
[2020-09-06] MEDS: PROPOFOL IV EMULSION 100 ML 11.7 MG IV CONT (03:11)
[2020-09-06 03:12] LABS: Add Urine Microscopic? YES; Appearance Urine Cloudy (Clear); Bilirubin Urine Negative (Negative); Blood Urine 1+ (Negative); Color Urine Yellow (Yellow); Glucose Urine UA Negative (Negative); Ketones Urine Negative (Negative); Leukocyte Esterase Ur 3+ LEU/UL (Negative); Mucus Urine Rare /lpf; Nitrate Urine Positive (Negative); Protein Urine Negative (Negative); Specific Grav Ur 1.017 (1.001-1.035); Squamous Epithelial Cell Urine Few /hpf (Few); WBC Clumps Urine Present /HPF; WBC Urine >75 /hpf
[2020-09-06 03:15] LABS: Alanine Aminotransferase 18 U/L (4-35); Alkaline Phosphatase 63 U/L (38-126); Anion Gap 3 mmol/L (8-16); Aspartate Amino Transferase 26 U/L (14-36); Bilirubin,Total 0.9 mg/dL (0.2-1.3); Blood Urea Nitrogen 26 mg/dL (7-17); Carbon Dioxide 36 mmol/L (22-30); Chloride 90 mmol/L (98-107); Estimated CRCL calculation 61 ml/min; Estimated Glomerular Filt Rate > 60; Glucose 223 mg/dL (65-105); Magnesium 1.7 mg/dL (1.6-2.3); Potassium 3.6 mmol/L (3.4-5.0); Sodium 129 mmol/L (137-145)
[2020-09-06 04:40] LABS: Alveolar/Arterial O2 Gradient 220.1 mmHg; Base Excess ABG 6.7 mEq/l (+/-2.0); Carboxyhemoglobin 0.1 % THb (0-2.0); Fractional Inspired Oxygen 50 %; HCO3 ABG 31.1 mEq/l (22.0-26.0); Methemoglobin ABG 0.3 %THb (0-1.5); Oxygen Content ABG 17.7 %vol (16.0-22.0); Oxygen Saturation ABG 97.1 % (95.0-100.0); Oxyhemoglobin 96.2 % THb (90.0-100.0); PCO2 ABG 43.4 mmHg (35.0-45.0); PO2 ABG 87.6 mmHg (80.0-100.0); PO2 FiO2 Ratio Arterial Blood 1.75 %; Reduced Hemoglobin 3.4 %THb (0-5.0); pH ABG 7.473 (7.350-7.450)
[2020-09-06 04:42] LABS: Device VENTILATOR; Modified Allen's Test Pass; Site Drawn RIGHT RADIAL
[2020-09-06 04:43] LABS: Arterial Blood Gas PEEP 5 cmH2O; Arterial Blood Gas Tidal Volume 320 ml; Arterial Blood Gas Vent Mode CMV; Arterial Blood Gas Ventilator rate 16 /MIN
[2020-09-06 05:33] LABS: Glucose Point of Care 229 (65-105)
[2020-09-06] MEDS: INSULIN ASPART (*BKC) 100 UNITS/ML SUB-Q ×3 (05:33→19:58)
[2020-09-06] MEDS: POTASSIUM CHLORIDE 20 MEQ PACKET (FOR LIQUID) 40 MEQ FEED TUBE (07:39)
[2020-09-06] MEDS: MAGNESIUM SULF 2 GM/WATER 50ML 2 GM/50 ML BAG IVPB (07:39)
[2020-09-06] MEDS: TOLNAFTATE 1% POWDER 45 GM BTL 1 APPLIC TOPICAL ×2 (07:40→20:00)
[2020-09-06] MEDS: ANASTROZOLE (*CHEMO) 1 MG TABLET PO (07:41)
[2020-09-06] MEDS: PANTOPRAZOLE SODIUM IV 40 MG VIAL IV PUSH ×2 (07:41→20:00)
[2020-09-06] MEDS: METOPROLOL TARTRATE 25 MG TABLET PO ×2 (07:41→20:00)
[2020-09-06] MEDS: APIXABAN 5 MG TABLET PO ×2 (07:41→16:47)
[2020-09-06] MEDS: ASPIRIN 81 MG ENTERIC TABLET PO (07:41)
[2020-09-06 08:14] LABS: Glucose Point of Care 230 (65-105)
--- NOTE | 2020-09-06 08:47 | WPDINTPN ---
Progress Note: A&P Assessment and Plan (1) Acute respiratory failure with hypercapnia: Code(s): J96.02 - Acute respiratory failure with hypercapnia Status: Acute Assessment and Plan: Hypercapnic respiratory failure, patient failed BiPAP 30/12, repeat ABGs showed worsening hypercapnia requiring intubation on 09/04/2020 early hours - ABGs reviewed -continue tidal volume to 320 and decrease rate to 14 -Chest x-ray shows cardiomegaly with likely mild pulmonary edema -BNP was 1400 and echocardiogram reviewed -off all IV fluids -patient was given Lasix yesterday will hold at this time -continue bronchodilators -patient failed her weaning trial this morning due to high RSBI. Patient placed on pressure support of 15/5 and will continue as tolerated. -sedated with propofol will switch to Precedex (2) Altered mental status: Qualifiers: Altered mental status type: unspecified Qualified Code(s): R41.82 - Altered mental status, unspecified Code(s): R41.82 - Altered mental status, unspecified Status: Acute Assessment and Plan: Could be related to hypercapnia and hyponatremia Improved Daily sedation holiday (3) Hyponatremia: Code(s): E87.1 - Hypo-osmolality and hyponatremia Status: Acute Assessment and Plan: Gradually improving, will continue to monitor DC D5 water (4) Headache: Qualifiers: Headache chronicity pattern: unspecified pattern Headache type: unspecified Intractability: not intractable Qualified Code(s): R51.9 - Headache, unspecified Code(s): R51.9 - Headache, unspecified Status: Acute Assessment and Plan: CT scan of the brain: Cerebral atherosclerosis and chronic small vessel ischemic changes 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 No acute finding is noted -will monitor once she is more awake and extubated, may need MRI if headaches continue (5) Insulin dependent type 2 diabetes mellitus: Code(s): E11.9 - Type 2 diabetes mellitus without complications; Z79.4 - 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 beta-adam -continue apixaban (7) Chronic GERD: Code(s): K21.9 - Gastro-esophageal reflux disease without esophagitis Status: Acute Assessment and Plan: Continue Protonix (8) Electrolyte abnormality: Code(s): E87.8 - Other disorders of electrolyte and fluid balance, not elsewhere classified Status: Acute Assessment and Plan: Replace low magnesium and potassium (9) UTI (urinary tract infection): Code(s): N39.0 - Urinary tract infection, site not specified Status: Acute Assessment and Plan: Check urine and blood cultures Replace Alonso catheter Patient started on cefepime Additional Plan DVT prophylaxis -patient is on Eliquis Stress ulcer prophylaxis - PPI Nutrition - Tube Feeds Code Status - Full Code Critical care time spent: 35 minutes This dictation may have been done utilizing a voice recognition system. Attempts have been made to correct errors. However, there may be uncorrected grammatical, spelling, and recognition errors present. Due to a high probability of clinically significant, life threatening deterioration, the patient required my highest level of preparedness to intervene emergently and I personally spent this critical care time directly and personally managing the patient. This critical care time included obtaining a history; examining the patient; pulse oximetry; ordering and review of studies; arranging urgent treatment with development of a management p
[2020-09-06] MEDS: LIDOCAINE HCL 1% PF INJ 5 ML VIAL INFILTRATE (10:30)
--- NOTE | 2020-09-06 10:53 | PCFNICU ---
ICU Rounding Note: Pt current nutrition is Vital High Protein at 65 ml/hr Last recorded weight is 96.9 kg, down from 97.5 kg. Bowel Motility:+BM noted on 09/03 Labs Reviewed:Glu 223,Na 129,Alb 3.0 Meds Noted:Precedex,Lopressor,Novolog,Atrovent,Protonix,Eliquis,Arimidex Additional Notes: Patient failed weaning trial this morning. Remains on mechanical vent with tube feeding of Vital High Protein at 65 ml/hr and tolerating. UTI noted. Replacing Magnesium and Potassium. Skin-good. Following daily in ICU rounds. Assessing/reassessing every Friday and Friday.
[2020-09-06 11:38] LABS: Glucose Point of Care 144 (65-105)
[2020-09-06] MEDS: CENTRAL LINE FLUSH 10 ML IV PUSH ×2 (13:11→21:48)
[2020-09-06 16:03] LABS: Glucose Point of Care 198 (65-105)
--- NOTE | 2020-09-06 19:15 | PM.IMPN ---
Progress Note: A&P Assessment and Plan (1) Electrolyte abnormality: Code(s): E87.8 - Other disorders of electrolyte and fluid balance, not elsewhere classified Status: Acute (2) Acute respiratory failure with hypercapnia: Code(s): J96.02 - Acute respiratory failure with hypercapnia Status: Acute (3) Chronic respiratory failure with hypoxia: Code(s): J96.11 - Chronic respiratory failure with hypoxia Status: Chronic (4) Obstructive sleep apnea: Code(s): G47.33 - Obstructive sleep apnea (adult) (pediatric) Status: Acute (5) Altered mental status: Qualifiers: Altered mental status type: unspecified Qualified Code(s): R41.82 - Altered mental status, unspecified Code(s): R41.82 - Altered mental status, unspecified Status: Acute (6) Insulin dependent type 2 diabetes mellitus: Code(s): E11.9 - Type 2 diabetes mellitus without complications; Z79.4 - retirement (current) use of insulin Status: Acute (7) Paroxysmal atrial fibrillation: Code(s): I48.0 - Paroxysmal atrial fibrillation Status: Acute Additional Plan 09/03 The patient presents today with headache, confusion, and lethargy over the past several days. Confusion is likely due to a combination of hyponatremia and hypercarbia. If no improvement with correction of the above, a further workup would be indicated. At this time I think it is less likely that she has had a stroke but that certainly is a consideration as she is no longer on anticoagulation. She has been started on normal saline and her sodium levels will be monitored closely to ensure appropriate correction. At this time she is being started on BiPAP in is going to be transferred to the IMU with repeat blood gas an hour or so thereafter. Her blood pressures have been running high, in the 160s to 170s systolic, and they will be monitored closely for possible adjustments in her antihypertensives. I suspect her headache is due to a combination of the hypercarbia, hyponatremia, and perhaps even due to the elevated blood pressures. Tylenol available as needed. No focal deficits noted on exam but she was not very participatory in neurologic assessment. Glucoses were reviewed and they have been adequate, she is not hypoglycemic. Initiate sliding scale insulin, Accu-Cheks, and hypoglycemic protocol. Her home medications will be reviewed and resumed as appropriate. 09/04 Patient is 80-year-old female a resident of nursing was sent to emergency depart complaint of 3 days of history of severe headache and generalized, weakness, confused and more lethargic today, upon arrival patient was short of breath ABG showed elevated pCO2 of 62 patient was placed on BiPAP however her symptoms were not improving patient was hypoxic and eventually patient was intubated and currently on ventilator unable to provide any review of symptoms or history, her son is present in the room, chest x-ray showed cardiomegaly ledger clerk suspect patient has a pulmonary edema, bronchodilator is added, patient with severe headache CT scan of the head did not show any acute injury rather chronic finding, patient is seen by ledger clerk we appreciate and and further recommendation to follow 09/05 on vent 2nd day patient with respiratory failure secondary to hypercapnia patient is being diuresed and symptoms are improving plan is to monitor patient on vent today and possibly extubate tomorrow patient is seen by ledger clerk and appreciate 5/5 remains intubated failed weaning trial does not follow commands noted to have copious green secretions coming from ETT requiring deep suctioning. Patient currently on cefepime. Defer to Pulmonary Critical Care physician ongoing management while in the ICU. Time Spent With Patient Time with patient: 15 - 25 minutes Subjective Date/time seen: 09/06/20 19:15 Intubated off sedation does not follow commands, failed weaning trial Exam Narrative: E
[2020-09-06 19:42] LABS: Glucose Point of Care 223 (65-105)
[2020-09-06] MEDS: dexmedeTOMIDine 400 MCG/100 ML 400 MCG/100 ML BAG IV CONT (21:41)
[2020-09-06 23:13] LABS: Glucose Point of Care 194 (65-105)
[2020-09-07] VITALS (31 sets, daily range): BP systolic 91–132; BP diastolic 56–97; PULSE 82–114; RESP 16–25; TEMP 36.6–37.2; O2SAT 89–98
[2020-09-07] MEDS: LEVALBUTEROL NEB 1.25 MG/3 ML 0.63 MG INHALATION ×4 (01:46→20:11)
[2020-09-07] MEDS: IPRATROPIUM BR 0.02% INH SOLN 0.5 MG/2.5 ML VIAL INHALATION ×4 (01:47→20:11)
[2020-09-07 03:08] LABS: Glucose Point of Care 260 (65-105)
[2020-09-07] MEDS: INSULIN ASPART (*BKC) 100 UNITS/ML SUB-Q ×2 (03:17→08:22)
[2020-09-07 04:59] LABS: Alveolar/Arterial O2 Gradient 104.8 mmHg; Base Excess ABG 7.7 mEq/l (+/-2.0); Carboxyhemoglobin 0.3 % THb (0-2.0); Fractional Inspired Oxygen 30 %; HCO3 ABG 31.6 mEq/l (22.0-26.0); Methemoglobin ABG 0.2 %THb (0-1.5); Oxygen Content ABG 14.9 %vol (16.0-22.0); Oxygen Saturation ABG 93.2 % (95.0-100.0); Oxyhemoglobin 91.1 % THb (90.0-100.0); PCO2 ABG 41.2 mmHg (35.0-45.0); PO2 ABG 60.7 mmHg (80.0-100.0); PO2 FiO2 Ratio Arterial Blood 2.02 %; Reduced Hemoglobin 8.4 %THb (0-5.0); Total Hemoglobin 11.6 g/dL (12.0-18.0); pH ABG 7.502 (7.350-7.450)
[2020-09-07 05:00] LABS: Device VENTILATOR; Modified Allen's Test Pass; Site Drawn LEFT RADIAL
[2020-09-07 05:01] LABS: Arterial Blood Gas PEEP 5 cmH2O; Arterial Blood Gas Tidal Volume 320 ml; Arterial Blood Gas Vent Mode CMV; Arterial Blood Gas Ventilator rate 16 /MIN
[2020-09-07] MEDS: dexmedeTOMIDine 400 MCG/100 ML 400 MCG/100 ML BAG 12.11 MCG IV CONT (05:05)
[2020-09-07] MEDS: CENTRAL LINE FLUSH 10 ML IV PUSH ×3 (05:09→20:13)
[2020-09-07 05:27] LABS: Hematocrit 34.1 % (37.0-47.0); Hemoglobin 10.7 g/dL (12.0-15.0); Mean Corpuscular HGB Conc 31.4 g/dl (32-36); Mean Corpuscular Hemoglobin 26.9 pg (26-34); Mean Corpuscular Volume 85.7 fl (80-100); Platelet Count Result 136 k/mm3 (150-375); Red Blood Count 3.98 M/mm3 (4.2-5.4); Red Cell Distribution Width 15.7 % (11.5-14.5); White Blood Count 11.2 K/mm3 (4.5-10.0)
[2020-09-07 05:48] LABS: Alanine Aminotransferase 36 U/L (4-35); Alkaline Phosphatase 68 U/L (38-126); Anion Gap 1 mmol/L (8-16); Aspartate Amino Transferase 67 U/L (14-36); Bilirubin,Total 0.8 mg/dL (0.2-1.3); Blood Urea Nitrogen 41 mg/dL (7-17); Calcium 8.5 mg/dL (8.4-10.2); Carbon Dioxide 38 mmol/L (22-30); Chloride 90 mmol/L (98-107); Estimated CRCL calculation 61 ml/min; Estimated Glomerular Filt Rate > 60; Glucose 234 mg/dL (65-105); Magnesium 2.3 mg/dL (1.6-2.3); Potassium 4.2 mmol/L (3.4-5.0); Sodium 129 mmol/L (137-145)
[2020-09-07 07:03] LABS: Osmolality, Urine 773 mOsm/kg (50-1200)
[2020-09-07] MEDS: FUROSEMIDE INJ 40 MG/4 ML VIAL IV PUSH (08:15)
[2020-09-07] MEDS: INSULIN GLARGINE (*BKC) 100 UNITS/ML 15 UNITS SUB-Q (08:15)
[2020-09-07] MEDS: PANTOPRAZOLE SODIUM IV 40 MG VIAL IV PUSH ×2 (08:19→20:32)
[2020-09-07] MEDS: ASPIRIN 81 MG ENTERIC TABLET PO (08:19)
[2020-09-07] MEDS: APIXABAN 5 MG TABLET PO (08:19)
[2020-09-07] MEDS: ANASTROZOLE (*CHEMO) 1 MG TABLET PO (08:19)
[2020-09-07] MEDS: METOPROLOL TARTRATE 25 MG TABLET PO ×2 (08:19→21:21)
[2020-09-07] MEDS: TOLNAFTATE 1% POWDER 45 GM BTL 1 APPLIC TOPICAL ×2 (08:20→20:14)
[2020-09-07 08:22] LABS: Glucose Point of Care 274 (65-105)
--- NOTE | 2020-09-07 09:27 | WPDINTPN ---
Progress Note: A&P Assessment and Plan (1) Acute respiratory failure with hypercapnia: Code(s): J96.02 - Acute respiratory failure with hypercapnia Status: Acute Assessment and Plan: Hypercapnic respiratory failure, patient failed BiPAP 30/12, repeat ABGs showed worsening hypercapnia requiring intubation on 09/04/2020 early hours - ABGs reviewed -decrease t idal volume to 300 and decrease rate to 12 -Chest x-ray shows cardiomegaly with likely mild pulmonary edema -BNP was 1400 and echocardiogram reviewed -off all IV fluids --continue Lasix -continue bronchodilators -patient failed her weaning trial yesterday due to high RSBI. Patient placed back on weaning trial again today. -sedated with low-dose Precedex to rule out anxiety component (2) Altered mental status: Qualifiers: Altered mental status type: unspecified Qualified Code(s): R41.82 - Altered mental status, unspecified Code(s): R41.82 - Altered mental status, unspecified Status: Acute Assessment and Plan: Could be related to hypercapnia and hyponatremia Improved Daily sedation holiday (3) Insulin dependent type 2 diabetes mellitus: Code(s): E11.9 - Type 2 diabetes mellitus without complications; Z79.4 - shelter (current) use of insulin Status: Acute Assessment and Plan: Blood sugars have been stable now will discontinue dextrose -continue sliding scale insulin Accu-Cheks -add Lantus (4) Paroxysmal atrial fibrillation: Code(s): I48.0 - Paroxysmal atrial fibrillation Status: Acute Assessment and Plan: Currently rate controlled, irregular rhythm -patient is on p.o. beta-adam -continue apixaban (5) Chronic GERD: Code(s): K21.9 - Gastro-esophageal reflux disease without esophagitis Status: Acute Assessment and Plan: Continue Protonix (6) Electrolyte abnormality: Code(s): E87.8 - Other disorders of electrolyte and fluid balance, not elsewhere classified Status: Acute Assessment and Plan: Improved after replacement of low magnesium and potassium (7) UTI (urinary tract infection): Code(s): N39.0 - Urinary tract infection, site not specified Status: Acute Assessment and Plan: blood cultures negative Urine cultures growing Pseudomonas Alonso catheter was replaced Continue cefepime until susceptibilities are back Additional Plan DVT prophylaxis -patient is on Eliquis Stress ulcer prophylaxis -PPI Nutrition - Tube Feeds Code Status - Full Code Total Critical Care Time - 31 minutes Due to a high probability of clinically significant, life threatening deterioration, the patient required my highest level of preparedness to intervene emergently and I personally spent this critical care time directly and personally managing the patient. This critical care time included obtaining a history; examining the patient; pulse oximetry; ordering and review of studies; arranging urgent treatment with development of a management plan; evaluation of patient's response to treatment; frequent reassessment; and discussions with other providers. It was exclusive of separately billable procedures and treating other patients and teaching time. Please see Assessment and Plan section and the rest of the note for further information on patient assessment and treatment Subjective Date/time seen: 09/07/20 0725 Overnight events reviewed Afebrile Continues to be on mechanical ventilation Continues to be on low-dose Precedex infusion Vitals acceptable Review of Systems Review of Systems: ROS unobtainable: Yes unobtainable due to endotracheal tube Exam Narrative: Exam Narrative: Const: General: comfortable and no acute distress HENMT: Other: ETT in place Eyes: Other: Pupils are pinpoint and sluggish Neck: Neck: supple Resp: Effort & Inspection: normal respiratory effort Auscultation: clear to auscultation bilaterally and diminished earline
[2020-09-07 10:22] LABS: Alveolar/Arterial O2 Gradient 124.3 mmHg; Base Excess ABG 6.1 mEq/l (+/-2.0); Fractional Inspired Oxygen 30 %; HCO3 ABG 30.9 mEq/l (22.0-26.0); Oxygen Content ABG 11.7 %vol (16.0-22.0); Oxyhemoglobin 68.3 % THb (90.0-100.0); PCO2 ABG 45.5 mmHg (35.0-45.0); Total Hemoglobin 12.2 g/dL (12.0-18.0)
[2020-09-07 10:30] LABS: PO2 ABG 36.1 mmHg (80.0-100.0)
[2020-09-07 10:31] LABS: Device VENTILATOR; Modified Allen's Test Pass; Oxygen Saturation ABG 71.3 % (95.0-100.0); Site Drawn LEFT RADIAL
[2020-09-07 10:32] LABS: Arterial Blood Gas PEEP 5 cmH2O; Arterial Blood Gas Pressure Support 5 cmH2O; Arterial Blood Gas Vent Mode PRESSURE SUPPORT; Peak Inspiratory Pressure 5 cmH2O
--- NOTE | 2020-09-07 11:20 | PCDIET ---
ICU Rounding Note: Pt current nutrition is Vital HP at 65ml/hr Nutrition recommendation: agree Last recorded weight is 97.6kg, steady from assessed wt of 97.5kg Bowel Motility: / Labs Reviewed:Hgb/Hct 10.7/34.1, Albumin 3.0, Na 129, BUN 41, Glucose 234, AST/ALT 67/136 Meds Noted: Precedex, Insulin, Cefepime, Protonix, Lopressor Additional Notes: No skin issues. At goal on tube feeds and tolerating well; meeting 100% of nutrition needs at this time. No BM for four days. If no BM tomorrow, pt may benefit from motility agent. Plans for extubation trial. 15 units of lantus provided today. Abdomen soft. +378 I/O. Following daily in ICU rounds. Assessing/reassessing q T/F.
[2020-09-07 12:06] LABS: Glucose Point of Care 194 (65-105)
[2020-09-07 16:20] LABS: Glucose Point of Care 140 (65-105)
--- NOTE | 2020-09-07 19:02 | PM.IMPN ---
Progress Note: A&P Assessment and Plan (1) Electrolyte abnormality: Code(s): E87.8 - Other disorders of electrolyte and fluid balance, not elsewhere classified Status: Acute (2) Acute respiratory failure with hypercapnia: Code(s): J96.02 - Acute respiratory failure with hypercapnia Status: Acute (3) Chronic respiratory failure with hypoxia: Code(s): J96.11 - Chronic respiratory failure with hypoxia Status: Chronic Assessment and Plan: Plan is above (4) Obstructive sleep apnea: Code(s): G47.33 - Obstructive sleep apnea (adult) (pediatric) Status: Acute (5) Altered mental status: Qualifiers: Altered mental status type: unspecified Qualified Code(s): R41.82 - Altered mental status, unspecified Code(s): R41.82 - Altered mental status, unspecified Status: Acute (6) Insulin dependent type 2 diabetes mellitus: Code(s): E11.9 - Type 2 diabetes mellitus without complications; 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 Confusion is likely due to a combination of hyponatremia and hypercarbia. If no improvement with correction of the above, a further workup would be indicated. At this time I think it is less likely that she has had a stroke but that certainly is a consideration as she is no longer on anticoagulation. She has been started on normal saline and her sodium levels will be monitored closely to ensure appropriate correction. At this time she is being started on BiPAP in is going to be transferred to the IMU with repeat blood gas an hour or so thereafter. Her blood pressures have been running high, in the 160s to 170s systolic, and they will be monitored closely for possible adjustments in her antihypertensives. I suspect her headache is due to a combination of the hypercarbia, hyponatremia, and perhaps even due to the elevated blood pressures. Tylenol available as needed. No focal deficits noted on exam but she was not very participatory in neurologic assessment. Glucoses were reviewed and they have been adequate, she is not hypoglycemic. Initiate sliding scale insulin, Accu-Cheks, and hypoglycemic protocol. Her home medications will be reviewed and resumed as appropriate. 09/04 Patient is 80-year-old female a resident of nursing was sent to emergency depart complaint of 3 days of history of severe headache and generalized, weakness, confused and more lethargic today, upon arrival patient was short of breath ABG showed elevated pCO2 of 62 patient was placed on BiPAP however her symptoms were not improving patient was hypoxic and eventually patient was intubated and currently on ventilator unable to provide any review of symptoms or history, her son is present in the room, chest x-ray showed cardiomegaly bowl topper suspect patient has a pulmonary edema, bronchodilator is added, patient with severe headache CT scan of the head did not show any acute injury rather chronic finding, patient is seen by bowl topper we appreciate and and further recommendation to follow 09/05 on vent 2nd day patient with respiratory failure secondary to hypercapnia patient is being diuresed and symptoms are improving plan is to monitor patient on vent today and possibly extubate tomorrow patient is seen by bowl topper and appreciate 5 remains intubated failed weaning trial does not follow commands noted to have copious green secretions coming from ETT requiring deep suctioning. Patient currently on cefepime. Defer to Pulmonary Critical Care physician ongoing management while in the ICU. 5/6 remains [facility]
[2020-09-07 20:28] LABS: Glucose Point of Care 102 (65-105)
[2020-09-07 23:46] LABS: Glucose Point of Care 128 (65-105)
[2020-09-08] VITALS (26 sets, daily range): BP systolic 98–141; BP diastolic 51–97; PULSE 90–121; RESP 16–28; TEMP 36.3–36.7; O2SAT 93–99
[2020-09-08] MEDS: LEVALBUTEROL NEB 1.25 MG/3 ML 0.63 MG INHALATION ×4 (02:35→19:31)
[2020-09-08] MEDS: IPRATROPIUM BR 0.02% INH SOLN 0.5 MG/2.5 ML VIAL INHALATION ×4 (02:36→19:31)
[2020-09-08] MEDS: CENTRAL LINE FLUSH 10 ML IV PUSH ×3 (04:05→22:22)
[2020-09-08 04:53] LABS: Hematocrit 33.5 % (37.0-47.0); Hemoglobin 10.3 g/dL (12.0-15.0); Mean Corpuscular HGB Conc 30.7 g/dl (32-36); Mean Corpuscular Volume 87.7 fl (80-100); Platelet Count Result 150 k/mm3 (150-375); Red Blood Count 3.82 M/mm3 (4.2-5.4); Red Cell Distribution Width 15.8 % (11.5-14.5); White Blood Count 10.8 K/mm3 (4.5-10.0)
[2020-09-08 05:04] LABS: Alanine Aminotransferase 47 U/L (4-35); Alkaline Phosphatase 73 U/L (38-126); Anion Gap 0 mmol/L (8-16); Aspartate Amino Transferase 49 U/L (14-36); Bilirubin,Total 0.9 mg/dL (0.2-1.3); Blood Urea Nitrogen 34 mg/dL (7-17); Calcium 8.9 mg/dL (8.4-10.2); Carbon Dioxide 38 mmol/L (22-30); Chloride 94 mmol/L (98-107); Estimated CRCL calculation 70 ml/min; Estimated Glomerular Filt Rate > 60; Glucose 134 mg/dL (65-105); Magnesium 2.2 mg/dL (1.6-2.3); Sodium 132 mmol/L (137-145)
--- NOTE | 2020-09-08 07:09 | WPDCDIQUERY2 ---
CDI Query Clarification Request -Acute on chronic respiratory failure and on vent 2nd day patient with respiratory failure secondary to hypercapnia and patient was hypoxic and eventually patient was intubated has been documented. Please clarify underlying cause/diagnosis resulting in the hypercapnia, hypoxia and respiratory failure. <Kareen Rose RN - Last Filed: 09/08/20 07:16> unable to determine <Keshia Jenkins MD - Last Filed: 09/08/20 17:00>
[2020-09-08 07:52] LABS: Glucose Point of Care 125 (65-105)
[2020-09-08] MEDS: ASPIRIN 81 MG ENTERIC TABLET PO (08:56)
[2020-09-08] MEDS: PANTOPRAZOLE SODIUM IV 40 MG VIAL IV PUSH ×2 (08:56→20:25)
[2020-09-08] MEDS: TOLNAFTATE 1% POWDER 45 GM BTL 1 APPLIC TOPICAL ×2 (08:56→20:25)
[2020-09-08] MEDS: APIXABAN 5 MG TABLET PO ×2 (08:56→17:24)
[2020-09-08] MEDS: ANASTROZOLE (*CHEMO) 1 MG TABLET PO (08:56)
[2020-09-08] MEDS: METOPROLOL TARTRATE 25 MG TABLET PO ×2 (08:56→20:25)
--- NOTE | 2020-09-08 09:15 | WPDINTPN ---
Progress Note: A&P Assessment and Plan (1) Acute respiratory failure with hypercapnia: Code(s): J96.02 - Acute respiratory failure with hypercapnia Status: Acute Assessment and Plan: Hypercapnic respiratory failure, patient failed BiPAP 30/12, repeat ABGs showed worsening hypercapnia requiring intubation on 09/04/2020 early hours -patient was extubated yesterday after successful weaning trial Now maintaining saturation on nasal cannula and did wear BiPAP at night Continue BiPAP p.r.n. 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 beta-adam -continue apixaban (5) Chronic GERD: Code(s): K21.9 - Gastro-esophageal reflux disease without esophagitis Status: Acute Assessment and Plan: Continue Protonix (6) Electrolyte abnormality: Code(s): E87.8 - Other disorders of electrolyte and fluid balance, not elsewhere classified Status: Acute Assessment and Plan: Improved after replacement of low magnesium and potassium (7) UTI (urinary tract infection): Code(s): N39.0 - Urinary tract infection, site not specified Status: Acute Assessment and Plan: blood cultures negative Urine cultures growing Pseudomonas which is sensitive to cefepime Alonso catheter was replaced Continue cefepime Additional Plan DVT prophylaxis -patient is on Eliquis Stress ulcer prophylaxis -PPI Nutrition -speech evaluation and advance diet Code Status - Full Code Transfer out of ICU today Subjective Date/time seen: 09/08/20 0750 Patient was extubated yesterday after a successful weaning trial. Initially she was refusing to wear any oxygen but later after discussion she agreed to wear oxygen and has maintained her saturations without any difficulty. She did wear her BiPAP at night Complains of sore throat and irritation of her back of her throat likely from her intubation. Also complains of chest congestion Denies any other complaints and feels better. Patient denies fever, chest pain, shortness of breath, cough, nausea vomiting, abdominal pain, diarrhea, headache or constipation. She is still little confused and does wander off on a different topic during the conversation Review of Systems Review of Systems: All systems reviewed & are unremarkable except as noted in HPI and below (HPI) Exam Narrative: Exam Narrative: Const: General: comfortable and no acute distress HENMT: Other: Extubated now Eyes: Other: Pupils reactive light Neck: Neck: supple Resp: Effort & Inspection: normal respiratory effort Auscultation: clear to auscultation bilaterally and diminished lung sounds Cardio: Rate: regular rate Rhythm: abnormal rhythm irregularly irregular GI: Inspection: non-distended and obesity Auscultation: normal bowel sounds : Other: Alonso catheter in place Urinary Catheter: Urinary Catheter: patent and draining and urine clear Skin: General skin exam: normal color and no rashes or lesions noted Neuro: Other: Alert awake oriented x1, follows commands and mo
[2020-09-08] MEDS: FUROSEMIDE INJ 40 MG/4 ML VIAL IV PUSH (09:16)
--- NOTE | 2020-09-08 09:22 | PCSTNOTE ---
Please refer to the Bedside Swallow Evaluation in the EMR. Please note, silent aspiration cannot be ruled out at bedside.
[2020-09-08] MEDS: ALTEPLASE 2 MG VIAL (CATHFLO) IV PUSH (09:46)
[2020-09-08] MEDS: INSULIN GLARGINE (*BKC) 100 UNITS/ML 15 UNITS SUB-Q (10:28)
--- NOTE | 2020-09-08 11:17 | PCDIET ---
Nutrition Follow-Up Complete: Inadequate oral intake related to inability to consume foods orally due to mechanical ventilation as evidence by need for enteral nutrition to meet nutrition needs Total intake will meet estimated kcal and protein needs Goal:Goal not met today. Continue goal. Pt current nutrition is Consistent Carb Diet Nutrition recommendation: Agree Last recorded weight is 97.2 kg, consistent from assessed wt Bowel Motility: 09/03 Labs Reviewed: Glucose 234 Na 129 Meds Noted: Precedex, Lantus, Lopressor, Protonix Additional Notes: Pt has been extubated and started on a soft and bite size level 6 diabetic diet with regular liquids per speech. Intake is currently 0%. Per RN, a lot of confusion currently. We will continue to follow to assess for appropriate intake. If pt PO intake is below 50% average on Friday, recommend offering Glucerna BID to help meet needs and provide an additional 440kcals a day if patient willing. Monitoring BMs, labs, PO intake, weight every three days
[2020-09-08 11:55] LABS: Glucose Point of Care 176 (65-105)
--- NOTE | 2020-09-08 15:50 | PM.IMPN ---
Progress Note: A&P Assessment and Plan (1) Electrolyte abnormality: Code(s): E87.8 - Other disorders of electrolyte and fluid balance, not elsewhere classified Status: Acute (2) Acute respiratory failure with hypercapnia: Code(s): J96.02 - Acute respiratory failure with hypercapnia Status: Acute (3) Chronic respiratory failure with hypoxia: Code(s): J96.11 - Chronic respiratory failure with hypoxia Status: Chronic Assessment and Plan: Plan is above (4) Obstructive sleep apnea: Code(s): G47.33 - Obstructive sleep apnea (adult) (pediatric) Status: Acute (5) Altered mental status: Qualifiers: Altered mental status type: unspecified Qualified Code(s): R41.82 - Altered mental status, unspecified Code(s): R41.82 - Altered mental status, unspecified Status: Acute (6) Insulin dependent type 2 diabetes mellitus: Code(s): E11.9 - Type 2 diabetes mellitus without complications; Z79.4 - oysterman (current) use of insulin Status: Acute Assessment and Plan: Will monitor with sliding scale (7) Paroxysmal atrial fibrillation: Code(s): I48.0 - Paroxysmal atrial fibrillation Status: Acute Assessment and Plan: Rate is controlled anticoagulated with Eliquis Additional Plan / The patient presents today with headache, confusion, and lethargy over the past several days. Confusion is likely due to a combination of hyponatremia and hypercarbia. If no improvement with correction of the above, a further workup would be indicated. At this time I think it is less likely that she has had a stroke but that certainly is a consideration as she is no longer on anticoagulation. She has been started on normal saline and her sodium levels will be monitored closely to ensure appropriate correction. At this time she is being started on BiPAP in is going to be transferred to the IMU with repeat blood gas an hour or so thereafter. Her blood pressures have been running high, in the 160s to 170s systolic, and they will be monitored closely for possible adjustments in her antihypertensives. I suspect her headache is due to a combination of the hypercarbia, hyponatremia, and perhaps even due to the elevated blood pressures. Tylenol available as needed. No focal deficits noted on exam but she was not very participatory in neurologic assessment. Glucoses were reviewed and they have been adequate, she is not hypoglycemic. Initiate sliding scale insulin, Accu-Cheks, and hypoglycemic protocol. Her home medications will be reviewed and resumed as appropriate. 09/04 Patient is 80-year-old female a resident of nursing was sent to emergency depart complaint of 3 days of history of severe headache and generalized, weakness, confused and more lethargic today, upon arrival patient was short of breath ABG showed elevated pCO2 of 62 patient was placed on BiPAP however her symptoms were not improving patient was hypoxic and eventually patient was intubated and currently on ventilator unable to provide any review of symptoms or history, her son is present in the room, chest x-ray showed cardiomegaly bd special education teacher suspect patient has a pulmonary edema, bronchodilator is added, patient with severe headache CT scan of the head did not show any acute injury rather chronic finding, patient is seen by bd special education teacher we appreciate and and further recommendation to follow 09/05 on vent 2nd day patient with respiratory failure secondary to hypercapnia patient is being diuresed and symptoms are improving plan is to monitor patient on vent today and possibly extubate tomorrow patient is seen by bd special education teacher and appreciate 5 remains intubated failed weaning trial does not follow commands noted to have copious green secretions coming from ETT requiring deep suctioning. Patient currently on cefepime. Defer to Pulmonary Critical Care physician ongoing management while in the ICU. 5/6 remains [facility]
[2020-09-08 16:28] LABS: Glucose Point of Care 144 (65-105)
[2020-09-08 20:20] LABS: Glucose Point of Care 135 (65-105)
[2020-09-08 23:22] LABS: Glucose Point of Care 141 (65-105)
[2020-09-09] VITALS (26 sets, daily range): BP systolic 105–147; BP diastolic 65–80; PULSE 58–108; RESP 14–22; TEMP 36.3–36.8; O2SAT 92–100
[2020-09-09] MEDS: LEVALBUTEROL NEB 1.25 MG/3 ML 0.63 MG INHALATION ×4 (01:30→19:43)
[2020-09-09] MEDS: IPRATROPIUM BR 0.02% INH SOLN 0.5 MG/2.5 ML VIAL INHALATION ×4 (01:31→19:43)
[2020-09-09 03:57] LABS: Glucose Point of Care 135 (65-105)
[2020-09-09 04:22] LABS: Hematocrit 33.1 % (37.0-47.0); Hemoglobin 10.1 g/dL (12.0-15.0); Mean Corpuscular HGB Conc 30.5 g/dl (32-36); Mean Corpuscular Hemoglobin 27.2 pg (26-34); Mean Corpuscular Volume 89.2 fl (80-100); Platelet Count Result 179 k/mm3 (150-375); Red Blood Count 3.71 M/mm3 (4.2-5.4); Red Cell Distribution Width 15.6 % (11.5-14.5); White Blood Count 7.5 K/mm3 (4.5-10.0)
[2020-09-09 04:31] LABS: Potassium 3.8 mmol/L (3.4-5.0)
[2020-09-09 04:59] LABS: Alanine Aminotransferase 42 U/L (4-35); Alkaline Phosphatase 71 U/L (38-126); Aspartate Amino Transferase 37 U/L (14-36); Bilirubin,Total 0.7 mg/dL (0.2-1.3); Blood Urea Nitrogen 27 mg/dL (7-17); Calcium 9.3 mg/dL (8.4-10.2); Carbon Dioxide > 40 mmol/L (22-30); Chloride 93 mmol/L (98-107); Estimated CRCL calculation 60 ml/min; Estimated Glomerular Filt Rate > 60; Glucose 132 mg/dL (65-105); Magnesium 2.1 mg/dL (1.6-2.3); Sodium 134 mmol/L (137-145)
[2020-09-09] MEDS: CENTRAL LINE FLUSH 10 ML IV PUSH ×3 (06:11→21:31)
[2020-09-09 09:06] LABS: Glucose Point of Care 127 (65-105)
[2020-09-09] MEDS: METOPROLOL TARTRATE 25 MG TABLET PO ×2 (09:18→21:29)
[2020-09-09] MEDS: ANASTROZOLE (*CHEMO) 1 MG TABLET PO (09:18)
[2020-09-09] MEDS: PANTOPRAZOLE SODIUM IV 40 MG VIAL IV PUSH ×2 (09:18→21:29)
[2020-09-09] MEDS: ASPIRIN 81 MG ENTERIC TABLET PO (09:18)
[2020-09-09] MEDS: PHENOL/SOD PHENO SPRAY CHERRY (*BKC) 1 SPRAY MUCOUS MEM (09:18)
[2020-09-09] MEDS: TOLNAFTATE 1% POWDER 45 GM BTL 1 APPLIC TOPICAL ×2 (09:18→21:30)
[2020-09-09] MEDS: APIXABAN 5 MG TABLET PO ×2 (09:18→17:36)
[2020-09-09] MEDS: INSULIN GLARGINE (*BKC) 100 UNITS/ML 15 UNITS SUB-Q (09:27)
[2020-09-09 12:31] LABS: Glucose Point of Care 146 (65-105)
[2020-09-09 16:12] LABS: Glucose Point of Care 147 (65-105)
--- NOTE | 2020-09-09 16:40 | PM.IMPN ---
Progress Note: A&P Assessment and Plan (1) Electrolyte abnormality: Code(s): E87.8 - Other disorders of electrolyte and fluid balance, not elsewhere classified Status: Acute (2) Acute respiratory failure with hypercapnia: Code(s): J96.02 - Acute respiratory failure with hypercapnia Status: Acute (3) Chronic respiratory failure with hypoxia: Code(s): J96.11 - Chronic respiratory failure with hypoxia Status: Chronic Assessment and Plan: Plan is above (4) Obstructive sleep apnea: Code(s): G47.33 - Obstructive sleep apnea (adult) (pediatric) Status: Acute (5) Altered mental status: Qualifiers: Altered mental status type: unspecified Qualified Code(s): R41.82 - Altered mental status, unspecified Code(s): R41.82 - Altered mental status, unspecified Status: Acute (6) Insulin dependent type 2 diabetes mellitus: Code(s): E11.9 - Type 2 diabetes mellitus without complications; 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 Confusion is likely due to a combination of hyponatremia and hypercarbia. If no improvement with correction of the above, a further workup would be indicated. At this time I think it is less likely that she has had a stroke but that certainly is a consideration as she is no longer on anticoagulation. She has been started on normal saline and her sodium levels will be monitored closely to ensure appropriate correction. At this time she is being started on BiPAP in is going to be transferred to the IMU with repeat blood gas an hour or so thereafter. Her blood pressures have been running high, in the 160s to 170s systolic, and they will be monitored closely for possible adjustments in her antihypertensives. I suspect her headache is due to a combination of the hypercarbia, hyponatremia, and perhaps even due to the elevated blood pressures. Tylenol available as needed. No focal deficits noted on exam but she was not very participatory in neurologic assessment. Glucoses were reviewed and they have been adequate, she is not hypoglycemic. Initiate sliding scale insulin, Accu-Cheks, and hypoglycemic protocol. Her home medications will be reviewed and resumed as appropriate. 09/04 Patient is 80-year-old female a resident of nursing was sent to emergency depart complaint of 3 days of history of severe headache and generalized, weakness, confused and more lethargic today, upon arrival patient was short of breath ABG showed elevated pCO2 of 62 patient was placed on BiPAP however her symptoms were not improving patient was hypoxic and eventually patient was intubated and currently on ventilator unable to provide any review of symptoms or history, her son is present in the room, chest x-ray showed cardiomegaly fast food manager suspect patient has a pulmonary edema, bronchodilator is added, patient with severe headache CT scan of the head did not show any acute injury rather chronic finding, patient is seen by fast food manager we appreciate and and further recommendation to follow 09/05 on vent 2nd day patient with respiratory failure secondary to hypercapnia patient is being diuresed and symptoms are improving plan is to monitor patient on vent today and possibly extubate tomorrow patient is seen by fast food manager and appreciate 5 remains intubated failed weaning trial does not follow commands noted to have copious green secretions coming from ETT requiring deep suctioning. Patient currently on cefepime. Defer to Pulmonary Critical Care physician ongoing management while in the ICU. 5/6 remains [facility]
--- NOTE | 2020-09-09 19:36 | PC.NURSE ---
This patient, Alexus Ferrer, was received from [ICU] on 09/09/20 at 1935. Patient/family oriented to unit policies and routines
--- NOTE | 2020-09-09 19:38 | PC.NURSE ---
This patient, Alexus Ferrer, was transferred to [ [id number]] on 09/09/20 at 1938. Personal belongings sent with patient. Report given to [ rn]. Appropriate documentation sent with patient.
[2020-09-09 21:14] LABS: Glucose Point of Care 115 (65-105)
[2020-09-09 23:11] LABS: Glucose Point of Care 110 (65-105)
[2020-09-10] VITALS (18 sets, daily range): BP systolic 106–135; BP diastolic 61–74; PULSE 85–114; RESP 18–25; TEMP 36.4–36.8; O2SAT 95–100
[2020-09-10] MEDS: IPRATROPIUM BR 0.02% INH SOLN 0.5 MG/2.5 ML VIAL INHALATION ×4 (01:46→19:24)
[2020-09-10] MEDS: LEVALBUTEROL NEB 1.25 MG/3 ML 0.63 MG INHALATION ×4 (01:47→19:24)
[2020-09-10 04:38] LABS: Glucose Point of Care 114 (65-105)
[2020-09-10 04:39] LABS: Hemoglobin 9.8 g/dL (12.0-15.0); Mean Corpuscular HGB Conc 29.7 g/dl (32-36); Mean Corpuscular Hemoglobin 26.6 pg (26-34); Mean Corpuscular Volume 89.7 fl (80-100); Mean Platelet Volume 9.2 fl (7.4-10.4); Platelet Count Result 162 k/mm3 (150-375); Red Blood Count 3.68 M/mm3 (4.2-5.4); Red Cell Distribution Width 15.1 % (11.5-14.5); White Blood Count 6.3 K/mm3 (4.5-10.0)
[2020-09-10] MEDS: CENTRAL LINE FLUSH 20 ML IV PUSH (05:00)
[2020-09-10 05:45] LABS: Alanine Aminotransferase 35 U/L (4-35); Albumin Level 2.9 g/dL (3.5-5.1); Alkaline Phosphatase 64 U/L (38-126); Aspartate Amino Transferase 28 U/L (14-36); Bilirubin,Total 0.6 mg/dL (0.2-1.3); Blood Urea Nitrogen 20 mg/dL (7-17); Calcium 9.4 mg/dL (8.4-10.2); Carbon Dioxide > 40 mmol/L (22-30); Chloride 94 mmol/L (98-107); Estimated CRCL calculation 60 ml/min; Estimated Glomerular Filt Rate > 60; Glucose 115 mg/dL (65-105); Sodium 135 mmol/L (137-145)
[2020-09-10] MEDS: CENTRAL LINE FLUSH 10 ML IV PUSH ×3 (06:01→22:43)
[2020-09-10] MEDS: ASPIRIN 81 MG ENTERIC TABLET PO (08:06)
[2020-09-10] MEDS: METOPROLOL TARTRATE 25 MG TABLET PO ×2 (08:06→20:46)
[2020-09-10] MEDS: APIXABAN 5 MG TABLET PO ×2 (08:06→16:17)
[2020-09-10] MEDS: ANASTROZOLE (*CHEMO) 1 MG TABLET PO (08:06)
[2020-09-10] MEDS: TOLNAFTATE 1% POWDER 45 GM BTL 1 APPLIC TOPICAL ×2 (08:06→20:46)
[2020-09-10] MEDS: PANTOPRAZOLE SODIUM IV 40 MG VIAL IV PUSH ×2 (08:06→20:46)
[2020-09-10 08:18] LABS: Glucose Point of Care 112 (65-105)
[2020-09-10] MEDS: INSULIN GLARGINE (*BKC) 100 UNITS/ML 15 UNITS SUB-Q (08:21)
[2020-09-10 09:08] LABS: Alveolar/Arterial O2 Gradient 4.1 mmHg; Base Excess ABG 7.5 mEq/l (+/-2.0); HCO3 ABG 32.7 mEq/l (22.0-26.0); Oxyhemoglobin 94.8 % THb (90.0-100.0); PCO2 ABG 49.1 mmHg (35.0-45.0); PO2 ABG 79.6 mmHg (80.0-100.0); PO2 FiO2 Ratio Arterial Blood 3.98 %; Total Hemoglobin 11.2 g/dL (12.0-18.0); pH ABG 7.441 (7.350-7.450)
[2020-09-10 09:09] LABS: Device NASAL CANNULA; Fractional Inspired Oxygen 21 %; Modified Allen's Test Pass; Site Drawn RIGHT RADIAL
[2020-09-10 11:58] LABS: Glucose Point of Care 129 (65-105)
--- NOTE | 2020-09-10 17:19 | PM.IMPN ---
Progress Note: A&P Assessment and Plan (1) Electrolyte abnormality: Code(s): E87.8 - Other disorders of electrolyte and fluid balance, not elsewhere classified Status: Acute (2) Acute respiratory failure with hypercapnia: Code(s): J96.02 - Acute respiratory failure with hypercapnia Status: Acute (3) Chronic respiratory failure with hypoxia: Code(s): J96.11 - Chronic respiratory failure with hypoxia Status: Chronic Assessment and Plan: Plan is above (4) Obstructive sleep apnea: Code(s): G47.33 - Obstructive sleep apnea (adult) (pediatric) Status: Acute (5) Altered mental status: Qualifiers: Altered mental status type: unspecified Qualified Code(s): R41.82 - Altered mental status, unspecified Code(s): R41.82 - Altered mental status, unspecified Status: Acute (6) Insulin dependent type 2 diabetes mellitus: Code(s): E11.9 - Type 2 diabetes mellitus without complications; Z79.4 - watermelon inspector (current) use of insulin Status: Acute Assessment and Plan: Will monitor with sliding scale (7) Paroxysmal atrial fibrillation: Code(s): I48.0 - Paroxysmal atrial fibrillation Status: Acute Assessment and Plan: Rate is controlled anticoagulated with Eliquis Additional Plan / The patient presents today with headache, confusion, and lethargy over the past several days. Confusion is likely due to a combination of hyponatremia and hypercarbia. If no improvement with correction of the above, a further workup would be indicated. At this time I think it is less likely that she has had a stroke but that certainly is a consideration as she is no longer on anticoagulation. She has been started on normal saline and her sodium levels will be monitored closely to ensure appropriate correction. At this time she is being started on BiPAP in is going to be transferred to the IMU with repeat blood gas an hour or so thereafter. Her blood pressures have been running high, in the 160s to 170s systolic, and they will be monitored closely for possible adjustments in her antihypertensives. I suspect her headache is due to a combination of the hypercarbia, hyponatremia, and perhaps even due to the elevated blood pressures. Tylenol available as needed. No focal deficits noted on exam but she was not very participatory in neurologic assessment. Glucoses were reviewed and they have been adequate, she is not hypoglycemic. Initiate sliding scale insulin, Accu-Cheks, and hypoglycemic protocol. Her home medications will be reviewed and resumed as appropriate. 09/04 Patient is 80-year-old female a resident of nursing was sent to emergency depart complaint of 3 days of history of severe headache and generalized, weakness, confused and more lethargic today, upon arrival patient was short of breath ABG showed elevated pCO2 of 62 patient was placed on BiPAP however her symptoms were not improving patient was hypoxic and eventually patient was intubated and currently on ventilator unable to provide any review of symptoms or history, her son is present in the room, chest x-ray showed cardiomegaly english teacher suspect patient has a pulmonary edema, bronchodilator is added, patient with severe headache CT scan of the head did not show any acute injury rather chronic finding, patient is seen by english teacher we appreciate and and further recommendation to follow 09/05 on vent 2nd day patient with respiratory failure secondary to hypercapnia patient is being diuresed and symptoms are improving plan is to monitor patient on vent today and possibly extubate tomorrow patient is seen by english teacher and appreciate 5 remains intubated failed weaning trial does not follow commands noted to have copious green secretions coming from ETT requiring deep suctioning. Patient currently on cefepime. Defer to Pulmonary Critical Care physician ongoing management while in the ICU. 5/6 remains [facility]
[2020-09-10 17:23] LABS: Glucose Point of Care 125 (65-105)
[2020-09-10 21:09] LABS: Glucose Point of Care 157 (65-105)
[2020-09-11] VITALS (22 sets, daily range): BP systolic 120–146; BP diastolic 70–83; PULSE 80–109; RESP 18–26; TEMP 36–37.1; O2SAT 95–100
[2020-09-11 00:45] LABS: Glucose Point of Care 131 (65-105)
[2020-09-11] MEDS: LEVALBUTEROL NEB 1.25 MG/3 ML 0.63 MG INHALATION ×4 (02:00→19:43)
[2020-09-11] MEDS: IPRATROPIUM BR 0.02% INH SOLN 0.5 MG/2.5 ML VIAL INHALATION ×4 (02:00→19:42)
[2020-09-11] MEDS: CENTRAL LINE FLUSH 20 ML IV PUSH (05:42)
[2020-09-11] MEDS: CENTRAL LINE FLUSH 10 ML IV PUSH ×3 (05:42→21:23)
[2020-09-11 06:09] LABS: Basophils Percent Auto 0.4 % (0.2-1.2); Eosinophils Absolute Auto 0.3 K/mm3 (0-0.3); Eosinophils Percent Auto 3.7 % (0-4.4); Hematocrit 35.8 % (37.0-47.0); Hemoglobin 10.7 g/dL (12.0-15.0); Immature Granulocyte Absolute 0.07 K/mm3 (0.00-0.031); Immature Granulocyte Percent A 0.9 % (0-0.5); Lymphocytes Absolute Auto 1.25 K/mm3 (0.9-3.2); Lymphocytes Percent Auto 15.8 % (18.3-44.2); Mean Corpuscular HGB Conc 29.9 g/dl (32-36); Mean Corpuscular Hemoglobin 26.8 pg (26-34); Mean Corpuscular Volume 89.7 fl (80-100); Mean Platelet Volume 9.8 fl (7.4-10.4); Monocytes Absolute Auto 0.9 K/mm3 (0.1-0.6); Monocytes Percent Auto 10.9 % (2.6-8.5); Neutrophils Absolute Auto 5.4 K/mm3 (1.3-6.7); Neutrophils Percent Auto 68.3 % (45.5-73.1); Platelet Count Result 191 k/mm3 (150-375); Red Blood Count 3.99 M/mm3 (4.2-5.4); White Blood Count 7.9 K/mm3 (4.5-10.0)
[2020-09-11 06:21] LABS: Alanine Aminotransferase 33 U/L (4-35); Albumin Level 3.3 g/dL (3.5-5.1); Alkaline Phosphatase 69 U/L (38-126); Aspartate Amino Transferase 27 U/L (14-36); Bilirubin,Total 0.5 mg/dL (0.2-1.3); Blood Urea Nitrogen 20 mg/dL (7-17); CRP 4.2 mg/dL (<1.0); Calcium 9.7 mg/dL (8.4-10.2); Carbon Dioxide > 40 mmol/L (22-30); Chloride 94 mmol/L (98-107); Creatine Kinase 34 U/L (30-135); Estimated CRCL calculation 69 ml/min; Estimated Glomerular Filt Rate > 60; Glucose 128 mg/dL (65-105); Magnesium 1.9 mg/dL (1.6-2.3); Potassium 4.1 mmol/L (3.4-5.0); Sodium 134 mmol/L (137-145)
[2020-09-11 06:37] LABS: Glucose Point of Care 119 (65-105)
[2020-09-11 08:04] LABS: Glucose Point of Care 118 (65-105)
[2020-09-11] MEDS: INSULIN GLARGINE (*BKC) 100 UNITS/ML 15 UNITS SUB-Q (08:27)
[2020-09-11] MEDS: PANTOPRAZOLE SODIUM IV 40 MG VIAL IV PUSH ×2 (08:30→21:23)
[2020-09-11] MEDS: ANASTROZOLE (*CHEMO) 1 MG TABLET PO (08:30)
[2020-09-11] MEDS: ASPIRIN 81 MG ENTERIC TABLET PO (08:30)
[2020-09-11] MEDS: APIXABAN 5 MG TABLET PO ×2 (08:30→17:56)
[2020-09-11] MEDS: METOPROLOL TARTRATE 25 MG TABLET PO ×2 (08:30→21:23)
[2020-09-11] MEDS: TOLNAFTATE 1% POWDER 45 GM BTL 1 APPLIC TOPICAL ×2 (08:31→21:23)
--- NOTE | 2020-09-11 11:15 | PCNFU ---
Nutrition Follow-Up Complete: Inadequate oral intake related to inability to consume foods orally due to mechanical ventilation as evidence by need for enteral nutrition to meet nutrition needs Goal:Total intake will meet estimated kcal and protein needs Progressing towards goal. We will continue current goal. Pt current nutrition is soft and bite sized, Level 6/DBCC. Last recorded weight is 96.2 kg, down from 97.5 kg on admit. Bowel Motility:Last documented BM 09/03 Labs Reviewed:BUN 20,Cr 0.6,Alb 3.3,Hgb 10.7,Hct 35.8 Meds Noted:Lantus, Novolog, Lopressor, Protonix,Miralax, Colace, Atrovent. Additional Notes: Nutriton follow up. Patient states to eating well, 75-100% of meals. Agree with diet orders. Monitoring: BMs, labs, oral intake every 5 days.
[2020-09-11 12:40] LABS: Glucose Point of Care 160 (65-105)
--- NOTE | 2020-09-11 15:43 | PM.IMPN ---
Progress Note: A&P Assessment and Plan (1) Electrolyte abnormality: Code(s): E87.8 - Other disorders of electrolyte and fluid balance, not elsewhere classified Status: Acute Assessment and Plan: electrolytes are stable with magnesium 1.9 and potassium 4.1 sodium 134. will need to be monitored with blood work on a regular basis for any drops in those electrolytes. Especially with her history of low sodium. vital s/s stable. (2) Acute respiratory failure with hypercapnia: Code(s): J96.02 - Acute respiratory failure with hypercapnia Status: Acute Assessment and Plan: Respiratory failure has improved she is currently on 2 L nasal cannula. continues to require 2 L of oxygen per nasal cannula. will follow commands and instructions but it is difficult with her memory loss to get her to use the incentive spirometer unless her standing there instructing her to do so. If her respiratory function improves it will likely be through aggressive rehab and ambulation and activity, as well as respiratory therapy interventions; due to her inablity to follow complex commands or remember instructions from day to day. continue supportive care continue BiPAP as ordered (3) Chronic respiratory failure with hypoxia: Code(s): J96.11 - Chronic respiratory failure with hypoxia Status: Chronic Assessment and Plan: continues to require 2 L of oxygen per nasal cannula. continue BiPAP as ordered will follow commands and instructions but it is difficult with her memory loss to get her to use the incentive spirometer unless her standing there instructing her to do so. If her respiratory function improves it will likely be through aggressive rehab and ambulation and activity, as well as respiratory therapy interventions; due to her inablity to follow complex commands or remember instructions from day to day. continue supportive care (4) Obstructive sleep apnea: Code(s): G47.33 - Obstructive sleep apnea (adult) (pediatric) Status: Acute Assessment and Plan: continue BiPAP (5) Altered mental status: Qualifiers: Altered mental status type: unspecified Qualified Code(s): R41.82 - Altered mental status, unspecified Code(s): R41.82 - Altered mental status, unspecified Status: Acute Assessment and Plan: A and O x 1-2 history of multiple strokes in the past. with patient's altered mental status she will continue to need assistance with all oral hydration and all meals able to take deep breaths upon command and follow simple instructions for movement. s/s of acute CVA throughout admission. Consulted Neurology for their input. MRA yesterday showed Severe stenosis of right vertebral artery. Focal severe stenosis in left P1 posterior cerebral artery segment. Old infarcts involving the left basal ganglia, left internal capsule, and left frontal lobe deep white matter. would benefit from discharge to [facility] for Rehab, ST, OT, PT after these multiple CVA history. patient would benefit from assistance with ADLs as well as assistance and feeding with meals Currently planning for discharge on Friday to [facility]. (6) Insulin dependent type 2 diabetes mellitus: Code(s): E11.9 - Type 2 diabetes mellitus without complications; Z79.4 - intermediate project manager (current) use of insulin Status: Acute Assessment and Plan: Will monitor with sliding scale glucose 119 with patient's altered mental status she will continue to need assistance with all oral hydration and all meals glucose levels appear to be controlled (7) Paroxysmal atrial fibrillation: Code(s): I48.0 - Paroxysmal atrial fibrillation Status: Acute Assessment and Plan: Rate is controlled with oral metoprolol anticoagulated with Eliquis vital signs are stable with SBPs 130s. heart rate in the 90s but regular today may improve with a higher morning dose of 37.5mg
[2020-09-11 18:11] LABS: Glucose Point of Care 98 (65-105)
[2020-09-11 22:33] LABS: Glucose Point of Care 143 (65-105)
[2020-09-12] VITALS (21 sets, daily range): BP systolic 111–136; BP diastolic 62–98; PULSE 77–109; RESP 16–21; TEMP 35.9–36.3; O2SAT 92–98
[2020-09-12] MEDS: IPRATROPIUM BR 0.02% INH SOLN 0.5 MG/2.5 ML VIAL INHALATION ×4 (02:01→20:55)
[2020-09-12] MEDS: LEVALBUTEROL NEB 1.25 MG/3 ML 0.63 MG INHALATION ×4 (02:01→20:54)
[2020-09-12 03:19] LABS: Glucose Point of Care 124 (65-105)
[2020-09-12] MEDS: CENTRAL LINE FLUSH 10 ML IV PUSH ×3 (05:09→21:55)
[2020-09-12] MEDS: CENTRAL LINE FLUSH 20 ML IV PUSH (05:09)
[2020-09-12 05:21] LABS: Glucose Point of Care 120 (65-105)
[2020-09-12 05:48] LABS: Hematocrit 33.9 % (37.0-47.0); Hemoglobin 10.3 g/dL (12.0-15.0); Mean Corpuscular HGB Conc 30.4 g/dl (32-36); Mean Corpuscular Hemoglobin 26.7 pg (26-34); Mean Corpuscular Volume 87.8 fl (80-100); Mean Platelet Volume 9.7 fl (7.4-10.4); Platelet Count Result 189 k/mm3 (150-375); Red Blood Count 3.86 M/mm3 (4.2-5.4); Red Cell Distribution Width 15.1 % (11.5-14.5); White Blood Count 7.3 K/mm3 (4.5-10.0)
[2020-09-12 05:55] LABS: Anion Gap 2 mmol/L (8-16); Blood Urea Nitrogen 17 mg/dL (7-17); Calcium 9.4 mg/dL (8.4-10.2); Carbon Dioxide 36 mmol/L (22-30); Chloride 96 mmol/L (98-107); Estimated CRCL calculation 71 ml/min; Estimated Glomerular Filt Rate > 60; Glucose 124 mg/dL (65-105); Potassium 4.4 mmol/L (3.4-5.0); Sodium 134 mmol/L (137-145)
[2020-09-12 06:19] LABS: Iron 33 ug/dL (37-170)
[2020-09-12 06:28] LABS: Percent Iron Saturation 10 % (20-50)
[2020-09-12 07:00] LABS: Folic Acid 15.1 ng/mL (2.76->20)
[2020-09-12 09:22] LABS: Alveolar/Arterial O2 Gradient 63.1 mmHg; Base Excess ABG 6.6 mEq/l (+/-2.0); Carboxyhemoglobin 0.3 % THb (0-2.0); Device NASAL CANNULA; Fractional Inspired Oxygen 28 %; HCO3 ABG 30.9 mEq/l (22.0-26.0); Methemoglobin ABG 0.3 %THb (0-1.5); Modified Allen's Test Pass; Oxygen Content ABG 15.8 %vol (16.0-22.0); Oxyhemoglobin 95.8 % THb (90.0-100.0); PCO2 ABG 43.2 mmHg (35.0-45.0); PO2 ABG 85.6 mmHg (80.0-100.0); PO2 FiO2 Ratio Arterial Blood 3.06 %; Reduced Hemoglobin 3.6 %THb (0-5.0); Site Drawn RIGHT RADIAL; Total Hemoglobin 11.7 g/dL (12.0-18.0); pH ABG 7.472 (7.350-7.450)
[2020-09-12] MEDS: APIXABAN 5 MG TABLET PO ×2 (10:50→16:54)
[2020-09-12] MEDS: METOPROLOL TARTRATE 25 MG TABLET PO (10:50)
[2020-09-12] MEDS: ANASTROZOLE (*CHEMO) 1 MG TABLET PO (10:50)
[2020-09-12] MEDS: PANTOPRAZOLE SODIUM IV 40 MG VIAL IV PUSH ×2 (10:51→20:00)
[2020-09-12] MEDS: TOLNAFTATE 1% POWDER 45 GM BTL 1 APPLIC TOPICAL ×2 (10:51→20:01)
[2020-09-12] MEDS: ASPIRIN 81 MG ENTERIC TABLET PO (10:51)
[2020-09-12] MEDS: INSULIN GLARGINE (*BKC) 100 UNITS/ML 15 UNITS SUB-Q (10:54)
[2020-09-12 11:41] LABS: Glucose Point of Care 114 (65-105)
--- NOTE | 2020-09-12 12:06 | PM.IMPN ---
Progress Note: A&P Assessment and Plan (1) Pseudomonas urinary tract infection: Code(s): N39.0 - Urinary tract infection, site not specified; B96.5 - Pseudomonas (aeruginosa) (mallei) (pseudomallei) as the cause of diseases classified elsewhere Status: Acute Assessment and Plan: Pt's urine culture from 09/06/20 grew >100,000 of pseudomonas -Continue cefepime, now day 6. Plan for at least 1 more day of IV abx -sensitivities resistant to oral abx -blood cultures were negative (2) Acute metabolic encephalopathy: Code(s): G93.41 - Metabolic encephalopathy Status: Acute Assessment and Plan: Improving by the day but pt is not near her baseline -spoke with son who confirms she is usually independent for the most part with no confusion -Could be due to UTI -Pt was hypercarbic on admission and was intubated but ABG from this morning this was normal -MRA of brain with no acute stroke -cefepime itself can cause confusion as well -Monitor (3) Acute respiratory failure with hypercapnia: Code(s): J96.02 - Acute respiratory failure with hypercapnia Status: Acute Assessment and Plan: Respiratory failure has improved she is currently on 2 L nasal cannula -Son states she is not usually on o2 at home, Yesi ORO, is going to confirm this was her facility -Pt was intubated earlier in the stay but abg looks good now, will wean o2 -she has no bipap/cpap at home. I will hold on the bipap tonight and do an ABG in the morning to see how she does. (4) Insulin dependent type 2 diabetes mellitus: Code(s): E11.9 - Type 2 diabetes mellitus without complications; Z79.4 - technician terminal and repeater (current) use of insulin Status: Acute Assessment and Plan: Last glucose 114 -Last A1c 6.4 -continue SSI -she usually takes insulin galargine 20u at home as well as trulicity 1.5 (5) Electrolyte abnormality: Code(s): E87.8 - Other disorders of electrolyte and fluid balance, not elsewhere classified Status: Acute Assessment and Plan: Improved. (6) Obstructive sleep apnea: Code(s): G47.33 - Obstructive sleep apnea (adult) (pediatric) Status: Acute Assessment and Plan: continue BiPAP -RN is confirming if pt uses this at home (7) Altered mental status: Qualifiers: Altered mental status type: unspecified Qualified Code(s): R41.82 - Altered mental status, unspecified Code(s): R41.82 - Altered mental status, unspecified Status: Acute Assessment and Plan: as above (8) Paroxysmal atrial fibrillation: Code(s): I48.0 - Paroxysmal atrial fibrillation Status: Acute Assessment and Plan: Pt is slightly tachy 106 at rest at the time of my exam -Keven BILINGUAL EXECUTIVE ASSISTANT states pt got tachy 160 with activity with PT today when walking -continue eliquis -she takes metoprolol tartrate 25mg BID, will adjust this Additional Plan Last bm reported 09/11 but last charted BM was 09/03. Continue miralax Time Spent With Patient Time with patient: 25 - 35 minutes Subjective Date/time seen: 09/12/20 12:06 Interval history: Pt is a 80 year old female here for UTI, confusion and respiratory failure. Patient was seen today and a little confused but was able to hold a conversation. She thought she was here at the hospital for hip fracture but knew her name, where she was and the president. Patient states today that she feels okay. She is not in any pain. She denies chest pain, new shortness of breath, abdominal pain, nausea, vomiting, leg swelling, fevers or chills. She says she has been eating and drinking fine. She said she felt a little weak with physical therapy and this was confirmed by the BILINGUAL EXECUTIVE ASSISTANTKeven, who states that she was weak with walking and her heart rate went up. Review of Systems Review of Systems: All systems reviewed & are unremarkable except as noted in HPI and below Exam Narrative: Exam
[2020-09-12 18:25] LABS: Glucose Point of Care 110 (65-105)
[2020-09-12 19:52] LABS: Glucose Point of Care 260 (65-105)
[2020-09-12] MEDS: METOPROLOL TARTRATE TAB 25 MG, METOPROLOL TARTRATE TAB 12.5 MG 37.5 MG PO (20:00)
[2020-09-12] MEDS: INSULIN ASPART (*BKC) 100 UNITS/ML SUB-Q (20:01)
[2020-09-13] VITALS (17 sets, daily range): BP systolic 127–141; BP diastolic 73–80; PULSE 88–110; RESP 17–20; TEMP 36.1–36.5; O2SAT 94–98
--- NOTE | 2020-09-13 02:04 | PCRCNOTE ---
0200 treatment not administered due to pt being on an apnea link.
[2020-09-13] MEDS: CENTRAL LINE FLUSH 20 ML IV PUSH (03:24)
[2020-09-13 03:36] LABS: Hematocrit 34.2 % (37.0-47.0); Hemoglobin 10.7 g/dL (12.0-15.0); Mean Corpuscular HGB Conc 31.3 g/dl (32-36); Mean Corpuscular Hemoglobin 27.3 pg (26-34); Mean Corpuscular Volume 87.2 fl (80-100); Mean Platelet Volume 9.7 fl (7.4-10.4); Platelet Count Result 203 k/mm3 (150-375); Red Blood Count 3.92 M/mm3 (4.2-5.4); Red Cell Distribution Width 14.9 % (11.5-14.5); White Blood Count 8.2 K/mm3 (4.5-10.0)
[2020-09-13 03:46] LABS: Anion Gap 3 mmol/L (8-16); Blood Urea Nitrogen 17 mg/dL (7-17); Calcium 9.5 mg/dL (8.4-10.2); Carbon Dioxide 36 mmol/L (22-30); Chloride 95 mmol/L (98-107); Estimated CRCL calculation 71 ml/min; Estimated Glomerular Filt Rate > 60; Glucose 111 mg/dL (65-105); Magnesium 1.8 mg/dL (1.6-2.3); Potassium 4.4 mmol/L (3.4-5.0); Sodium 134 mmol/L (137-145)
[2020-09-13] MEDS: CENTRAL LINE FLUSH 10 ML IV PUSH ×3 (05:05→21:28)
[2020-09-13 05:45] LABS: Alveolar/Arterial O2 Gradient 27.9 mmHg; Base Excess ABG 8.4 mEq/l (+/-2.0); Carboxyhemoglobin 0.3 % THb (0-2.0); Device ROOM AIR; Fractional Inspired Oxygen 21 %; HCO3 ABG 33.1 mEq/l (22.0-26.0); Methemoglobin ABG 0.3 %THb (0-1.5); Oxygen Content ABG 15.3 %vol (16.0-22.0); Oxygen Saturation ABG 93.9 % (95.0-100.0); Oxyhemoglobin 92.8 % THb (90.0-100.0); PCO2 ABG 46.7 mmHg (35.0-45.0); PO2 ABG 65.9 mmHg (80.0-100.0); PO2 FiO2 Ratio Arterial Blood 3.14 %; Reduced Hemoglobin 6.6 %THb (0-5.0); Site Drawn RIGHT BRACHIAL; Total Hemoglobin 11.7 g/dL (12.0-18.0); pH ABG 7.469 (7.350-7.450)
[2020-09-13 06:58] LABS: Glucose Point of Care 110 (65-105)
[2020-09-13] MEDS: IPRATROPIUM BR 0.02% INH SOLN 0.5 MG/2.5 ML VIAL INHALATION ×3 (07:20→20:47)
[2020-09-13] MEDS: LEVALBUTEROL NEB 1.25 MG/3 ML 0.63 MG INHALATION ×3 (07:20→20:46)
[2020-09-13] MEDS: ANASTROZOLE (*CHEMO) 1 MG TABLET PO (08:21)
[2020-09-13] MEDS: APIXABAN 5 MG TABLET PO ×2 (08:21→16:40)
[2020-09-13] MEDS: ASPIRIN 81 MG ENTERIC TABLET PO (08:21)
[2020-09-13] MEDS: METOPROLOL TARTRATE TAB 25 MG, METOPROLOL TARTRATE TAB 12.5 MG 37.5 MG PO ×2 (08:22→20:21)
[2020-09-13] MEDS: TOLNAFTATE 1% POWDER 45 GM BTL 1 APPLIC TOPICAL ×2 (08:26→20:21)
[2020-09-13] MEDS: polyethylene glycoL 3350 17 GM POWD.PACK PO (08:26)
[2020-09-13] MEDS: PANTOPRAZOLE SODIUM IV 40 MG VIAL IV PUSH ×2 (08:26→20:22)
[2020-09-13] MEDS: INSULIN GLARGINE (*BKC) 100 UNITS/ML 10 UNITS SUB-Q (08:26)
[2020-09-13 12:02] LABS: Glucose Point of Care 122 (65-105)
--- NOTE | 2020-09-13 12:53 | WPDNEURCNPN ---
Assessment and Plan Assessment and plan (1) Acute metabolic encephalopathy: Code(s): G93.41 - Metabolic encephalopathy Status: Acute Additional Plan encephalopathy Consult date: 09/13/20 Time Seen: 12:45 HPI: Alexus Ferrer is a 80 year old female admitted to the hospital with complaints of increasing confusion in addition to history of diagnosis of dementia, stroke paroxysmal atrial fibrillation, insulin-dependent type 2 diabetes mellitus, sleep apnea, hypertension, hyperlipidemia, GERD, with history of duodenal ulcers, and breast cancer, over the last 72 hours she complained of severe diffuse headache associated with nausea and photophobia and [facility] was more confused and lethargic. In the emergency room she was found to have hyponatremia and by the time she was seen by the hospitalist on the floor she was noted Maurilio in acute respiratory failure and transferred to [facility], subsequent evaluation included the routine labs which were consistent with mild leukocytosis for short period, anemia mildly abnormal routine labs positive but Emanuel a and B, echocardiogram showing borderline dilatation of the sinus of Valsalva and mild enlargement of left atrium mild aortic valvular calcification without stenosis and mild enlargement of the right ventricle most recently she has been documented Pseudomonas urinary tract infection Review of Systems Review of Systems: All systems reviewed & are unremarkable except as noted in HPI and below PMFSH Past Medical History Medical History Anemia Cancer of left breast (~02/2018) Moderately differentiated invasive lobular carcinoma (ER/TX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 Also treated with aromatase inhibitors and Herceptin. Cerebrovascular accident (~01/2020) Duodenal ulcer (~05/2018) GI bleed (~05/2018) Acute duodenal ulcers and gastritis on EGD per Dr. Shea. Hypertension Insulin dependent type 2 diabetes mellitus Left leg DVT (~2018) Status post IVC filter insertion. Obstructive sleep apnea Does not use CPAP but apparently wears oxygen at nighttime. Osteoarthritis Paroxysmal atrial fibrillation Shingles (~2001) Surgical History Surgical History History of bilateral cataract extraction History of bilateral mastectomy For left-sided breast cancer. Negative margins but 1 lymph node demonstrated micrometastases. History of cholecystectomy History of hysterectomy History of orthopedic surgery ORIF right ankle fracture. Right hip bipolar hemiarthroplasty after fracture. History of repair of right rotator cuff Presence of inferior vena cava filter Family History Family History Sibling Family history of glaucoma Mother Family history of diabetes mellitus in first degree relative Father Family history of Alzheimer's disease Other Asthma Carcinoma of colon Diabetes mellitus Family history of congestive heart failure Family history of lung cancer Social History Social History (Updated 09/03/20 @ 22:07 by Helen Perez PA-C) Social History: The patient lives in assisted living at [place]. She is and has 5 children. 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y for a few years as a young woman. No alcohol or illicit substance use. Her son, Taj Ferrer, is her healthcare power of tin dipper. She is listed as a full code. Alcohol intake: never Spiritual care concerns: No Meds Home Medications and Allergies Home Medications Medication Instructions Recorded Confirmed Type acetaminophen 325 mg tablet 650 mg PO Q4H PRN #360 tablet 03/01/20 09/03/20 Rx anastrozole 1 mg tablet 1 mg PO DAILY 03/01/20 09/03/20 History metoprolol tartrate 25 mg tablet
--- NOTE | 2020-09-13 13:42 | PM.IMPN ---
Progress Note: A&P Assessment and Plan (1) Pseudomonas urinary tract infection: Code(s): N39.0 - Urinary tract infection, site not specified; B96.5 - Pseudomonas (aeruginosa) (mallei) (pseudomallei) as the cause of diseases classified elsewhere Status: Acute Assessment and Plan: Pt's urine culture from 09/06/20 grew >100,000 of pseudomonas -Continue cefepime, now day 7 -Pt's confusion is improving with this but has not resolved. Would consider another day or two of abx -sensitivities resistant to oral abx -blood cultures were negative (2) Acute metabolic encephalopathy: Code(s): G93.41 - Metabolic encephalopathy Status: Acute Assessment and Plan: Improving by the day but pt is not near her baseline -spoke with son who confirms she is usually independent for the most part with no confusion -Could be due to UTI -Pt was hypercarbic on admission and was intubated. Pt did not use bipap overnight and abg looks okay. She does not usse it at home so will hold it again overnight and to see how she does without it. -MRA of brain with no acute stroke -cefepime itself can cause confusion as well -Monitor (3) Acute respiratory failure with hypercapnia: Code(s): J96.02 - Acute respiratory failure with hypercapnia Status: Acute Assessment and Plan: Respiratory failure has improved, now on RA -Pt has crackles and some LE edema, obtain CXR, give 20mg of IV lasix x 1 now -Son states she is not usually on o2 at home -Pt was intubated earlier in the stay but abg looks okay (abg from this AM appears to be a bit mixed venous) -she has no bipap/cpap at home. She did not use it last night and did well. ABG shows a mild increase in co2 but pH is high. Will hold bipap again tonight to ensure she does not need it at discharge. (4) Insulin dependent type 2 diabetes mellitus: Code(s): E11.9 - Type 2 diabetes mellitus without complications; Z79.4 - prison (current) use of insulin Status: Acute Assessment and Plan: Last glucose 122 -Last A1c 6.4 -continue SSI -she usually takes insulin galargine 20u at home as well as trulicity 1.5. Will continue with lantus 10U and adjust as needed (5) Electrolyte abnormality: Code(s): E87.8 - Other disorders of electrolyte and fluid balance, not elsewhere classified Status: Acute Assessment and Plan: Improved. (6) Obstructive sleep apnea: Code(s): G47.33 - Obstructive sleep apnea (adult) (pediatric) Status: Acute Assessment and Plan: RN confirmed pt does not use bipap/cpap (7) Altered mental status: Qualifiers: Altered mental status type: unspecified Qualified Code(s): R41.82 - Altered mental status, unspecified Code(s): R41.82 - Altered mental status, unspecified Status: Acute Assessment and Plan: as above (8) Paroxysmal atrial fibrillation: Code(s): I48.0 - Paroxysmal atrial fibrillation Status: Acute Assessment and Plan: improved today now 94 -Pt gets tachy with movements. -continue eliquis -metoprolol was increased 09/12 to 37.5mg BID. Additional Plan last BM 09/13/20. Continue miralax Subjective Date/time seen: 09/13/20 13:42 Interval history: Pt is a 80 year old female here for UTI, confusion and respiratory failure. Pt was confused again today and kept repeating 1940 when I was asking her orientation questions. Although she was confused, she seemed to answer my other questions appropriately. Pt denies nausea, vomiting, fevers, chills, constipation, diarrhea, chest pain, sob, or abdominal pain. Yesi, nurse, states she was wheezy today but no hypoxic. Exam Narrative: Exam Narrative: General: Overweight patient resting comfortably in the chair in no acute distress HEENT: normocephalic Neck: supple Neuro: Alert and oriented to name and birthday but not location, reason for hospitliza
[2020-09-13] MEDS: FUROSEMIDE INJ 40 MG/4 ML VIAL 20 MG IV PUSH (15:22)
[2020-09-13 16:26] LABS: Glucose Point of Care 153 (65-105)
[2020-09-13 21:22] LABS: Glucose Point of Care 113 (65-105)
[2020-09-14] VITALS (27 sets, daily range): BP systolic 135–149; BP diastolic 80–88; PULSE 52–105; RESP 16–22; TEMP 35.9–36.3; O2SAT 94–100
[2020-09-14] MEDS: IPRATROPIUM BR 0.02% INH SOLN 0.5 MG/2.5 ML VIAL INHALATION ×6 (03:05→20:17)
[2020-09-14] MEDS: LEVALBUTEROL NEB 1.25 MG/3 ML 0.63 MG INHALATION ×6 (03:05→23:59)
[2020-09-14] MEDS: CENTRAL LINE FLUSH 20 ML IV PUSH (05:12)
[2020-09-14] MEDS: CENTRAL LINE FLUSH 10 ML IV PUSH ×3 (05:12→21:23)
[2020-09-14 05:24] LABS: Hematocrit 34.8 % (37.0-47.0); Hemoglobin 10.6 g/dL (12.0-15.0); Mean Corpuscular HGB Conc 30.5 g/dl (32-36); Mean Corpuscular Hemoglobin 26.6 pg (26-34); Mean Corpuscular Volume 87.4 fl (80-100); Mean Platelet Volume 9.5 fl (7.4-10.4); Platelet Count Result 171 k/mm3 (150-375); Red Blood Count 3.98 M/mm3 (4.2-5.4); White Blood Count 6.6 K/mm3 (4.5-10.0)
[2020-09-14 05:34] LABS: Ammonia < 9 umol/L (9-30)
[2020-09-14 05:37] LABS: Anion Gap 1 mmol/L (8-16); Blood Urea Nitrogen 13 mg/dL (7-17); Calcium 9.5 mg/dL (8.4-10.2); Carbon Dioxide 39 mmol/L (22-30); Chloride 95 mmol/L (98-107); Estimated CRCL calculation 70 ml/min; Estimated Glomerular Filt Rate > 60; Glucose 127 mg/dL (65-105); Potassium 4.2 mmol/L (3.4-5.0); Sodium 135 mmol/L (137-145)
[2020-09-14 07:17] LABS: Glucose Point of Care 118 (65-105)
[2020-09-14] MEDS: INSULIN GLARGINE (*BKC) 100 UNITS/ML 10 UNITS SUB-Q (09:08)
[2020-09-14] MEDS: PANTOPRAZOLE SODIUM IV 40 MG VIAL IV PUSH ×2 (09:10→20:38)
[2020-09-14] MEDS: polyethylene glycoL 3350 17 GM POWD.PACK PO (09:10)
[2020-09-14] MEDS: APIXABAN 5 MG TABLET PO ×2 (09:11→17:59)
[2020-09-14] MEDS: METOPROLOL TARTRATE TAB 25 MG, METOPROLOL TARTRATE TAB 12.5 MG 37.5 MG PO ×2 (09:11→20:38)
[2020-09-14] MEDS: ASPIRIN 81 MG ENTERIC TABLET PO (09:12)
[2020-09-14] MEDS: TOLNAFTATE 1% POWDER 45 GM BTL 1 APPLIC TOPICAL ×2 (09:12→20:39)
[2020-09-14] MEDS: ANASTROZOLE (*CHEMO) 1 MG TABLET PO (09:12)
[2020-09-14] MEDS: PHENOL/SOD PHENO SPRAY CHERRY (*BKC) 1 SPRAY MUCOUS MEM (09:16)
[2020-09-14 11:22] LABS: Glucose Point of Care 125 (65-105)
--- NOTE | 2020-09-14 12:14 | PM.IMPN ---
Progress Note: A&P Assessment and Plan (1) Pseudomonas urinary tract infection: Code(s): N39.0 - Urinary tract infection, site not specified; B96.5 - Pseudomonas (aeruginosa) (mallei) (pseudomallei) as the cause of diseases classified elsewhere Status: Acute Assessment and Plan: Pt's urine culture from 09/06/20 grew >100,000 of pseudomonas -Continue cefepime, now day 7 -Pt's confusion is improving with this but has not resolved. Would consider another day or two of abx -sensitivities resistant to oral abx -blood cultures were negative -will need to DC antibiotics tomorrow and plan on re-culturing in 5-10 days (2) Acute metabolic encephalopathy: Code(s): G93.41 - Metabolic encephalopathy Status: Acute Assessment and Plan: Improving by the day but pt is not near her baseline -spoke with son who confirms she is usually independent for the most part with no confusion -Could be due to Pseudomonas UTI - could be prolonged hospitalization -Pt was hypercarbic on admission and was intubated. Pt did not use bipap overnight and abg looks okay. She does not usse it at home so will hold it again overnight and to see how she does without it. -MRA of brain with no acute stroke -cefepime itself can cause confusion as well -Monitor (3) Acute respiratory failure with hypercapnia: Code(s): J96.02 - Acute respiratory failure with hypercapnia Status: Acute Assessment and Plan: Respiratory failure has improved, now on RA or 2 L O2 NC -Pt has diminished sounds and some LE edema, CXR yesterday and Lasix - improved with that. Will consider adding Low Dose Lasix daily or Every other day. -Son states she is not usually on o2 at home -Pt was intubated earlier in the stay but abg looks okay (abg from this AM appears to be a bit mixed venous) -she has no bipap/cpap at home. She did not use it last night and did well. ABG shows a mild increase in co2 but pH is high. Will hold bipap again tonight to ensure she does not need it at discharge. - needs home O2 study (4) Insulin dependent type 2 diabetes mellitus: Code(s): E11.9 - Type 2 diabetes mellitus without complications; Z79.4 - supervisor intermediates (current) use of insulin Status: Acute Assessment and Plan: Last glucose 118 -Last A1c 6.4 -continue SSI -she usually takes insulin galargine 20u at home as well as trulicity 1.5. Will continue with lantus 10U and adjust as needed (5) Electrolyte abnormality: Code(s): E87.8 - Other disorders of electrolyte and fluid balance, not elsewhere classified Status: Acute Assessment and Plan: Improved. resolved potassium 4.2 sodium 135 (6) Obstructive sleep apnea: Code(s): G47.33 - Obstructive sleep apnea (adult) (pediatric) Status: Acute Assessment and Plan: RN confirmed pt does not use bipap/cpap may have a CPAP or BiPAP provided if patient goes to a group home home facility (7) Altered mental status: Qualifiers: Altered mental status type: unspecified Qualified Code(s): R41.82 - Altered mental status, unspecified Code(s): R41.82 - Altered mental status, unspecified Status: Acute Assessment and Plan: as above under encephalopathy plan (8) Paroxysmal atrial fibrillation: Code(s): I48.0 - Paroxysmal atrial fibrillation Status: Acute Assessment and Plan: improved today Rate 84-100 beats per minute -Pt gets tachy with activity and ambulation -continue eliquis -metoprolol was increased 09/12 to 37.5mg BID. Additional Plan last BM 09/13/20. Continue miralax Subjective Date/time seen: 09/14/20 12:14 Interval history: Alexus is an 80 year old female here for UTI, confusion and respiratory failure. She is in and out of various confused states, depending on her changes and status that day. Today she was much more clear than when I visited and examined her on Friday. She knew that she was at [facility]
[2020-09-14 17:02] LABS: Glucose Point of Care 77 (65-105)
[2020-09-14 20:59] LABS: Glucose Point of Care 146 (65-105)
[2020-09-15] VITALS (17 sets, daily range): BP systolic 152; BP diastolic 84; PULSE 62–104; RESP 16–20; TEMP 35.8; O2SAT 95–99
[2020-09-15] MEDS: IPRATROPIUM BR 0.02% INH SOLN 0.5 MG/2.5 ML VIAL INHALATION ×4 (03:54→11:23)
[2020-09-15] MEDS: LEVALBUTEROL NEB 1.25 MG/3 ML 0.63 MG INHALATION ×3 (03:54→11:23)
[2020-09-15] MEDS: CENTRAL LINE FLUSH 10 ML IV PUSH (05:57)
[2020-09-15 06:37] LABS: Glucose Point of Care 116 (65-105)
[2020-09-15 08:41] LABS: Glucose Point of Care 114 (65-105)
[2020-09-15] MEDS: polyethylene glycoL 3350 17 GM POWD.PACK PO (08:42)
[2020-09-15] MEDS: METOPROLOL TARTRATE TAB 25 MG, METOPROLOL TARTRATE TAB 12.5 MG 37.5 MG PO (08:42)
[2020-09-15] MEDS: PANTOPRAZOLE SODIUM IV 40 MG VIAL IV PUSH (08:43)
[2020-09-15] MEDS: ANASTROZOLE (*CHEMO) 1 MG TABLET PO (08:43)
[2020-09-15] MEDS: APIXABAN 5 MG TABLET PO (08:43)
[2020-09-15] MEDS: ASPIRIN 81 MG ENTERIC TABLET PO (08:43)
[2020-09-15] MEDS: INSULIN GLARGINE (*BKC) 100 UNITS/ML 10 UNITS SUB-Q (08:45)
[2020-09-15] MEDS: TOLNAFTATE 1% POWDER 45 GM BTL 1 APPLIC TOPICAL (08:58)
--- NOTE | 2020-09-15 11:41 | PCNFU ---
Nutrition Follow-Up Complete: Inadequate oral intake related to inability to consume foods orally due to mechanical ventilation as evidence by need for enteral nutrition to meet nutrition needs Goal: Total intake will meet estimated kcal and protein needs Patient is progressing towards goal. We will continue current goal. Pt current nutrition is soft and bite sized, Level 6/DBCC. Last recorded weight is 96.6 kg down from 97.5 kg on admit. Bowel Motility:+BM 09/14 Labs Reviewed:No labs to report. Meds Noted:Eliquis, Lopressor,Protonix,Novolog,Miralax, Lantus. Additional Notes:Patient seen today for nutrition follow up. She ate all of her breakfast meal today. Oral Intake's have [id number]% of meals. Agree with diet orders. Monitoring: BMs, labs, enteral nutrition tolerance every 7 days.
[2020-09-15 11:58] LABS: Glucose Point of Care 156 (65-105)
[2020-09-15 12:01] LABS: Vitamin B6 4.5 ng/mL (2.1-21.7)
--- NOTE | 2020-09-15 12:26 | PM.DS ---
DS: Admitting Diagnosis Admitting Diagnosis Admitting Diagnosis: Alterend Mental Status - Encephalopathy, Pseudomonas UTI DS: Discharge Diagnosis Discharge Diagnosis (1) Pseudomonas urinary tract infection: Code(s): N39.0 - Urinary tract infection, site not specified; B96.5 - Pseudomonas (aeruginosa) (mallei) (pseudomallei) as the cause of diseases classified elsewhere Status: Acute Assessment and Plan: Pt's urine culture from 09/06/20 grew >100,000 of pseudomonas Ordered repeat urine culture at discharge to be done September 22 in 7 days completed a full course of IV cefepime of at least 7 days -Pt's confusion has resolved to baseline. she is aware she is at [facility] and she is participating in her Recovery. -sensitivities resistant to oral abx -blood cultures were negative At discharge, Ordered repeat urine culture to be done September 22 (2) Acute metabolic encephalopathy: Code(s): G93.41 - Metabolic encephalopathy Status: Acute Assessment and Plan: -Pt's confusion has resolved to baseline. she is aware she is at [facility] and she is participating in her Recovery. -spoke with son who confirms she is usually independent for the most part with no confusion - baseline - confusion likely was due to Pseudomonas UTI and/or prolonged hospitalization -Pt was hypercarbic on admission and was intubated. Pt did not use bipap overnight and abg looks okay. She does not use BiPAP or oxygen prior to this admission. - she was weaned off oxygen for the last 2 days. At times using 2 L O2 nasal cannula as needed if she felt short of breath. -MRA of brain with no acute stroke - At discharge, advised that a sleep study OR nighttime/ nocturnal SpO2 study be conducted at the [facility]. As she may only need it at night. - also ordered p.r.n. Lasix 20 mg low-dose for pulmonary congestion or edema or fluid overload - at discharge ordered BMP blood work to be drawn September 22 in 7 days (3) Acute respiratory failure with hypercapnia: Code(s): J96.02 - Acute respiratory failure with hypercapnia Status: Acute Assessment and Plan: Respiratory failure has improved, now on RA or 2 L O2 NC -Son states she is not usually on Oxygen prior to this hosptilatization or at home -she has no bipap/cpap at home. -Pt has completely clear lungs sounds throughout today, - last CXR had improved with lasix. - she was weaned off oxygen for the last 2 days. At times using 2 L O2 nasal cannula as needed if she felt short of breath. -MRA of brain with no acute stroke - At discharge, advised that a sleep study OR nighttime/ nocturnal SpO2 study be conducted at the [facility]. As she may only need it at night. - also ordered p.r.n. 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 Will continue with lantus 10U and adjust as needed (5) Electrolyte abnormality: Code(s): E87.8 - Other disorders of electrolyte and fluid balance, not elsewhere classified Status: Acute Assessment and Plan: Improved. resolved potassium 4.2 sodium 135 - at discharge ordered BMP blood work to be drawn September 22 in 7 days she will be discharged to [facility] today with their own physician care (6) Obstructive sleep apnea: Code(s): G47.33 - Obstructive sleep apnea (adult) (pediatric) Status: Acute Assessment and Plan: RN confirmed pt does not use bipap/cpap she has not been requiring CPAP or BiPAP as of late she may benefit from a nocturnal oxygen SpO2 study completed at [facility] I have advised and
[2020-09-15] MEDS: NEOMYCIN/POLYMYXIN/BACITRACIN OINTMENT PACKET 1 PACKET (12:40)
== END 2020-09-15 13:00 | DRG 208 ==
LOC: ANHED 13:27 → ANH2MED 14:27 → ANHIMU 09-04 01:01 → ANHICU 09-04 03:41 → ANH3MED 09-09 22:24 → ANHICU 09-18 13:43 → ANH3MED 09-18 13:43
PROVIDERS: Hospitalist; Internal Medicine; Nurse Practitioner; Physician Assistant; Admitting Provider Family Medicine; Emergency Provider Emergency Medicine; PCP Family Medicine; Visit Provider Internal Medicine
DX: J96.02 Acute respiratory failure with hypercapnia (principal); G93.41 Metabolic encephalopathy; E87.1 Hypo-osmolality and hyponatremia; N39.0 Urinary tract infection, site not specified; B96.5 Pseudomonas (aeruginosa) (mallei) (pseudomallei) as the cause of diseases classified elsewhere; J96.11 Chronic respiratory failure with hypoxia; F03.90 Unspecified dementia, unspecified severity, without behavioral disturbance, psychotic disturbance, mood disturbance, and anxiety; E87.8 Other disorders of electrolyte and fluid balance, not elsewhere classified; R51.9 Headache, unspecified; K21.9 Gastro-esophageal reflux disease without esophagitis; I48.0 Paroxysmal atrial fibrillation; E78.5 Hyperlipidemia, unspecified; I10 Essential (primary) hypertension; E11.9 Type 2 diabetes mellitus without complications; G47.33 Obstructive sleep apnea (adult) (pediatric); D64.9 Anemia, unspecified; Z79.01 Long term (current) use of anticoagulants; Z79.4 Long term (current) use of insulin; Z79.811 Long term (current) use of aromatase inhibitors; Z85.3 Personal history of malignant neoplasm of breast; Z86.718 Personal history of other venous thrombosis and embolism; Z87.11 Personal history of peptic ulcer disease; Z87.891 Personal history of nicotine dependence; Z95.828 Presence of other vascular implants and grafts; Z98.42 Cataract extraction status, left eye; Z98.41 Cataract extraction status, right eye
CPT/HCPCS: 31500; 36415; 36569; 36600; 51701; 70450; 70544; 71045; 80048; 80053; 81001; 82140; 82375; 82550; 82570; 82607; 82728; 82746; 82805; 82948; 83036; 83050; 83540; 83550; 83735; 83880; 83930; 83935; 84100; 84207; 84295; 84300; 84443; 85025; 85027; 85610; 85730; 86140; 87040; 87070; 87077; 87086; 87088; 87186; 87205; 92610; 93005; 94002; 94003; 94640; 94762; 96365; 96366; 96367; 96368; 96374; 96375; 97110; 97116; 97161; 97166; 97530; 97535; 99285; A9270; C1751; C8929; C9113; G0378; J0330; J0692; J1815; J1885; J1940; J2250; J2704; J2997; J3010; J3475; J7030; J7070; Q9957

== ENCOUNTER 2020-09-16 23:12 | Emergency (ER) | payer MEDICARE, SELFPAY ==
--- NOTE | ~2020-09-16 | CT_ITS ---
EXAMINATION: CT brain wo con DATE: 09/16/2020 23:57 INDICATION: Altered mental status TECHNIQUE: Computed tomography (CT) of the head was performed without intravenous contrast. The mA wa s adjusted according to patient size. Iterative reconstruction technique was employed. Exam dose: 60 5.33 mGy-cm total exam DLP. COMPARISON: 09/10/2020 MRI brain 09/03/2020 CT brain FINDINGS: Stable chronic left cerebral deep white matter and left basal ganglia and anterior limb lef t internal capsule infarcts. There is suggestion of a cortical left lateral cerebellar hemispheric in farct. Vertebral, basilar and carotid siphon internal carotid artery calcifications. Nonspecific diminished attenuation cerebral white matter, likely due to chronic small vessel ischemic changes. No intracranial mass lesion or hemorrhage, midline shift or mass effect effect or subdural or epidura l hematoma is evident. No fracture or bone destruction cranial vault. The mastoid air cells and paranasal sinuses are normally developed and aerated. 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 Reviewed, dictated and finalized at [facility]. IMPRESSION: Chronic infarcts of the left anterior limb of internal capsule, le ft basal ganglia and deep left cerebral white matter Cerebral atherosclerosis No acute intracranial finding or significant change since 09/03/2020
--- NOTE | ~2020-09-16 | XR_ITS ---
XR chest 1V DATE: 09/17/2020 00:01 INDICATION: Shortness of breath for 2 days. TECHNIQUE: 09/16/2020 AP chest COMPARISON: 09/13/2020 portable AP chest FINDINGS: Cardiac megaly. Aortic arch calcification. Mild infiltrate or atelectasis is suggested in the lower lung zones, left greater than right. The gregorio gs otherwise appear clear. No pleural effusion or pulmonary vascular congestion or pneumothorax. Diffuse osteopenia. IMPRESSION: Mild infiltrate or atelectasis at the lung bases, left greater than right Cardiac megaly Aortic atherosclerosis Diffuse osteopenia Reviewed, dictated and finalized at [facility].
[2020-09-16 23:13] VITALS: BP 138/84; PULSE 82; RESP 13; O2SAT 96
[2020-09-16 23:21] VITALS: BP 138/84; PULSE 90; RESP 18; RESP 20; TEMP 37; O2SAT 96
--- NOTE | 2020-09-16 23:23 | PC.NURSE ---
Pt presents to ED from rehab facility. Per EMS, pt was found in room sleeping in wheelchair. Per staff, pt was slightly confused when they woke her. EMS states when they arrived, pt was a/o x3 and states staff said pt was still hazy . Pt noted to be alert and oriented to baseline of x3. Pt denies all pain and discomfort this time. Breathing is even and unlabored with O2 saturation of 97% on room air. Pt in no obvious distress at this time with stable vitals. EDMD presented to bedside. Call button and personal items within reach. Pt advised to press call button for assistance.
--- NOTE | 2020-09-16 23:25 | ECG_ITS ---
Measurements Intervals [place] Rate: 78 P: FL: 0 QRS: -11 QRSD: 106 T: 41 QT: 348 QTc: 397 Interpretive Statements ATRIAL FIBRILLATION BASELINE ARTIFACT- I, II, III, AVR, AVL, AVF, V4-V6 ABNORMAL ECG Electronically Signed On 09-17-2020 6:46:03 CDT by Alfonso Ascencio D.O.
[2020-09-16 23:37] LABS: Basophils Percent Auto 0.5 % (0.2-1.2); Eosinophils Absolute Auto 0.3 K/mm3 (0-0.3); Eosinophils Percent Auto 3.5 % (0-4.4); Hematocrit 37.2 % (37.0-47.0); Hemoglobin 11.2 g/dL (12.0-15.0); Immature Granulocyte Absolute 0.05 K/mm3 (0.00-0.031); Immature Granulocyte Percent A 0.7 % (0-0.5); Lymphocytes Absolute Auto 1.35 K/mm3 (0.9-3.2); Lymphocytes Percent Auto 18.4 % (18.3-44.2); Mean Corpuscular HGB Conc 30.1 g/dl (32-36); Mean Corpuscular Hemoglobin 26.7 pg (26-34); Mean Corpuscular Volume 88.6 fl (80-100); Mean Platelet Volume 9.7 fl (7.4-10.4); Monocytes Absolute Auto 0.5 K/mm3 (0.1-0.6); Monocytes Percent Auto 6.7 % (2.6-8.5); Neutrophils Absolute Auto 5.2 K/mm3 (1.3-6.7); Neutrophils Percent Auto 70.2 % (45.5-73.1); Platelet Count Result 247 k/mm3 (150-375); Red Cell Distribution Width 15.2 % (11.5-14.5); White Blood Count 7.3 K/mm3 (4.5-10.0)
--- NOTE | 2020-09-16 23:42 | PC.NURSE ---
family member presented to bedside.
[2020-09-16 23:43] LABS: Alveolar/Arterial O2 Gradient 29.9 mmHg; Base Excess ABG 3.3 mEq/l (+/-2.0); Fractional Inspired Oxygen 21 %; Oxygen Content ABG 15.1 %vol (16.0-22.0); Oxyhemoglobin 92.1 % THb (90.0-100.0); PCO2 ABG 43.3 mmHg (35.0-45.0); PO2 FiO2 Ratio Arterial Blood 3.24 %; Total Hemoglobin 11.6 g/dL (12.0-18.0); pH ABG 7.429 (7.350-7.450)
[2020-09-16 23:44] LABS: Device ROOM AIR; Modified Allen's Test Pass; Site Drawn RIGHT RADIAL
--- NOTE | 2020-09-16 23:46 | PC.NURSE ---
Glucose 155.
[2020-09-16 23:48] LABS: Alanine Aminotransferase 27 U/L (4-35); Albumin Level 3.7 g/dL (3.5-5.1); Alkaline Phosphatase 73 U/L (38-126); Anion Gap 3 mmol/L (8-16); Aspartate Amino Transferase 27 U/L (14-36); Bilirubin,Total 0.4 mg/dL (0.2-1.3); Blood Urea Nitrogen 15 mg/dL (7-17); Calcium 9.4 mg/dL (8.4-10.2); Carbon Dioxide 34 mmol/L (22-30); Chloride 96 mmol/L (98-107); Estimated CRCL calculation 58 ml/min; Estimated Glomerular Filt Rate > 60; Glucose 174 mg/dL (65-105); Potassium 4.5 mmol/L (3.4-5.0); Sodium 133 mmol/L (137-145)
[2020-09-16 23:48] LABS: Glucose Point of Care 155 (65-105)
[2020-09-16 23:49] LABS: Lactic Acid Reflex 1.2 mmol/L (0.7-2.1)
--- NOTE | 2020-09-16 23:53 | PC.NURSE ---
Pt radiology via cart.
[2020-09-16 23:59] LABS: Troponin I < 0.012 ng/mL (0.000-0.034)
--- NOTE | 2020-09-17 00:53 | PC.NURSE ---
Pt straight cath'd and 800ml of urine drained that was malodorous. Specimen collected and sent to lab. Pt tolerated procedure well and is now resting on cart with call button and personal items within reach. Family member at bedside. Call button and personal items within reach. Advised to press call button for assistance.
[2020-09-17 00:54] LABS: Add Urine Microscopic? YES; Appearance Urine Clear (Clear); Bacteria Urine Trace /hpf; Bilirubin Urine Negative (Negative); Blood Urine Negative (Negative); Color Urine Yellow (Yellow); Glucose Urine UA Negative (Negative); Ketones Urine Negative (Negative); Leukocyte Esterase Ur Negative LEU/UL (Negative); Mucus Urine Rare /lpf; Nitrate Urine Negative (Negative); Protein Urine 1+ mg/dL (Negative); Specific Grav Ur 1.013 (1.001-1.035); Squamous Epithelial Cell Urine Occasional /hpf (Few); Urobilinogen Urine Negative mg/dL (<2.0); WBC Urine 0-3 /hpf
--- NOTE | 2020-09-17 01:17 | ED.GENADULT ---
HPI - General Adult General Chief complaint: Altered Mental Status Stated complaint: confusion Time Seen by Provider: 09/16/20 23:23 History of Present Illness HPI narrative: Patient 80-year-old female presents the emergency department with chief complaint of altered mental status and generalized weakness. Patient was just discharged from the hospital yesterday and the patient was discharged back to skilled facility for rehab. The patient was sitting in a wheelchair and fell asleep when she was awoken by the staff patient was somewhat confused initially when she woke up. Upon arrival in the emergency department the patient is awake alert able to answer all questions and states she has no complaints. Related Data Home Medications Medication Instructions Recorded Confirmed anastrozole 1 mg tablet 1 mg PO DAILY 03/01/20 09/03/20 pantoprazole 40 mg PO BID 04/18/20 09/03/20 Basaglar KwikPen U-100 Insulin 20 unit SUBCUT QPM 09/03/20 09/03/20 Trulicity 1.5 mg SUBCUT WEEKLY 09/03/20 09/03/20 docusate sodium 100 mg PO BID PRN 09/03/20 09/03/20 ergocalciferol (vitamin D2) 1,250 mcg PO WEEKLY 09/03/20 09/03/20 [Vitamin D2] insulin lispro 1 sliding scale dose SUBCUT 09/03/20 09/03/20 USEASDIRECTD nystatin 1 applic TOPICAL BID PRN 09/03/20 09/03/20 Allergies Allergy/AdvReac Type Severity Reaction Status Date / Time metformin Allergy Mild GI upset Verified 09/03/20 17:53 sitagliptin Allergy Mild rhinitis Verified 09/03/20 17:53 amlodipine Allergy Unknown Constipatio Verified 09/03/20 17:53 n aspirin Allergy Unknown Ulcers Verified 09/03/20 17:53 lisinopril Allergy Unknown Cough Verified 09/03/20 17:53 losartan Allergy Unknown Wheezing Verified 09/03/20 17:53 morphine AdvReac Confusion Verified 09/03/20 17:53 Review of Systems Review of Systems: Narrative: A 10 system review of systems was completed on the patient and is negative except for what is stated in the HPI. Nursing and ancillary documentation was reviewed. [facility] Past Medical History Medical History Anemia Cancer of left breast (~02/2018) Moderately differentiated invasive lobular carcinoma (ER/[place]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 Also treated with aromatase inhibitors and Herceptin. Cerebrovascular accident (~01/2020) Duodenal ulcer (~05/2018) GI bleed (~05/2018) Acute duodenal ulcers and gastritis on EGD per Dr. Shea. Hypertension Insulin dependent type 2 diabetes mellitus Left leg DVT (~2018) Status post IVC filter insertion. Obstructive sleep apnea Does not use CPAP but apparently wears oxygen at nighttime. Osteoarthritis Paroxysmal atrial fibrillation Shingles (~2001) Surgical History Surgical History History of bilateral cataract extraction History of bilateral mastectomy For left-sided breast cancer. Negative margins but 1 lymph node demonstrated micrometastases. History of cholecystectomy History of hysterectomy History of orthopedic surgery ORIF right ankle fracture. Right hip bipolar hemiarthroplasty after fracture. History of repair of right rotator cuff Presence of inferior vena cava filter Family History Family History Sibling Family history of glaucoma Mother Family history of diabetes mellitus in first degree relative Father Family history of Alzheimer's disease Other Asthma Carcinoma of colon Diabetes mellitus Family history of congestive heart failure Family history of lung cancer Social History Social History Social History: The patient lives in assisted living at [place]. She is and has 5 children. 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
--- NOTE | 2020-09-17 01:23 | PC.NURSE ---
Pt resting comfortably on cart in its lowest position with call button and personal items within reach. Pt resting on cart with family member at bedside. Vitals stable and pt in no obvious distress.
[2020-09-17 01:55] VITALS: BP 138/68; PULSE 79; RESP 19; TEMP 36.7; O2SAT 96
[2020-09-17 01:56] VITALS: BP 138/68; PULSE 79; RESP 19; TEMP 36.7; O2SAT 96
== END 2020-09-17 02:10 ==
PROVIDERS: Emergency Provider Emergency Medicine; PCP Family Medicine
DX: M62.81 Muscle weakness (generalized) (principal); I10 Essential (primary) hypertension; E11.9 Type 2 diabetes mellitus without complications; G47.33 Obstructive sleep apnea (adult) (pediatric); M19.90 Unspecified osteoarthritis, unspecified site; I48.0 Paroxysmal atrial fibrillation; Z85.3 Personal history of malignant neoplasm of breast; Z92.21 Personal history of antineoplastic chemotherapy; Z90.13 Acquired absence of bilateral breasts and nipples; Z86.73 Personal history of transient ischemic attack (TIA), and cerebral infarction without residual deficits; Z86.718 Personal history of other venous thrombosis and embolism; Z98.42 Cataract extraction status, left eye; Z98.41 Cataract extraction status, right eye
CPT/HCPCS: 36415; 36600; 70450; 71045; 80053; 81001; 82805; 82948; 83605; 84484; 85025; 93005; 99284; J7030

== ENCOUNTER 2020-10-22 06:27 | Inpatient (IN) | payer MEDICARE, SELFPAY ==
[2020-10-22] VITALS (34 sets, daily range): BP systolic 135–162; BP diastolic 67–111; PULSE 72–127; RESP 14–35; TEMP 36.4; O2SAT 85–100; BMI 40.3; BMI 42.7
--- NOTE | ~2020-10-22 | XR_ITS ---
EXAMINATION: XR chest 2V DATE: 10/22/2020 06:52 INDICATION: Shortness of breath TECHNIQUE: AP and lateral views of the chest are obtained. COMPARISON: 09/16/2020 FINDINGS: There is stable cardiomegaly. Bibasilar airspace opacities persist with slight improvement. There are small pleural effusions. No pneumothorax is identified. There is moderate thoracic spondyl osis. Surgical clips in the upper abdomen on the lateral view are likely from prior cholecystectomy. IMPRESSION: 1. Bibasilar airspace opacities, consistent with atelectasis versus pneumonia. 2. Stable cardiomegaly. Reviewed, dictated and finalized at location [facility].
--- NOTE | ~2020-10-22 | CT_ITS ---
EXAMINATION: CT brain wo con INDICATION: Slurred speech and confusion COMPARISON: None TECHNIQUE: Standard unenhanced head CT. The dose-length product (DLP) was 605.33 mGy-cm. The mA was a djusted according to patient size. Iterative reconstruction technique was employed. FINDINGS: There is no acute intraparenchymal hemorrhage. No evidence of mass lesion. No evidence of a cute infarction. There are areas of prior infarction involving the left basal ganglia, the left inter nal capsule, and the left frontal lobe deep white matter. There is mild periventricular and subcortic al hypodensity probably related to small vessel ischemic disease. There is mild prominence of the sul ci and ventricles related to cerebral atrophy. Intracranial calcified cerebral atherosclerosis is not ed. There are no extra-axial collections. There is no mass effect or midline shift. Changes in the gl obes are likely from ocular lens surgery. There is mild mucosal thickening of the paranasal sinuses. IMPRESSION: 1. No acute intracranial abnormality. 2. Age related findings. Reviewed, dictated and finalized at location A.
--- NOTE | ~2020-10-22 | MR_ITS ---
EXAMINATION: MR brain/brain stem wo con DATE: 10/26/2020 17:07 INDICATION: Altered mental status. Slurred speech. TECHNIQUE: Magnetic resonance imaging (MRI) of the brain and brainstem was performed without intraven ous contrast. Sequences included sagittal and axial T1-weighted FSE, axial diffusion-weighted FS EPI, axial T2*-weighted GRE, axial T2-weighted FLAIR Propeller, and axial T2-weighted Propeller. Apparent diffusion coefficient (ADC) maps were created. COMPARISON: Head CT 10/25/2020, brain MRI 04/24/2020 FINDINGS: There are scattered areas of nonspecific increased T2-weighted signal intensity in the cere bral white matter and cary. There are old infarcts involving the left basal ganglia, left internal ca psule, and bilateral frontal lobes. There is an old infarct involving the medulla on the right. There are small old infarcts in the cerebellum. There is no intracranial hemorrhage, acute infarction, or abnormal intracranial mass lesion. The ventricles are normal in size. There are likely changes of ocu lar lens replacement surgeries. There is mucosal thickening in the paranasal sinuses. The mastoid air cells are normal. IMPRESSION: 1. 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 2. Stable moderate nonspecific cerebral white matter disease and pontine disease, which likely repres ents chronic small vessel ischemic disease. Reviewed, dictated and finalized at location A. IMPRESSION: 1. 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 2. Stable moderate nonspecific cerebral white matter disease and pontine diseas e, which likely represents chronic small vessel ischemic disease.
--- NOTE | ~2020-10-22 | CT_ITS ---
EXAMINATION: CTA chest PE protocol DATE: 10/22/2020 17:03 INDICATION: Shortness of breath TECHNIQUE: Computed tomography angiography (CTA) of the chest was performed with 100 mL Omnipaque-350 intravenous contrast timed to evaluate the pulmonary arteries. Coronal maximum intensity projection 3D-reconstructions were created by the technologist. Automated exposure control and iterative reconst ruction technique were employed. Exam dose: 751.05 mGy-cm total exam DLP. COMPARISON: 10/22/2020 2 view chest FINDINGS: There is diagnostic contrast enhancement of the pulmonary arteries. Peripheral pulmonary arteries are not optimally evaluated due to motion. There is a thin soft tissue web in the proximal right lower lobe pulmonary artery and mild right lowe r lobe pulmonary embolism. No thoracic aortic aneurysm. Cardiomegaly, coronary artery calcification. Probably reactive mild lateral hilar and mediastinal lymph node prominence. Small sliding hiatal hernia. Status post cholecystectomy. There are mild bilateral pleural effusions, right greater than left. There is mild bibasilar atelecta sis, right greater than left. No suspicious osteolytic or osteoblastic lesions are noted. IMPRESSION: Mild right lower lobe pulmonary embolism Mild pleural effusions, right greater than left Mild bibasilar atelectasis, right greater than left Cardiomegaly Status post cholecystectomy Small sliding hiatal hernia Reviewed, dictated and finalized at Location [facility]. Reviewed, dictated and finalized at location A.
--- NOTE | ~2020-10-22 | US_ITS ---
EXAMINATION: US venous doppler [facility] DATE: 10/22/2020 08:11 INDICATION: Left lower limb swelling, history of deep venous thrombosis TECHNIQUE: Hawthorne scale images without and with compression and Doppler images of the left lower extrem ity veins were obtained. COMPARISON: 09/16/2018 FINDINGS: There is partial thrombosis of the left common femoral and femoral veins. The left profunda femoral vein, popliteal vein, peroneal trunk, posterior tibial veins, and greater saphenous vein are patent. IMPRESSION: 1. Partial thrombosis of the left common femoral and femoral veins. These findings were discussed wit Dr. Belén Wheeler MD in the Emergency Department at 0820 hours on 10/22/2020 08:21 CDT. Reviewed, dictated and finalized at location A. IMPRESSION: 1. Partial thrombosis of the left common femoral and femoral veins. These findi ngs were discussed with Dr. Belén Wheeler MD in the Emergency Department at 08 20 hours on 10/22/2020 08:21 CDT.
--- NOTE | ~2020-10-22 | CT_ITS ---
EXAMINATION: CT brain wo con DATE: 10/29/2020 14:48 INDICATION: Slurred speech. Fall. TECHNIQUE: Computed tomography (CT) of the head was performed without intravenous contrast. The mA wa s adjusted according to patient size. Iterative reconstruction technique was employed. The dose-lengt h product was 605.33 mGy-cm. COMPARISON: Head CT 10/25/2020, 05/03/2018, brain MRI 10/26/2020 FINDINGS: There are old lacunar infarcts in the left basal ganglia and left internal capsule. There a re scattered areas of low attenuation in the cerebral white matter. There is an old infarct in right frontal lobe. There is a small area of cystic encephalomalacia in the left frontal lobe deep white ma tter. There is no intracranial hemorrhage, acute infarction, or abnormal intracranial mass lesion. Th ere is ex vacuo dilatation of body of left lateral ventricle. There are likely changes of ocular lens replacement surgeries. There is a 10 x 6 mm mass in the intraconal left orbit inferior to the optic nerve. There is mild mucosal thickening in the paranasal sinuses. The mastoid air cells are normal. IMPRESSION: 1. 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 2. Stable moderate nonspecific cerebral white matter disease, which likely represents chronic small v essel ischemic disease. 3. 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 Reviewed, dictated and finalized at location A. IMPRESSION: 1. Old infarcts involving the left basal ganglia, left internal capsule, and bi lateral frontal lobes. 2. Stable moderate nonspecific cerebral white matter disease, which likely repr esents chronic small vessel ischemic disease. 3. 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
--- NOTE | 2020-10-22 06:40 | ECG_ITS ---
Measurements Intervals [place] Rate: 96 P: [place]: 0 QRS: -23 QRSD: 86 T: 61 QT: 338 QTc: 428 Interpretive Statements ATRIAL FIBRILLATION VENTRICULAR PREMATURE COMPLEX BORDERLINE R WAVE PROGRESSION, ANTERIOR LEADS BASELINE ARTIFACT- I, II, III, AVR, AVL, AVF, V1-V3, V6 ABNORMAL ECG Electronically Signed On 10-22-2020 8:22:32 CDT by Alfonso Ascencio D.O.
--- NOTE | 2020-10-22 07:16 | ED.GENADULT ---
HPI - General Adult General Chief complaint: Shortness of Breath/Dyspnea Stated complaint: sob/dizziness Time Seen by Provider: 10/22/20 07:03 Source: patient History of Present Illness HPI narrative: Patient is a 80 y/o female complaining of severe SOB starting today. She states her SOB is improved after Neb treatment. She has some cough. She has no fever or chest pain. She also has some chronic left leg swelling. Related Data Home Medications Medication Instructions Recorded Confirmed anastrozole 1 mg tablet 1 mg PO DAILY 03/01/20 09/03/20 pantoprazole 40 mg PO BID 04/18/20 09/03/20 Basaglar KwikPen U-100 Insulin 20 unit SUBCUT QPM 09/03/20 09/03/20 Trulicity 1.5 mg SUBCUT WEEKLY 09/03/20 09/03/20 docusate sodium 100 mg PO BID PRN 09/03/20 09/03/20 ergocalciferol (vitamin D2) 1,250 mcg PO WEEKLY 09/03/20 09/03/20 [Vitamin D2] nystatin 1 applic TOPICAL BID PRN 09/03/20 09/03/20 ferrous sulfate 325 mg PO BID 10/22/20 [id number] 1 inh INHALATION DAILY 10/22/20 [Trelegy Ellipta] metoprolol tartrate 75 mg PO BID 10/22/20 Allergies Allergy/AdvReac Type Severity Reaction Status Date / Time metformin Allergy Mild GI upset Verified 09/03/20 17:53 sitagliptin Allergy Mild rhinitis Verified 09/03/20 17:53 amlodipine Allergy Unknown Constipatio Verified 09/03/20 17:53 n aspirin Allergy Unknown Ulcers Verified 09/03/20 17:53 lisinopril Allergy Unknown Cough Verified 09/03/20 17:53 losartan Allergy Unknown Wheezing Verified 09/03/20 17:53 morphine AdvReac Confusion Verified 09/03/20 17:53 Review of Systems Constitutional: Constitutional: Denies chills, Denies fever(s), Denies headache(s) and Denies weakness Eyes: Eyes: Denies blurry vision ENT: Denies headache(s) and Denies neck pain Cardiovascular: Cardiovascular: Denies chest pain and Reports dyspnea Respiratory: Respiratory: Reports cough and Reports dyspnea Gastrointestinal: Gastrointestinal: Denies abdominal pain, Denies diarrhea, Denies nausea and Denies vomiting Genitourinary: Genitourinary: Denies hematuria and Denies dysuria Musculoskeletal: Musculoskeletal: Denies back pain and Denies neck pain Neurologic: Denies headache(s) and Denies weakness PMFSH Past Medical History Medical History Anemia Cancer of left breast (~02/2018) Moderately differentiated invasive lobular carcinoma (ER/[place]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 Also treated with aromatase inhibitors and Herceptin. Cerebrovascular accident (~01/2020) Duodenal ulcer (~05/2018) GI bleed (~05/2018) Acute duodenal ulcers and gastritis on EGD per Dr. Shea. Hypertension Insulin dependent type 2 diabetes mellitus Left leg DVT (~2018) Status post IVC filter insertion. Obstructive sleep apnea Does not use CPAP but apparently wears oxygen at nighttime. Osteoarthritis Paroxysmal atrial fibrillation Shingles (~2001) Surgical History Surgical History History of bilateral cataract extraction History of bilateral mastectomy For left-sided breast cancer. Negative margins but 1 lymph node demonstrated micrometastases. History of cholecystectomy History of hysterectomy History of orthopedic surgery ORIF right ankle fracture. Right hip bipolar hemiarthroplasty after fracture. History of repair of right rotator cuff Presence of inferior vena cava filter Family History Family History Sibling Family history of glaucoma Mother Family history of diabetes mellitus in first degree relative History of mastectomy Smoker Father Family history of Alzheimer's disease Other Asthma Carcinoma of colon Diabetes mellitus Family history of congestive heart failure Family history of lung cancer Soci
[2020-10-22 07:25] LABS: Basophils Percent Auto 0.5 % (0.2-1.2); Eosinophils Absolute Auto 0.2 K/mm3 (0-0.3); Eosinophils Percent Auto 3.1 % (0-4.4); Hematocrit 38.8 % (37.0-47.0); Hemoglobin 11.5 g/dL (12.0-15.0); Immature Granulocyte Absolute 0.02 K/mm3 (0.00-0.031); Immature Granulocyte Percent A 0.3 % (0-0.5); Lymphocytes Absolute Auto 1.49 K/mm3 (0.9-3.2); Lymphocytes Percent Auto 19.1 % (18.3-44.2); Mean Corpuscular HGB Conc 29.6 g/dl (32-36); Mean Corpuscular Hemoglobin 26.2 pg (26-34); Mean Corpuscular Volume 88.4 fl (80-100); Mean Platelet Volume 9.9 fl (7.4-10.4); Monocytes Absolute Auto 0.7 K/mm3 (0.1-0.6); Monocytes Percent Auto 9.5 % (2.6-8.5); Neutrophils Absolute Auto 5.3 K/mm3 (1.3-6.7); Neutrophils Percent Auto 67.5 % (45.5-73.1); Platelet Count Result 238 k/mm3 (150-375); Red Blood Count 4.39 M/mm3 (4.2-5.4); White Blood Count 7.8 K/mm3 (4.5-10.0)
[2020-10-22 07:34] LABS: Anion Gap 6 mmol/L (8-16); Blood Urea Nitrogen 12 mg/dL (7-17); Carbon Dioxide 34 mmol/L (22-30); Chloride 96 mmol/L (98-107); Estimated CRCL calculation 68 ml/min; Estimated Glomerular Filt Rate > 60; Glucose 151 mg/dL (65-105); Potassium 3.8 mmol/L (3.4-5.0); Sodium 136 mmol/L (137-145)
[2020-10-22 07:47] LABS: Hypochromasia 1+ (NORMAL); Platelet Estimate Adequate (Adequate)
[2020-10-22 09:29] LABS: D Dimer 0.34 ug/mL (<0.48)
--- NOTE | 2020-10-22 11:19 | PC.NURSE ---
pts sat 89-90 room air. pursed lip breathing noted. pt having difficulty conversing. per family states pt will normally wheel herself around in a wheelchair but was unable to do that yesterday and today due to difficulty breathing. pt states can notice resp ease with o2 in place. edp informed.
[2020-10-22] MEDS: methylPREDNISolone SOD SUCC 125 MG VIAL IV PUSH (11:41)
[2020-10-22] MEDS: ALBUTEROL SULFATE NEB 2.5 MG/0.5 ML INH INHALATION ×2 (11:45→19:55)
[2020-10-22] MEDS: IPRATROPIUM BR 0.02% INH SOLN 0.5 MG/2.5 ML VIAL INHALATION ×2 (11:45→21:07)
--- NOTE | 2020-10-22 15:17 | ADMGEN ---
This patient, Alexus Ferrer, was admitted to 3 Med Surg Room 319-01 @ 1886. Patient/family oriented to hospital policies and general routines including ID bracelet, bed and alarms, visiting hours, pain management, procedures, bathroom and other care routines, personal items, smoking policy, room service/diet, and visiting hours. Information on how to activate the Rapid Response Team has been discussed. Patient/Family are encouraged to report perceived risks to care and to ask questions if they do not understand what they are told or what they should do.
--- NOTE | 2020-10-22 15:56 | PM.IMHP ---
H&P: HPI History of Present Illness Date/Time: 10/22/20 15:56 this is a 80-year-old female patient who has a past medical history of COPD. The patient resides at assisted living. The patient stated that she started feeling short of breath this morning. She stated that she has sleep apnea but she is not quite sure how to use her machine. The patient stated that she went to bed without on but then when she woke up it was off of her. The patient was placed on oxygen when she arrived at the emergency room and she was given a nebulizer treatment. She stated that she felt better after the nebulizer treatment. When I approached her in the emergency room the patient had her oxygen pulled off and stated that she was here for her congestive heart failure. Stated that she feels like she is ?drowning?. Chest x-ray was read as bibasilar airspace opacities, consistent with atelectasis versus pneumonia. Stable cardiomegaly. The patient had a venous Doppler performed that shows partial thrombosis of the left common femoral and femoral veins. These findings were thought to be old as the patient is already anticoagulated. The patient was started on Solu-Medrol and neb treatments. The patient is being admitted to inpatient status on the date of service of 10/22/2020. Chief Complaint: Respiratory failure Review of Systems Review of Systems: All systems reviewed & are unremarkable except as noted in HPI and below Constitutional: Constitutional: Reports as per HPI and Reports no additional constitutional complaints Eyes: Eyes: Reports as per HPI and Reports no additional eye complaints ENT: Reports system reviewed and no additional complaints, except as documented and Reports Normal hearing present Cardiovascular: Cardiovascular: Reports no additional cardiovascular complaints Respiratory: Respiratory: Reports no additional respiratory complaints and Reports no additional respiratory complaints Gastrointestinal: Gastrointestinal: Reports as per HPI and Reports no additional gastrointestinal complaints Musculoskeletal: Musculoskeletal: Reports no additional musculoskeletal complaints Integumentary/Breasts: Skin/Breast: Reports system reviewed and no additional complaints, except as docu and Reports as per HPI Neurologic: Reports system reviewed and no additional complaints, except as documented, Reports as per HPI and Reports Normal hearing present Psychiatric: Psychiatric: Reports no additional psychiatric complaints and Reports as per HPI Endocrine: Endocrine: Reports no additional endocrine complaints Hematologic/Lymphatic: Hematologic/Lymphatic: Reports no additional hematologic/lymphatic complaints Allergic/Immunologic: Allergic/Immunologic: Reports no additional allergic/immunologic complaints [facility] Past Medical History Medical History (Updated 10/22/20 @ 16:19 by Melissa Whiteside NP) Anemia Cancer of left breast (~02/2018) Moderately differentiated invasive lobular carcinoma (ER/CA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 Also treated with aromatase inhibitors and Herceptin. Cerebrovascular accident (~01/2020) CHF (congestive heart failure), NYHA class I COPD (chronic obstructive pulmonary disease) Duodenal ulcer (~05/2018) GI bleed (~05/2018) Acute duodenal ulcers and gastritis on EGD per Dr. Shea. Hypertension Insulin dependent type 2 diabetes mellitus Left leg DVT (~2018) Status post IVC filter insertion. Obstructive sleep apnea Does not use CPAP but apparently wears oxygen at nighttime. Osteoarthritis Paroxysmal atrial fibrillation Shingles (~2001) Surgical History Surgical History History of bilateral cataract extraction History of bilateral mastectomy For left-sided breast cancer. Negative margins but 1 lymph node demonstrated micrometastases. History of cholecys
[2020-10-22] MEDS: FERROUS SULFATE 324 MG TABLET PO (17:13)
[2020-10-22] MEDS: PANTOPRAZOLE 40 MG TABLET PO (17:13)
[2020-10-22] MEDS: SENNOSIDES 8.6 MG TABLET PO (17:13)
[2020-10-22] MEDS: methylPREDNISolone SOD SUCC 125 MG VIAL 80 MG IV PUSH ×2 (17:13→23:21)
[2020-10-22] MEDS: APIXABAN 5 MG TABLET PO (17:13)
[2020-10-22] MEDS: FUROSEMIDE INJ 40 MG/4 ML VIAL IV PUSH (17:14)
[2020-10-22] MEDS: polyethylene glycoL 3350 17 GM POWD.PACK PO (17:14)
[2020-10-22] MEDS: INSULIN GLARGINE (*BKC) 100 UNITS/ML 20 UNITS SUB-Q (17:17)
[2020-10-22 17:25] LABS: Glucose Point of Care 152 mg/dl (65-105)
[2020-10-22] MEDS: METOPROLOL TARTRATE 25 MG TABLET 75 MG PO (21:03)
[2020-10-22 21:17] LABS: Glucose Point of Care 388 mg/dl (65-105)
[2020-10-23] VITALS (18 sets, daily range): BP systolic 129–138; BP diastolic 71–86; PULSE 75–109; RESP 18–20; TEMP 36.3–36.5; O2SAT 91–98
[2020-10-23] MEDS: IPRATROPIUM BR 0.02% INH SOLN 0.5 MG/2.5 ML VIAL INHALATION ×4 (01:52→20:11)
[2020-10-23] MEDS: methylPREDNISolone SOD SUCC 125 MG VIAL 80 MG IV PUSH (05:56)
[2020-10-23 06:34] LABS: Basophils Percent Auto 0.1 % (0.2-1.2); Hematocrit 39.3 % (37.0-47.0); Hemoglobin 11.3 g/dL (12.0-15.0); Immature Granulocyte Absolute 0.04 K/mm3 (0.00-0.031); Immature Granulocyte Percent A 0.5 % (0-0.5); Immature Platelet Fraction Pct 4.6 % (0.9-11.2); Lymphocytes Absolute Auto 0.64 K/mm3 (0.9-3.2); Lymphocytes Percent Auto 8.4 % (18.3-44.2); Mean Corpuscular HGB Conc 28.8 g/dl (32-36); Mean Corpuscular Volume 90.3 fl (80-100); Mean Platelet Volume 10.7 fl (7.4-10.4); Monocytes Absolute Auto 0.2 K/mm3 (0.1-0.6); Monocytes Percent Auto 2.5 % (2.6-8.5); Neutrophils Absolute Auto 6.7 K/mm3 (1.3-6.7); Neutrophils Percent Auto 88.5 % (45.5-73.1); Red Blood Count 4.35 M/mm3 (4.2-5.4); Red Cell Distribution Width 17.1 % (11.5-14.5); White Blood Count 7.6 K/mm3 (4.5-10.0)
[2020-10-23 06:40] LABS: Alanine Aminotransferase 31 U/L (4-35); Albumin Level 3.5 g/dL (3.5-5.1); Alkaline Phosphatase 76 U/L (38-126); Anion Gap 8 mmol/L (8-16); Aspartate Amino Transferase 26 U/L (14-36); Bilirubin,Total 0.6 mg/dL (0.2-1.3); Blood Urea Nitrogen 20 mg/dL (7-17); Calcium 8.9 mg/dL (8.4-10.2); Carbon Dioxide 32 mmol/L (22-30); Chloride 96 mmol/L (98-107); Estimated CRCL calculation 70 ml/min; Estimated Glomerular Filt Rate > 60; Glucose 337 mg/dL (65-105); Magnesium 1.8 mg/dL (1.6-2.3); Potassium 4.7 mmol/L (3.4-5.0); Sodium 136 mmol/L (137-145)
[2020-10-23 06:53] LABS: Hemoglobin A1C 7.3 % (<5.7)
[2020-10-23 06:59] LABS: Platelet Clumps Present; Platelet Estimate Adequate (Adequate)
[2020-10-23 07:00] LABS: Anisocytosis 2+ (NORMAL)
[2020-10-23 08:36] LABS: Glucose Point of Care 298 mg/dl (65-105)
[2020-10-23] MEDS: INSULIN ASPART (*BKC) 100 UNITS/ML SUB-Q ×2 (09:12→13:14)
[2020-10-23] MEDS: ASPIRIN 81 MG ENTERIC TABLET PO (09:53)
[2020-10-23] MEDS: MECLIZINE HCL 12.5 MG TABLET PO (09:53)
[2020-10-23] MEDS: SENNOSIDES 8.6 MG TABLET PO ×2 (09:53→17:37)
[2020-10-23] MEDS: PANTOPRAZOLE 40 MG TABLET PO ×2 (09:53→17:37)
[2020-10-23] MEDS: METOPROLOL TARTRATE 25 MG TABLET 75 MG PO ×2 (09:53→21:15)
[2020-10-23] MEDS: FUROSEMIDE INJ 40 MG/4 ML VIAL IV PUSH (09:54)
[2020-10-23] MEDS: FERROUS SULFATE 324 MG TABLET PO ×2 (09:54→17:37)
[2020-10-23] MEDS: ANASTROZOLE (*CHEMO) 1 MG TABLET PO (09:54)
[2020-10-23] MEDS: polyethylene glycoL 3350 17 GM POWD.PACK PO ×2 (09:54→17:38)
[2020-10-23] MEDS: APIXABAN 5 MG TABLET PO (09:54)
[2020-10-23] MEDS: CYANOCOBALAMIN 1,000 MCG TABLET 1000 MCG PO (09:54)
[2020-10-23] MEDS: ATORVASTATIN 40 MG TABLET PO (09:54)
--- NOTE | 2020-10-23 10:20 | PM.IMPN ---
Progress Note: A&P Assessment and Plan (1) Pulmonary embolism: Code(s): I26.99 - Other pulmonary embolism without acute cor pulmonale Status: Acute Assessment and Plan: CT shows a small PE, unlikely to be fully causing her hypoxia but could be contributing -Pt is unsure about her home meds but I called the assisted living who stated she has been getting the eliquis since last year -She has a left LE DVT and I called radiology to compare it to the u/s in 2019 and they are not certain if it is new or old. It is in the same area. -Pt has an IVC filter -Continue o2 as needed and wean -Consult Dr. Hwang. Unclear if this is new or old. If new, may have to transition to lovenox/warfarin. But this very well could be old. (2) Acute respiratory failure with hypoxia: Code(s): J96.01 - Acute respiratory failure with hypoxia Status: Acute Assessment and Plan: Most likely related to her COPD and above -Continue o2 for sats >90 -The patient also has obstructive sleep apnea -Continue lasix 40mg IV daily as pt has pleural effusions -Continue solumedrol 60mg but change to every 8 hours and colleen -no signs of PNA at this time (3) COPD (chronic obstructive pulmonary disease): Code(s): J44.9 - Chronic obstructive pulmonary disease, unspecified Status: Acute Assessment and Plan: Continue atrovent, trelegy, and xopenex (4) CHF (congestive heart failure), NYHA class I: Code(s): I50.9 - Heart failure, unspecified Status: Chronic Assessment and Plan: Slightly fluid overloaded -Continue 40mg IV lasix. -she usually takes 20mg daily at home -echo shows: 1. Normal left ventricular size with moderate concentric hypertrophy. Diastolic dysfunction is present. Good left ventricular systolic function with no segmental wall motion abnormalities. Calculated ejection fraction 63%, visually 65-70%. 2. Right ventricular chamber is not well seen but appears to be mildly enlarged with normal contractility. 3. Mild pulmonary hypertension, estimated pulmonary arterial systolic pressure is 36 mmHg. 4. Left atrial chamber dimension is mildly enlarged. 5. Borderline dilatation of the sinuses of Valsalva, 3.5 cm. 6. There is mild aortic valve calcification, without stenosis. 7. Technically difficult difficult study, definity echo contrast used. 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 -A venous Doppler was performed today Partial thrombosis of the left common femoral and femoral veins. 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 Will monitor trends -continue lantus 20u -Will add diabetic diet (7) Hypertension: Code(s): I10 - Essential (primary) hypertension Status: Chronic Assessment and Plan: Last bp 138/74 -Continue with metoprolol and lasix (8) Atrial fibrillation: Code(s): I48.91 - Unspecified atrial fibrillation Status: Chronic Assessment and Plan: Rate controlled -Continue with metoprolol and Eliquis Time Spent With Patient Time with patient: 25 - 35 minutes Subjective Date/time seen: 10/23/20 10:20 Interval history: Pt is a 80 y/o
[2020-10-23 12:34] LABS: Glucose Point of Care 315 mg/dl (65-105)
--- NOTE | 2020-10-23 12:45 | PDONCCN ---
HPI - Date of Consult Date/Time: 10/23/20 12:45 Requesting Physician: Glenna Ching PA-C Primary Care Provider: Chicho Joy MD - Consult Narrative Reason for consult: Breast cancer and hypercoagulable state Narrative: Alexus Ferrer is a 80 year old female with history of early stage breast cancer status post bilateral mastectomy as well as history of COPD. Patient also has a history of lower extremity DVT and status post IVC filter placement. She was seen in the office recently and was found to have quite short of breath. CT chest was done on October 22 that showed mild pleural effusion with mild right lower lobe pulmonary embolism. Doppler study showed partial thrombosis of the left common femoral and femoral vein. She [facility]. Denies any bleeding including melena hematochezia. She has gained significant amount of weight in last 6 months duration. She is currently on oxygen. Her breathing has improved. 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 Also treated with aromatase inhibitors and Herceptin. Cerebrovascular accident Onset Date: ~01/2020 CHF (congestive heart failure), NYHA class I COPD (chronic obstructive pulmonary disease) Duodenal ulcer Onset Date: ~05/2018 GI bleed Onset Date: ~05/2018 Acute duodenal ulcers and gastritis on EGD per Dr. Shea. Hypertension Insulin dependent type 2 diabetes mellitus Left leg DVT Onset Date: ~2018 Status post IVC filter insertion. Obstructive sleep apnea Does not use CPAP but apparently wears oxygen at nighttime. Osteoarthritis Paroxysmal atrial fibrillation Shingles Onset Date: ~2001 Surgical History: Surgical History (Last Reviewed 10/22/20 @ 16:19 by Melissa Whiteside NP) History of bilateral cataract extraction History of bilateral mastectomy For left-sided breast cancer. Negative margins but 1 lymph node demonstrated micrometastases. History of cholecystectomy History of hysterectomy History of orthopedic surgery ORIF right ankle fracture. Right hip bipolar hemiarthroplasty after fracture. History of repair of right rotator cuff Presence of inferior vena cava filter Family History: Family History (Last Reviewed 10/22/20 @ 16:21 by Melissa Whiteside NP) Sibling Family history of glaucoma Mother Family history of diabetes mellitus in first degree relative History of mastectomy Smoker Father Family history of Alzheimer's disease Other Asthma Carcinoma of colon Diabetes mellitus Family history of congestive heart failure Family history of lung cancer - Social History Social History: Social History (Last Updated 10/22/20 @ 16:20 by Melissa Whiteside NP) Gender Identity: Gender identity (if verbalized by the patient): Female Alcohol Use: Alcohol intake: current Drinks per week: 2 Substance Use: Substance use: never Others: Spiritual care concerns: No Smoking Status: Smoking status: Former smoker Tobacco type: cigarettes Second hand tobacco smoke exposure: Yes Approximate Smoking End Date: 2016 Smoking Pack-years: Smoking packs per day: 0.3 Smoking cigarettes per day: 6.0 Years smoked: 1 Smoking pack-years: 0.30 Meds Home Medications Medication Instructions Recorded Confirmed Type acetaminophen 325 mg tabl
[2020-10-23] MEDS: methylPREDNISolone SOD SUCC 125 MG VIAL 60 MG IV PUSH ×2 (13:15→21:14)
--- NOTE | 2020-10-23 13:54 | P.CDI_ITS ---
CDI Query Clarification Request 1) -COPD has been documented -Acute respiratory failure with hypoxia and most likely related to her COPD and above(PE) has been documented -Solu Medrol 60mg IV q 8 hrs ordered and continue Atrovent, trelegy and Xopenex documented. Please clarify if COPD is: * Exacerbated * Stable * Unable to determine 2) -CHF has been documented -Slightly fluid overloaded and continue 40mg IV Lasix documented -echo shows: 1. Normal left ventricular size with moderate concentric hypertrophy. Diastolic dysfunction is present. Good left ventricular systolic function with no segmental wall motion abnormalities. Calculated ejection fraction 63%, visually 65-70%. 2. Right ventricular chamber is not well seen but appears to be mildly enlarged with normal contractility. 3. Mild pulmonary hypertension, estimated pulmonary arterial systolic pressure is 36 mmHg. 4. Left atrial chamber dimension is mildly enlarged. 5. Borderline dilatation of the sinuses of Valsalva, 3.5 cm. 6. There is mild aortic valve calcification, without stenosis. 7. Technically difficult difficult study, definity echo contrast used. -Coders cannot code type of CHF from echo results Please further specify type and acuity of CHF: * Systolic *Acute * Diastolic *Chronic * Both Systolic and diastolic *Acute on Chronic * Unable to determine *Unable to determine
[2020-10-23 14:24] LABS: Mean Platelet Volume 9.9 fl (7.4-10.4); Platelet Count Result 291 k/mm3 (150-375)
[2020-10-23 17:37] LABS: Glucose Point of Care 163 mg/dl (65-105)
[2020-10-23] MEDS: INSULIN GLARGINE (*BKC) 100 UNITS/ML 20 UNITS SUB-Q (17:38)
[2020-10-23] MEDS: ENOXAPARIN 120 MG/0.8 ML SYRINGE 105 MG SUB-Q (21:15)
[2020-10-23 21:45] LABS: Glucose Point of Care 270 mg/dl (65-105)
[2020-10-24] VITALS (22 sets, daily range): BP systolic 125–141; BP diastolic 59–94; PULSE 71–110; RESP 18–22; TEMP 36.4–36.6; O2SAT 75–99
[2020-10-24] MEDS: IPRATROPIUM BR 0.02% INH SOLN 0.5 MG/2.5 ML VIAL INHALATION ×4 (01:48→20:14)
[2020-10-24] MEDS: methylPREDNISolone SOD SUCC 125 MG VIAL 60 MG IV PUSH (05:45)
[2020-10-24 06:39] LABS: Anion Gap 5 mmol/L (8-16); Blood Urea Nitrogen 26 mg/dL (7-17); Calcium 8.8 mg/dL (8.4-10.2); Carbon Dioxide 39 mmol/L (22-30); Chloride 93 mmol/L (98-107); Estimated CRCL calculation 61 ml/min; Estimated Glomerular Filt Rate > 60; Glucose 263 mg/dL (65-105); Magnesium 2.1 mg/dL (1.6-2.3); Potassium 4.8 mmol/L (3.4-5.0); Sodium 137 mmol/L (137-145)
[2020-10-24 06:41] LABS: Hematocrit 37.7 % (37.0-47.0); Hemoglobin 11.3 g/dL (12.0-15.0); Mean Corpuscular Hemoglobin 26.5 pg (26-34); Mean Corpuscular Volume 88.3 fl (80-100); Mean Platelet Volume 9.8 fl (7.4-10.4); Platelet Count Result 260 k/mm3 (150-375); Red Blood Count 4.27 M/mm3 (4.2-5.4); Red Cell Distribution Width 17.2 % (11.5-14.5); White Blood Count 12.4 K/mm3 (4.5-10.0)
[2020-10-24 08:19] LABS: Glucose Point of Care 245 mg/dl (65-105)
[2020-10-24] MEDS: polyethylene glycoL 3350 17 GM POWD.PACK PO ×2 (08:47→17:48)
[2020-10-24] MEDS: ENOXAPARIN 120 MG/0.8 ML SYRINGE 105 MG SUB-Q ×2 (08:48→20:03)
[2020-10-24] MEDS: ASPIRIN 81 MG ENTERIC TABLET PO (08:49)
[2020-10-24] MEDS: CYANOCOBALAMIN 1,000 MCG TABLET 1000 MCG PO (08:49)
[2020-10-24] MEDS: FERROUS SULFATE 324 MG TABLET PO ×2 (08:49→17:48)
[2020-10-24] MEDS: ANASTROZOLE (*CHEMO) 1 MG TABLET PO (08:49)
[2020-10-24] MEDS: SENNOSIDES 8.6 MG TABLET PO ×2 (08:49→17:48)
[2020-10-24] MEDS: METOPROLOL TARTRATE 25 MG TABLET 75 MG PO ×2 (08:49→20:03)
[2020-10-24] MEDS: MECLIZINE HCL 12.5 MG TABLET PO (08:49)
[2020-10-24] MEDS: ATORVASTATIN 40 MG TABLET PO (08:49)
[2020-10-24] MEDS: PANTOPRAZOLE 40 MG TABLET PO ×2 (08:50→17:48)
[2020-10-24] MEDS: FUROSEMIDE INJ 40 MG/4 ML VIAL IV PUSH ×2 (08:51→17:48)
[2020-10-24] MEDS: INSULIN ASPART (*BKC) 100 UNITS/ML SUB-Q ×3 (09:00→17:48)
[2020-10-24 12:07] LABS: Glucose Point of Care 421 mg/dl (65-105)
[2020-10-24 12:54] LABS: Glucose Point of Care 383 mg/dl (65-105)
--- NOTE | 2020-10-24 14:02 | PM.IMPN ---
Progress Note: A&P Assessment and Plan (1) Pulmonary embolism: Code(s): I26.99 - Other pulmonary embolism without acute cor pulmonale Status: Acute Assessment and Plan: CT shows a small PE, unlikely to be fully causing her hypoxia but could be contributing -Pt is unsure about her home meds but I called the assisted living who stated she has been getting the eliquis since last year -She has a left LE DVT and I called radiology to compare it to the [facility] in 2019 and they are not certain if it is new or old. It is in the same area. -Pt has an IVC filter -Continue o2 as needed and wean. Will need home oxygen evaluation -Eliquis has been changed to Lovenox per Dr. Hwang (2) Acute respiratory failure with hypoxia: Code(s): J96.01 - Acute respiratory failure with hypoxia Status: Acute Assessment and Plan: Most likely related to her COPD and above -Continue o2 for sats >90 -The patient also has obstructive sleep apnea -Continue lasix but increase frequency -Continue solumedrol but taper down dose today -no signs of PNA at this time (3) COPD (chronic obstructive pulmonary disease): Code(s): J44.9 - Chronic obstructive pulmonary disease, unspecified Status: Acute Assessment and Plan: With exacerbation. Continue atrovent, trelegy, and xopenex (4) CHF (congestive heart failure), NYHA class I: Code(s): I50.9 - Heart failure, unspecified Status: Chronic Assessment and Plan: Slightly fluid overloaded -Continue 40mg but switch to 40 mg b.i.d. -she usually takes 20mg daily at home -echo shows: 1. Normal left ventricular size with moderate concentric hypertrophy. Diastolic dysfunction is present. Good left ventricular systolic function with no segmental wall motion abnormalities. Calculated ejection fraction 63%, visually 65-70%. 2. Right ventricular chamber is not well seen but appears to be mildly enlarged with normal contractility. 3. Mild pulmonary hypertension, estimated pulmonary arterial systolic pressure is 36 mmHg. 4. Left atrial chamber dimension is mildly enlarged. 5. Borderline dilatation of the sinuses of Valsalva, 3.5 cm. 6. There is mild aortic valve calcification, without stenosis. 7. Technically difficult difficult study, definity echo contrast used. 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 Status: Acute Assessment and Plan: Last glucose 383 likely elevated due to steriods -I have increased the sliding scale more today Will monitor trends -continue lantus but increase to 30u daily -continue diabetic diet -A1c 7.3 (7) Hypertension: Code(s): I10 - Essential (primary) hypertension Status: Chronic Assessment and Plan: Last bp 136/81 -Continue with metoprolol and lasix (8) Atrial fibrillation: Code(s): I48.91 - Unspecified atrial fibrillation Status: Chronic Assessment and Plan: Rate controlled -Continue with metoprolol and lovenox Subjective Date/time seen: 10/24/20 14:02 Interval history: Pt is a 80 y/o female here for SOB. Patient was seen today and does not feel short of breath at rest but does have a little dyspnea on exertion. She has no chest pa
[2020-10-24 17:15] LABS: Glucose Point of Care 347 mg/dl (65-105)
[2020-10-24] MEDS: FLUTICASONE/UMECLIDIN/VILANTER 100-62.5-25 MCG ELLIPTA 1 PUFF INHALATION (17:49)
[2020-10-24] MEDS: INSULIN GLARGINE (*BKC) 100 UNITS/ML 30 UNITS SUB-Q (17:49)
[2020-10-25] VITALS (15 sets, daily range): BP systolic 109–129; BP diastolic 64–71; PULSE 77–98; RESP 16–20; TEMP 35.9–36.7; O2SAT 84–98
[2020-10-25] MEDS: IPRATROPIUM BR 0.02% INH SOLN 0.5 MG/2.5 ML VIAL INHALATION ×4 (01:45→21:19)
[2020-10-25 04:43] LABS: Glucose Point of Care 316 mg/dl (65-105)
[2020-10-25 06:24] LABS: Basophils Percent Auto 0.2 % (0.2-1.2); Eosinophils Percent Auto 0.4 % (0-4.4); Hematocrit 38.4 % (37.0-47.0); Hemoglobin 10.9 g/dL (12.0-15.0); Immature Granulocyte Absolute 0.04 K/mm3 (0.00-0.031); Immature Granulocyte Percent A 0.4 % (0-0.5); Lymphocytes Absolute Auto 1.86 K/mm3 (0.9-3.2); Lymphocytes Percent Auto 19.2 % (18.3-44.2); Mean Corpuscular HGB Conc 28.4 g/dl (32-36); Mean Corpuscular Hemoglobin 26.1 pg (26-34); Mean Corpuscular Volume 91.9 fl (80-100); Mean Platelet Volume 9.9 fl (7.4-10.4); Monocytes Percent Auto 10.1 % (2.6-8.5); Neutrophils Absolute Auto 6.7 K/mm3 (1.3-6.7); Neutrophils Percent Auto 69.7 % (45.5-73.1); Platelet Count Result 213 k/mm3 (150-375); Red Blood Count 4.18 M/mm3 (4.2-5.4); Red Cell Distribution Width 17.2 % (11.5-14.5); White Blood Count 9.7 K/mm3 (4.5-10.0)
[2020-10-25 06:46] LABS: Blood Urea Nitrogen 30 mg/dL (7-17); Calcium 8.6 mg/dL (8.4-10.2); Carbon Dioxide > 40 mmol/L (22-30); Chloride 94 mmol/L (98-107); Estimated CRCL calculation 61 ml/min; Estimated Glomerular Filt Rate > 60; Glucose 91 mg/dL (65-105); Magnesium 2.1 mg/dL (1.6-2.3); Potassium 4.1 mmol/L (3.4-5.0); Sodium 140 mmol/L (137-145)
[2020-10-25 08:22] LABS: Glucose Point of Care 78 mg/dl (65-105)
[2020-10-25 09:20] LABS: Glucose Point of Care 106 mg/dl (65-105)
[2020-10-25] MEDS: polyethylene glycoL 3350 17 GM POWD.PACK PO ×2 (09:22→18:07)
[2020-10-25] MEDS: FLUTICASONE/UMECLIDIN/VILANTER 100-62.5-25 MCG ELLIPTA 1 PUFF INHALATION (09:22)
[2020-10-25] MEDS: METOPROLOL TARTRATE 25 MG TABLET 75 MG PO (09:23)
[2020-10-25] MEDS: ENOXAPARIN 120 MG/0.8 ML SYRINGE 105 MG SUB-Q ×2 (09:23→20:39)
[2020-10-25] MEDS: CYANOCOBALAMIN 1,000 MCG TABLET 1000 MCG PO (09:24)
[2020-10-25] MEDS: ANASTROZOLE (*CHEMO) 1 MG TABLET PO (09:24)
[2020-10-25] MEDS: SENNOSIDES 8.6 MG TABLET PO ×2 (09:24→18:07)
[2020-10-25] MEDS: ASPIRIN 81 MG ENTERIC TABLET PO (09:24)
[2020-10-25] MEDS: FERROUS SULFATE 324 MG TABLET PO ×2 (09:24→18:06)
[2020-10-25] MEDS: ATORVASTATIN 40 MG TABLET PO (09:24)
[2020-10-25] MEDS: methylPREDNISolone SOD SUCC 125 MG VIAL 60 MG IV PUSH (09:25)
[2020-10-25] MEDS: PANTOPRAZOLE 40 MG TABLET PO ×2 (09:25→18:07)
[2020-10-25] MEDS: FUROSEMIDE INJ 40 MG/4 ML VIAL IV PUSH (09:25)
[2020-10-25 12:09] LABS: Glucose Point of Care 161 mg/dl (65-105)
[2020-10-25] MEDS: MECLIZINE HCL 12.5 MG TABLET PO (12:32)
[2020-10-25] MEDS: ONDANSETRON INJ 4 MG/2 ML VIAL IV PUSH (12:33)
[2020-10-25 12:56] LABS: Alveolar/Arterial O2 Gradient 51.6 mmHg; Base Excess ABG 15.5 mEq/l (+/-2.0); Carboxyhemoglobin 0.3 % THb (0-2.0); Fractional Inspired Oxygen 28 %; HCO3 ABG 43.2 mEq/l (22.0-26.0); Methemoglobin ABG 0.7 %THb (0-1.5); Oxygen Saturation ABG 93.2 % (95.0-100.0); Oxyhemoglobin 92.4 % THb (90.0-100.0); PO2 ABG 67.8 mmHg (80.0-100.0); PO2 FiO2 Ratio Arterial Blood 2.42 %; Reduced Hemoglobin 6.6 %THb (0-5.0); Total Hemoglobin 13.1 g/dL (12.0-18.0); pH ABG 7.421 (7.350-7.450)
[2020-10-25 12:59] LABS: Device NASAL CANNULA; Modified Allen's Test Pass; Site Drawn LEFT RADIAL
--- NOTE | 2020-10-25 13:08 | PM.IMPN ---
Progress Note: A&P Assessment and Plan (1) Acute metabolic encephalopathy: Code(s): G93.41 - Metabolic encephalopathy Status: Acute Assessment and Plan: New today, suspect due to CO2 retention and no using her cpap. Steroids could have worsened it. Glucose normal. -Will obtain UA to ensure no infection (no leukocytosis or fevers) -Will hold lasix and give one dose of diamox -encourage cpap with naps and at night -CT of the brain negative for bleed -Will order neuro checks -If this continues may consider MRI although I think it is more due to above (2) Pulmonary embolism: Code(s): I26.99 - Other pulmonary embolism without acute cor pulmonale Status: Acute Assessment and Plan: CT shows a small PE, unlikely to be fully causing her hypoxia but could be contributing -Pt is unsure about her home meds but I called the assisted living who stated she has been getting the Eliquis since last year -She has a left LE DVT and I called radiology to compare it to the u/s in 2019 and they are not certain if it is new or old. It is in the same area. -Pt has an IVC filter -Continue o2 as needed and wean. She needs 2L at rest and will go to SNF on this -Eliquis has been changed to Lovenox per Dr. Hwang (3) Acute respiratory failure with hypoxia: Code(s): J96.01 - Acute respiratory failure with hypoxia Status: Acute Assessment and Plan: Most likely related to her COPD and above -Continue o2 for sats >90 -The patient also has obstructive sleep apnea -will transition to oral steroids -no signs of PNA at this time (4) COPD (chronic obstructive pulmonary disease): Code(s): J44.9 - Chronic obstructive pulmonary disease, unspecified Status: Acute Assessment and Plan: With exacerbation. Continue atrovent, trelegy, and xopenex (5) CHF (congestive heart failure), NYHA class I: Code(s): I50.9 - Heart failure, unspecified Status: Chronic Assessment and Plan: Slightly fluid overloaded -Lasix now on hold. swelling improved. -she usually takes 20mg daily of lasix at home -echo shows: 1. Normal left ventricular size with moderate concentric hypertrophy. Diastolic dysfunction is present. Good left ventricular systolic function with no segmental wall motion abnormalities. Calculated ejection fraction 63%, visually 65-70%. 2. Right ventricular chamber is not well seen but appears to be mildly enlarged with normal contractility. 3. Mild pulmonary hypertension, estimated pulmonary arterial systolic pressure is 36 mmHg. 4. Left atrial chamber dimension is mildly enlarged. 5. Borderline dilatation of the sinuses of Valsalva, 3.5 cm. 6. There is mild aortic valve calcification, without stenosis. 7. Technically difficult difficult study, definity echo contrast used. 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 As above, radiology unable to determine if this is new or old (7) Insulin dependent type 2 diabetes mellitus: Code(s): E11.9 - Type 2 diabetes mellitus without complications; Z79.4 - [facility] (current) use of insulin Status: Acute Assessment and Plan: Last glucose 161 -Will decrease lantus back to home dose and continue SSI -continue diabetic diet -A1c 7.3 (8) Hypertension: Code(s): I10 - Essential (primary) hypertension Status: Chronic Assessment and Plan: Last bp 129/71 -Continue with metoprolol and lasix
[2020-10-25 14:05] LABS: Glucose Point of Care 196 mg/dl (65-105)
[2020-10-25] MEDS: acetaZOLAMIDE SODIUM FOR INJ 500 MG VIAL 250 MG IV PUSH (14:20)
[2020-10-25 17:39] LABS: Glucose Point of Care 249 mg/dl (65-105)
[2020-10-25] MEDS: INSULIN ASPART (*BKC) 100 UNITS/ML SUB-Q (18:11)
[2020-10-25] MEDS: INSULIN GLARGINE (*BKC) 100 UNITS/ML 20 UNITS SUB-Q (18:13)
[2020-10-25 21:00] LABS: Glucose Point of Care 379 mg/dl (65-105)
[2020-10-26] VITALS (16 sets, daily range): BP systolic 105–129; BP diastolic 59–76; PULSE 83–99; RESP 18–22; TEMP 36.1–36.9; O2SAT 91–98
[2020-10-26] MEDS: IPRATROPIUM BR 0.02% INH SOLN 0.5 MG/2.5 ML VIAL INHALATION ×4 (02:26→20:30)
[2020-10-26 05:32] LABS: Base Excess ABG 11.3 mEq/l (+/-2.0); Carboxyhemoglobin 0.3 % THb (0-2.0); Methemoglobin ABG 0.5 %THb (0-1.5)
[2020-10-26 06:20] LABS: Oxygen Saturation ABG 92.7 % (95.0-100.0); PO2 ABG 69.2 mmHg (80.0-100.0)
[2020-10-26 06:23] LABS: pH ABG 7.371 (7.350-7.450)
[2020-10-26 06:24] LABS: HCO3 ABG 39.1 mEq/l (22.0-26.0); PCO2 ABG 69.1 mmHg (35.0-45.0)
[2020-10-26 06:25] LABS: Total Hemoglobin 12.1 g/dL (12.0-18.0)
[2020-10-26 06:26] LABS: Alveolar/Arterial O2 Gradient 48.9 mmHg
[2020-10-26 06:27] LABS: Oxygen Content ABG 15.7 %vol (16.0-22.0); Oxyhemoglobin 92.1 % THb (90.0-100.0)
[2020-10-26 06:28] LABS: Reduced Hemoglobin 7.3 %THb (0-5.0)
[2020-10-26 06:29] LABS: Device NASAL CANNULA; Fractional Inspired Oxygen 28 %; Modified Allen's Test Pass; PO2 FiO2 Ratio Arterial Blood 2.47 %; Site Drawn RIGHT RADIAL
[2020-10-26 06:39] LABS: Eosinophils Percent Auto 0.3 % (0-4.4); Hematocrit 37.3 % (37.0-47.0); Hemoglobin 10.9 g/dL (12.0-15.0); Immature Granulocyte Absolute 0.02 K/mm3 (0.00-0.031); Immature Granulocyte Percent A 0.3 % (0-0.5); Lymphocytes Absolute Auto 1.46 K/mm3 (0.9-3.2); Lymphocytes Percent Auto 18.5 % (18.3-44.2); Mean Corpuscular HGB Conc 29.2 g/dl (32-36); Mean Corpuscular Hemoglobin 26.1 pg (26-34); Mean Corpuscular Volume 89.2 fl (80-100); Mean Platelet Volume 9.9 fl (7.4-10.4); Monocytes Absolute Auto 0.8 K/mm3 (0.1-0.6); Neutrophils Absolute Auto 5.6 K/mm3 (1.3-6.7); Neutrophils Percent Auto 70.9 % (45.5-73.1); Platelet Count Result 193 k/mm3 (150-375); Red Blood Count 4.18 M/mm3 (4.2-5.4); Red Cell Distribution Width 16.8 % (11.5-14.5); White Blood Count 7.9 K/mm3 (4.5-10.0)
[2020-10-26 06:52] LABS: Blood Urea Nitrogen 25 mg/dL (7-17); Calcium 8.4 mg/dL (8.4-10.2); Carbon Dioxide > 40 mmol/L (22-30); Chloride 93 mmol/L (98-107); Estimated CRCL calculation 54 ml/min; Estimated Glomerular Filt Rate > 60; Glucose 192 mg/dL (65-105); Sodium 138 mmol/L (137-145)
[2020-10-26 07:23] LABS: Hypochromasia 3+ (NORMAL); Platelet Estimate Adequate (Adequate)
[2020-10-26] MEDS: FLUTICASONE/UMECLIDIN/VILANTER 100-62.5-25 MCG ELLIPTA 1 PUFF INHALATION (08:07)
[2020-10-26 08:35] LABS: Glucose Point of Care 141 mg/dl (65-105)
[2020-10-26] MEDS: ATORVASTATIN 40 MG TABLET PO (08:45)
[2020-10-26] MEDS: ENOXAPARIN 120 MG/0.8 ML SYRINGE 105 MG SUB-Q ×2 (08:45→20:58)
[2020-10-26] MEDS: SENNOSIDES 8.6 MG TABLET PO (08:45)
[2020-10-26] MEDS: ASPIRIN 81 MG ENTERIC TABLET PO (08:45)
[2020-10-26] MEDS: ANASTROZOLE (*CHEMO) 1 MG TABLET PO (08:45)
[2020-10-26] MEDS: PANTOPRAZOLE 40 MG TABLET PO (08:45)
[2020-10-26] MEDS: FERROUS SULFATE 324 MG TABLET PO (08:45)
[2020-10-26] MEDS: CYANOCOBALAMIN 1,000 MCG TABLET 1000 MCG PO (08:45)
[2020-10-26] MEDS: METOPROLOL TARTRATE 25 MG TABLET 75 MG PO ×2 (08:46→20:57)
[2020-10-26] MEDS: polyethylene glycoL 3350 17 GM POWD.PACK PO (08:47)
--- NOTE | 2020-10-26 11:43 | PM.IMPN ---
Progress Note: A&P Assessment and Plan (1) Acute metabolic encephalopathy: Code(s): G93.41 - Metabolic encephalopathy Status: Acute Assessment and Plan: New since yesterday -initially I suspected this be due to CO2 retention without use of CPAP and steroids but she wear her CPAP last night and the steroids have been stopped and she has not improved. pH is normal. -the UA had not been obtained for unclear reasons. I have asked the nurse to do that today -will order ammonia level -Lasix stopped -encourage cpap with naps and at night -CT of the brain negative for bleed, MRI ordered -Will order neuro checks -she was also confused last stay, may consider hospital delirium if above workup is negative (2) Pulmonary embolism: Code(s): I26.99 - Other pulmonary embolism without acute cor pulmonale Status: Acute Assessment and Plan: CT shows a small PE, unlikely to be fully causing her hypoxia but could be contributing -Pt is unsure about her home meds but I called the assisted living who stated she has been getting the Eliquis since last year -She has a left LE DVT and I called radiology to compare it to the u/s in 2019 and they are not certain if it is new or old. It is in the same area. -Pt has an IVC filter -Continue o2. She needs 2L at rest and will go to SNF on this -Eliquis has been changed to Lovenox per Dr. Hwang (3) Acute respiratory failure with hypoxia: Code(s): J96.01 - Acute respiratory failure with hypoxia Status: Acute Assessment and Plan: Most likely related to PE and chronic lung disease -Continue o2 for sats >90 -The patient also has obstructive sleep apnea -steroids discontinued. No wheezing -no signs of PNA at this time (4) COPD (chronic obstructive pulmonary disease): Code(s): J44.9 - Chronic obstructive pulmonary disease, unspecified Status: Acute Assessment and Plan: With exacerbation. Continue atrovent, trelegy, and xopenex (5) CHF (congestive heart failure), NYHA class I: Code(s): I50.9 - Heart failure, unspecified Status: Chronic Assessment and Plan: Slightly fluid overloaded -Lasix now on hold. swelling improved. -she usually takes 20mg daily of lasix at home -echo shows: 1. Normal left ventricular size with moderate concentric hypertrophy. Diastolic dysfunction is present. Good left ventricular systolic function with no segmental wall motion abnormalities. Calculated ejection fraction 63%, visually 65-70%. 2. Right ventricular chamber is not well seen but appears to be mildly enlarged with normal contractility. 3. Mild pulmonary hypertension, estimated pulmonary arterial systolic pressure is 36 mmHg. 4. Left atrial chamber dimension is mildly enlarged. 5. Borderline dilatation of the sinuses of Valsalva, 3.5 cm. 6. There is mild aortic valve calcification, without stenosis. 7. Technically difficult difficult study, definity echo contrast used. (6) Chronic deep vein thrombosis of left lower extremity: Qualifiers: Affected thrombotic vein of extremity: femoral Qualified Code(s): I82.512 - Chronic embolism and thrombosis of left femoral vein Code(s): I82.502 - Chronic embolism and thrombosis of unspecified deep veins of left lower extremity Status: Acute Assessment and Plan: The patient is now on Lovenox -A venous Doppler was performed and showed Partial thrombosis of the left common femoral and femoral veins. As above, radiology unable to determine if this is new or old (7) Insulin dependent type 2 diabetes mellitus: Code(s): E11.9 - Type 2 diabetes mellitus without complications; Z79.4 - prison (current) use of insulin Status: Acute Assessment and Plan: Last glucose 141 -Will decrease lantus back to home dose and continue SSI -continue diabetic diet -A1c 7.3 (8) Hypertension: Code(s):
[2020-10-26 12:28] LABS: Glucose Point of Care 194 mg/dl (65-105)
[2020-10-26 13:27] LABS: Ammonia < 9 umol/L (9-30)
[2020-10-26 13:53] LABS: CRP 0.5 mg/dL (<1.0)
[2020-10-26 14:21] LABS: Add Urine Microscopic? YES; Appearance Urine Clear (Clear); Bilirubin Urine Negative (Negative); Blood Urine Negative (Negative); Color Urine Yellow (Yellow); Glucose Urine UA Negative (Negative); Ketones Urine Negative (Negative); Leukocyte Esterase Ur Negative LEU/UL (Negative); Nitrate Urine Negative (Negative); Protein Urine Negative (Negative); RBC Urine 0-2 /hpf (0-2); Specific Grav Ur 1.011 (1.001-1.035); Squamous Epithelial Cell Urine Rare /hpf (Few)
[2020-10-26 17:19] LABS: Glucose Point of Care 161 mg/dl (65-105)
[2020-10-26] MEDS: INSULIN GLARGINE (*BKC) 100 UNITS/ML 20 UNITS SUB-Q (17:29)
[2020-10-26 21:42] LABS: Glucose Point of Care 269 mg/dl (65-105)
--- NOTE | 2020-10-26 22:46 | PC.NURSE ---
2215: Pt found on floor in room in sitting position w/ siderails up x3 and bed zone on 2. VSS 98.0 - 90 - 22- 96%. Small laceration noted to R knee. Pt is confused and A&O x0-1. Bed alarm does not light to notify nursing staff and Tool Keeper notified and aware. Notified Dr. Stacey Xavier to inform of recent events w/ orders to continue to monitor. Requested to MD that moving patient closer to nursing station is strongly recommended. MD agreed and now patient is moving from Rm 319 - Rm 322. No apparent distress is noted at this time.
[2020-10-27] VITALS (18 sets, daily range): BP systolic 121–169; BP diastolic 67–83; PULSE 56–130; RESP 12–22; TEMP 36.1–36.9; O2SAT 95–100
[2020-10-27] MEDS: IPRATROPIUM BR 0.02% INH SOLN 0.5 MG/2.5 ML VIAL INHALATION ×2 (01:56→08:45)
[2020-10-27] MEDS: SIMETHICONE 80 MG TAB.CHEW PO (04:42)
[2020-10-27 06:53] LABS: Basophils Percent Auto 0.1 % (0.2-1.2); Eosinophils Absolute Auto 0.1 K/mm3 (0-0.3); Eosinophils Percent Auto 1.7 % (0-4.4); Hematocrit 39.2 % (37.0-47.0); Hemoglobin 11.1 g/dL (12.0-15.0); Immature Granulocyte Absolute 0.02 K/mm3 (0.00-0.031); Immature Granulocyte Percent A 0.3 % (0-0.5); Lymphocytes Absolute Auto 1.37 K/mm3 (0.9-3.2); Lymphocytes Percent Auto 19.2 % (18.3-44.2); Mean Corpuscular HGB Conc 28.3 g/dl (32-36); Mean Corpuscular Hemoglobin 25.6 pg (26-34); Mean Corpuscular Volume 90.3 fl (80-100); Mean Platelet Volume 10.5 fl (7.4-10.4); Monocytes Absolute Auto 0.7 K/mm3 (0.1-0.6); Monocytes Percent Auto 10.4 % (2.6-8.5); Neutrophils Absolute Auto 4.9 K/mm3 (1.3-6.7); Neutrophils Percent Auto 68.3 % (45.5-73.1); Platelet Count Result 177 k/mm3 (150-375); Red Blood Count 4.34 M/mm3 (4.2-5.4); Red Cell Distribution Width 16.7 % (11.5-14.5); White Blood Count 7.1 K/mm3 (4.5-10.0)
[2020-10-27 07:14] LABS: Alanine Aminotransferase 23 U/L (4-35); Alkaline Phosphatase 59 U/L (38-126); Aspartate Amino Transferase 21 U/L (14-36); Bilirubin,Total 0.6 mg/dL (0.2-1.3); Blood Urea Nitrogen 22 mg/dL (7-17); Calcium 8.4 mg/dL (8.4-10.2); Carbon Dioxide > 40 mmol/L (22-30); Chloride 97 mmol/L (98-107); Estimated CRCL calculation 54 ml/min; Estimated Glomerular Filt Rate > 60; Glucose 111 mg/dL (65-105); Magnesium 2.2 mg/dL (1.6-2.3); Phosphorus 2.9 mg/dL (2.5-4.5); Sodium 140 mmol/L (137-145)
--- NOTE | 2020-10-27 07:27 | PC.NURSE ---
0000: 1:1 sitter at bedside as pt continues to present high fall risks and confusion. 0600: Pt c/o stomach ache and writhing in pain w/ moaning. Simethicone given with instructions for patient to chew and swallow. Pt verbalized understanding and agreed to comply. 0630: Pt continues to moan in pain while holding her stomach. Dr. Stacey Xavier notified and aware with no further instructions. Will continue to monitor.
--- NOTE | 2020-10-27 07:56 | PC.NURSE ---
0745: SN notified POA/son, Mika Ferrer to inform him of Fall Incident. Son was appreciative for the care extended here to his mom as well as for the phone call. He reports that he has no further questions and that a family member will be at the hospital today to see her. Son was attentive and pleasant.
[2020-10-27] MEDS: FLUTICASONE/UMECLIDIN/VILANTER 100-62.5-25 MCG ELLIPTA 1 PUFF INHALATION (08:46)
[2020-10-27 09:22] LABS: Glucose Point of Care 106 mg/dl (65-105)
[2020-10-27] MEDS: ATORVASTATIN 40 MG TABLET PO (09:55)
[2020-10-27] MEDS: ASPIRIN 81 MG ENTERIC TABLET PO (09:55)
[2020-10-27] MEDS: ANASTROZOLE (*CHEMO) 1 MG TABLET PO (09:55)
[2020-10-27] MEDS: ENOXAPARIN 120 MG/0.8 ML SYRINGE 105 MG SUB-Q ×2 (09:56→20:30)
[2020-10-27] MEDS: PANTOPRAZOLE 40 MG TABLET PO ×2 (09:56→17:45)
[2020-10-27] MEDS: SENNOSIDES 8.6 MG TABLET PO (09:56)
[2020-10-27] MEDS: FERROUS SULFATE 324 MG TABLET PO ×2 (09:58→17:45)
[2020-10-27] MEDS: METOPROLOL TARTRATE 25 MG TABLET 75 MG PO ×2 (09:59→20:30)
[2020-10-27 12:57] LABS: Glucose Point of Care 98 mg/dl (65-105)
--- NOTE | 2020-10-27 12:58 | PM.IMPN ---
Progress Note: A&P Assessment and Plan (1) Acute metabolic encephalopathy: Code(s): G93.41 - Metabolic encephalopathy Status: Acute Assessment and Plan: Ongoing for the last 3 days -initially I suspected this be due to CO2 retention without use of CPAP and steroids but she was on cpap 2 nights ago and this did not improve it -I am going to wean o2, could be decreasing her respiratory drive worsening confusion -UA, ammonia, CRP neg. No infection suspected. -encourage cpap with naps and at night -CT and MRI of the brain neg for acute pathology -she was also confused last stay, may consider hospital delirium. Trial of low-dose Seroquel since the patient seems paranoid today. Will monitor, use CPAP, and collecting ABG in the morning. -Once this resolves she can be discharged. (2) Pulmonary embolism: Code(s): I26.99 - Other pulmonary embolism without acute cor pulmonale Status: Acute Assessment and Plan: CT shows a small PE, unlikely to be fully causing her hypoxia but could be contributing -Pt is unsure about her home meds but I called the assisted living who stated she has been getting the Eliquis since last year -She has a left LE DVT and I called radiology to compare it to the u/s in 2019 and they are not certain if it is new or old. It is in the same area. -Pt has an IVC filter -Continue o2. -Eliquis has been changed to Lovenox per Dr. Hwang (3) Acute respiratory failure with hypoxia: Code(s): J96.01 - Acute respiratory failure with hypoxia Status: Acute Assessment and Plan: Most likely related to PE and chronic lung disease -Continue o2 for sats <90 -The patient also has obstructive sleep apnea -steroids discontinued. No wheezing -no signs of PNA at this time (4) COPD (chronic obstructive pulmonary disease): Code(s): J44.9 - Chronic obstructive pulmonary disease, unspecified Status: Acute Assessment and Plan: exacerbation resolved. (5) CHF (congestive heart failure), NYHA class I: Code(s): I50.9 - Heart failure, unspecified Status: Chronic Assessment and Plan: Left leg more swollen, likely due to blood clot -she usually takes 20mg daily of lasix at home, now on hold -echo shows: 1. Normal left ventricular size with moderate concentric hypertrophy. Diastolic dysfunction is present. Good left ventricular systolic function with no segmental wall motion abnormalities. Calculated ejection fraction 63%, visually 65-70%. 2. Right ventricular chamber is not well seen but appears to be mildly enlarged with normal contractility. 3. Mild pulmonary hypertension, estimated pulmonary arterial systolic pressure is 36 mmHg. 4. Left atrial chamber dimension is mildly enlarged. 5. Borderline dilatation of the sinuses of Valsalva, 3.5 cm. 6. There is mild aortic valve calcification, without stenosis. 7. Technically difficult difficult study, definity echo contrast used. (6) Chronic deep vein thrombosis of left lower extremity: Qualifiers: Affected thrombotic vein of extremity: femoral Qualified Code(s): I82.512 - Chronic embolism and thrombosis of left femoral vein Code(s): I82.502 - Chronic embolism and thrombosis of unspecified deep veins of left lower extremity Status: Acute Assessment and Plan: The patient is now on Lovenox -A venous Doppler was performed and showed Partial thrombosis of the left common femoral and femoral veins. As above, radiology unable to determine if this is new or old (7) Insulin dependent type 2 diabetes mellitus: Code(s): E11.9 - Type 2 diabetes mellitus without complications; Z79.4 - halfway (current) use of insulin Status: Acute Assessment and Plan: Last glucose 98 -I am going to decrease lantus again today -continue diabetic diet and SSI -A1c 7.3 (8) Hypertension: Code(s): I10 - Essential
--- NOTE | 2020-10-27 13:40 | PCPTNOTE ---
Patient refused PT this afternoon. Family member present and requested therapy therapy return at a later time or tomorrow due to patient waiting to order and eat lunch. PT will continue to follow per plan of care.
[2020-10-27 17:08] LABS: Glucose Point of Care 146 mg/dl (65-105)
[2020-10-27] MEDS: INSULIN GLARGINE (*BKC) 100 UNITS/ML 15 UNITS SUB-Q (17:50)
[2020-10-27] MEDS: QUEtiapine FUMARATE 12.5 MG TABLET PO (20:32)
[2020-10-27 20:51] LABS: Glucose Point of Care 236 mg/dl (65-105)
[2020-10-28] VITALS (15 sets, daily range): BP systolic 123–131; BP diastolic 59–70; PULSE 73–92; RESP 16–20; TEMP 36.4–37.4; O2SAT 95–100
[2020-10-28] MEDS: SIMETHICONE 80 MG TAB.CHEW PO (05:20)
[2020-10-28 05:26] LABS: Alveolar/Arterial O2 Gradient 35.3 mmHg; Base Excess ABG 10.8 mEq/l (+/-2.0); Carboxyhemoglobin 0.1 % THb (0-2.0); Fractional Inspired Oxygen 28 %; HCO3 ABG 37.4 mEq/l (22.0-26.0); Methemoglobin ABG 0.6 %THb (0-1.5); Oxygen Content ABG 16.4 %vol (16.0-22.0); Oxygen Saturation ABG 97.1 % (95.0-100.0); Oxyhemoglobin 95.9 % THb (90.0-100.0); PCO2 ABG 59.6 mmHg (35.0-45.0); PO2 FiO2 Ratio Arterial Blood 3.36 %; Reduced Hemoglobin 3.4 %THb (0-5.0); Total Hemoglobin 12.1 g/dL (12.0-18.0); pH ABG 7.416 (7.350-7.450)
[2020-10-28 05:27] LABS: Device NASAL CANNULA; Modified Allen's Test Unable to perform; Site Drawn RIGHT RADIAL
[2020-10-28 06:41] LABS: Hemoglobin 11.3 g/dL (12.0-15.0); Mean Corpuscular Hemoglobin 26.3 pg (26-34); Mean Corpuscular Volume 90.7 fl (80-100); Mean Platelet Volume 10.5 fl (7.4-10.4); Platelet Count Result 126 k/mm3 (150-375); Red Cell Distribution Width 16.8 % (11.5-14.5); White Blood Count 7.1 K/mm3 (4.5-10.0)
[2020-10-28 06:45] LABS: Anion Gap 1 mmol/L (8-16); Blood Urea Nitrogen 22 mg/dL (7-17); Calcium 8.4 mg/dL (8.4-10.2); Carbon Dioxide 38 mmol/L (22-30); Chloride 101 mmol/L (98-107); Estimated CRCL calculation 70 ml/min; Estimated Glomerular Filt Rate > 60; Glucose 146 mg/dL (65-105); Sodium 140 mmol/L (137-145)
[2020-10-28 08:22] LABS: Glucose Point of Care 138 mg/dl (65-105)
[2020-10-28] MEDS: FLUTICASONE/UMECLIDIN/VILANTER 100-62.5-25 MCG ELLIPTA 1 PUFF INHALATION (09:18)
[2020-10-28] MEDS: CYANOCOBALAMIN 1,000 MCG TABLET 1000 MCG PO (09:48)
[2020-10-28] MEDS: FERROUS SULFATE 324 MG TABLET PO ×2 (09:48→17:25)
[2020-10-28] MEDS: ATORVASTATIN 40 MG TABLET PO (09:48)
[2020-10-28] MEDS: PANTOPRAZOLE 40 MG TABLET PO ×2 (09:49→17:27)
[2020-10-28] MEDS: METOPROLOL TARTRATE 25 MG TABLET 75 MG PO ×2 (09:49→22:22)
[2020-10-28] MEDS: ENOXAPARIN 120 MG/0.8 ML SYRINGE 105 MG SUB-Q ×2 (09:49→22:21)
[2020-10-28] MEDS: ASPIRIN 81 MG ENTERIC TABLET PO (09:49)
[2020-10-28] MEDS: SENNOSIDES 8.6 MG TABLET PO (09:50)
[2020-10-28] MEDS: ANASTROZOLE (*CHEMO) 1 MG TABLET PO (09:50)
[2020-10-28] MEDS: polyethylene glycoL 3350 17 GM POWD.PACK PO (09:50)
[2020-10-28 12:37] LABS: Glucose Point of Care 186 mg/dl (65-105)
--- NOTE | 2020-10-28 12:40 | PM.IMPN ---
Progress Note: A&P Assessment and Plan (1) Acute metabolic encephalopathy: Code(s): G93.41 - Metabolic encephalopathy Status: Acute Assessment and Plan: Ongoing for the last 4 days but much improved today - patient has started to become paranoid and refusing things - I have called the son and left a message with him, this is concerning for possible psychiatric etiology - pH is normal, patient does have elevated CO2 which may be chronic since she has a normal pH. She is refusing BiPAP - continue to wean O2 -UA, ammonia, CRP neg. No infection suspected. -encourage cpap with naps and at night -CT and MRI of the brain neg for acute pathology - patient was found on the floor 10/26/20 and I was just notified of this. She is neurologically intact and actually better today. However, since her fall was unwitnessed and she is on anticoagulation I requested a head CT. patient is declining this. She has no pain to her neck, head or extremities -she was also confused last stay, may consider hospital delirium. Trial of low-dose Seroquel started 10/27 which I think may be helping. Continue with that. -Once this resolves she can be discharged. (2) Pulmonary embolism: Code(s): I26.99 - Other pulmonary embolism without acute cor pulmonale Status: Acute Assessment and Plan: CT shows a small PE, unlikely to be fully causing her hypoxia but could be contributing -Pt is unsure about her home meds but I called the assisted living who stated she has been getting the Eliquis since last year -She has a left LE DVT and I called radiology to compare it to the u/s in 2019 and they are not certain if it is new or old. It is in the same area. -Pt has an IVC filter -Continue o2. -Eliquis has been changed to Lovenox per Dr. Hwang (3) Acute respiratory failure with hypoxia: Code(s): J96.01 - Acute respiratory failure with hypoxia Status: Acute Assessment and Plan: Most likely related to PE and chronic lung disease -Continue o2 for sats <90 -The patient also has obstructive sleep apnea -steroids discontinued. No wheezing -no signs of PNA at this time (4) COPD (chronic obstructive pulmonary disease): Code(s): J44.9 - Chronic obstructive pulmonary disease, unspecified Status: Acute Assessment and Plan: exacerbation resolved. (5) CHF (congestive heart failure), NYHA class I: Code(s): I50.9 - Heart failure, unspecified Status: Chronic Assessment and Plan: Left leg more swollen, likely due to blood clot -she usually takes 20mg daily of lasix at home, now on hold -echo shows: 1. Normal left ventricular size with moderate concentric hypertrophy. Diastolic dysfunction is present. Good left ventricular systolic function with no segmental wall motion abnormalities. Calculated ejection fraction 63%, visually 65-70%. 2. Right ventricular chamber is not well seen but appears to be mildly enlarged with normal contractility. 3. Mild pulmonary hypertension, estimated pulmonary arterial systolic pressure is 36 mmHg. 4. Left atrial chamber dimension is mildly enlarged. 5. Borderline dilatation of the sinuses of Valsalva, 3.5 cm. 6. There is mild aortic valve calcification, without stenosis. 7. Technically difficult difficult study, definity echo contrast used. (6) Chronic deep vein thrombosis of left lower extremity: Qualifiers: Affected thrombotic vein of extremity: femoral Qualified Code(s): I82.512 - Chronic embolism and thrombosis of left femoral vein Code(s): I82.502 - Chronic embolism and thrombosis of unspecified deep veins of left lower extremity Status: Acute Assessment and Plan: The patient is now on Lovenox -A venous Doppler was performed and showed Partial thrombosis of the left common femoral and femoral veins. As above, radiology unable to determine if this is new or old (7)
--- NOTE | 2020-10-28 15:39 | PCRCNOTE ---
Window of time for administration has passed. See next scheduled administration.
[2020-10-28 17:18] LABS: Glucose Point of Care 229 mg/dl (65-105)
[2020-10-28] MEDS: INSULIN ASPART (*BKC) 100 UNITS/ML SUB-Q (17:26)
[2020-10-28] MEDS: INSULIN GLARGINE (*BKC) 100 UNITS/ML 15 UNITS SUB-Q (17:27)
[2020-10-28] MEDS: QUEtiapine FUMARATE 12.5 MG TABLET PO (22:22)
[2020-10-28 23:14] LABS: Glucose Point of Care 141 mg/dl (65-105)
[2020-10-29] VITALS (13 sets, daily range): BP systolic 118–150; BP diastolic 62–75; PULSE 83–100; RESP 16–20; TEMP 36.6–36.7; O2SAT 92–100
[2020-10-29 07:46] LABS: Glucose Point of Care 147 mg/dl (65-105)
--- NOTE | 2020-10-29 10:32 | PCRCNOTE ---
Window of time for administration has passed. See next scheduled administration.
[2020-10-29] MEDS: ASPIRIN 81 MG ENTERIC TABLET PO (10:38)
[2020-10-29] MEDS: MECLIZINE HCL 12.5 MG TABLET PO (10:38)
[2020-10-29] MEDS: ATORVASTATIN 40 MG TABLET PO (10:38)
[2020-10-29] MEDS: ENOXAPARIN 120 MG/0.8 ML SYRINGE 105 MG SUB-Q ×2 (10:38→20:29)
[2020-10-29] MEDS: ANASTROZOLE (*CHEMO) 1 MG TABLET PO (10:38)
[2020-10-29] MEDS: PANTOPRAZOLE 40 MG TABLET PO ×2 (10:38→17:56)
[2020-10-29] MEDS: METOPROLOL TARTRATE 25 MG TABLET 75 MG PO ×2 (10:39→20:28)
[2020-10-29] MEDS: CYANOCOBALAMIN 1,000 MCG TABLET 1000 MCG PO (10:39)
[2020-10-29] MEDS: FERROUS SULFATE 324 MG TABLET PO ×2 (10:39→17:56)
[2020-10-29 11:35] LABS: Glucose Point of Care 282 mg/dl (65-105)
--- NOTE | 2020-10-29 12:41 | PM.IMPN ---
Progress Note: A&P Assessment and Plan (1) Acute metabolic encephalopathy: Code(s): G93.41 - Metabolic encephalopathy Status: Acute Assessment and Plan: Improving in the last few days but not back to baseline but getting close -She likely has baseline dementia since this occurs when she is in new settings -yesterday she showed evidence of paranoia, which has gotten better. - I have called the son and left a message with him, no answer again today - abg showed that the pH was normal, patient does have elevated CO2 which may be chronic since she has a normal pH. She is refusing BiPAP - continue to wean O2 -UA, ammonia, CRP neg. No infection suspected. -encourage cpap with naps and at night -CT and MRI of the brain neg for acute pathology. Repeat CT ordered, she refused yesterdays. - patient was found on the floor 10/26/20 and I was just notified of this. She is neurologically intact and actually better today. However, since her fall was unwitnessed and she is on anticoagulation I requested a head CT 10/28 and patient is declined. Will try again She has no pain to her neck, head or extremities. neuro exam looks okay except for slightly slurred speech and problems with word finding -she was also confused last stay, possible hospital delirium. Trial of low-dose Seroquel started 10/27 which I think may be helping. Continue with that. (2) Pulmonary embolism: Code(s): I26.99 - Other pulmonary embolism without acute cor pulmonale Status: Acute Assessment and Plan: CT shows a small PE, unlikely to be fully causing her hypoxia but could be contributing -Pt is unsure about her home meds but I called the assisted living who stated she has been getting the Eliquis since last year -She has a left LE DVT and I called radiology to compare it to the u/s in 2019 and they are not certain if it is new or old. It is in the same area. -Pt has an IVC filter -Continue o2. -Eliquis has been changed to Lovenox per Dr. Hwang (3) Acute respiratory failure with hypoxia: Code(s): J96.01 - Acute respiratory failure with hypoxia Status: Acute Assessment and Plan: Most likely related to PE and chronic lung disease -Continue o2 for sats <90 -The patient also has obstructive sleep apnea -steroids discontinued. No wheezing -no signs of PNA at this time (4) COPD (chronic obstructive pulmonary disease): Code(s): J44.9 - Chronic obstructive pulmonary disease, unspecified Status: Acute Assessment and Plan: exacerbation resolved. (5) CHF (congestive heart failure), NYHA class I: Code(s): I50.9 - Heart failure, unspecified Status: Chronic Assessment and Plan: Left leg more swollen, likely due to blood clot -she usually takes 20mg daily of lasix at home, now on hold -echo shows: 1. Normal left ventricular size with moderate concentric hypertrophy. Diastolic dysfunction is present. Good left ventricular systolic function with no segmental wall motion abnormalities. Calculated ejection fraction 63%, visually 65-70%. 2. Right ventricular chamber is not well seen but appears to be mildly enlarged with normal contractility. 3. Mild pulmonary hypertension, estimated pulmonary arterial systolic pressure is 36 mmHg. 4. Left atrial chamber dimension is mildly enlarged. 5. Borderline dilatation of the sinuses of Valsalva, 3.5 cm. 6. There is mild aortic valve calcification, without stenosis. 7. Technically difficult difficult study, definity echo contrast used. (6) Chronic deep vein thrombosis of left lower extremity: Qualifiers: Affected thrombotic vein of extremity: femoral Qualified Code(s): I82.512 - Chronic embolism and thrombosis of left femoral vein Code(s): I82.502 - Chronic embolism and thrombosis of unspecified deep veins of left lower extremity Status: Acute Assessment and Plan: The patien
[2020-10-29] MEDS: INSULIN ASPART (*BKC) 100 UNITS/ML SUB-Q (13:07)
[2020-10-29] MEDS: ACETAMINOPHEN 325 MG TABLET 650 MG PO (13:14)
[2020-10-29 16:16] LABS: Glucose Point of Care 149 mg/dl (65-105)
[2020-10-29] MEDS: INSULIN GLARGINE (*BKC) 100 UNITS/ML 15 UNITS SUB-Q (17:55)
[2020-10-29] MEDS: QUEtiapine FUMARATE 12.5 MG TABLET PO (20:28)
[2020-10-30] VITALS (13 sets, daily range): BP systolic 124–140; BP diastolic 65–69; PULSE 79–108; RESP 16–20; TEMP 36.6–36.7; O2SAT 90–96
[2020-10-30 01:50] LABS: Glucose Point of Care 198 mg/dl (65-105)
[2020-10-30 06:16] LABS: Hematocrit 34.4 % (37.0-47.0); Hemoglobin 10.1 g/dL (12.0-15.0); Immature Platelet Fraction Pct 6.2 % (0.9-11.2); Mean Corpuscular HGB Conc 29.4 g/dl (32-36); Mean Corpuscular Hemoglobin 26.3 pg (26-34); Mean Corpuscular Volume 89.6 fl (80-100); Mean Platelet Volume 10.3 fl (7.4-10.4); Platelet Count Result 114 k/mm3 (150-375); Red Blood Count 3.84 M/mm3 (4.2-5.4); Red Cell Distribution Width 17.2 % (11.5-14.5); White Blood Count 6.9 K/mm3 (4.5-10.0)
[2020-10-30 06:36] LABS: Anion Gap 1 mmol/L (8-16); Blood Urea Nitrogen 17 mg/dL (7-17); Calcium 8.4 mg/dL (8.4-10.2); Carbon Dioxide 37 mmol/L (22-30); Chloride 102 mmol/L (98-107); Estimated CRCL calculation 70 ml/min; Estimated Glomerular Filt Rate > 60; Glucose 101 mg/dL (65-105); Magnesium 2.1 mg/dL (1.6-2.3); Potassium 3.5 mmol/L (3.4-5.0); Sodium 140 mmol/L (137-145)
[2020-10-30 07:58] LABS: Glucose Point of Care 101 mg/dl (65-105)
[2020-10-30] MEDS: ASPIRIN 81 MG ENTERIC TABLET PO (08:09)
[2020-10-30] MEDS: ATORVASTATIN 40 MG TABLET PO (08:09)
[2020-10-30] MEDS: CYANOCOBALAMIN 1,000 MCG TABLET 1000 MCG PO (08:09)
[2020-10-30] MEDS: ANASTROZOLE (*CHEMO) 1 MG TABLET PO (08:09)
[2020-10-30] MEDS: ENOXAPARIN 120 MG/0.8 ML SYRINGE 105 MG SUB-Q ×2 (08:10→20:29)
[2020-10-30] MEDS: METOPROLOL TARTRATE 25 MG TABLET 75 MG PO ×2 (08:10→20:28)
[2020-10-30] MEDS: PANTOPRAZOLE 40 MG TABLET PO ×2 (08:11→17:29)
[2020-10-30] MEDS: FLUTICASONE/UMECLIDIN/VILANTER 100-62.5-25 MCG ELLIPTA 1 PUFF INHALATION (08:20)
--- NOTE | 2020-10-30 10:49 | PCNWS ---
Weekly nutritional screen. Patient is tolerating current diet with adequate intake. No weight loss reported. No nutritional needs at this time.
--- NOTE | 2020-10-30 11:04 | PM.DS ---
DS: Admitting Diagnosis Admitting Diagnosis Admitting Diagnosis: PE DS: Discharge Diagnosis Discharge Diagnosis (1) Acute metabolic encephalopathy: Code(s): G93.41 - Metabolic encephalopathy Status: Acute Assessment and Plan: Resovled and back to baseline -She likely has baseline dementia since this occurs when she is in new settings -spoke with son today who states his mom sounds better than she has in awhile and they want to continue the seroquel. - abg showed that the pH was normal, patient does have elevated CO2 which may be chronic since she has a normal pH. -UA, ammonia, CRP neg. No infection suspected. -encourage cpap with naps and at night -CT and MRI of the brain neg for acute pathology. Repeat CT ordered since she fell. No acute pathology. - patient was found on the floor 10/26/20. Pt is back to baseline without any evidence of pathology from fall. -Trial of low-dose Seroquel started 10/27 which helped Continue with that outpt. (2) Pulmonary embolism: Code(s): I26.99 - Other pulmonary embolism without acute cor pulmonale Status: Acute Assessment and Plan: CT shows a small PE -Pt is unsure about her home meds but I called the assisted living who stated she has been getting the Eliquis since last year -She has a left LE DVT and I called radiology to compare it to the u/s in 2019 and they are not certain if it is new or old. It is in the same area. -Pt has an IVC filter -Continue o2. -Eliquis has been changed to Lovenox per Dr. Hwang for 5 additional weeks and then she will go back on her Eliquis (3) Acute respiratory failure with hypoxia: Code(s): J96.01 - Acute respiratory failure with hypoxia Status: Acute Assessment and Plan: Most likely related to PE and chronic lung disease -continue o2 with ambulation -The patient also has obstructive sleep apnea (4) COPD (chronic obstructive pulmonary disease): Code(s): J44.9 - Chronic obstructive pulmonary disease, unspecified Status: Acute Assessment and Plan: exacerbation resolved. (5) CHF (congestive heart failure), NYHA class I: Code(s): I50.9 - Heart failure, unspecified Status: Chronic Assessment and Plan: Left leg more swollen, likely due to blood clot -continue home lasix -echo shows: 1. Normal left ventricular size with moderate concentric hypertrophy. Diastolic dysfunction is present. Good left ventricular systolic function with no segmental wall motion abnormalities. Calculated ejection fraction 63%, visually 65-70%. 2. Right ventricular chamber is not well seen but appears to be mildly enlarged with normal contractility. 3. Mild pulmonary hypertension, estimated pulmonary arterial systolic pressure is 36 mmHg. 4. Left atrial chamber dimension is mildly enlarged. 5. Borderline dilatation of the sinuses of Valsalva, 3.5 cm. 6. There is mild aortic valve calcification, without stenosis. 7. Technically difficult difficult study, definity echo contrast used. (6) Chronic deep vein thrombosis of left lower extremity: Qualifiers: Affected thrombotic vein of extremity: femoral Qualified Code(s): I82.512 - Chronic embolism and thrombosis of left femoral vein Code(s): I82.502 - Chronic embolism and thrombosis of unspecified deep veins of left lower extremity Status: Acute Assessment and Plan: The patient is now on Lovenox -A venous Doppler was performed and showed Partial thrombosis of the left common femoral and femoral veins. As above, radiology unable to determine if this is new or old (7) Insulin dependent type 2 diabetes mellitus: Code(s): E11.9 - Type 2 diabetes mellitus without complications; Z79.4 - longterm (current) use of insulin Status: Acute Assessment and Plan: Last glucose 146 - continue Lantus (but decrease dose at home) -A1c 7.3 (8) Hyper
[2020-10-30 11:40] LABS: Glucose Point of Care 146 mg/dl (65-105)
[2020-10-30 17:15] LABS: Glucose Point of Care 241 mg/dl (65-105)
[2020-10-30] MEDS: INSULIN ASPART (*BKC) 100 UNITS/ML SUB-Q (17:27)
[2020-10-30] MEDS: INSULIN GLARGINE (*BKC) 100 UNITS/ML 15 UNITS SUB-Q (17:30)
[2020-10-30] MEDS: QUEtiapine FUMARATE 12.5 MG TABLET PO (20:32)
[2020-10-30 22:54] LABS: Glucose Point of Care 169 mg/dl (65-105)
[2020-10-31] VITALS (13 sets, daily range): BP systolic 136–151; BP diastolic 61–91; PULSE 83–102; RESP 16–18; TEMP 36.2–36.4; O2SAT 93–97
[2020-10-31 05:24] LABS: Glucose Point of Care 173 mg/dl (65-105)
[2020-10-31 07:42] LABS: Glucose Point of Care 161 mg/dl (65-105)
[2020-10-31] MEDS: FLUTICASONE/UMECLIDIN/VILANTER 100-62.5-25 MCG ELLIPTA 1 PUFF INHALATION (08:15)
[2020-10-31] MEDS: ANASTROZOLE (*CHEMO) 1 MG TABLET PO (08:22)
[2020-10-31] MEDS: ASPIRIN 81 MG ENTERIC TABLET PO (08:22)
[2020-10-31] MEDS: ATORVASTATIN 40 MG TABLET PO (08:23)
[2020-10-31] MEDS: CYANOCOBALAMIN 1,000 MCG TABLET 1000 MCG PO (08:23)
[2020-10-31] MEDS: ENOXAPARIN 120 MG/0.8 ML SYRINGE 105 MG SUB-Q ×2 (08:23→21:30)
[2020-10-31] MEDS: PANTOPRAZOLE 40 MG TABLET PO ×2 (08:24→17:01)
[2020-10-31] MEDS: METOPROLOL TARTRATE 25 MG TABLET 75 MG PO ×2 (08:24→20:48)
[2020-10-31 12:10] LABS: Glucose Point of Care 232 mg/dl (65-105)
[2020-10-31] MEDS: INSULIN ASPART (*BKC) 100 UNITS/ML SUB-Q (12:15)
--- NOTE | 2020-10-31 15:52 | PM.DS ---
DS: Summary Time Spent with Patient Time attestation: Total time spent providing and/or coordinating discharge services: DS: Data Data Completed and Pending Labs on day of discharge: Labs from last 24 hours 10/31/20 10/31/20 10/31/20 12:07 07:38 05:19 POC Capillary Glucose 232 H 161 H 173 H 10/30/20 10/30/20 22:51 17:09 POC Capillary Glucose 169 H 241 H Preliminary micro results at discharge 10/26/20 13:04 Blood Culture - Preliminary Blood 10/26/20 13:03 Blood Culture - Preliminary Blood Discharge Plan Discharge Attending physician on discharge: Jarrell López Consulting providers: Octavio Hwang Discharging Clinician: Glenna Ching Patient Disposition: SNF Activity: as tolerated Diet: diabetic Discharge Instructions: -Please note your medications have changed. These includes dosages. -Signs and symptoms of low blood sugar include: Shakiness, dizziness, nausea, confusion, sweating, stomach aches and dizziness. If the symptoms occur you need to check your blood sugar. If it is less than 70, drink some juice with sugar in it or eat some sugary candy. Recheck in 20 minutes. If your blood sugar keeps being low (less than 70), come to the emergency room -You are on a blood thinner . This will make you bleed easier. If you have a wound or scrape yourself, you will need to hold pressure for a longer period of time. If you fall or hit your head, you will need to seek medical attention right away. Stop and call your doctor if you start to have dark tary stools as this can indicate internal bleeding - follow-up with Dr. Hwang. Call his office for an appointment - follow-up with facility provider in 1 week about this stay - continue your CPAP at night - worrisome signs and symptoms to come back to the emergency room for: chest pain, shortness of breath, progressive significant weakness, fevers 100.4 or greater, worsening altered mental status, or any other worrisome symptom To the facility: - she is on Lovenox for 5 weeks and then after that is complete she should be transitioned back to her Eliquis - utilize oxygen as needed to keep saturations greater than 90. She will need oxygen when she ambulates. - Seroquel is a new medication for her and she has done well with that while here. Please make adjustments as needed and continue routine screening with this medication Patient Instructions: General Patient Instructions, Pain Management in Older Adults (DC), COPD (Chronic Obstructive Pulmonary Disease) (DC), Blood Thinners (DC) Stand Alone Forms: General Discharge Information Discharge Medications: New quetiapine [Seroquel] 25 mg tablet 12.5 mg PO HS Qty: 30 RF: 0 enoxaparin [Lovenox] 120 mg/0.8 mL syringe 105 mg subcut Q12H 35 Days Qty: 49 RF: 0 Continued pantoprazole 40 mg Tablet,Delayed Release (Dr/Ec) 40 mg PO BID RF: 0 aspirin 81 mg Tablet,Delayed Release (Dr/Ec) 81 mg PO QAM Qty: 30 RF: 0 atorvastatin 40 mg Tablet 40 mg PO DAILY Qty: 30 RF: 0 ergocalciferol (vitamin D2) [Vitamin D2] 1,250 mcg (50,000 unit) Capsule 1,250 mcg PO WEEKLY RF: 0 nystatin 100,000 unit/gram Powder 1 applic TOPICAL BID PRN (Reason: Rash) RF: 0 docusate sodium 100 mg capsule 100 mg PO BID PRN (Reason: Constipation) RF: 0 meclizine 12.5 mg tablet 12.5 mg PO BID PRN (Reason: Dizzines) Qty: 0 RF: 0 metoprolol tartrate 50 mg Tablet 75 mg PO BID RF: 0 ferrous sulfate 325 mg (65 mg iron) Tablet 325 mg PO BID RF: 0 sennosides [senna] 8.6 mg Tablet 8.6 mg PO BID RF: 0 polyethylene glycol 3350 17 gram Powder In Packet 17 g PO BID RF: 0 cyanocobalamin (vitamin B-12) 1,000 mcg Tablet 1,000 mcg PO DAILY RF: 0 ergocalciferol (vitamin D2) 1,250 mcg (50,000 unit) Capsule 1,250 mcg PO WEEKLY RF: 0 insulin aspart U-100 [Novolog Flexpen U-100 Insulin] 100 unit/mL (3 mL) insulin pen See Rx Instr
--- NOTE | 2020-10-31 16:10 | PC.NURSE ---
Report called to Russell at [facility], orders faxed to facility.
--- NOTE | 2020-10-31 16:36 | PM.IMPN ---
Progress Note: A&P Assessment and Plan (1) Acute metabolic encephalopathy: Code(s): G93.41 - Metabolic encephalopathy Status: Acute Assessment and Plan: Resovled and back to baseline. See discharge summary. No new changes. Patient is hemodynamically stable for discharge to continue PT/OT at SNF. Patient and family aware of discharge planning. SNF authorization obtained after peer to peer call 10/31/20. (2) Pulmonary embolism: Code(s): I26.99 - Other pulmonary embolism without acute cor pulmonale Status: Acute Assessment and Plan: CT shows a small PE -Eliquis has been changed to Lovenox per Dr. Hwang for 5 additional weeks and then she will go back on her Eliquis (3) Acute respiratory failure with hypoxia: Code(s): J96.01 - Acute respiratory failure with hypoxia Status: Acute Assessment and Plan: Most likely related to PE and chronic lung disease -continue o2 with ambulation -The patient also has obstructive sleep apnea (4) COPD (chronic obstructive pulmonary disease): Code(s): J44.9 - Chronic obstructive pulmonary disease, unspecified Status: Acute Assessment and Plan: exacerbation resolved. 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 (7) Insulin dependent type 2 diabetes mellitus: Code(s): E11.9 - Type 2 diabetes mellitus without complications; Z79.4 - half-way (current) use of insulin Status: Acute Assessment and Plan: -A1c 7.3 (8) Hypertension: Code(s): I10 - Essential (primary) hypertension Status: Chronic Assessment and Plan: - Stable. Continue with metoprolol (9) Atrial fibrillation: Code(s): I48.91 - Unspecified atrial fibrillation Status: Chronic Assessment and Plan: - Rate controlled Continue with metoprolol and lovenox Subjective Date/time seen: 10/31/20 1600 Interval history: Ms. Ferrer is an 80yo F admitted with shortness of breath found to have pulmonary embolism. She feels well today and is ready for discharge. She denies pain, chest pain, shortness of breath, nausea or vomiting. No acute events overnight and no changes compared to discharge summary from yesterday. Review of Systems Review of Systems: All systems reviewed & are unremarkable except as noted in HPI and below Exam Narrative: Exam Narrative: General: Well developed well nourished patient in NAD HEENT: normocephalic Neck: supple Neuro: Alert and oriented to herself, location and president. Not able to tell me the date. CN 2-12 intact. Strength 5/5 in the UE and LE. skin: bruises to abdomen from lovenox. Big bruise to her left tricep without pain and bruise to right lateral knee CV:irregularly irregular Resp: Breath sounds diminished. Respirations are even and nonlabored, tolerating room air. Abd: Soft, non distended. No pain to palpation. Positive bowel sounds Extremities: 1+ edema to the left leg. No erythema or pain to palpation. range of movements normal for each joint without pain Objective Data Vital Signs Vital Signs: Last Vital Signs Temp 97.6 F 10/31/20 14:00 Pulse 91 10/31/20 14:38 Resp 16 10/31/20 14:38 BP 145/78
[2020-10-31] MEDS: INSULIN GLARGINE (*BKC) 100 UNITS/ML 15 UNITS SUB-Q (17:03)
[2020-10-31 17:33] LABS: Glucose Point of Care 199 mg/dl (65-105)
[2020-10-31] MEDS: QUEtiapine FUMARATE 12.5 MG TABLET PO (21:30)
[2020-10-31 21:49] LABS: Glucose Point of Care 211 mg/dl (65-105)
[2020-11-01] VITALS (7 sets, daily range): BP systolic 156; BP diastolic 74; PULSE 83–96; RESP 17–20; TEMP 36.3; O2SAT 91–95
[2020-11-01 08:05] LABS: Glucose Point of Care 150 mg/dl (65-105)
[2020-11-01] MEDS: FLUTICASONE/UMECLIDIN/VILANTER 100-62.5-25 MCG ELLIPTA 1 PUFF INHALATION (08:29)
[2020-11-01] MEDS: polyethylene glycoL 3350 17 GM POWD.PACK PO (08:54)
[2020-11-01] MEDS: ENOXAPARIN 120 MG/0.8 ML SYRINGE 105 MG SUB-Q (08:54)
[2020-11-01] MEDS: ATORVASTATIN 40 MG TABLET PO (08:55)
[2020-11-01] MEDS: FERROUS SULFATE 324 MG TABLET PO (08:55)
[2020-11-01] MEDS: ASPIRIN 81 MG ENTERIC TABLET PO (08:56)
[2020-11-01] MEDS: SENNOSIDES 8.6 MG TABLET PO (08:56)
[2020-11-01] MEDS: CYANOCOBALAMIN 1,000 MCG TABLET 1000 MCG PO (08:56)
[2020-11-01] MEDS: PANTOPRAZOLE 40 MG TABLET PO (08:56)
[2020-11-01] MEDS: METOPROLOL TARTRATE 25 MG TABLET 75 MG PO (08:57)
[2020-11-01] MEDS: ANASTROZOLE (*CHEMO) 1 MG TABLET PO (08:57)
[2020-11-01 12:13] LABS: Glucose Point of Care 246 mg/dl (65-105)
--- NOTE | 2020-11-01 12:34 | PCPTNOTE ---
Patient refused PT this A.M.. Patient states I am waiting to leave.
[2020-11-01] MEDS: INSULIN ASPART (*BKC) 100 UNITS/ML SUB-Q (13:00)
--- NOTE | 2020-11-01 22:07 | PC.NURSE ---
NURSE FROM [facility] CALL TO CLARIFY LOVENOX DOSE OF 105 MG. THIS RN CLARIFIED DOSE.
== END 2020-11-01 14:15 | DRG 176 ==
LOC: ANHED 09:03 → ANH3MEDSUR 15:17
PROVIDERS: Emergency Medicine; Nurse Practitioner; Physician Assistant; Admitting Provider Family Medicine; Emergency Provider Emergency Medicine; PCP Family Medicine; Visit Provider Physician Assistant
DX: I26.99 Other pulmonary embolism without acute cor pulmonale (principal); I82.512 Chronic embolism and thrombosis of left femoral vein; J44.1 Chronic obstructive pulmonary disease with (acute) exacerbation; F03.91 Unspecified dementia, unspecified severity, with behavioral disturbance; C50.912 Malignant neoplasm of unspecified site of left female breast; G47.33 Obstructive sleep apnea (adult) (pediatric); I48.91 Unspecified atrial fibrillation; I11.0 Hypertensive heart disease with heart failure; I50.9 Heart failure, unspecified; E11.9 Type 2 diabetes mellitus without complications; R09.02 Hypoxemia; M19.90 Unspecified osteoarthritis, unspecified site; Z66 Do not resuscitate; Z79.01 Long term (current) use of anticoagulants; Z79.4 Long term (current) use of insulin; Z79.811 Long term (current) use of aromatase inhibitors; Z79.82 Long term (current) use of aspirin; Z79.899 Other long term (current) drug therapy; Z86.73 Personal history of transient ischemic attack (TIA), and cerebral infarction without residual deficits; Z87.891 Personal history of nicotine dependence; Z90.13 Acquired absence of bilateral breasts and nipples; Z95.828 Presence of other vascular implants and grafts; Z98.42 Cataract extraction status, left eye; Z98.41 Cataract extraction status, right eye; Z99.81 Dependence on supplemental oxygen
CPT/HCPCS: 36415; 36600; 70450; 70551; 71046; 71275; 80048; 80053; 80076; 81001; 82140; 82375; 82805; 82948; 83036; 83050; 83735; 84100; 84443; 85025; 85027; 85049; 85055; 85380; 86140; 86300; 87040; 93005; 93971; 94640; 96374; 97110; 97116; 97161; 97530; 99291; A9270; G0378; J1120; J1650; J1815; J1940; J2405; J2930; Q9967

== ENCOUNTER 2020-11-22 08:20 | Inpatient (IN) | payer MEDICARE, SELFPAY ==
[2020-11-22] VITALS (24 sets, daily range): BP systolic 147–169; BP diastolic 84–132; PULSE 88–118; RESP 13–27; TEMP 36.4; O2SAT 83–100; BMI 42.8
--- NOTE | ~2020-11-22 | MR_ITS ---
EXAMINATION: MR brain/brain stem wo con DATE: 11/24/2020 12:24 INDICATION: Altered mental status TECHNIQUE: Magnetic resonance imaging (MRI) of the brain and brainstem was performed without intraven ous contrast. Sequences included sagittal and axial T1-weighted SE, axial diffusion-weighted FS SE, a xial T2*-weighted GRE, axial T2-weighted FLAIR, and axial T2-weighted FSE. Apparent diffusion coeffic ient (ADC) maps were created. COMPARISON: Head CT and CT angiogram dated 11/23/2020 FINDINGS: There are no areas of restricted diffusion to suggest acute infarction. Small regions of encephalomal acia at the left lentiform and caudate nuclei, and the right frontal lobe white matter and in the lef t cerebellar hemisphere consistent with old lacunar infarcts. No intracranial hemorrhage or abnormal intracranial mass lesion. There are scattered areas of nonspecific increased T2-weighted signal inten sity in the cerebral white matter, predominantly involving the deep and periventricular white matter. There are no intraparenchymal signal abnormalities seen on the other pulse sequences. The ventricles are symmetric and normal in size. There are no abnormal extra-axial fluid collections. Flow voids ar e seen in the cerebral arteries on the T2-weighted sequences consistent with their expected patency. The left vertebral artery is dominant. The flow void in the right vertebral artery as well as the cor responding contrast filled lumen on the prior CT angiogram however appears slightly smaller than the external diameter of the vessel suggesting atherosclerosis and stenosis. Changes of bilateral intraoc ular lens replacement. Mild mucosal thickening in the right maxillary and bilateral ethmoid sinuses. IMPRESSION: 1. No acute intracranial process. 2. Small old lacunar infarcts in the right frontal lobe white matter, left caudate and lentiform nucl ei and left cerebellar hemisphere. 3. Scattered periventricular predominant nonspecific white matter T2 hyperintensity most likely seque la of chronic small vessel ischemic disease. 4 . 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 Reviewed, dictated and finalized at location A. IMPRESSION: 1. No acute intracranial process. 2. Small old lacunar infarcts in the right frontal lobe white matter, left caud ate and lentiform nuclei and left cerebellar hemisphere. 3. Scattered periventricular predominant nonspecific white matter T2 hyperinten sity most likely sequela of chronic small vessel ischemic disease. 4 . 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
--- NOTE | ~2020-11-22 | CT_ITS ---
EXAMINATION: CTA brain carotid EXAM DATE: 11/23/2020 16:22 INDICATION: Right hemiparesis. Stroke. TECHNIQUE: Spiral CTA of the carotid arteries was performed with intravenous injection 100 cc of Om nipaque 350. Axial, coronal, sagittal reformatted images reviewed. Additional reformatted images cre ated on dedicated 3-D workstation. NASCET comparable standard used to assess the degree of arterial stenosis. Spiral CT angiogram cerebral arteries performed with the same intravenous injection of con trast. Source images of the brain CTA transferred to dedicated workstation for 3-D rotational image c reation. Coronal, sagittal maximum intensity pixel images also reviewed. The dose-length product (D LP) for this examination was 1021.62 mGy-cm. The exposure was tailored according to patient size, a nd iterative reconstruction (ASIR) was used as additional dose reduction technique. Correlation is ma de to head CT earlier same date. FINDINGS: There is mild to moderate right carotid bulb arterial sclerosis with 20% stenosis. There is mild left carotid bulb arterial sclerosis without stenosis. Bilateral circumferential carotid siphon arterial sclerosis with only mild stenosis. There is narrowing of the basilar artery without focal p laque identified, could be congenital. There is no carotid or vertebral basilar arterial dissection o r fibromuscular dysplasia. There are no cerebral artery aneurysms. There is symmetric cerebral artery arborization. The sagittal, transverse and sigmoid sinuses enhance normally, no venous sinus thrombo sis. Internal cerebral veins also enhance normally. Incidental Findings: Advanced left-sided cervical arthropathy. IMPRESSION: 1. No acute carotid or intracranial findings. 2. Right carotid bulb 20% stenosis, 0% on the left. Reviewed, dictated and finalized at location A.
--- NOTE | ~2020-11-22 | XR_ITS ---
EXAMINATION: XR chest 1V portable INDICATION: Congestive heart failure TECHNIQUE: Portable AP chest at 0733 hours COMPARISON: 11/22/2020 FINDINGS: Cardiomegaly is noted. There is mild diffuse interstitial pattern. No pleural effusion or p neumothorax is identified. There is advanced osteoarthritis of the right glenohumeral joint. IMPRESSION: 1. Cardiomegaly with mild pulmonary edema. Reviewed, dictated and finalized at location B.
--- NOTE | ~2020-11-22 | XR_ITS ---
XR chest 2V DATE: 11/22/2020 08:44 INDICATION: Shortness of breath TECHNIQUE: AP and lateral views COMPARISON: 10/22/2020 CT pulmonary scan 10/22/2020 2 view chest FINDINGS: Cardiomegaly. Aortic calcification. No pulmonary infiltrate or consolidation, pleural effusion or pulmonary vascular congestion or pneumo thorax. Surgical clips overlie the upper abdomen on the lateral view, likely due to cholecystectomy. Diffuse osteopenia. Right glenohumeral joint severe osteoarthritis and right rotator cuff atrophy. IMPRESSION: Cardiomegaly, aortic atherosclerosis No active pulmonary disease Reviewed, dictated and finalized at location A.
--- NOTE | ~2020-11-22 | CT_ITS ---
EXAMINATION: CT brain wo con DATE: 11/23/2020 10:51 INDICATION: Right paresis. Patient not alert today, was alert yesterday. TECHNIQUE: Computed tomography (CT) of the head was performed without intravenous contrast. The mA wa s adjusted according to patient size. Iterative reconstruction technique was employed. Exam dose: 60 5.33 mGy-cm total exam DLP. COMPARISON: 10/29/2020 CT brain FINDINGS: Vertebral and carotid siphon internal carotid artery calcifications. There is nonspecific patchy decreased attenuation of the subcortical and periventricular cerebral whi te matter, stable since 10/29/2020. Chronic lacunar infarcts are again noted in the left basal ganglia and left internal capsule. Small focal old right frontal infarct. Small focal discoid area of encephalomalacia in the left periv entricular white matter. No intracranial mass lesion or hemorrhage, midline shift or mass effect. No subdural or epidural oliver silva is detected. No fracture or bone destruction of the cranial vault. The mastoid air cells and included paranasal si nuses are unremarkable. IMPRESSION: Cerebral atherosclerosis and chronic small vessel ischemic changes of the cerebral white matter Chronic lacunar infarcts in left basal ganglia and left internal capsule Chronic stable small focal right frontal infarct and focal discoid deep white matter encephalomalacia in the left periventricular area, all stable since 10/29/2020 No acute intracranial finding or significant change since 10/29/2020 Reviewed, dictated and finalized at Location A. Reviewed, dictated and finalized at location A. IMPRESSION: Cerebral atherosclerosis and chronic small vessel ischemic changes of the cerebral white matter Chronic lacunar infarcts in left basal ganglia and left internal capsule Chronic stable small focal right frontal infarct and focal discoid deep white m atter encephalomalacia in the left periventricular area, all stable since 2020 No acute intracranial finding or significant change since 10/29/2020
--- NOTE | 2020-11-22 08:32 | ECG_ITS ---
Measurements Intervals [place] Rate: 102 P: WV: 0 QRS: -10 QRSD: 92 T: 60 QT: 328 QTc: 428 Interpretive Statements ATRIAL FIBRILLATION WITH RAPID VENTRICULAR RESPONSE NONSPECIFIC T-WAVE ABNORMALITY- HIGH LATERAL LEADS BASELINE ARTIFACT- I, II, III ABNORMAL ECG Electronically Signed On 11-22-2020 9:13:47 CDT by Alfonso Ascencio D.O.
[2020-11-22 08:45] LABS: Basophils Percent Auto 0.5 % (0.2-1.2); Eosinophils Absolute Auto 0.2 K/mm3 (0-0.3); Eosinophils Percent Auto 3.8 % (0-4.4); Hematocrit 35.8 % (37.0-47.0); Hemoglobin 10.4 g/dL (12.0-15.0); Immature Granulocyte Absolute 0.01 K/mm3 (0.00-0.031); Immature Granulocyte Percent A 0.2 % (0-0.5); Lymphocytes Absolute Auto 1.03 K/mm3 (0.9-3.2); Lymphocytes Percent Auto 18.6 % (18.3-44.2); Mean Corpuscular HGB Conc 29.1 g/dl (32-36); Mean Corpuscular Hemoglobin 26.6 pg (26-34); Mean Corpuscular Volume 91.6 fl (80-100); Mean Platelet Volume 9.1 fl (7.4-10.4); Monocytes Absolute Auto 0.7 K/mm3 (0.1-0.6); Neutrophils Absolute Auto 3.5 K/mm3 (1.3-6.7); Neutrophils Percent Auto 63.9 % (45.5-73.1); Platelet Count Result 154 k/mm3 (150-375); Red Blood Count 3.91 M/mm3 (4.2-5.4); Red Cell Distribution Width 20.1 % (11.5-14.5); White Blood Count 5.5 K/mm3 (4.5-10.0)
[2020-11-22 08:54] LABS: INR 1.1; Prothrombin Time 14.3 Seconds (11.1-14.7)
[2020-11-22 08:55] LABS: Anion Gap 2 mmol/L (8-16); Blood Urea Nitrogen 8 mg/dL (7-17); Calcium 8.5 mg/dL (8.4-10.2); Carbon Dioxide 37 mmol/L (22-30); Chloride 98 mmol/L (98-107); Estimated Glomerular Filt Rate > 60; Glucose 108 mg/dL (65-110); Partial Thromboplastin Time 39.5 SECONDS (22.3-36.8); Potassium 3.7 mmol/L (3.4-5.0); Sodium 137 mmol/L (137-145)
[2020-11-22 09:07] LABS: NT Pro B Type Natriuretic Pept 2950 pg/mL (5-100); Troponin I < 0.012 ng/mL (0.000-0.034)
[2020-11-22] MEDS: FUROSEMIDE INJ 40 MG/4 ML VIAL IV PUSH ×2 (10:35→17:48)
--- NOTE | 2020-11-22 11:20 | ED.SOB ---
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 Has been using her home inhaler and other medications with some improvement. Patient denies any home oxygen use. Patient with history of COPD secondary to secondhand tobacco exposure when younger Related Data Home Medications Medication Instructions Recorded Confirmed anastrozole 1 mg tablet 1 mg PO DAILY 03/01/20 10/22/20 pantoprazole 40 mg PO BID 04/18/20 10/22/20 docusate sodium 100 mg PO BID PRN 09/03/20 10/22/20 ergocalciferol (vitamin D2) 1,250 mcg PO WEEKLY 09/03/20 10/22/20 [Vitamin D2] Trelegy Ellipta 1 inh INHALATION DAILY 10/22/20 10/22/20 cyanocobalamin (vitamin B-12) 1,000 mcg PO DAILY 10/22/20 10/22/20 ferrous sulfate 325 mg PO BID 10/22/20 10/22/20 furosemide [Lasix] 20 mg PO BID 10/22/20 10/22/20 insulin aspart U-100 [Novolog See Rx Instructions .ROUTE .COMPLEX 10/22/20 10/22/20 Flexpen U-100 Insulin] ipratropium bromide 0.5 mg INHALATION QID 10/22/20 10/22/20 metoprolol tartrate 75 mg PO BID 10/22/20 10/22/20 polyethylene glycol 3350 17 g PO BID 10/22/20 10/22/20 sennosides [senna] 8.6 mg PO BID 10/22/20 10/22/20 Lactobacillus acidophilus 10 mg PO DAILY 11/22/20 [Acidophilus] guaifenesin [Mucus Relief ER] 600 mg PO Q12H PRN 11/22/20 levothyroxine 50 mcg PO DAILY 11/22/20 nystatin [Nyamyc] 1 applic TOPICAL BID 11/22/20 tramadol 50 mg PO PRN PRN 11/22/20 Allergies Allergy/AdvReac Type Severity Reaction Status Date / Time metformin Allergy Mild GI upset Verified 11/22/20 10:43 sitagliptin Allergy Mild rhinitis Verified 11/22/20 10:43 amlodipine Allergy Unknown Constipatio Verified 11/22/20 10:43 n aspirin Allergy Unknown Ulcers Verified 11/22/20 10:43 lisinopril Allergy Unknown Cough Verified 11/22/20 10:43 losartan Allergy Unknown Wheezing Verified 11/22/20 10:43 morphine AdvReac Confusion Verified 11/22/20 10:43 Review of Systems Review of Systems: All systems reviewed & are unremarkable except as noted in HPI and below PMFSH Past Medical History Medical History Anemia Cancer of left breast (~02/2018) 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 Also treated with aromatase inhibitors and Herceptin. Cerebrovascular accident (~01/2020) CHF (congestive heart failure), NYHA class I COPD (chronic obstructive pulmonary disease) Duodenal ulcer (~05/2018) GI bleed (~05/2018) Acute duodenal ulcers and gastritis on EGD per Dr. Shea. Hypertension Insulin dependent type 2 diabetes mellitus Left leg DVT (~2018) Status post IVC filter insertion. Obstructive sleep apnea Does not use CPAP but apparently wears oxygen at nighttime. Osteoarthritis Paroxysmal atrial fibrillation Shingles (~2001) Surgical History Surgical History History of bilateral cataract extraction History of bilateral mastectomy For left-sided breast cancer. Negative margins but 1 lymph node demonstrated micrometastases. History of cholecystectomy History of hysterectomy History of orthopedic surgery ORIF right ankle fracture. Right hip bipolar hemiarthroplasty after fracture. History of repair of ri
--- NOTE | 2020-11-22 11:45 | ED.SOB ---
HPI - SOB/Dyspnea General Chief Complaint: Shortness of Breath/Dyspnea Stated Complaint: SOB, 7lb weight gain in 1 week Time Seen by Provider: 11/22/20 09:09 Source: patient and RN notes reviewed Mode of arrival: EMS Limitations: no limitations History of Present Illness HPI Narrative: Patient is an 80-year-old female who [facility] from [facility] noting that she has at 30 pounds weight gain over the last several days history of heart failure takes 20 mg of Lasix daily has been compliant with her medications with history of A. fib heart failure is on anticoagulation. Patient notes her symptoms worsen with any activity or movement making it difficult for her to perform daily operations patient on arrival does not appear distressed denies any pain Related Data Home Medications Medication Instructions Recorded Confirmed anastrozole 1 mg tablet 1 mg PO DAILY 03/01/20 10/22/20 pantoprazole 40 mg PO BID 04/18/20 10/22/20 docusate sodium 100 mg PO BID PRN 09/03/20 10/22/20 ergocalciferol (vitamin D2) 1,250 mcg PO WEEKLY 09/03/20 10/22/20 [Vitamin D2] Trelegy Ellipta 1 inh INHALATION DAILY 10/22/20 10/22/20 cyanocobalamin (vitamin B-12) 1,000 mcg PO DAILY 10/22/20 10/22/20 ferrous sulfate 325 mg PO BID 10/22/20 10/22/20 furosemide [Lasix] 20 mg PO BID 10/22/20 10/22/20 insulin aspart U-100 [Novolog See Rx Instructions .ROUTE .COMPLEX 10/22/20 10/22/20 Flexpen U-100 Insulin] ipratropium bromide 0.5 mg INHALATION QID 10/22/20 10/22/20 metoprolol tartrate 75 mg PO BID 10/22/20 10/22/20 polyethylene glycol 3350 17 g PO BID 10/22/20 10/22/20 sennosides [senna] 8.6 mg PO BID 10/22/20 10/22/20 Lactobacillus acidophilus 10 mg PO DAILY 11/22/20 [Acidophilus] guaifenesin [Mucus Relief ER] 600 mg PO Q12H PRN 11/22/20 levothyroxine 50 mcg PO DAILY 11/22/20 nystatin [Nyamyc] 1 applic TOPICAL BID 11/22/20 tramadol 50 mg PO PRN PRN 11/22/20 Allergies Allergy/AdvReac Type Severity Reaction Status Date / Time metformin Allergy Mild GI upset Verified 11/22/20 10:43 sitagliptin Allergy Mild rhinitis Verified 11/22/20 10:43 amlodipine Allergy Unknown Constipatio Verified 11/22/20 10:43 n aspirin Allergy Unknown Ulcers Verified 11/22/20 10:43 lisinopril Allergy Unknown Cough Verified 11/22/20 10:43 losartan Allergy Unknown Wheezing Verified 11/22/20 10:43 morphine AdvReac Confusion Verified 11/22/20 10:43 Review of Systems Review of Systems: All systems reviewed & are unremarkable except as noted in HPI and below PMFSH Past Medical History Medical History Anemia Cancer of left breast (~02/2018) Moderately differentiated invasive lobular carcinoma (ER/[place]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 Also treated with aromatase inhibitors and Herceptin. Cerebrovascular accident (~01/2020) CHF (congestive heart failure), NYHA class I COPD (chronic obstructive pulmonary disease) Duodenal ulcer (~05/2018) GI bleed (~05/2018) Acute duodenal ulcers and gastritis on EGD per Dr. Shea. Hypertension Insulin dependent type 2 diabetes mellitus Left leg DVT (~2018) Status post IVC filter insertion. Obstructive sleep apnea Does not use CPAP but apparently wears oxygen at nighttime. Osteoarthritis Paroxysmal atrial fibrillation Shingles (~2001) Surgical History Surgical History History of bilateral cataract extraction History of bilateral mastectomy For left-sided breast cancer. Negative margins but 1 lymph node demonstrated micrometastases. History of cholecystectomy History of hysterectomy History of orthopedic surgery ORIF right ankle fracture. Right hip bipolar hemiarthroplasty after fracture. History of repair of right rotator cuff Presence of inferior vena cava filter Family History Family History (Reviewed 11/22/20
--- NOTE | 2020-11-22 13:02 | PM.IMHP ---
H&P: HPI History of Present Illness Date/Time: 11/22/20 13:02Lala is a 80-year-old female patient who resides at [facility]. She has a history of COPD and CHF. Her last admission was October 22, 2020 the patient was here for respiratory failure at that time with hypoxia and COPD exacerbation. She was also treated for congestive heart failure. The patient was discharged after 8 Days. The patient was brought in from the group home today because there was some concern about a weight gain patient does have lower extremity edema. She does not typically wear oxygen she was placed on 2 L per nasal cannula for a pulse ox of 89%. Her chest x-ray was read as cardiomegaly aortic sclerosis no acute active pulmonary disease. The patient does have 2 +pitting edema. The patient was given IV Lasix in the emergency room. Patient also has a history of having a DVT and a PE and is on anticoagulation. She also has IVC filter. H&H is 10.4 and 35.8. The patient is being admitted to Observation services on the date of service of 11/22/2020. Chief Complaint: shortness of breath Review of Systems Review of Systems: All systems reviewed & are unremarkable except as noted in HPI and below Constitutional: Constitutional: Reports as per HPI and Reports no additional constitutional complaints Eyes: Eyes: Reports as per HPI and Reports no additional eye complaints ENT: Reports system reviewed and no additional complaints, except as documented and Reports Normal hearing present Cardiovascular: Cardiovascular: Reports no additional cardiovascular complaints Respiratory: Respiratory: Reports no additional respiratory complaints and Reports no additional respiratory complaints Gastrointestinal: Gastrointestinal: Reports as per HPI and Reports no additional gastrointestinal complaints Musculoskeletal: Musculoskeletal: Reports no additional musculoskeletal complaints Integumentary/Breasts: Skin/Breast: Reports system reviewed and no additional complaints, except as docu and Reports as per HPI Neurologic: Reports system reviewed and no additional complaints, except as documented, Reports as per HPI and Reports Normal hearing present Psychiatric: Psychiatric: Reports no additional psychiatric complaints and Reports as per HPI Endocrine: Endocrine: Reports no additional endocrine complaints Hematologic/Lymphatic: Hematologic/Lymphatic: Reports no additional hematologic/lymphatic complaints Allergic/Immunologic: Allergic/Immunologic: Reports no additional allergic/immunologic complaints FOR[facility]LY [facility] Past Medical History Medical History Anemia Cancer of left breast (~02/2018) 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 Also treated with aromatase inhibitors and Herceptin. Cerebrovascular accident (~01/2020) CHF (congestive heart failure), NYHA class I COPD (chronic obstructive pulmonary disease) Duodenal ulcer (~05/2018) GI bleed (~05/2018) Acute duodenal ulcers and gastritis on EGD per Dr. Shea. Hypertension Insulin dependent type 2 diabetes mellitus Left leg DVT (~2018) Status post IVC filter insertion. Obstructive sleep apnea Does not use CPAP but apparently wears oxygen at nighttime. Osteoarthritis Paroxysmal atrial fibrillation Shingles (~2001) Surgical History Surgical History History of bilateral cataract extraction History of bilateral mastectomy For left-sided breast cancer. Negative margins but 1 lymph node demonstrated micrometastases. History of cholecystectomy History of hysterectomy History of orthopedic surgery ORIF right ankle fracture. Right hip bipolar hemiarthroplasty after fracture. History of repair of right rotator cuff Presence of inferior
[2020-11-22 13:56] LABS: Glucose Point of Care 88 mg/dl (65-105)
[2020-11-22] MEDS: methylPREDNISolone SOD SUCC 125 MG VIAL 60 MG IV PUSH ×2 (15:13→20:55)
[2020-11-22 17:58] LABS: Glucose Point of Care 162 mg/dl (65-105)
--- NOTE | 2020-11-22 18:56 | ADMGEN ---
This patient, Alexus Ferrer, was admitted to [facility] Surg Room 304-02. Patient/family oriented to hospital policies and general routines including ID bracelet, bed and alarms, visiting hours, pain management, procedures, bathroom and other care routines, personal items, smoking policy, room service/diet, and visiting hours. Information on how to activate the Rapid Response Team has been discussed. Patient/Family are encouraged to report perceived risks to care and to ask questions if they do not understand what they are told or what they should do.
[2020-11-22 20:54] LABS: Glucose Point of Care 251 mg/dl (65-105)
[2020-11-22] MEDS: FAMOTIDINE 20 MG/2 ML VIAL IV PUSH (20:56)
[2020-11-23] VITALS (15 sets, daily range): BP systolic 113–149; BP diastolic 56–99; PULSE 88–120; RESP 12–18; TEMP 36.3–36.6; O2SAT 95–98
[2020-11-23] MEDS: METOPROLOL TARTRATE TAB 25 MG, METOPROLOL TARTRATE TAB 50 MG 75 MG PO (00:02)
--- NOTE | 2020-11-23 02:55 | PCRCNOTE ---
Window of time for administration has passed. See next scheduled administration.
[2020-11-23] MEDS: methylPREDNISolone SOD SUCC 125 MG VIAL 60 MG IV PUSH ×3 (06:25→21:29)
[2020-11-23] MEDS: LEVOTHYROXINE SODIUM 50 MCG TABLET PO (06:26)
[2020-11-23 06:47] LABS: Basophils Percent Auto 0.2 % (0.2-1.2); Hematocrit 38.3 % (37.0-47.0); Hemoglobin 10.9 g/dL (12.0-15.0); Immature Granulocyte Absolute 0.04 K/mm3 (0.00-0.031); Immature Granulocyte Percent A 0.8 % (0-0.5); Lymphocytes Absolute Auto 0.66 K/mm3 (0.9-3.2); Mean Corpuscular HGB Conc 28.5 g/dl (32-36); Mean Corpuscular Hemoglobin 26.4 pg (26-34); Mean Corpuscular Volume 92.7 fl (80-100); Mean Platelet Volume 10.4 fl (7.4-10.4); Monocytes Absolute Auto 0.2 K/mm3 (0.1-0.6); Monocytes Percent Auto 3.4 % (2.6-8.5); Neutrophils Absolute Auto 3.9 K/mm3 (1.3-6.7); Neutrophils Percent Auto 81.6 % (45.5-73.1); Platelet Count Result 179 k/mm3 (150-375); Red Blood Count 4.13 M/mm3 (4.2-5.4); Red Cell Distribution Width 19.9 % (11.5-14.5); White Blood Count 4.7 K/mm3 (4.5-10.0)
[2020-11-23 06:48] LABS: Lactic Acid Reflex 1.4 mmol/L (0.7-2.1)
[2020-11-23 06:52] LABS: Alanine Aminotransferase 29 U/L (4-35); Albumin Level 3.4 g/dL (3.5-5.1); Alkaline Phosphatase 65 U/L (38-126); Anion Gap 6 mmol/L (8-16); Aspartate Amino Transferase 26 U/L (14-36); Bilirubin,Total 0.6 mg/dL (0.2-1.3); Blood Urea Nitrogen 12 mg/dL (7-17); Calcium 9.1 mg/dL (8.4-10.2); Carbon Dioxide 37 mmol/L (22-30); Chloride 92 mmol/L (98-107); Estimated CRCL calculation 61 ml/min; Estimated Glomerular Filt Rate > 60; Glucose 235 mg/dL (65-110); Lactate Dehydrogenase 479 U/L (313-618); Magnesium 1.9 mg/dL (1.6-2.3); Potassium 4.5 mmol/L (3.4-5.0); Sodium 135 mmol/L (137-145)
[2020-11-23 07:22] LABS: Lipase < 10 U/L (23-300)
[2020-11-23 07:32] LABS: Anisocytosis 1+ (NORMAL); Platelet Estimate Adequate (Adequate)
[2020-11-23] MEDS: INSULIN ASPART (*BKC) 100 UNITS/ML SUB-Q (09:07)
[2020-11-23] MEDS: guaiFENesin 12 HR 600 MG TABCR PO (09:08)
[2020-11-23] MEDS: TOLNAFTATE 1% POWDER 45 GM BTL 1 APPLIC TOPICAL ×2 (09:08→21:24)
[2020-11-23 09:09] LABS: Glucose Point of Care 205 mg/dl (65-105)
[2020-11-23] MEDS: FUROSEMIDE INJ 40 MG/4 ML VIAL IV PUSH ×2 (09:09→18:02)
[2020-11-23] MEDS: FAMOTIDINE 20 MG/2 ML VIAL IV PUSH ×2 (09:09→21:26)
[2020-11-23] MEDS: IPRATROPIUM BR 0.02% INH SOLN 0.5 MG/2.5 ML VIAL INHALATION ×2 (09:20→13:33)
--- NOTE | 2020-11-23 10:14 | PC.NURSE ---
Rapid response called r/t stroke like symptoms.
[2020-11-23 10:17] LABS: Glucose Point of Care 209 mg/dl (65-105)
[2020-11-23 10:25] LABS: Alveolar/Arterial O2 Gradient 55.5 mmHg; Base Excess ABG 8.3 mEq/l (+/-2.0); Carboxyhemoglobin 0.6 % THb (0-2.0); Fractional Inspired Oxygen 28 %; HCO3 ABG 35.1 mEq/l (22.0-26.0); Methemoglobin ABG 0.3 %THb (0-1.5); Modified Allen's Test Unable to perform; Oxygen Content ABG 15.4 %vol (16.0-22.0); Oxygen Saturation ABG 94.5 % (95.0-100.0); Oxyhemoglobin 88.9 % THb (90.0-100.0); PCO2 ABG 59.2 mmHg (35.0-45.0); PO2 ABG 74.3 mmHg (80.0-100.0); PO2 FiO2 Ratio Arterial Blood 2.65 %; Reduced Hemoglobin 10.2 %THb (0-5.0); Site Drawn LEFT RADIAL; Total Hemoglobin 12.3 g/dL (12.0-18.0); pH ABG 7.391 (7.350-7.450)
[2020-11-23 10:26] LABS: Device NASAL CANNULA
--- NOTE | 2020-11-23 10:27 | ECG_ITS ---
Measurements Intervals [place] Rate: 94 P: [place]: 0 QRS: -10 QRSD: 96 T: 74 QT: 354 QTc: 443 Interpretive Statements ATRIAL FIBRILLATION BORDERLINE R WAVE PROGRESSION, ANTERIOR LEADS NONSPECIFIC T-WAVE ABNORMALITY- HIGH LATERAL LEADS ABNORMAL ECG Electronically Signed On 11-23-2020 11:47:30 CDT by Alfonso Ascencio D.O.
[2020-11-23 10:47] LABS: Hematocrit 37.3 % (37.0-47.0); Hemoglobin 10.7 g/dL (12.0-15.0); Mean Corpuscular HGB Conc 28.7 g/dl (32-36); Mean Corpuscular Hemoglobin 26.6 pg (26-34); Mean Corpuscular Volume 92.6 fl (80-100); Mean Platelet Volume 10.8 fl (7.4-10.4); Platelet Count Result 147 k/mm3 (150-375); Red Blood Count 4.03 M/mm3 (4.2-5.4); Red Cell Distribution Width 19.6 % (11.5-14.5); White Blood Count 5.1 K/mm3 (4.5-10.0)
[2020-11-23 11:01] LABS: Albumin Level 3.3 g/dL (3.5-5.1); Anion Gap 4 mmol/L (8-16); Blood Urea Nitrogen 13 mg/dL (7-17); Calcium 9.1 mg/dL (8.4-10.2); Carbon Dioxide 38 mmol/L (22-30); Chloride 93 mmol/L (98-107); Estimated CRCL calculation 70 ml/min; Estimated Glomerular Filt Rate > 60; Glucose 211 mg/dL (65-110); Magnesium 1.9 mg/dL (1.6-2.3); Phosphorus 4.5 mg/dL (2.5-4.5); Potassium 4.5 mmol/L (3.4-5.0); Sodium 135 mmol/L (137-145)
[2020-11-23 11:01] LABS: Ammonia < 9 umol/L (9-30); Lactic Acid Reflex 1.2 mmol/L (0.7-2.1)
[2020-11-23 11:18] LABS: Troponin I < 0.012 ng/mL (0.000-0.034)
[2020-11-23 13:16] LABS: Glucose Point of Care 192 mg/dl (65-105)
--- NOTE | 2020-11-23 13:50 | PM.IMPN ---
Progress Note: A&P Assessment and Plan (1) Altered mental status: Code(s): R41.82 - Altered mental status, unspecified Status: Acute Assessment and Plan: Altered Mental status - called to the room for change in mental status. The last time she was know to be well was last night per RN. She is on Eliquis. Clinically appears to have had a CVA. Symptoms improved. She did have incontinece but seizure felt less likely. She has allergy to ASA as an ulcer so will give her a one time ASA. CT brain normal. Check CTA brain. Possible MR brain tomorow. PT/OT/ST to evaluate and treat. Make NPO until swallowing can be evaluated. Neuro consult. 45 minutes spent on critcal care time Back to the room a 4th time - she is much better. Still perseverates on occasion but speech is fluid and no focal findings. TIA? Seizure? CTA head/neck showing no concerning findings. 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 Family updated. She was able to eat after this event and toelrated this well. Will stil have ST evaluate (2) COPD (chronic obstructive pulmonary disease): Code(s): J44.9 - Chronic obstructive pulmonary disease, unspecified Status: Acute Assessment and Plan: The patient with decreased breath sounds and tachypneic. SHe was started on neb treatments and Solu-Medrol. Suspect she has both COPD and CHF exacerbation. She also has uncontrolled HERLINDA. Continue with nebulizer treatments. Continue with her Trelegy. (3) CHF (congestive heart failure), NYHA class I: Code(s): I50.9 - Heart failure, unspecified Status: Chronic Assessment and Plan: Patient presents with weight gain and increasing pedal edema. September 2020 Echo showing EF 65-70% with diastolic dysfunction and mild pulmonary hypertension; technically difficult study. BNP 2950. CXR was clear of acute process. Consider right sided component to her symptoms. Lasix started. Cr stable. Cardiology following and appreciate their input. (4) Pulmonary embolism: Code(s): I26.99 - Other pulmonary embolism without acute cor pulmonale Status: Acute Assessment and Plan: Patient has hx of PE and she has filter in place. Will hold the patient's Eliquis for now (5) Insulin dependent type 2 diabetes mellitus: Code(s): E11.9 - Type 2 diabetes mellitus without complications; Z79.4 - nursing home (current) use of insulin Status: Acute Assessment and Plan: The patient's blood glucose was reviewed on 11/23 Glucose mostly in the 200's. Lantus held since NPO now. Continue AccuCheks covering with sliding scale. Hypoglycemia protocol available as needed. (6) Paroxysmal atrial fibrillation: Code(s): I48.0 - Paroxysmal atrial fibrillation Status: Acute Assessment and Plan: Rate mostly well controlled. Hold Eliquis and metoprolol for now until her swallowing can be evaluated. Contineu tele. (7) Chronic GERD: Code(s): K21.9 - Gastro-esophageal reflux disease without esophagitis Status: Acute Assessment and Plan: Stable. Continue Pepcid (8) Hypertension: Code(s): I10 - Essential (primary) hypertension Status: Chronic Assessment and Plan: BP reviewed on 11/23. BP elevated but given probable recent CVA, will allow for permissive HTN. Continue with metoprolol Subjective Date/time seen: 11/23/20 13:50 Interval history: 80yo female with COPD, CHF and cAFib here for weight gain and pedal edema. Called to the room this morning due to mental status changes. RN found the patient this morning hard to arouse. Glucose normal. Patietn is awake but aphasic with mild right sided weakness. She was outside the window for tPA and she is on Eliquis. Stat CT brain showing no acute findings. Labs and ABG okay. Returned the room 2 more times through out the day and her right sided weakness is better. She is ab
--- NOTE | 2020-11-23 13:59 | PM.CNCAR ---
Assessment and Plan Assessment and plan (1) Acute exacerbation of CHF (congestive heart failure): Code(s): I50.9 - Heart failure, unspecified Status: Acute Assessment and Plan: Presented with abrupt weight gain, shortness of breath , lower extremity edema. Acute on chronic heart failure exacerbation. Echocardiogram in September of 2020 demonstrated normal left his ventricular systolic function with an ejection fraction of 60-65%. She does have some diastolic dysfunction. She has no significant valve pathology. Chest x-ray shows cardiomegaly. She was given IV Lasix in the emergency department. - Agree with 40 mg IV Lasix b.i.d. - Repeat chest x-ray in the morning - Daily BMP - Daily weights (2) Paroxysmal atrial fibrillation: Code(s): I48.0 - Paroxysmal atrial fibrillation Status: Acute Assessment and Plan: History of paroxysmal atrial fibrillation. She is in atrial fibrillation but is rate controlled on metoprolol. Systemically anticoagulated with apixaban. (3) Hypertension: Code(s): I10 - Essential (primary) hypertension Status: Chronic Assessment and Plan: currently above goal. We will continue to monitor. continue metoprolol. She has listed allergies to lisinopril, losartan, amlodipine. Would consider increasing metoprolol dose for better blood pressure control if necessary. History of Present Illness History of Present Illness Consult date/time: 11/23/20 13:59 Cardiology consultation for CHF Date of service 11/23/2020: This is a 80-year-old female with a past medical history of COPD, CHF, PAF Left leg DVT with IVC filter, and PE Who I am seeing at the request of JOSY Rowley. The patient says she came to the hospital for, something with my heart. She is unable to tell me much about her cardiac history but knows that she was diagnosed with a heart problem, a long time ago. She was recently hospitalized for a COPD exacerbation and CHF exacerbation. According to the medical record she had a recent significant weight gain and has developed lower extremity edema which prompted her presentation to the emergency department from the senior living which she resides in. earlier today, she was found by nursing staff to be very difficult to rouse and very confused. This prompted a rapid response. Currently, the patient is resting comfortably in bed on oxygen per nasal cannula. She remains extraordinarily confused and therefore is unable to provide much history. apparently this is a drastic change in her mental status from yesterday. she does report recent swelling and trouble breathing but denies any shortness of breath at this time. Reason For Visit: CHF EXACERBATION Review of Systems Review of Systems: ROS unobtainable: Yes unobtainable due to mental status PMFSH Past Medical History Medical History Anemia Cancer of left breast (~02/2018) 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 Also treated with aromatase inhibitors and Herceptin. Cerebrovascular accident (~01/2020) CHF (congestive heart failure), NYHA class I COPD (chronic obstructive pulmonary disease) Duodenal ulcer (~05/2018) GI bleed (~05/2018) Acute duodenal ulcers and gastritis on EGD per Dr. Shea. Hypertension Insulin dependent type 2 diabetes mellitus Left leg DVT (~2018) Status post IVC filter insertion. Obstructive sleep apnea Does not use CPAP but apparently wears oxygen at nighttime. Osteoarthritis Paroxysmal atrial fibrillation Shingles (~2001) Surgical History Surgical History History of bilateral cataract extraction History of bilateral mastectomy For left-sided breast cancer. Negative margins but 1 lymph node demonstrated mi
[2020-11-23 15:47] LABS: Anion Gap 9 mmol/L (8-16); Blood Urea Nitrogen 15 mg/dL (7-17); Calcium 9.2 mg/dL (8.4-10.2); Carbon Dioxide 36 mmol/L (22-30); Chloride 90 mmol/L (98-107); Estimated CRCL calculation 70 ml/min; Estimated Glomerular Filt Rate > 60; Glucose 220 mg/dL (65-110); Potassium 4.2 mmol/L (3.4-5.0); Sodium 135 mmol/L (137-145)
[2020-11-23] MEDS: INSULIN GLARGINE (*BKC) 100 UNITS/ML 15 UNITS SUB-Q (18:00)
[2020-11-23 21:55] LABS: Glucose Point of Care 295 mg/dl (65-105)
[2020-11-23 21:55] LABS: Glucose Point of Care 247 mg/dl (65-105)
--- NOTE | 2020-11-23 23:35 | PCRCNOTE ---
Window of time for administration has passed. See next scheduled administration.
[2020-11-24] VITALS (14 sets, daily range): BP systolic 138–169; BP diastolic 62–93; PULSE 56–107; RESP 18–20; TEMP 36.4–36.6; O2SAT 91–99
[2020-11-24] MEDS: methylPREDNISolone SOD SUCC 125 MG VIAL 60 MG IV PUSH ×3 (05:25→22:23)
[2020-11-24 06:59] LABS: Albumin Level 3.4 g/dL (3.5-5.1); Blood Urea Nitrogen 23 mg/dL (7-17); Calcium 9.1 mg/dL (8.4-10.2); Carbon Dioxide > 40 mmol/L (22-30); Chloride 87 mmol/L (98-107); Estimated CRCL calculation 61 ml/min; Estimated Glomerular Filt Rate > 60; Glucose 234 mg/dL (65-110); Magnesium 1.9 mg/dL (1.6-2.3); Phosphorus 4.4 mg/dL (2.5-4.5); Potassium 4.1 mmol/L (3.4-5.0); Sodium 133 mmol/L (137-145)
[2020-11-24] MEDS: TOLNAFTATE 1% POWDER 45 GM BTL 1 APPLIC TOPICAL ×2 (08:27→22:23)
[2020-11-24] MEDS: FUROSEMIDE INJ 40 MG/4 ML VIAL IV PUSH (08:31)
[2020-11-24 08:38] LABS: Glucose Point of Care 207 mg/dl (65-105)
--- NOTE | 2020-11-24 09:23 | PCSTNOTE ---
Please refer to the Bedside Swallow Evaluation in the EMR. Please note, silent aspiration cannot be ruled out at bedside.
[2020-11-24] MEDS: FAMOTIDINE 20 MG/2 ML VIAL IV PUSH ×2 (09:25→22:23)
[2020-11-24 09:49] LABS: Basophils Percent Auto 0.1 % (0.2-1.2); Hematocrit 39.7 % (37.0-47.0); Hemoglobin 11.4 g/dL (12.0-15.0); Immature Granulocyte Absolute 0.03 K/mm3 (0.00-0.031); Immature Granulocyte Percent A 0.4 % (0-0.5); Lymphocytes Absolute Auto 0.63 K/mm3 (0.9-3.2); Lymphocytes Percent Auto 8.6 % (18.3-44.2); Mean Corpuscular HGB Conc 28.7 g/dl (32-36); Mean Corpuscular Hemoglobin 26.1 pg (26-34); Mean Corpuscular Volume 91.1 fl (80-100); Mean Platelet Volume 9.6 fl (7.4-10.4); Monocytes Absolute Auto 0.2 K/mm3 (0.1-0.6); Neutrophils Absolute Auto 6.4 K/mm3 (1.3-6.7); Neutrophils Percent Auto 87.9 % (45.5-73.1); Platelet Count Result 197 k/mm3 (150-375); Red Blood Count 4.36 M/mm3 (4.2-5.4); Red Cell Distribution Width 19.4 % (11.5-14.5); White Blood Count 7.3 K/mm3 (4.5-10.0)
[2020-11-24] MEDS: IPRATROPIUM BR 0.02% INH SOLN 0.5 MG/2.5 ML VIAL INHALATION ×3 (10:08→17:01)
[2020-11-24] MEDS: FLUTICASONE/UMECLIDIN/VILANTER 100-62.5-25 MCG ELLIPTA 1 PUFF INHALATION (10:22)
--- NOTE | 2020-11-24 10:33 | WPDNEURCNPN ---
Assessment and Plan Additional Plan old neurological deficit without evidence of any large vessel disease on the head and neck CTA previous MRI on October 26, 2020 was significantly abnormal she is already on appropriate medications treatment will be continued as such Consult date: 11/24/20 Time Seen: 09:30 HPI: Alexus Ferrer is a 80 year old female admitted to the hospital on transfer from the intermediate for the concern of edema of lower extremities in addition to the ongoing history of 1. COPD 2. Congestive heart failure with recent history of respiratory failure resulting in hypoxia again secondary to excess survey nicole of COPD 3. Congestive heart failure. Patient received Lasix in the emergency room for 2+ pitting edema and patient has been on anticoagulation therapy for the history of DVT and PE. Does have ongoing history of carcinoma of the left breast, stroke in January of 1020, duodenal ulcer with history of GI bleed, insulin-dependent diabetes mellitus type 2, and hypertension pertinent investigations include blood sugar of 207 today with BUN 23 slightly abnormal electrolytes calcium 9.1 with phosphorus 4.4 fluctuating abnormal blood gases nonsignificant UA, CTA with right carotid bulb 20% stenosis 0% on the left no intracranial findings, head CT scan with lacunar infarct in left basal ganglia and left internal capsule addition to small focal right frontal infarct and deep white matter encephalomalacia in the left periventricular area again all stable since October 29, 2020, cardiology consultation has been obtained for the acute exacerbation of congestive heart failure who is readjusting the diuretics, also metoprolol is being adjusted for the better blood pressure control and anticoagulation will be continued as such. Neurology consultation was obtained for the change in the mental status Review of Systems Review of Systems: All systems reviewed & are unremarkable except as noted in HPI and below [facility] Past Medical History Medical History Anemia Cancer of left breast (~02/2018) Moderately differentiated invasive lobular carcinoma (ER/[place]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 Also treated with aromatase inhibitors and Herceptin. Cerebrovascular accident (~01/2020) CHF (congestive heart failure), NYHA class I COPD (chronic obstructive pulmonary disease) Duodenal ulcer (~05/2018) GI bleed (~05/2018) Acute duodenal ulcers and gastritis on EGD per Dr. Shea. Hypertension Insulin dependent type 2 diabetes mellitus Left leg DVT (~2018) Status post IVC filter insertion. Obstructive sleep apnea Does not use CPAP but apparently wears oxygen at nighttime. Osteoarthritis Paroxysmal atrial fibrillation Shingles (~2001) Surgical History Surgical History History of bilateral cataract extraction History of bilateral mastectomy For left-sided breast cancer. Negative margins but 1 lymph node demonstrated micrometastases. History of cholecystectomy History of hysterectomy History of orthopedic surgery ORIF right ankle fracture. Right hip bipolar hemiarthroplasty after fracture. History of repair of right rotator cuff Presence of inferior vena cava filter Family History Family History Sibling Family history of glaucoma Mother Family history of diabetes mellitus in first degree relative History of mastectomy Smoker Father Family history of Alzheimer's disease Other Asthma Carcinoma of colon Diabetes mellitus Family history of congestive heart failure Family history of lung cancer Social History Social History Social History: The patient lives in assisted living at [facility]. She is and has 5 childr
[2020-11-24 11:55] LABS: Glucose Point of Care 299 mg/dl (65-105)
--- NOTE | 2020-11-24 12:48 | PM.IMPN ---
Progress Note: A&P Assessment and Plan (1) Altered mental status: Code(s): R41.82 - Altered mental status, unspecified Status: Acute Assessment and Plan: PATIENT IS AWAKE AND ALERT TODAY CT OF THE HEAD AND CT REVIEWED NEUROLOGY NOTE NOTED Altered Mental status - called to the room for change in mental status. The last time she was know to be well was last night per RN. She is on Eliquis. Clinically appears to have had a CVA. Symptoms improved. She did have incontinece but seizure felt less likely. She has allergy to ASA as an ulcer so will give her a one time ASA. CT brain normal. Check CTA brain. Possible MR brain tomorow. PT/OT/ST to evaluate and treat. Make NPO until swallowing can be evaluated. Neuro consult. 45 minutes spent on critcal care time Back to the room a 4th time - she is much better. Still perseverates on occasion but speech is fluid and no focal findings. TIA? Seizure? CTA head/neck showing no concerning findings. 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 Family updated. She was able to eat after this event and toelrated this well. Will stil have ST evaluate (2) COPD (chronic obstructive pulmonary disease): Code(s): J44.9 - Chronic obstructive pulmonary disease, unspecified Status: Acute Assessment and Plan: Still having some wheezes The patient with decreased breath sounds and tachypneic. She was started on neb treatments and Solu-Medrol. Suspect she has both COPD and CHF exacerbation. She also has uncontrolled HERLINDA. Continue with nebulizer treatments. Continue with her Trelegy. (3) CHF (congestive heart failure), NYHA class I: Code(s): I50.9 - Heart failure, unspecified Status: Chronic Assessment and Plan: LASIX HAS BEEN DISCONTINUED PATIENT HAS DEVELOPED CONTRACTION ALKALOSIS PLACE ON A FLUID RESTRICTION OF 1500 CONTINUE TO MONITOR INTAKE AND OUTPUT Patient presents with weight gain and increasing pedal edema. September 2020 Echo showing EF 65-70% with diastolic dysfunction and mild pulmonary hypertension; technically difficult study. BNP 2950. CXR was clear of acute process. Consider right sided component to her symptoms. Lasix started. Cr stable. Cardiology following and appreciate their input. (4) Pulmonary embolism: Code(s): I26.99 - Other pulmonary embolism without acute cor pulmonale Status: Acute Assessment and Plan: Patient has hx of PE and she has filter in place. Will hold the patient's Eliquis for now (5) Insulin dependent type 2 diabetes mellitus: Code(s): E11.9 - Type 2 diabetes mellitus without complications; Z79.4 - intermediate (current) use of insulin Status: Acute Assessment and Plan: The patient's blood glucose was reviewed on 11/23 Glucose mostly in the 200's. Lantus held since NPO now. Continue AccuCheks covering with sliding scale. Hypoglycemia protocol available as needed. (6) Paroxysmal atrial fibrillation: Code(s): I48.0 - Paroxysmal atrial fibrillation Status: Acute Assessment and Plan: Rate mostly well controlled. Hold Eliquis and metoprolol for now until her swallowing can be evaluated. Contineu tele. (7) Chronic GERD: Code(s): K21.9 - Gastro-esophageal reflux disease without esophagitis Status: Acute Assessment and Plan: Stable. Continue Pepcid (8) Hypertension: Code(s): I10 - Essential (primary) hypertension Status: Chronic Assessment and Plan: BP reviewed on 11/23. BP elevated but given probable recent CVA, will allow for permissive HTN. Continue with metoprolol Additional Plan PATIENT IS BACK TO HER USUAL BASELINE MENTAL STATUS Altered Mental status - called to the room for change in mental status. The last time she was know to be well was last night per RN. She is on Eliquis. Clinically appears to have had a CVA. Symptoms i
--- NOTE | 2020-11-24 16:57 | PM.PNCARD ---
Progress Note: A&P Assessment and Plan (1) Acute exacerbation of CHF (congestive heart failure): Code(s): I50.9 - Heart failure, unspecified Status: Acute Assessment and Plan: Presented with abrupt weight gain, shortness of breath , lower extremity edema. Acute on chronic heart failure exacerbation. Echocardiogram in September of 2020 demonstrated normal left his ventricular systolic function with an ejection fraction of 60-65%. She does have some diastolic dysfunction. She has no significant valve pathology. Chest x-ray shows cardiomegaly. She was given IV Lasix in the emergency department. Unfortunately, lasix has had to be discontinued to to contraction alkalosis. Will resume lasix as alkalosis corrects. (2) Paroxysmal atrial fibrillation: Code(s): I48.0 - Paroxysmal atrial fibrillation Status: Acute Assessment and Plan: History of paroxysmal atrial fibrillation. She is in atrial fibrillation but is rate controlled on metoprolol. Systemically anticoagulated with apixaban. (3) Hypertension: Code(s): I10 - Essential (primary) hypertension Status: Chronic Assessment and Plan: currently above goal. We will continue to monitor. continue metoprolol. She has listed allergies to lisinopril, losartan, amlodipine. Would consider increasing metoprolol dose for better blood pressure control if necessary. Subjective Date/time seen: 11/24/20 16:57 Interval history: Cardiology follow up for CHF, A Fib Date of service 11/24/2020: Patient is more oriented today. She is complaining of shortness of breath with exertion. She is currently on 2 L oxygen per nasal cannula. She is not having any palpitations or chest pain. There was concern earlier in the day for stroke/TIA which has been ruled out. She passed her swallow eval. Review of Systems Constitutional: Constitutional: Reports fatigue and Reports weakness Eyes: Eyes: Denies change in vision ENT: Reports Normal hearing present and Denies epistaxis Cardiovascular: Cardiovascular: Denies chest pain, Reports pedal edema, Reports leg edema, Denies lightheadedness and Denies palpitations Respiratory: Respiratory: Denies cough, Reports dyspnea and Reports dyspnea on exertion Gastrointestinal: Gastrointestinal: Denies abdominal pain Genitourinary: Genitourinary: Denies dysuria Musculoskeletal: Musculoskeletal: Denies back pain and Denies neck pain Neurologic: Reports confusion Psychiatric: Psychiatric: Reports confusion Endocrine: Endocrine: Denies palpitations Hematologic/Lymphatic: Hematologic/Lymphatic: Denies easy bleeding and Denies easy bruising Exam Narrative: Exam Narrative: Obese elderly woman lying in bed. Alert and oriented Const: General: comfortable and no acute distress HENMT: Head: normal to inspection Eyes: General: appearance normal, both eyes and all related structures Pupils: Equal, round and reactive pupils present Neck: Neck: supple and no JVD Resp: Effort & Inspection: normal respiratory effort Auscultation: crackles bilateral and diminished lung sounds Cardio: Rate: regular rate Rhythm: abnormal rhythm irregularly irregular GI: Auscultation: normal bowel sounds Skin: General skin exam: normal color Wounds: wounds noted Neuro: Cranial nerves: Yes Equal, round and reactive pupils present Cognition (Neuro): abnormal cognition Extrem: General: abnormal to inspection, edema and pedal edema Psych: Mental Status: mental status grossly abnormal Objective Data Vital Signs Vital Signs: Vital Signs - 24 hr 11/23/20 20:00 11/23/20 22:00 11/24/20 00:00 Temperature 36.6 C Pulse Rate 105 H 111 H 103 H Respiratory Rate 18 Blood Pressure 113/56 L Pulse Oximetry 95 11/24/20 04:00 11/24/20 06:00 11/24/20 08:00 Temperature 36.4 C L Pulse Rate 103 H 56 L 99 Respiratory Rate 18 Blood Pressure 145/86 H Pulse Oximetry 99 95 11/24/20 10:1
[2020-11-24] MEDS: INSULIN GLARGINE (*BKC) 100 UNITS/ML 15 UNITS SUB-Q (17:03)
[2020-11-24 17:08] LABS: Glucose Point of Care 316 mg/dl (65-105)
[2020-11-24 22:54] LABS: Glucose Point of Care 279 mg/dl (65-105)
[2020-11-25] VITALS (18 sets, daily range): BP systolic 125–149; BP diastolic 85–100; PULSE 92–115; RESP 16–18; TEMP 36.3–37.1; O2SAT 91–100
[2020-11-25] MEDS: methylPREDNISolone SOD SUCC 125 MG VIAL 60 MG IV PUSH ×3 (06:09→20:48)
[2020-11-25 08:15] LABS: Glucose Point of Care 228 mg/dl (65-105)
[2020-11-25] MEDS: FAMOTIDINE 20 MG/2 ML VIAL IV PUSH ×2 (09:28→20:48)
[2020-11-25] MEDS: TOLNAFTATE 1% POWDER 45 GM BTL 1 APPLIC TOPICAL ×2 (09:31→20:49)
--- NOTE | 2020-11-25 10:14 | PCRCNOTE ---
Past window of treatment time.
[2020-11-25] MEDS: IPRATROPIUM BR 0.02% INH SOLN 0.5 MG/2.5 ML VIAL INHALATION ×3 (10:28→22:28)
[2020-11-25] MEDS: FLUTICASONE/UMECLIDIN/VILANTER 100-62.5-25 MCG ELLIPTA 1 PUFF INHALATION (10:44)
[2020-11-25 11:49] LABS: Glucose Point of Care 333 mg/dl (65-105)
[2020-11-25] MEDS: INSULIN ASPART (*BKC) 100 UNITS/ML SUB-Q ×2 (12:53→17:18)
--- NOTE | 2020-11-25 13:52 | PM.IMPN ---
Progress Note: A&P Assessment and Plan (1) Altered mental status: Code(s): R41.82 - Altered mental status, unspecified Status: Acute Assessment and Plan: BACK TO HER USUAL PATIENT IS AWAKE AND ALERT TODAY CT OF THE HEAD AND CT REVIEWED NEUROLOGY NOTE NOTED Altered Mental status - called to the room for change in mental status. The last time she was know to be well was last night per RN. She is on Eliquis. Clinically appears to have had a CVA. Symptoms improved. She did have incontinece but seizure felt less likely. She has allergy to ASA as an ulcer so will give her a one time ASA. CT brain normal. Check CTA brain. Possible MR brain tomorow. PT/OT/ST to evaluate and treat. Make NPO until swallowing can be evaluated. Neuro consult. 45 minutes spent on critcal care time Back to the room a 4th time - she is much better. Still perseverates on occasion but speech is fluid and no focal findings. TIA? Seizure? CTA head/neck showing no concerning findings. 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 Family updated. She was able to eat after this event and toelrated this well. Will stil have ST evaluate (2) COPD (chronic obstructive pulmonary disease): Code(s): J44.9 - Chronic obstructive pulmonary disease, unspecified Status: Acute Assessment and Plan: IMPROVED Still having some wheezes The patient with decreased breath sounds and tachypneic. She was started on neb treatments and Solu-Medrol. Suspect she has both COPD and CHF exacerbation. She also has uncontrolled HERLINDA. Continue with nebulizer treatments. Continue with her Trelegy. (3) CHF (congestive heart failure), NYHA class I: Code(s): I50.9 - Heart failure, unspecified Status: Chronic Assessment and Plan: LASIX HAS BEEN DISCONTINUED PATIENT HAS DEVELOPED CONTRACTION ALKALOSIS PLACE ON A FLUID RESTRICTION OF 1500 CONTINUE TO MONITOR INTAKE AND OUTPUT Patient presents with weight gain and increasing pedal edema. September 2020 Echo showing EF 65-70% with diastolic dysfunction and mild pulmonary hypertension; technically difficult study. BNP 2950. CXR was clear of acute process. Consider right sided component to her symptoms. Lasix started. Cr stable. Cardiology following and appreciate their input. (4) Pulmonary embolism: Code(s): I26.99 - Other pulmonary embolism without acute cor pulmonale Status: Acute Assessment and Plan: Patient has hx of PE and she has filter in place. Will hold the patient's Eliquis for now (5) Insulin dependent type 2 diabetes mellitus: Code(s): E11.9 - Type 2 diabetes mellitus without complications; Z79.4 - senior living (current) use of insulin Status: Acute Assessment and Plan: The patient's blood glucose was reviewed on 11/23 Glucose mostly in the 200's. Lantus held since NPO now. Continue AccuCheks covering with sliding scale. Hypoglycemia protocol available as needed. (6) Paroxysmal atrial fibrillation: Code(s): I48.0 - Paroxysmal atrial fibrillation Status: Acute Assessment and Plan: Rate mostly well controlled. Hold Eliquis and metoprolol for now until her swallowing can be evaluated. Contineu tele. (7) Chronic GERD: Code(s): K21.9 - Gastro-esophageal reflux disease without esophagitis Status: Acute Assessment and Plan: Stable. Continue Pepcid (8) Hypertension: Code(s): I10 - Essential (primary) hypertension Status: Chronic Assessment and Plan: BP reviewed on 11/23. BP elevated but given probable recent CVA, will allow for permissive HTN. Continue with metoprolol Additional Plan PATIENT IS BACK TO HER USUAL BASELINE MENTAL STATUS Altered Mental status - called to the room for change in mental status. The last time she was know to be well was last night per RN. She is on Eliquis. Clinically appears
[2020-11-25 15:46] LABS: Basophils Percent Auto 0.1 % (0.2-1.2); Hematocrit 39.2 % (37.0-47.0); Hemoglobin 11.5 g/dL (12.0-15.0); Immature Granulocyte Absolute 0.03 K/mm3 (0.00-0.031); Immature Granulocyte Percent A 0.4 % (0-0.5); Lymphocytes Absolute Auto 0.62 K/mm3 (0.9-3.2); Lymphocytes Percent Auto 7.9 % (18.3-44.2); Mean Corpuscular HGB Conc 29.3 g/dl (32-36); Mean Corpuscular Hemoglobin 26.3 pg (26-34); Mean Corpuscular Volume 89.7 fl (80-100); Mean Platelet Volume 9.5 fl (7.4-10.4); Monocytes Absolute Auto 0.7 K/mm3 (0.1-0.6); Monocytes Percent Auto 9.4 % (2.6-8.5); Neutrophils Absolute Auto 6.5 K/mm3 (1.3-6.7); Neutrophils Percent Auto 82.2 % (45.5-73.1); Platelet Count Result 177 k/mm3 (150-375); Red Blood Count 4.37 M/mm3 (4.2-5.4); Red Cell Distribution Width 18.6 % (11.5-14.5); White Blood Count 7.9 K/mm3 (4.5-10.0)
[2020-11-25 16:34] LABS: Anisocytosis 3+ (NORMAL); Hypochromasia 1+ (NORMAL); Platelet Estimate Adequate (Adequate)
[2020-11-25 16:46] LABS: Blood Urea Nitrogen 22 mg/dL (7-17); Calcium 8.9 mg/dL (8.4-10.2); Carbon Dioxide > 40 mmol/L (22-30); Chloride 89 mmol/L (98-107); Estimated CRCL calculation 61 ml/min; Estimated Glomerular Filt Rate > 60; Glucose 353 mg/dL (65-110); Potassium 4.6 mmol/L (3.4-5.0); Sodium 133 mmol/L (137-145)
[2020-11-25 16:58] LABS: Glucose Point of Care 317 mg/dl (65-105)
[2020-11-25] MEDS: INSULIN GLARGINE (*BKC) 100 UNITS/ML 15 UNITS SUB-Q (17:19)
[2020-11-26] VITALS (17 sets, daily range): BP systolic 139–166; BP diastolic 80–98; PULSE 96–118; RESP 14–20; TEMP 36.2–36.7; O2SAT 91–99
[2020-11-26] MEDS: methylPREDNISolone SOD SUCC 125 MG VIAL 60 MG IV PUSH ×3 (06:27→20:54)
[2020-11-26 06:28] LABS: Glucose Point of Care 274 mg/dl (65-105)
[2020-11-26] MEDS: IPRATROPIUM BR 0.02% INH SOLN 0.5 MG/2.5 ML VIAL INHALATION ×3 (07:59→20:59)
[2020-11-26] MEDS: FLUTICASONE/UMECLIDIN/VILANTER 100-62.5-25 MCG ELLIPTA 1 PUFF INHALATION (07:59)
[2020-11-26 08:37] LABS: Glucose Point of Care 249 mg/dl (65-105)
[2020-11-26] MEDS: INSULIN ASPART (*BKC) 100 UNITS/ML SUB-Q ×3 (09:11→18:19)
[2020-11-26] MEDS: FAMOTIDINE 20 MG/2 ML VIAL IV PUSH ×2 (09:13→20:54)
[2020-11-26 11:33] LABS: Glucose Point of Care 329 mg/dl (65-105)
--- NOTE | 2020-11-26 13:54 | P.PNIM_ITS ---
Progress Note: A&P Assessment and Plan (1) Altered mental status: Code(s): R41.82 - Altered mental status, unspecified Status: Acute Assessment and Plan: BACK TO HER USUAL PATIENT IS AWAKE AND ALERT TODAY CT OF THE HEAD AND CT REVIEWED NEUROLOGY NOTE NOTED Altered Mental status - called to the room for change in mental status. The last time she was know to be well was last night per RN. She is on Eliquis. Clinically appears to have had a CVA. Symptoms improved. She did have incontinece but seizure felt less likely. She has allergy to ASA as an ulcer so will give her a one time ASA. CT brain normal. Check CTA brain. Possible MR brain tomorow. PT/OT/ST to evaluate and treat. Make NPO until swallowing can be evaluated. Neuro consult. 45 minutes spent on critcal care time Back to the room a 4th time - she is much better. Still perseverates on occasion but speech is fluid and no focal findings. TIA? Seizure? CTA head/neck showing no concerning findings. 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 Family updated. She was able to eat after this event and toelrated this well. Will stil have ST evaluate (2) COPD (chronic obstructive pulmonary disease): Code(s): J44.9 - Chronic obstructive pulmonary disease, unspecified Status: Acute Assessment and Plan: IMPROVED Still having some wheezes The patient with decreased breath sounds and tachypneic. She was started on neb treatments and Solu-Medrol. Suspect she has both COPD and CHF exacerbation. She also has uncontrolled HERLINDA. Continue with nebulizer treatments. Continue with her Trelegy. (3) CHF (congestive heart failure), NYHA class I: Code(s): I50.9 - Heart failure, unspecified Status: Chronic Assessment and Plan: PATIENT STILL WITH SIGNIFICANT CONTRACTION ALKALOSIS WILL GIVE 1 L OF NS TODAY LASIX HAS BEEN DISCONTINUED PATIENT HAS DEVELOPED CONTRACTION ALKALOSIS PLACE ON A FLUID RESTRICTION OF 1500 CONTINUE TO MONITOR INTAKE AND OUTPUT Patient presents with weight gain and increasing pedal edema. September 2020 Echo showing EF 65-70% with diastolic dysfunction and mild pulmonary hypertension; technically difficult study. BNP 2950. CXR was clear of acute process. Consider right sided component to her symptoms. Lasix started. Cr stable. Cardiology following and appreciate their input. (4) Pulmonary embolism: Code(s): I26.99 - Other pulmonary embolism without acute cor pulmonale Status: Acute Assessment and Plan: Patient has hx of PE and she has filter in place. Will hold the patient's E liquis for now (5) Insulin dependent type 2 diabetes mellitus: Code(s): E11.9 - Type 2 diabetes mellitus without complications; Z79.4 - shelter (current) use of insulin Status: Acute Assessment and Plan: The patient's blood glucose was reviewed on 11/23 Glucose mostly in the 200's. Lantus held since NPO now. Continue AccuCheks covering with sliding scale. Hypoglycemia protocol available as needed. (6) Paroxysmal atrial fibrillation: Code(s): I48.0 - Paroxysmal atrial fibrillation Status: Acute Assessment and Plan: Rate mostly well controlled. Hold Eliquis and metoprolol for now until her swallowing can be evaluated. Contineu tele. (7) Chronic GERD: Code(s): K21.9 - Gastro-esophageal reflux disease without esophagitis Status: Acute Assessment and Plan: Stable. Continue Pepcid (8) Hypertension: Code(s):
[2020-11-26] MEDS: SODIUM CHLORIDE 0.9% IV 1,000 ML 75 ML IV CONT (14:41)
[2020-11-26] MEDS: TOLNAFTATE 1% POWDER 45 GM BTL 1 APPLIC TOPICAL ×2 (17:03→20:54)
[2020-11-26 17:05] LABS: Glucose Point of Care 305 mg/dl (65-105)
--- NOTE | 2020-11-26 17:45 | PCRCNOTE ---
Window of time for administration has passed. See next scheduled administration.
[2020-11-26] MEDS: INSULIN GLARGINE (*BKC) 100 UNITS/ML 15 UNITS SUB-Q (18:19)
[2020-11-27] VITALS (20 sets, daily range): BP systolic 129–154; BP diastolic 76–100; PULSE 68–109; RESP 14–20; TEMP 36.6; O2SAT 93–100
[2020-11-27 04:10] LABS: Glucose Point of Care 316 mg/dl (65-105)
[2020-11-27] MEDS: methylPREDNISolone SOD SUCC 125 MG VIAL 60 MG IV PUSH (06:22)
[2020-11-27] MEDS: INSULIN ASPART (*BKC) 100 UNITS/ML SUB-Q ×3 (07:54→16:36)
[2020-11-27] MEDS: ACIDOPHILUS/BULGARICUS CHEWABLE TABLET 1 TABLET PO (08:00)
[2020-11-27] MEDS: predniSONE 20 MG TABLET 40 MG PO (08:00)
[2020-11-27] MEDS: TOLNAFTATE 1% POWDER 45 GM BTL 1 APPLIC TOPICAL ×2 (08:00→21:55)
[2020-11-27] MEDS: FERROUS SULFATE 324 MG TABLET PO ×2 (08:01→16:40)
[2020-11-27] MEDS: METOPROLOL TARTRATE 25 MG TABLET 75 MG PO ×2 (08:01→21:54)
[2020-11-27] MEDS: CYANOCOBALAMIN 1,000 MCG TABLET 1000 MCG PO (08:02)
[2020-11-27] MEDS: ANASTROZOLE (*CHEMO) 1 MG TABLET PO (08:02)
[2020-11-27] MEDS: PANTOPRAZOLE 40 MG TABLET PO ×2 (08:02→21:55)
[2020-11-27] MEDS: APIXABAN 5 MG TABLET PO ×2 (08:02→16:38)
[2020-11-27] MEDS: polyethylene glycoL 3350 17 GM POWD.PACK PO ×2 (08:03→16:39)
[2020-11-27] MEDS: ATORVASTATIN 40 MG TABLET PO (08:03)
[2020-11-27] MEDS: SENNOSIDES 8.6 MG TABLET PO ×2 (08:03→16:42)
[2020-11-27 08:06] LABS: Glucose Point of Care 256 mg/dl (65-105)
[2020-11-27] MEDS: IPRATROPIUM BR 0.02% INH SOLN 0.5 MG/2.5 ML VIAL INHALATION ×4 (08:11→20:06)
[2020-11-27] MEDS: FLUTICASONE/UMECLIDIN/VILANTER 100-62.5-25 MCG ELLIPTA 1 PUFF INHALATION (08:12)
[2020-11-27 08:39] LABS: Blood Urea Nitrogen 22 mg/dL (7-17); Calcium 8.5 mg/dL (8.4-10.2); Chloride 93 mmol/L (98-107); Estimated CRCL calculation 61 ml/min; Estimated Glomerular Filt Rate > 60; Glucose 254 mg/dL (65-110); Potassium 4.6 mmol/L (3.4-5.0); Sodium 135 mmol/L (137-145)
--- NOTE | 2020-11-27 10:11 | WPDNEUROPN ---
Progress Note: A&P Additional Plan will be continued on apixaban obviously not an ideal candidate for stenting of the posterior circulation Review of Systems Review of Systems: All systems reviewed & are unremarkable except as noted in HPI and below Exam Narrative: Exam Narrative: neurological exam remains unchanged Objective Data Vital Signs Vital Signs: Vital Signs - 24 hr 11/26/20 12:00 11/26/20 12:37 11/26/20 12:46 Temperature Pulse Rate 118 H 109 H 106 H Respiratory Rate 18 18 Blood Pressure Pulse Oximetry 11/26/20 14:59 11/26/20 16:00 11/26/20 20:00 Temperature 36.7 C Pulse Rate 110 H 107 H 98 Respiratory Rate 14 Blood Pressure 166/98 H Pulse Oximetry 99 92 11/26/20 20:59 11/26/20 21:03 11/26/20 21:10 Temperature Pulse Rate 98 98 102 H Respiratory Rate 18 18 Blood Pressure Pulse Oximetry 98 11/26/20 21:37 11/27/20 00:00 11/27/20 04:00 Temperature 36.4 C Pulse Rate 96 99 109 H Respiratory Rate 18 Blood Pressure 139/83 Pulse Oximetry 99 11/27/20 05:48 11/27/20 08:00 11/27/20 08:01 Temperature 36.6 C Pulse Rate 107 H 108 H 100 Respiratory Rate 18 Blood Pressure 150/84 H Pulse Oximetry 93 93 11/27/20 08:12 11/27/20 08:22 Temperature Pulse Rate 106 H 101 H Respiratory Rate 18 18 Blood Pressure Pulse Oximetry 97 97 Intake/Output Intake/Output: Intake & Output 11/24/20 11/25/20 11/26/20 11/27/20 23:59 23:59 23:59 23:59 Intake Total 1390 1500 1360 1510 Balance 1390 1500 1360 1510 Meds/Results Medications: Active Medications Generic Name Dose Route Start Last Admin Trade Name Freq PRN Reason Stop Dose Admin Acetaminophen 650 mg 11/22/20 19:58 Acetaminophen 325 Mg Tablet PO Q4H PRN Mild Pain (1-3) Or Fever Anastrozole 1 mg 11/23/20 09:00 11/27/20 08:02 Anastrozole (*Chemo) 1 Mg Tablet PO 12/23/20 09:01 1 mg DAILY EILEEN Administration Apixaban 5 mg 11/23/20 09:00 11/27/20 08:02 Apixaban 5 Mg Tablet PO 5 mg BID EILEEN Administration Atorvastatin Calcium 40 mg 11/23/20 09:00 11/27/20 08:03 Atorvastatin 40 Mg Tablet PO 40 mg DAILY EILEEN Administration Cyanocobalamin 1,000 mcg 11/23/20 09:00 11/27/20 08:02 Cyanocobalamin 1,000 Mcg Tablet PO 1,000 mcg DAILY EILEEN Administration Dextrose 12.5 gm 11/22/20 12:59 Dextrose 50% 25 Gm/50 Ml Syringe IV PUSH PRN PRN Hypoglycemia Protocol Docusate Sodium 100 mg 11/22/20 19:58 Docusate Sodium 100 Mg Capsule PO BID PRN Constipation Ferrous Sulfate 324 mg 11/23/20 09:00 11/27/20 08:01 Ferrous Sulfate 324 Mg Tablet PO 324 mg BID EILEEN Administration Fluticasone/Umeclidinium/Vilanterol 1 puff 11/23/20 09:00 11/27/20 08:12 Fluticasone/Umeclidin/Vilanter 100-62.5-25 Mcg Ellipta INHALATION 1 puff DAILY EILEEN Administration Glucagon 1 mg 11/22/20 12:59 Glucagon For Inj 1 Mg Vial IM PRN PRN Hypoglycemia Protocol Glucose 15 gm 11/22/20 12:59 Glucose Oral Gel 15 Gm Of Glucse In 37.5 Gm Tube PO PRN PRN Hypoglycemia Protocol Guaifenesin 600 mg 11/22/20 19:58 11/23/20 09:08 Guaifenesin 12 Hr 600 Mg Tabcr PO 600 mg Q12H PRN Administration Congestion Dextrose 1,000 mls @ 100 mls/hr 11/22/20 12:59 Dextrose 5% 1,000 Ml IVPB PRN PRN Hypoglycemia Protocol Insulin Aspart 2 - 5 units 11/25/20 12:39 11/27/20 07:54 Insulin Aspart (*Bkc) 100 Units/Ml SUB-Q 3 units TIDWM EILEEN Administration Protocol Insulin Glargine 15 units 11/23/20 18:00 11/26/20 18:19 Insulin Glargine (*Bkc) 100 Units/Ml SUB-Q 15 units QPM EILEEN Administration Ipratropium Trinity 0.5 mg 11/22/20 21:00 11/27/20 08:11 Ipratropium Br 0.02% Inh Soln 0.5 Mg/2.5 Ml Vial INHALATION 0.5 mg QIDRT EILEEN Administration Lactobacillus Acidophilus 1 tablet 11/23/20 09:00 11/27/20 08:00 Acidophilus/Bulgaricus Chewable T
[2020-11-27 11:59] LABS: Glucose Point of Care 258 mg/dl (65-105)
[2020-11-27 12:14] LABS: Anion Gap 3 mmol/L (8-16); Carbon Dioxide 39 mmol/L (22-30)
--- NOTE | 2020-11-27 14:56 | PM.IMPN ---
Progress Note: A&P Assessment and Plan (1) Altered mental status: Code(s): R41.82 - Altered mental status, unspecified Status: Acute Assessment and Plan: Altered Mental status - called to the room for change in mental status 11/23. CTA head/neck showing no concerning findings. MRI brain showing no acute findings but continued to show the right vetebral stenosis. ST evaluated the patient and appropriate diet ordered. Her mental status did improve later in the day on 11/23. This has happened before. TIS? Seizure? Neuro consulted. Follow. (2) COPD (chronic obstructive pulmonary disease): Code(s): J44.9 - Chronic obstructive pulmonary disease, unspecified Status: Acute Assessment and Plan: The patient with decreased breath sounds and tachypneic. SHe was started on neb treatments and Solu-Medrol. Suspect she has both COPD and CHF exacerbation. She also has uncontrolled HERLINDA. Continue with nebulizer treatments. Continue with her Trelegy. Change to oral Prednisone. (3) CHF (congestive heart failure), NYHA class I: Code(s): I50.9 - Heart failure, unspecified Status: Chronic Assessment and Plan: Patient presents with weight gain and increasing pedal edema. September 2020 Echo showing EF 65-70% with diastolic dysfunction and mild pulmonary hypertension; technically difficult study. BNP 2950. CXR was clear of acute process. Consider right sided component to her symptoms. Lasix on hold. Cr stable. Cardiology following and appreciate their input. Will resume Lasix and give Diamox once. (4) Pulmonary embolism: Code(s): I26.99 - Other pulmonary embolism without acute cor pulmonale Status: Acute Assessment and Plan: Patient has hx of PE and she has filter in place. Resume Eliquis. (5) Insulin dependent type 2 diabetes mellitus: Code(s): E11.9 - Type 2 diabetes mellitus without complications; Z79.4 - shelter (current) use of insulin Status: Acute Assessment and Plan: The patient's blood glucose was reviewed on 11/27 Glucose mostly in the 200's. Related to the steroids. Wean steroids which should help. Continue Lantus. Continue AccuCheks covering with sliding scale. Hypoglycemia protocol available as needed. (6) Paroxysmal atrial fibrillation: Code(s): I48.0 - Paroxysmal atrial fibrillation Status: Acute Assessment and Plan: Rate well controlled. Resume Eliquis and metoprolol. (7) Chronic GERD: Code(s): K21.9 - Gastro-esophageal reflux disease without esophagitis Status: Acute Assessment and Plan: Stable. Continue Pepcid (8) Hypertension: Code(s): I10 - Essential (primary) hypertension Status: Chronic Assessment and Plan: BP reviewed on 11/27. BP elevated at times. Continue with metoprolol. Subjective Date/time seen: 11/27/20 14:56 Interval history: 80yo female with COPD, CHF and cAFib here for weight gain and pedal edema. Resuming care. Chart reviewed. Patient was feeling SOB but better after a neb treatment. No CP or abd pain. Cough productive of yellow sputum. No n/v. Walking in room. Exam Narrative: Exam Narrative: AF 97.9 154/100 85 14 97% 2L Gen - NARD lying semi recumbent in bed Chest - right base inspiratory crackles that improves with deep inspiration. nml RR CV - irregularly irregular Abd - Soft, NT/ND, Positive BS Ext - mild indurated woody edema Neuro - AOx4. Psych - Nml mood and affect Skin - warm and dry Objective Data Vital Signs Vital Signs: Vital Signs - 24 hr 11/26/20 14:59 11/26/20 16:00 11/26/20 20:00 Temperature 98.1 F Pulse Rate 110 H 107 H 98 Respiratory Rate 14 Blood Pressure 166/98 H Pulse Oximetry 99 92 11/26/20 20:59 11/26/20 21:03 11/26/20 21:10 Temperature Pulse Rate 98 98 102 H Respiratory Rate 18 18 Blood Pressure Pulse Oximetry 98 11/26/20 21:37 11/27/20 00
--- NOTE | 2020-11-27 15:20 | PM.PNCARD ---
Progress Note: A&P Assessment and Plan (1) Acute exacerbation of CHF (congestive heart failure): Code(s): I50.9 - Heart failure, unspecified Status: Acute Assessment and Plan: Presented with abrupt weight gain, shortness of breath , lower extremity edema. Acute on chronic heart failure exacerbation. Echocardiogram in September of 2020 demonstrated normal left his ventricular systolic function with an ejection fraction of 60-65%. She does have some diastolic dysfunction. She has no significant valve pathology. Chest x-ray shows cardiomegaly. She was given IV Lasix in the emergency department. Unfortunately, lasix had to be discontinued to to contraction alkalosis at the end of last week. Will resume Lasix today. Follow up in close interval as an outpatient (2) Paroxysmal atrial fibrillation: Code(s): I48.0 - Paroxysmal atrial fibrillation Status: Acute Assessment and Plan: History of paroxysmal atrial fibrillation. She is in atrial fibrillation but is rate controlled on metoprolol. Systemically anticoagulated with apixaban. (3) Hypertension: Code(s): I10 - Essential (primary) hypertension Status: Chronic Assessment and Plan: Better controlled. We will continue to monitor. Continue metoprolol. She will have follow up as an outpatient at a short interval - may up titrate metoprolol as OP. Subjective Date/time seen: 11/27/20 15:20 Interval history: Cardiology follow up for CHF, A Fib Date of service 11/24/2020: Patient is more oriented today. She is complaining of shortness of breath with exertion. She is currently on 2 L oxygen per nasal cannula. She is not having any palpitations or chest pain. There was concern earlier in the day for stroke/TIA which has been ruled out. She passed her swallow eval. Date of service 11/27/2020: She's feeling well today. Breathing well and denies any shortness of breath. She does not have complaints of any kind at the time of exam. She is eager to be discharged. Review of Systems Review of Systems: ROS unobtainable: Yes unobtainable due to mental status Constitutional: Constitutional: Reports fatigue and Reports weakness Eyes: Eyes: Denies change in vision ENT: Reports Normal hearing present, Denies epistaxis and Denies neck pain Cardiovascular: Cardiovascular: Denies chest pain, Reports pedal edema, Reports leg edema, Denies lightheadedness, Denies palpitations, Reports dyspnea and Reports dyspnea on exertion Respiratory: Respiratory: Denies cough, Reports dyspnea and Reports dyspnea on exertion Gastrointestinal: Gastrointestinal: Denies abdominal pain Genitourinary: Genitourinary: Denies dysuria Musculoskeletal: Musculoskeletal: Denies back pain and Denies neck pain Neurologic: Reports Normal hearing present, Reports confusion and Reports weakness Psychiatric: Psychiatric: Reports confusion Endocrine: Endocrine: Reports fatigue and Denies palpitations Hematologic/Lymphatic: Hematologic/Lymphatic: Denies easy bleeding and Denies easy bruising Exam Narrative: Exam Narrative: Obese elderly woman sitting in the chair. Alert and oriented Const: General: comfortable, no acute distress and confusion Orientation/consciousness: confusion HENMT: Head: normal to inspection Eyes: General: appearance normal, both eyes and all related structures Pupils: Equal, round and reactive pupils present Neck: Neck: supple and no JVD Resp: Effort & Inspection: normal respiratory effort Auscultation: diminished lung sounds Cardio: Rate: regular rate Rhythm: abnormal rhythm irregularly irregular GI: GI Palp: Yes Soft to palpation Auscultation: normal bowel sounds Skin: General skin exam: normal color Wounds: wounds noted Neuro: General: confusion Cranial nerves: Yes Equal, round and reactive pupils present and Yes Normal hearing present Cognition (Neuro): abnormal cognition Extrem: General: abnorma
[2020-11-27] MEDS: acetaZOLAMIDE SODIUM FOR INJ 500 MG VIAL 250 MG IV PUSH (15:56)
[2020-11-27 16:31] LABS: Glucose Point of Care 299 mg/dl (65-105)
[2020-11-27] MEDS: FUROSEMIDE 20 MG TABLET PO (16:39)
[2020-11-27] MEDS: INSULIN GLARGINE (*BKC) 100 UNITS/ML 15 UNITS SUB-Q (17:13)
[2020-11-27 22:02] LABS: Glucose Point of Care 329 mg/dl (65-105)
[2020-11-28] VITALS (14 sets, daily range): BP systolic 125–134; BP diastolic 60–93; PULSE 64–106; RESP 16–20; TEMP 36.7; O2SAT 95–100
[2020-11-28] MEDS: LEVOTHYROXINE SODIUM 50 MCG TABLET PO (05:55)
[2020-11-28 06:08] LABS: Basophils Percent Auto 0.1 % (0.2-1.2); Eosinophils Absolute Auto 0.1 K/mm3 (0-0.3); Eosinophils Percent Auto 0.6 % (0-4.4); Hemoglobin 11.9 g/dL (12.0-15.0); Immature Granulocyte Absolute 0.04 K/mm3 (0.00-0.031); Immature Granulocyte Percent A 0.4 % (0-0.5); Lymphocytes Absolute Auto 1.57 K/mm3 (0.9-3.2); Lymphocytes Percent Auto 17.3 % (18.3-44.2); Mean Corpuscular HGB Conc 29.8 g/dl (32-36); Mean Corpuscular Hemoglobin 26.3 pg (26-34); Mean Corpuscular Volume 88.3 fl (80-100); Mean Platelet Volume 10.4 fl (7.4-10.4); Monocytes Percent Auto 11.3 % (2.6-8.5); Neutrophils Absolute Auto 6.4 K/mm3 (1.3-6.7); Neutrophils Percent Auto 70.3 % (45.5-73.1); Platelet Count Result 164 k/mm3 (150-375); Red Blood Count 4.53 M/mm3 (4.2-5.4); Red Cell Distribution Width 17.2 % (11.5-14.5); White Blood Count 9.1 K/mm3 (4.5-10.0)
[2020-11-28 06:23] LABS: Albumin Level 3.1 g/dL (3.5-5.1); Anion Gap 3 mmol/L (8-16); Blood Urea Nitrogen 26 mg/dL (7-17); Calcium 8.8 mg/dL (8.4-10.2); Carbon Dioxide 37 mmol/L (22-30); Chloride 95 mmol/L (98-107); Estimated CRCL calculation 54 ml/min; Estimated Glomerular Filt Rate > 60; Glucose 181 mg/dL (65-110); Magnesium 2.3 mg/dL (1.6-2.3); Phosphorus 3.1 mg/dL (2.5-4.5); Sodium 135 mmol/L (137-145)
[2020-11-28 07:08] LABS: Anisocytosis 1+ (NORMAL); Macrocytosis 2+ (NORMAL); Platelet Estimate Adequate (Adequate)
[2020-11-28] MEDS: IPRATROPIUM BR 0.02% INH SOLN 0.5 MG/2.5 ML VIAL INHALATION ×2 (07:56→12:10)
[2020-11-28 08:39] LABS: Glucose Point of Care 148 mg/dl (65-105)
[2020-11-28] MEDS: ACIDOPHILUS/BULGARICUS CHEWABLE TABLET 1 TABLET PO (09:22)
[2020-11-28] MEDS: METOPROLOL TARTRATE 25 MG TABLET 75 MG PO (09:22)
[2020-11-28] MEDS: TOLNAFTATE 1% POWDER 45 GM BTL 1 APPLIC TOPICAL (09:22)
[2020-11-28] MEDS: PANTOPRAZOLE 40 MG TABLET PO (09:23)
[2020-11-28] MEDS: ANASTROZOLE (*CHEMO) 1 MG TABLET PO (09:23)
[2020-11-28] MEDS: APIXABAN 5 MG TABLET PO (09:23)
[2020-11-28] MEDS: predniSONE 20 MG TABLET 40 MG PO (09:23)
[2020-11-28] MEDS: FUROSEMIDE 20 MG TABLET PO (09:23)
[2020-11-28] MEDS: CYANOCOBALAMIN 1,000 MCG TABLET 1000 MCG PO (09:23)
[2020-11-28] MEDS: FERROUS SULFATE 324 MG TABLET PO (09:23)
[2020-11-28] MEDS: ATORVASTATIN 40 MG TABLET PO (09:24)
[2020-11-28] MEDS: SENNOSIDES 8.6 MG TABLET PO (09:25)
--- NOTE | 2020-11-28 10:09 | PCPTNOTE ---
Attempted to see patient at 10:04, however patient refused PT. Patient states, Nope, I'm leaving soon. I don't want to do therapy. Will attempt to see patient at later time if patient no discharged in PM. Niya Gunn, [employer]
[2020-11-28 12:09] LABS: Glucose Point of Care 112 mg/dl (65-105)
--- NOTE | 2020-11-28 14:00 | PM.DS ---
DS: Admitting Diagnosis Admitting Diagnosis Leg edema with weight gain DS: Discharge Diagnosis Discharge Diagnosis (1) Altered mental status: Code(s): R41.82 - Altered mental status, unspecified Status: Acute Assessment and Plan: After admission, was called to the room for change in mental status 11/23. CTA head/neck showing no concerning findings. MRI brain showing no acute findings but continued to show the right vertebral stenosis. Speech evaluated the patient and appropriate diet ordered. Her mental status did improve later in the day on 11/23. This has happened before. Neuro consulted and appreciated their input. (2) COPD (chronic obstructive pulmonary disease): Code(s): J44.9 - Chronic obstructive pulmonary disease, unspecified Status: Acute Assessment and Plan: The patient with decreased breath sounds and tachypneic. SHe was started on neb treatments and Solu-Medrol. Suspect she has both COPD and CHF exacerbation. She also has uncontrolled HERLINDA. She did well with resolution of her symptoms. We continued with her Trelegy. (3) CHF (congestive heart failure), NYHA class I: Code(s): I50.9 - Heart failure, unspecified Status: Chronic Assessment and Plan: Patient presents with weight gain and increasing pedal edema. September 2020 Echo showing EF 65-70% with diastolic dysfunction and mild pulmonary hypertension; technically difficult study. BNP 2950. CXR was clear of acute process. Consider right sided component to her symptoms. Treated with Lasix but then held. Cardiology following and appreciate their input. We resumed Lasix and will follow with outpatient labs (4) Pulmonary embolism: Code(s): I26.99 - Other pulmonary embolism without acute cor pulmonale Status: Acute Assessment and Plan: Patient has hx of PE and she has filter in place. Continue Eliquis. 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 Glucose mostly in the 200's related to the steroids. Glucose improved with weaning the steroids. We continued her Lantus. We monitored with AccuCheks covering with sliding scale. Hypoglycemia protocol was available as needed. (6) Paroxysmal atrial fibrillation: Code(s): I48.0 - Paroxysmal atrial fibrillation Status: Acute Assessment and Plan: Heart rate remained well controlled. We continued Eliquis and metoprolol. (7) Chronic GERD: Code(s): K21.9 - Gastro-esophageal reflux disease without esophagitis Status: Acute Assessment and Plan: Stable. We continued Pepcid (8) Hypertension: Code(s): I10 - Essential (primary) hypertension Status: Chronic Assessment and Plan: BP monitored closely. BP elevated at times. We continued with metoprolol. DS: Summary Hospital Course Reason for hospitalization: 80yo female with CHF and COPD here for weight gain and shortness of breath. Please see H&P for details Hospital Course: Please see above for details of hospital course Status at Discharge Cognitive/behavioral status at discharge: stable Time Spent with Patient Time attestation: Total time spent providing and/or coordinating discharge services: 37 minutes Time spent: Greater than 30 minutes Specific discharge activities: left message with family Exam Narrative: Exam Narrative: AF 98.0 125/60 68 20 95% 2.5L Gen - NARD lying semi recumbent in bed Chest - clear anteriorly, nml RR CV - irregularly irregular; Tele showing AFib with controlled rate Abd - Soft, NT/ND, Positive BS Ext - mild indurated woody edema Lt>Rt LE Neuro - alert and appropriate Psych - Nml mood and affect Skin - warm and dry DS: Data Data Completed and Pending
== END 2020-11-28 15:55 | DRG 292 ==
LOC: ANHED 11:49 → ANH3MEDSUR 17:33
PROVIDERS: Emergency Medicine Emergency Medical Services; Internal Medicine; Nurse Practitioner; Admitting Provider Internal Medicine; Emergency Provider Emergency Medicine; PCP Family Medicine; Visit Provider Internal Medicine
DX: I11.0 Hypertensive heart disease with heart failure (principal); Z68.41 Body mass index [BMI] 40.0-44.9, adult; R47.01 Aphasia; G81.91 Hemiplegia, unspecified affecting right dominant side; I65.01 Occlusion and stenosis of right vertebral artery; R41.82 Altered mental status, unspecified; J44.9 Chronic obstructive pulmonary disease, unspecified; I50.33 Acute on chronic diastolic (congestive) heart failure; G47.33 Obstructive sleep apnea (adult) (pediatric); K21.9 Gastro-esophageal reflux disease without esophagitis; M19.90 Unspecified osteoarthritis, unspecified site; E11.9 Type 2 diabetes mellitus without complications; I48.0 Paroxysmal atrial fibrillation; D64.9 Anemia, unspecified; Z66 Do not resuscitate; E66.9 Obesity, unspecified; Z79.4 Long term (current) use of insulin; Z85.3 Personal history of malignant neoplasm of breast; Z86.73 Personal history of transient ischemic attack (TIA), and cerebral infarction without residual deficits; Z86.718 Personal history of other venous thrombosis and embolism; Z98.42 Cataract extraction status, left eye; Z98.41 Cataract extraction status, right eye; Z90.49 Acquired absence of other specified parts of digestive tract; Z90.710 Acquired absence of both cervix and uterus; Z87.891 Personal history of nicotine dependence; Z86.711 Personal history of pulmonary embolism; Z79.01 Long term (current) use of anticoagulants
CPT/HCPCS: 36415; 36600; 70450; 70496; 70498; 70551; 71045; 71046; 80048; 80053; 80069; 82140; 82375; 82805; 82948; 83050; 83605; 83615; 83690; 83735; 83880; 84443; 84484; 85025; 85027; 85610; 85730; 92610; 93005; 94640; 96374; 96375; 96376; 97110; 97116; 97161; 97165; 97530; 97535; 99285; A9270; G0378; J1120; J1815; J1940; J2930; J7030; J7512; Q9967

== ENCOUNTER 2021-05-09 22:01 | Inpatient (IN) | payer MEDICARE, SELFPAY ==
--- NOTE | ~2021-05-09 | XR_ITS ---
EXAMINATION: XR chest 1V portable EXAM DATE: 05/09/2021 22:45 INDICATION: Shortness of breath. TECHNIQUE: Portable AP frontal chest x-ray was obtained. Comparison is made to prior examination from 11/24/2020. FINDINGS: There is cardiomegaly and pulmonary vascular congestion. Possible small amount of basilar edema or ill-defined pneumonia. No confluent consolidation, pneumothorax or pleural effusion suspecte d. There are mild bony degenerative changes. IMPRESSION: Radiographically, congestion. Possible mild edema or pneumonia. Reviewed, dictated and finalized at location A. TECHNICIAN
[2021-05-09 22:05] VITALS: BP 208/66; PULSE 66; RESP 18; TEMP 36.8; O2SAT 93
--- NOTE | 2021-05-09 22:25 | ECG_ITS ---
Measurements Intervals [place] Rate: 63 P: 73 MI: 191 QRS: -13 QRSD: 100 T: 42 QT: 420 QTc: 432 Interpretive Statements SINUS RHYTHM DELAYED PRECORDIAL R/S TRANSITION BASELINE ARTIFACT- I, II, III, AVR, AVL, AVF, V1-V6 BORDERLINE ECG Electronically Signed On 05-10-2021 6:25:00 REFINING ENGINEER by Alfonso Ascencio D.O.
--- NOTE | 2021-05-09 22:36 | ED.SOB ---
HPI - SOB/Dyspnea General Chief Complaint: Shortness of Breath/Dyspnea Stated Complaint: AMS WITH HTN Time Seen by Provider: 05/09/21 22:23 Source: patient and EMS Mode of arrival: EMS Limitations: no limitations History of Present Illness HPI Narrative: Patient is an 81-year-old female brought in by EMS due to shortness of breath. According to EMS half-way staff told that patient was difficult to arouse and her oxygen saturation was in the low 90s on room air. Upon their arrival patient was alert awake and oriented x2 was complaining of shortness of breath, was given a neb treatment and is now feeling better. Patient denies any chest pain, abdominal pain, nausea, vomiting, diaphoresis, fever or chills. Related Data Home Medications Medication Instructions Recorded Confirmed anastrozole 1 mg tablet 1 mg PO DAILY 03/01/20 11/22/20 pantoprazole 40 mg PO BID 04/18/20 11/22/20 docusate sodium 100 mg PO BID PRN 09/03/20 11/22/20 ergocalciferol (vitamin D2) 1,250 mcg PO WEEKLY 09/03/20 11/22/20 [Vitamin D2] Trelegy Ellipta 1 inh INHALATION DAILY 10/22/20 11/22/20 cyanocobalamin (vitamin B-12) 1,000 mcg PO DAILY 10/22/20 11/22/20 ferrous sulfate 325 mg PO BID 10/22/20 11/22/20 furosemide [Lasix] 20 mg PO BID 10/22/20 11/22/20 insulin aspart U-100 [Novolog See Rx Instructions .ROUTE .COMPLEX 10/22/20 11/22/20 Flexpen U-100 Insulin] ipratropium bromide 0.5 mg INHALATION QID 10/22/20 11/22/20 metoprolol tartrate 75 mg PO BID 10/22/20 11/22/20 polyethylene glycol 3350 17 g PO BID 10/22/20 11/22/20 sennosides [senna] 8.6 mg PO BID 10/22/20 11/22/20 Lactobacillus acidophilus 10 mg PO DAILY 11/22/20 11/22/20 [Acidophilus] guaifenesin 600 mg PO Q12H PRN 11/22/20 11/22/20 levothyroxine 50 mcg PO DAILY 11/22/20 11/22/20 nystatin [Nyamyc] 1 applic TOPICAL BID 11/22/20 11/22/20 tramadol 50 mg PO PRN PRN 11/22/20 11/22/20 Allergies Allergy/AdvReac Type Severity Reaction Status Date / Time metformin Allergy Mild GI upset Verified 05/09/21 22:13 sitagliptin Allergy Mild rhinitis Verified 05/09/21 22:13 amlodipine Allergy Unknown Constipatio Verified 05/09/21 22:13 n aspirin Allergy Unknown Ulcers Verified 05/09/21 22:13 lisinopril Allergy Unknown Cough Verified 05/09/21 22:13 losartan Allergy Unknown Wheezing Verified 05/09/21 22:13 morphine AdvReac Confusion Verified 05/09/21 22:13 Review of Systems Review of Systems: All systems reviewed & are unremarkable except as noted in HPI and below Constitutional: Constitutional: Denies body ache(s), Denies chills, Denies excessive sweating, Denies fatigue, Denies fever(s), Denies headache(s), Denies lethargy, Denies malaise, Denies weakness and Denies weight loss Eyes: Eyes: Denies blurry vision, Denies change in vision and Denies loss of vision ENT: Denies dizziness, Denies ear discharge, Denies headache(s), Denies lip swelling, Denies epistaxis, Denies nasal congestion, Denies neck pain, Denies throat swelling and Denies tongue swelling Cardiovascular: Cardiovascular: Denies chest pain, Denies chest pain at rest, Denies chest pain with activity, Denies diaphoresis, Denies rapid heart rate, Denies edema, Denies irregular heart rhythm, Denies lightheadedness, Denies palpitations, Denies dyspnea and Denies dyspnea on exertion Respiratory: Respiratory: Denies chest congestion, Denies cough, Denies hemoptysis and Denies dyspnea on exertion Gastrointestinal: Gastrointestinal: Denies abdominal pain, Denies melena, Denies hematochezia, Denies diarrhea, Denies nausea, Denies vomiting and Denies hematemesis Musculoskeletal: Musculoskeletal: Denies abnormal gait, Denies deformity, Denies joint swelling, Denies limited range of motion, Denies neck pain and Denies numbness Neurologic: Denies Abnormal speech present, Denies abnormal gait, Denies confusion, Denies dizziness, Denies headache(s), Denies focal weakness, Denies loss of vision, Denies numbness, Denies Other visual disturbances, Denies Sensory
--- NOTE | 2021-05-09 22:41 | PC.NURSE ---
XY to room at this time.
[2021-05-09] MEDS: ALBUTEROL SULFATE NEB 2.5 MG/0.5 ML INH 5 MG INHALATION (22:46)
[2021-05-09] MEDS: IPRATROPIUM BR 0.02% INH SOLN 0.5 MG/2.5 ML VIAL INHALATION (22:47)
--- NOTE | 2021-05-09 22:49 | PC.NURSE ---
respiratory to room at this time.
[2021-05-09 22:56] LABS: Basophils Percent Auto 0.2 % (0.2-1.2); Eosinophils Percent Auto 0.3 % (0-4.4); Hematocrit 40.1 % (37.0-47.0); Hemoglobin 12.3 g/dL (12.0-15.0); Immature Granulocyte Absolute 0.02 K/mm3 (0.00-0.031); Immature Granulocyte Percent A 0.2 % (0-0.5); Lymphocytes Absolute Auto 0.94 K/mm3 (0.9-3.2); Lymphocytes Percent Auto 10.7 % (18.3-44.2); Mean Corpuscular HGB Conc 30.7 g/dl (32-36); Mean Corpuscular Hemoglobin 28.2 pg (26-34); Mean Platelet Volume 9.7 fl (7.4-10.4); Monocytes Absolute Auto 0.4 K/mm3 (0.1-0.6); Neutrophils Absolute Auto 7.3 K/mm3 (1.3-6.7); Neutrophils Percent Auto 83.6 % (45.5-73.1); Platelet Count Result 170 k/mm3 (150-375); Red Blood Count 4.36 M/mm3 (4.2-5.4); Red Cell Distribution Width 14.6 % (11.5-14.5); White Blood Count 8.8 K/mm3 (4.5-10.0)
[2021-05-09 22:58] VITALS: PULSE 61; RESP 20
[2021-05-09] MEDS: methylPREDNISolone SOD SUCC 125 MG VIAL IV PUSH (22:58)
[2021-05-09] MEDS: FUROSEMIDE INJ 40 MG/4 ML VIAL IV PUSH (23:00)
[2021-05-09 23:01] LABS: Alveolar/Arterial O2 Gradient 37.8 mmHg; Base Excess ABG 9.1 mEq/l (+/-2.0); Carboxyhemoglobin 0.6 % THb (0-2.0); Fractional Inspired Oxygen 28 %; HCO3 ABG 36.8 mEq/l (22.0-26.0); Methemoglobin ABG 0.3 %THb (0-1.5); Oxygen Content ABG 17.5 %vol (16.0-22.0); Oxygen Saturation ABG 95.7 % (95.0-100.0); Oxyhemoglobin 94.4 % THb (90.0-100.0); PO2 ABG 84.3 mmHg (80.0-100.0); PO2 FiO2 Ratio Arterial Blood 3.01 %; Reduced Hemoglobin 4.7 %THb (0-5.0); Total Hemoglobin 13.1 g/dL (12.0-18.0); pH ABG 7.366 (7.350-7.450)
[2021-05-09 23:03] LABS: Device NASAL CANNULA; Modified Allen's Test Pass; PCO2 ABG 65.7 mmHg (35.0-45.0); Site Drawn LEFT RADIAL
[2021-05-09 23:06] VITALS: BP 171/78; PULSE 62; RESP 20; O2SAT 100
[2021-05-09 23:06] LABS: INR 1.2; Prothrombin Time 15.3 Seconds (11.1-14.7)
[2021-05-09 23:07] VITALS: PULSE 61; RESP 20
[2021-05-09 23:07] LABS: Partial Thromboplastin Time 32.6 SECONDS (22.3-36.8)
[2021-05-09 23:19] VITALS: O2SAT 98
[2021-05-09 23:24] LABS: Lactic Acid Reflex 1.2 mmol/L (0.7-2.1)
[2021-05-09 23:32] LABS: Glucose Point of Care 219 mg/dl (65-105)
[2021-05-09 23:49] LABS: Alanine Aminotransferase 20 U/L (4-35); Albumin Level 4.1 g/dL (3.5-5.1); Alkaline Phosphatase 73 U/L (38-126); Anion Gap 6 mmol/L (8-16); Aspartate Amino Transferase 22 U/L (14-36); Bilirubin,Total 0.5 mg/dL (0.2-1.3); Blood Urea Nitrogen 20 mg/dL (7-17); Carbon Dioxide 37 mmol/L (22-30); Chloride 93 mmol/L (98-107); Estimated CRCL calculation 61 ml/min; Estimated Glomerular Filt Rate > 60; Glucose 229 mg/dL (65-110); NT Pro B Type Natriuretic Pept 2780 pg/mL (5-100); Sodium 136 mmol/L (137-145); Troponin I < 0.012 ng/mL (0.000-0.034)
[2021-05-10] VITALS (14 sets, daily range): BP systolic 147–178; BP diastolic 56–92; PULSE 58–106; RESP 16–26; TEMP 36.1–36.6; O2SAT 88–100; BMI 41.3
--- NOTE | 2021-05-10 00:53 | PM.IMHP ---
H&P: HPI History of Present Illness Date/Time: 05/10/21 00:53 Chief Complaint: Altered mental status Narrative: This is an 81-year-old female with past medical history significant for obstructive sleep apnea patient to with poor tolerance to CPAP and she states that she only worse at 3:00 a.m. a night, congestive heart failure, COPD, paroxysmal atrial fibrillation, duodenal ulcer, insulin dependent diabetes mellitus. Patient resides at a custodial she was brought to the emergency room after staff concerns due to the patient's altered mental status was difficult to arose. At the time of my visit patient denied any issues she said that she was brought to the emergency room because she was difficult to arose but she thinks that nothing is wrong with her. Patient denies any shortness of breath, cough, sputum production, nausea, vomiting, diarrhea, has good appetite, has put on weight , no chest pain, no leg swelling. Patient states that she can not tolerate the CPAP machine and she only worse if 3 hours at nighttime. In emergency room preliminary workup was significant for ABG with a pH of 7.3 a pCO2 of 68 PO2 of 86, brain atretic peptide was upwards 2000, a chest x-ray showed infiltrates. Patient has been admitted for further evaluation, management and treatment. Review of Systems Review of Systems: Patient states that she was brought to the emergency room because she was difficult to arouse in her own words Constitutional: Constitutional: Denies chills, Denies daytime sleepiness, Denies difficulty sleeping, Denies fever(s), Denies malaise and Denies weakness Comments: Cannot tolerate her CPAP much in she wears only 3 hours a night Eyes: Eyes: Denies change in vision ENT: Denies dysphagia, Denies nasal congestion, Denies nasal discharge, Denies nasal obstruction and Denies odynophagia Cardiovascular: Cardiovascular: Denies pedal edema, Denies leg edema, Denies lightheadedness, Denies radiating jaw, neck or arm pain, Denies palpitations, Denies dyspnea on exertion and Denies orthopnea Respiratory: Respiratory: Denies cough and Denies dyspnea Gastrointestinal: Gastrointestinal: Denies abdominal pain, Denies diarrhea, Denies nausea and Denies vomiting Genitourinary: Genitourinary: Denies dysuria Musculoskeletal: Musculoskeletal: Denies arthralgias and Denies joint swelling Integumentary/Breasts: Skin/Breast: Denies rash Neurologic: Denies focal weakness and Denies Sensory deficit (Neuro) Psychiatric: Psychiatric: Reports no additional psychiatric complaints and Reports as per HPI Endocrine: Endocrine: Denies cold intolerance, Denies heat intolerance, Denies polyphagia, Denies polydipsia and Denies polyuria Hematologic/Lymphatic: Hematologic/Lymphatic: Reports no additional hematologic/lymphatic complaints and Reports as per HPI Allergic/Immunologic: Allergic/Immunologic: Reports no additional allergic/immunologic complaints and Reports as per HPI [facility] Past Medical History Medical History (Updated 05/10/21 @ 03:44 by Kaushik Xavier MD) Anemia Cancer of left breast (~02/2018) 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 Also treated with aromatase inhibitors and Herceptin. Cerebrovascular accident (~01/2020) CHF (congestive heart failure), NYHA class I COPD (chronic obstructive pulmonary disease) Duodenal ulcer (~05/2018) GI bleed (~05/2018) Acute duodenal ulcers and gastritis on EGD per Dr. Shea. Hypertension Insulin dependent type 2 diabetes mellitus Left leg DVT (~2018) Status post IVC filter insertion. Obstructive sleep apnea Does not use CPAP but apparently wears oxygen at nighttime. Osteoarthritis Paroxysmal atrial fibrillation Shingles (~2001) Surgical History Surgical History History of bilateral catar
--- NOTE | 2021-05-10 02:06 | PC.NURSE ---
This patient, Alexus Ferrer, was admitted to Medical Room 258-01. Patient/family oriented to hospital policies and general routines including ID bracelet, bed and alarms, visiting hours, pain management, procedures, bathroom and other care routines, personal items, smoking policy, room service/diet, and visiting hours. Information on how to activate the Rapid Response Team has been discussed. Patient/Family are encouraged to report perceived risks to care and to ask questions if they do not understand what they are told or what they should do.
[2021-05-10] MEDS: methylPREDNISolone (MEDROL) DOSEPACK 4 MG TABLETS PO ×4 (05:47→21:47)
[2021-05-10] MEDS: LEVOTHYROXINE SODIUM 50 MCG TABLET PO (05:47)
[2021-05-10 07:44] LABS: Glucose Point of Care 234 mg/dl (65-105)
[2021-05-10] MEDS: POLYSACCHARIDE IRON COMPLEX 150 MG CAPSULE 300 MG PO (07:53)
[2021-05-10] MEDS: APIXABAN 5 MG TABLET PO ×2 (07:54→17:03)
[2021-05-10] MEDS: FUROSEMIDE INJ 40 MG/4 ML VIAL 20 MG IV PUSH ×2 (07:54→21:47)
[2021-05-10] MEDS: ACIDOPHILUS/BULGARICUS CHEWABLE TABLET 1 TABLET PO (07:54)
[2021-05-10] MEDS: CYANOCOBALAMIN 1,000 MCG TABLET 1000 MCG PO (07:54)
[2021-05-10] MEDS: METOPROLOL TARTRATE 25 MG TABLET 75 MG PO ×2 (07:54→21:47)
[2021-05-10] MEDS: ATORVASTATIN 40 MG TABLET PO (07:54)
[2021-05-10] MEDS: PANTOPRAZOLE 40 MG TABLET PO ×2 (07:55→17:05)
[2021-05-10] MEDS: INSULIN ASPART (*BKC) 100 UNITS/ML SUB-Q ×3 (08:01→17:04)
[2021-05-10] MEDS: ALBUTEROL SULFATE NEB 2.5 MG/0.5 ML INH INHALATION ×2 (09:21→15:46)
[2021-05-10] MEDS: IPRATROPIUM BR 0.02% INH SOLN 0.5 MG/2.5 ML VIAL INHALATION ×2 (09:21→15:46)
[2021-05-10] MEDS: FLUTICASONE/UMECLIDIN/VILANTER 100-62.5-25 MCG ELLIPTA 1 PUFF INHALATION (09:22)
[2021-05-10] MEDS: MECLIZINE HCL 12.5 MG TABLET PO (10:33)
[2021-05-10 11:33] LABS: Glucose Point of Care 238 mg/dl (65-105)
[2021-05-10] MEDS: EUCERIN CREAM 120 GM JAR 1 APPLIC TOPICAL ×2 (11:47→17:05)
--- NOTE | 2021-05-10 15:29 | PM.IMPN ---
Progress Note: A&P Assessment and Plan (1) Acute exacerbation of CHF (congestive heart failure): Qualifiers: Heart failure type: unspecified Qualified Code(s): I50.9 - Heart failure, unspecified Code(s): I50.9 - Heart failure, unspecified Status: Acute Assessment and Plan: Admit to regular medical floor Gentle diuresis Monitor intake and output Fluid restriction Supportive care Continue to monitor (2) COPD (chronic obstructive pulmonary disease): Qualifiers: COPD type: unspecified COPD Qualified Code(s): J44.9 - Chronic obstructive pulmonary disease, unspecified Code(s): J44.9 - Chronic obstructive pulmonary disease, unspecified Status: Acute Assessment and Plan: Continue home meds Not actively wheezing (3) CO2 narcosis: Code(s): R06.89 - Other abnormalities of breathing Status: Acute Assessment and Plan: Patient does not wear her CPAP at nighttime Encouraged the use of CPAP (4) Altered mental status: Code(s): R41.82 - Altered mental status, unspecified Status: Acute Assessment and Plan: Resolved (5) Obstructive sleep apnea: Code(s): G47.33 - Obstructive sleep apnea (adult) (pediatric) Status: Acute Assessment and Plan: CPAP at nighttime (6) Cancer of left breast: Onset Date: ~02/2018 Code(s): C50.912 - Malignant neoplasm of unspecified site of left female breast Status: Inactive Assessment and Plan: Status post bilateral mastectomy Subjective Date/time seen: 05/10/21 15:29 Interval history: I agree with current A/P. Will continue to monitor. Objective Data Vital Signs Vital Signs: Vital Signs - 24 hr 05/09/21 22:05 05/09/21 22:58 05/09/21 23:06 Temperature 36.8 C Pulse Rate 66 61 62 Respiratory Rate 18 20 20 Blood Pressure 208/66 H 171/78 H Pulse Oximetry 93 100 05/09/21 23:07 05/09/21 23:19 05/10/21 00:15 Temperature Pulse Rate 61 65 Respiratory Rate 20 Blood Pressure 178/69 H Pulse Oximetry 98 93 05/10/21 00:26 05/10/21 01:44 05/10/21 02:24 Temperature 36.2 C L Pulse Rate 60 71 Respiratory Rate 26 H 20 Blood Pressure 178/69 H 153/92 H Pulse Oximetry 88 L 92 92 05/10/21 03:25 05/10/21 07:54 05/10/21 08:00 Temperature 36.6 C Pulse Rate 59 L 80 Respiratory Rate 17 Blood Pressure 160/68 H Pulse Oximetry 98 98 05/10/21 09:20 05/10/21 09:28 05/10/21 14:25 Temperature 36.2 C L Pulse Rate 62 64 60 Respiratory Rate 18 18 16 Blood Pressure 147/61 H Pulse Oximetry 95 95 93 Intake/Output Intake/Output: Intake & Output 05/07/21 05/08/21 05/09/21 05/10/21 23:59 23:59 23:59 23:59 Intake Total 1080 Output Total 400 Balance -400 1080 Meds/Results Medications: Active Medications Generic Name Dose Route Start Last Admin Trade Name Freq PRN Reason Stop Dose Admin Acetaminophen 650 mg 05/10/21 03:22 Acetaminophen 325 Mg Tablet PO Q4H PRN Mild Pain (1-3) Or Fever Albuterol 2.5 mg 05/10/21 08:00 05/10/21 09:21 Albuterol Sulfate Neb 2.5 Mg/0.5 Ml Inh INHALATION 2.5 mg Q6HRT EILEEN Administration Apixaban 5 mg 05/10/21 09:00 05/10/21 07:54 Apixaban 5 Mg Tablet PO 5 mg BID EILEEN Administration Atorvastatin Calcium 40 mg 05/10/21 09:00 05/10/21 07:54 Atorvastatin 40 Mg Tablet PO 40 mg DAILY EILEEN Administration Cyanocobalamin 1,000 mcg 05/10/21 09:00 05/10/21 07:54 Cyanocobalamin 1,000 Mcg Tablet PO 1,000 mcg DAILY EILEEN Administration Dextrose 12.5 gm 05/10/21 03:46 Dextrose 50% 25 Gm/50 Ml Syringe IV PUSH PRN PRN Hypoglycemia Protocol Ergocalciferol 50,000 unit 05/16/21 09:00 Ergocalciferol 50,000 Unit Capsule PO We@0900 EILEEN Fluticasone/Umeclidinium/Vilanterol 1 puff 05/10/21 08:00 05/10/21 09:22 Fluticasone/Umeclidin/Vilanter 100-62.5-25 Mcg Ellipta INHALATION 1 puff DAILYRT EILEEN Ad
[2021-05-10 16:31] LABS: Glucose Point of Care 217 mg/dl (65-105)
[2021-05-10] MEDS: INSULIN GLARGINE (*BKC) 100 UNITS/ML 15 UNITS SUB-Q (17:06)
[2021-05-10 22:38] LABS: Glucose Point of Care 220 mg/dl (65-105)
[2021-05-11] VITALS (16 sets, daily range): BP systolic 110–154; BP diastolic 47–78; PULSE 54–90; RESP 16–22; TEMP 36.1–36.4; O2SAT 94–98
--- NOTE | 2021-05-11 00:03 | PCRCNOTE ---
Window of time for administration has passed. See next scheduled administration.
[2021-05-11] MEDS: IPRATROPIUM BR 0.02% INH SOLN 0.5 MG/2.5 ML VIAL INHALATION ×4 (01:08→19:52)
[2021-05-11] MEDS: ALBUTEROL SULFATE NEB 2.5 MG/0.5 ML INH INHALATION ×4 (01:08→19:52)
[2021-05-11] MEDS: methylPREDNISolone (MEDROL) DOSEPACK 4 MG TABLETS PO (06:07)
[2021-05-11] MEDS: LEVOTHYROXINE SODIUM 50 MCG TABLET PO (06:07)
[2021-05-11 07:59] LABS: Glucose Point of Care 138 mg/dl (65-105)
[2021-05-11 09:38] LABS: Hemoglobin 13.1 g/dL (12.0-15.0); Mean Corpuscular HGB Conc 31.2 g/dl (32-36); Mean Corpuscular Hemoglobin 28.1 pg (26-34); Mean Corpuscular Volume 90.1 fl (80-100); Mean Platelet Volume 10.1 fl (7.4-10.4); Platelet Count Result 202 k/mm3 (150-375); Red Blood Count 4.66 M/mm3 (4.2-5.4); Red Cell Distribution Width 14.6 % (11.5-14.5)
[2021-05-11 09:51] LABS: Anion Gap 9 mmol/L (8-16); Blood Urea Nitrogen 25 mg/dL (7-17); Carbon Dioxide 38 mmol/L (22-30); Chloride 89 mmol/L (98-107); Estimated CRCL calculation 52 ml/min; Estimated Glomerular Filt Rate > 60; Glucose 229 mg/dL (65-110); Potassium 4.2 mmol/L (3.4-5.0); Sodium 136 mmol/L (137-145)
[2021-05-11] MEDS: FLUTICASONE/UMECLIDIN/VILANTER 100-62.5-25 MCG ELLIPTA 1 PUFF INHALATION (09:55)
[2021-05-11 09:56] LABS: Magnesium 1.9 mg/dL (1.6-2.3)
[2021-05-11] MEDS: ATORVASTATIN 40 MG TABLET PO (09:58)
[2021-05-11] MEDS: PANTOPRAZOLE 40 MG TABLET PO ×2 (09:58→16:51)
[2021-05-11] MEDS: APIXABAN 5 MG TABLET PO ×2 (09:58→16:51)
[2021-05-11] MEDS: EUCERIN CREAM 120 GM JAR 1 APPLIC TOPICAL ×2 (09:58→16:52)
[2021-05-11] MEDS: ACIDOPHILUS/BULGARICUS CHEWABLE TABLET 1 TABLET PO (09:58)
[2021-05-11] MEDS: FUROSEMIDE INJ 40 MG/4 ML VIAL 20 MG IV PUSH ×2 (09:58→20:51)
[2021-05-11] MEDS: CYANOCOBALAMIN 1,000 MCG TABLET 1000 MCG PO (09:58)
[2021-05-11] MEDS: METOPROLOL TARTRATE 25 MG TABLET 75 MG PO ×2 (09:59→20:50)
[2021-05-11] MEDS: POLYSACCHARIDE IRON COMPLEX 150 MG CAPSULE 300 MG PO (10:05)
[2021-05-11 11:50] LABS: Glucose Point of Care 215 mg/dl (65-105)
[2021-05-11] MEDS: INSULIN ASPART (*BKC) 100 UNITS/ML SUB-Q ×2 (12:05→16:51)
--- NOTE | 2021-05-11 12:23 | PM.IMPN ---
Progress Note: A&P Assessment and Plan (1) Acute exacerbation of CHF (congestive heart failure): Qualifiers: Heart failure type: unspecified Qualified Code(s): I50.9 - Heart failure, unspecified Code(s): I50.9 - Heart failure, unspecified Status: Acute Assessment and Plan: Patient is an 81-year-old woman with history of HERLINDA, diastolic CHF, mild pulmonary hypertension, COPD, paroxysmal atrial fibrillation on Eliquis, insulin-dependent diabetic, who presented to the emergency room with worsening shortness of breath and difficulty arousing the patient from her living facility [facility]. Initial vitals showed elevated blood pressure 208/66, heart rate 66, afebrile, 93% on room air. Initial labs showed normal white blood cell count 8,800, elevated neutrophils, ABG showed normal pH is 7.36, elevated pCO2 at 65, elevated HC03 at 36 while on 2 L via nasal cannula. History shows chronic hypercapnia her last hospitalization. Normal creatinine 0.7, elevated BUN at 20, normal lactic acid, normal LFTs, normal troponin, BNP elevated at 2780. Chest x-ray showed pulmonary congestion, possible mild edema versus pneumonia. She was admitted into the hospital for acute diastolic CHF exacerbation, IV Lasix therapy and further monitoring. Will continue monitoring the patient with gentle diuresis, monitoring her renal function electrolytes, weights daily Her milling general superintendent is Dr. Oshea, I feel that this time he is not needing to be consulted and we will continue to treat conservatively Seems like symptoms are improving since the patient is now not requiring any oxygen and she has seen improvement of her leg swelling. Continue monitoring. (2) COPD (chronic obstructive pulmonary disease): Qualifiers: COPD type: unspecified COPD Qualified Code(s): J44.9 - Chronic obstructive pulmonary disease, unspecified Code(s): J44.9 - Chronic obstructive pulmonary disease, unspecified Status: Acute Assessment and Plan: No wheezing at this time. Will continue the home medications. Continue monitoring. (3) CO2 narcosis: Code(s): R06.89 - Other abnormalities of breathing Status: Acute Assessment and Plan: ABG on arrival showed elevated CO2. This could have been causing her difficulty to arouse prior to arrival. Will order for her home BiPAP/CPAP to be worn and see if she can tolerate it. Currently she is awake and alert without any signs of narcosis. Resolved. (4) Altered mental status: Code(s): R41.82 - Altered mental status, unspecified Status: Acute Assessment and Plan: Patient seems to be doing well at this time. Will check a urinalysis make sure she does not have a urinary tract infection due to her leukocytosis (5) Obstructive sleep apnea: Code(s): G47.33 - Obstructive sleep apnea (adult) (pediatric) Status: Acute Assessment and Plan: Will order CPAP/BiPAP at night (6) Cancer of left breast: Onset Date: ~02/2018 Code(s): C50.912 - Malignant neoplasm of unspecified site of left female breast Status: Inactive Assessment and Plan: Status post bilateral mastectomy (7) Diabetes type 2, controlled: Code(s): E11.9 - Type 2 diabetes mellitus without complications Status: Acute Assessment and Plan: Patient's glucose has been in the 200s. Will continue her long-acting insulin 15 units at night and sliding scale insulin she is on at the facility. Continue monitoring glucose a.c. HS. Hypoglycemic protocol in place.. Sliding scale insulin. (8) Hypertension: Code(s): I10 -
[2021-05-11 16:45] LABS: Glucose Point of Care 246 mg/dl (65-105)
[2021-05-11] MEDS: INSULIN GLARGINE (*BKC) 100 UNITS/ML 15 UNITS SUB-Q (16:55)
[2021-05-11 21:35] LABS: Glucose Point of Care 260 mg/dl (65-105)
[2021-05-11 22:02] LABS: Add Urine Microscopic? NO; Appearance Urine Clear (Clear); Bilirubin Urine Negative (Negative); Blood Urine Negative (Negative); Color Urine Yellow (Yellow); Glucose Urine UA Negative (Negative); Ketones Urine Negative (Negative); Leukocyte Esterase Ur Negative LEU/UL (Negative); Nitrate Urine Negative (Negative); Protein Urine Negative (Negative); Urobilinogen Urine Negative mg/dL (<2.0)
[2021-05-12] VITALS (9 sets, daily range): BP systolic 106–127; BP diastolic 52–60; PULSE 64–95; RESP 18–22; TEMP 36.1–36.5; O2SAT 92–99
[2021-05-12] MEDS: IPRATROPIUM BR 0.02% INH SOLN 0.5 MG/2.5 ML VIAL INHALATION (02:37)
[2021-05-12] MEDS: ALBUTEROL SULFATE NEB 2.5 MG/0.5 ML INH INHALATION (02:37)
--- NOTE | 2021-05-12 02:42 | PCRCNOTE ---
Pt states that she was previously diagnosed with HERLINDA and got a CPAP machine at home; however, she was never able to adjust to it and has been noncompliant. Additionally, she states that her machine was part of the recent recall on CPAP machines. Pt was willing to try one of our [employer] autoPAP machines. I set her up with an autoset machine with humidity and a nasal mask (with a 2L bleed-in). Pt stated that it felt OK. When I returned to the floor later in the night, the nurse reported that the pt was off the CPAP machine. I spoke with the pt and she stated that it was blowing my cheeks out. Pt was noticeably upset. I put the pt back on her 2L NC, which is what she normally wears at night.
[2021-05-12] MEDS: LEVOTHYROXINE SODIUM 50 MCG TABLET PO ×2 (05:37→05:39)
[2021-05-12 07:55] LABS: Glucose Point of Care 129 mg/dl (65-105)
[2021-05-12] MEDS: APIXABAN 5 MG TABLET PO ×2 (08:31→17:09)
[2021-05-12] MEDS: METOPROLOL TARTRATE 25 MG TABLET 75 MG PO ×2 (08:31→21:06)
[2021-05-12] MEDS: ACIDOPHILUS/BULGARICUS CHEWABLE TABLET 1 TABLET PO (08:31)
[2021-05-12] MEDS: PANTOPRAZOLE 40 MG TABLET PO ×2 (08:31→17:09)
[2021-05-12] MEDS: ATORVASTATIN 40 MG TABLET PO (08:31)
[2021-05-12] MEDS: CYANOCOBALAMIN 1,000 MCG TABLET 1000 MCG PO (08:31)
[2021-05-12] MEDS: POLYSACCHARIDE IRON COMPLEX 150 MG CAPSULE 300 MG PO (08:31)
[2021-05-12] MEDS: polyethylene glycoL 3350 17 GM POWD.PACK PO ×2 (08:31→17:09)
[2021-05-12] MEDS: FUROSEMIDE INJ 40 MG/4 ML VIAL 20 MG IV PUSH (08:32)
[2021-05-12] MEDS: EUCERIN CREAM 120 GM JAR 1 APPLIC TOPICAL ×2 (08:32→17:09)
[2021-05-12 11:21] LABS: Glucose Point of Care 204 mg/dl (65-105)
[2021-05-12 11:25] LABS: Basophils Absolute Auto 0.1 K/mm3 (0.0-0.1); Basophils Percent Auto 0.6 % (0.2-1.2); Eosinophils Absolute Auto 0.2 K/mm3 (0-0.3); Eosinophils Percent Auto 2.2 % (0-4.4); Hematocrit 39.7 % (37.0-47.0); Hemoglobin 12.3 g/dL (12.0-15.0); Immature Granulocyte Absolute 0.02 K/mm3 (0.00-0.031); Immature Granulocyte Percent A 0.3 % (0-0.5); Lymphocytes Absolute Auto 1.83 K/mm3 (0.9-3.2); Lymphocytes Percent Auto 23.6 % (18.3-44.2); Mean Corpuscular Hemoglobin 28.3 pg (26-34); Mean Corpuscular Volume 91.3 fl (80-100); Neutrophils Absolute Auto 4.7 K/mm3 (1.3-6.7); Neutrophils Percent Auto 60.3 % (45.5-73.1); Platelet Count Result 187 k/mm3 (150-375); Red Blood Count 4.35 M/mm3 (4.2-5.4); Red Cell Distribution Width 14.8 % (11.5-14.5); White Blood Count 7.7 K/mm3 (4.5-10.0)
[2021-05-12 11:35] LABS: Anion Gap 5 mmol/L (8-16); Blood Urea Nitrogen 28 mg/dL (7-17); Calcium 8.3 mg/dL (8.4-10.2); Carbon Dioxide 38 mmol/L (22-30); Chloride 91 mmol/L (98-107); Estimated CRCL calculation 42 ml/min; Estimated Glomerular Filt Rate 53; Glucose 218 mg/dL (65-110); Magnesium 1.9 mg/dL (1.6-2.3); Potassium 3.5 mmol/L (3.4-5.0); Sodium 134 mmol/L (137-145)
[2021-05-12] MEDS: INSULIN ASPART (*BKC) 100 UNITS/ML SUB-Q (11:39)
--- NOTE | 2021-05-12 15:19 | PM.IMPN ---
Progress Note: A&P Assessment and Plan (1) Acute exacerbation of CHF (congestive heart failure): Qualifiers: Heart failure type: unspecified Qualified Code(s): I50.9 - Heart failure, unspecified Code(s): I50.9 - Heart failure, unspecified Status: Acute Assessment and Plan: Patient is an 81-year-old woman with history of HERLINDA, diastolic CHF, mild pulmonary hypertension, COPD, paroxysmal atrial fibrillation on Eliquis, insulin-dependent diabetic, who presented to the emergency room with worsening shortness of breath and difficulty arousing the patient from her living facility [facility]. Initial vitals showed elevated blood pressure 208/66, heart rate 66, afebrile, 93% on room air. Initial labs showed normal white blood cell count 8,800, elevated neutrophils, ABG showed normal pH is 7.36, elevated pCO2 at 65, elevated HC03 at 36 while on 2 L via nasal cannula. History shows chronic hypercapnia her last hospitalization. Normal creatinine 0.7, elevated BUN at 20, normal lactic acid, normal LFTs, normal troponin, BNP elevated at 2780. Chest x-ray showed pulmonary congestion, possible mild edema versus pneumonia. She was admitted into the hospital for acute diastolic CHF exacerbation, IV Lasix therapy and further monitoring. Patient seems to be doing well off of oxygen at this time. Patient's creatinine and BUN are slightly increasing so I will discontinue IV Lasix at this time and restart her home Lasix at 20 mg tomorrow morning. Patient has resolution of her leg swelling. Patient oxygen at this time is 92-93% on room air. 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 Oshea, I feel that this time he is not needing to be consulted and we will continue to treat conservatively Continue monitoring. (2) COPD (chronic obstructive pulmonary disease): Qualifiers: COPD type: unspecified COPD Qualified Code(s): J44.9 - Chronic obstructive pulmonary disease, unspecified Code(s): J44.9 - Chronic obstructive pulmonary disease, unspecified Status: Acute Assessment and Plan: No wheezing at this time. Will continue the home medications. Continue monitoring. (3) CO2 narcosis: Code(s): R06.89 - Other abnormalities of breathing Status: Acute Assessment and Plan: ABG on arrival showed elevated CO2. This could have been causing her difficulty to arouse prior to arrival. Will order for her home BiPAP/CPAP to be worn and see if she can tolerate it. Currently she is awake and alert without any signs of narcosis. Resolved. (4) Altered mental status: Code(s): R41.82 - Altered mental status, unspecified Status: Acute Assessment and Plan: Patient seems to be doing well at this time. Urinalysis was completely normal with no signs of infection. AMS could have been due to some CO2 narcosis which is resolved now. (5) Obstructive sleep apnea: Code(s): G47.33 - Obstructive sleep apnea (adult) (pediatric) Status: Acute Assessment and Plan: Continue CPAP/BiPAP at night (6) Cancer of left breast: Onset Date: ~02/2018 Code(s): C50.912 - Malignant neoplasm of unspecified site of left female breast Status: Inactive Assessment and Plan: Status post bilateral mastectomy (7) Diabetes type 2, controlled: Code(s): E11.9 - Type 2 diabetes mellitus without complications Status: Acute Assessment and Plan: Patient's glucose has been in the 200s. Will continue her long-acting insulin 15 units at night and sliding scale insulin she is on at
[2021-05-12 16:14] LABS: Glucose Point of Care 174 mg/dl (65-105)
[2021-05-12] MEDS: LORATADINE 5 MG TABLET PO (17:09)
[2021-05-12] MEDS: INSULIN GLARGINE (*BKC) 100 UNITS/ML 15 UNITS SUB-Q (17:10)
--- NOTE | 2021-05-12 18:58 | PCRCNOTE ---
Window of time for administration has passed. See next scheduled administration.
[2021-05-12] MEDS: BENZOCAINE/MENTHOL (*BKC) 18 EA LOZENGE 1 LOZENGE PO (21:08)
[2021-05-12 22:51] LABS: Glucose Point of Care 179 mg/dl (65-105)
[2021-05-13 05:26] VITALS: BP 126/78; PULSE 77; RESP 16; TEMP 36.7; O2SAT 98
[2021-05-13 08:03] LABS: Glucose Point of Care 139 mg/dl (65-105)
[2021-05-13 08:17] LABS: Anion Gap 5 mmol/L (8-16); Blood Urea Nitrogen 24 mg/dL (7-17); Calcium 8.4 mg/dL (8.4-10.2); Carbon Dioxide 37 mmol/L (22-30); Chloride 93 mmol/L (98-107); Estimated CRCL calculation 51 ml/min; Estimated Glomerular Filt Rate > 60; Glucose 142 mg/dL (65-110); Potassium 3.7 mmol/L (3.4-5.0); Sodium 135 mmol/L (137-145)
[2021-05-13] MEDS: ATORVASTATIN 40 MG TABLET PO (08:23)
[2021-05-13] MEDS: ACIDOPHILUS/BULGARICUS CHEWABLE TABLET 1 TABLET PO (08:23)
[2021-05-13] MEDS: APIXABAN 5 MG TABLET PO (08:23)
[2021-05-13] MEDS: CYANOCOBALAMIN 1,000 MCG TABLET 1000 MCG PO (08:23)
[2021-05-13] MEDS: PANTOPRAZOLE 40 MG TABLET PO (08:23)
[2021-05-13 08:24] VITALS: PULSE 77
[2021-05-13] MEDS: LORATADINE 5 MG TABLET PO (08:24)
[2021-05-13] MEDS: METOPROLOL TARTRATE 25 MG TABLET 75 MG PO (08:24)
[2021-05-13] MEDS: POLYSACCHARIDE IRON COMPLEX 150 MG CAPSULE 300 MG PO (08:24)
[2021-05-13] MEDS: EUCERIN CREAM 120 GM JAR 1 APPLIC TOPICAL (08:24)
[2021-05-13] MEDS: polyethylene glycoL 3350 17 GM POWD.PACK PO (08:24)
[2021-05-13 09:00] VITALS: O2SAT 94
[2021-05-13] MEDS: FLUTICASONE/UMECLIDIN/VILANTER 100-62.5-25 MCG ELLIPTA 1 PUFF INHALATION (10:17)
--- NOTE | 2021-05-13 11:00 | PM.DS ---
DS: Admitting Diagnosis Discharge Date 05/13/21 Admitting Diagnosis SOB DS: Discharge Diagnosis Discharge Diagnosis (1) Acute exacerbation of CHF (congestive heart failure): Qualifiers: Heart failure type: unspecified Qualified Code(s): I50.9 - Heart failure, unspecified Code(s): I50.9 - Heart failure, unspecified Status: Acute Assessment and Plan: Patient is an 81-year-old woman with history of HERLINDA, diastolic CHF, mild pulmonary hypertension, COPD, paroxysmal atrial fibrillation on Eliquis, insulin-dependent diabetic, who presented to the emergency room with worsening shortness of breath and difficulty arousing the patient from her living facility [facility]. Initial vitals showed elevated blood pressure 208/66, heart rate 66, afebrile, 93% on room air. Initial labs showed normal white blood cell count 8,800, elevated neutrophils, ABG showed normal pH is 7.36, elevated pCO2 at 65, elevated HC03 at 36 while on 2 L via nasal cannula. History shows chronic hypercapnia her last hospitalization. Normal creatinine 0.7, elevated BUN at 20, normal lactic acid, normal LFTs, normal troponin, BNP elevated at 2780. Chest x-ray showed pulmonary congestion, possible mild edema versus pneumonia. She was admitted into the hospital for acute diastolic CHF exacerbation, IV Lasix therapy and further monitoring. Patient seems to be doing well off of oxygen at this time. Patient's creatinine and BUN are back to her baseline at this time. Since this is her 2nd hospitalization for CHF exacerbation last 6 months I will increase her Lasix to 40 mg daily and potassium supplementation of 10 mEq daily. Will check a BMP next week. Follow up with her supervisor [employer] Dr. Oshea in 1 week for further workup and evaluation. Patient oxygen at this time is 95% on room air. She is stable for discharge at this time to follow-up with her PCP. Return to ER warnings given. The patient understands and agrees the plan all questions answered. She will be discharged back to her assisted living facility. (2) COPD (chronic obstructive pulmonary disease): Qualifiers: COPD type: unspecified COPD Qualified Code(s): J44.9 - Chronic obstructive pulmonary disease, unspecified Code(s): J44.9 - Chronic obstructive pulmonary disease, unspecified Status: Acute Assessment and Plan: No wheezing at this time. Will continue the home medications. Continue monitoring. (3) CO2 narcosis: Code(s): R06.89 - Other abnormalities of breathing Status: Acute Assessment and Plan: ABG on arrival showed elevated CO2. This could have been causing her difficulty to arouse prior to arrival. She says she cannot tolerate the CPAP machine at night. (4) Altered mental status: Code(s): R41.82 - Altered mental status, unspecified Status: Acute Assessment and Plan: Patient seems to be doing well at this time. Urinalysis was completely normal with no signs of infection. AMS could have been due to some CO2 narcosis which is resolved now. (5) Obstructive sleep apnea: Code(s): G47.33 - Obstructive sleep apnea (adult) (pediatric) Status: Acute Assessment and Plan: Continue CPAP/BiPAP at night (6) Cancer of left breast: Onset Date: ~02/2018 Code(s): C50.912 - Malignant neoplasm of unspecified site of left female breast Status: Inactive Assessment and Plan: Status post bilateral mastectomy (7) Diabetes type 2, controlled: Code(s): E11.9 - Type 2 diabetes mellitus without complications Status: Acute Assessment and Plan: Patient's glucose has been in the 200s. Contin
[2021-05-13 11:30] LABS: Glucose Point of Care 242 mg/dl (65-105)
[2021-05-13] MEDS: FUROSEMIDE 20 MG TABLET PO (11:58)
[2021-05-13] MEDS: INSULIN ASPART (*BKC) 100 UNITS/ML SUB-Q (11:58)
[2021-05-13 13:01] LABS: EDCOVIDSCREEN Negative (Negative)
[2021-05-13 14:00] VITALS: BP 132/84; PULSE 90; RESP 18; TEMP 36.9; O2SAT 94
== END 2021-05-13 14:25 | DRG 291 ==
LOC: ANHED 23:59 → ANH2MED 05-10 00:33
PROVIDERS: Physician Assistant; Admitting Provider Internal Medicine; Emergency Provider Emergency Medicine; PCP Family Medicine; Visit Provider Family Medicine
DX: I11.0 Hypertensive heart disease with heart failure (principal); I50.33 Acute on chronic diastolic (congestive) heart failure; Z20.822 Contact with and (suspected) exposure to COVID-19; I27.20 Pulmonary hypertension, unspecified; I48.0 Paroxysmal atrial fibrillation; J44.9 Chronic obstructive pulmonary disease, unspecified; R06.89 Other abnormalities of breathing; R41.82 Altered mental status, unspecified; G47.33 Obstructive sleep apnea (adult) (pediatric); C50.912 Malignant neoplasm of unspecified site of left female breast; E11.9 Type 2 diabetes mellitus without complications; Z66 Do not resuscitate; Z79.01 Long term (current) use of anticoagulants; Z79.4 Long term (current) use of insulin; Z79.899 Other long term (current) drug therapy; Z87.891 Personal history of nicotine dependence
CPT/HCPCS: 36415; 36600; 71045; 80048; 80053; 81003; 82375; 82805; 82948; 83050; 83605; 83735; 83880; 84484; 85025; 85027; 85610; 85730; 87426; 93005; 94640; 96374; 96375; 96376; 97161; 97165; 99285; A9270; C9803; G0378; J1815; J1940; J2930